=== PATIENT | male | born 1945 | race Caucasian/White ===

== ENCOUNTER → 2016-11-09 | Outpatient (CLI) | payer MEDICARE, OTHER ==
--- NOTE | 2016-11-09 20:17 | US ---
EXAMINATION TYPE: US kidneys/renal and bladder DATE OF EXAM: 11/09/2016 4:27 PM COMPARISON: CLINICAL HISTORY: R10.9 Flank pain,N19 Renal failure. Left flank pain EXAM MEASUREMENTS: Right Kidney: 9.0 x 3.8 x 4.8 cm Left Kidney: 9.3 x 4.4 x 5.0 cm Right Kidney: wnl as visualized Left Kidney: appears lobular, suboptimal visualization due to overlying bowel gas. Bladder: distended, wnl as visualized Bilateral Jets seen There is no evidence for hydronephrosis at this point in time. No nephrolithiasis is seen. No hector s are identified. The urinary bladder is anechoic. Bilateral ureteral jets are seen. IMPRESSION: Negative exam. No evidence of renal mass or obstruction.
== END | disposition home or self-care (01) ==
LOC: RADUSWWP 16:09
PROVIDERS: ATTEND Family Medicine
DX: R10.9 Unspecified abdominal pain (principal)
CPT/HCPCS: 76770

== ENCOUNTER → 2017-06-10 | Outpatient (CLI) | payer MEDICARE, OTHER ==
--- NOTE | 2017-06-10 15:26 | US ---
EXAMINATION TYPE: US kidneys/renal and bladder DATE OF EXAM: 06/10/2017 COMPARISON: NONE CLINICAL HISTORY: N19 Renal Failure. Patient states no pain EXAM MEASUREMENTS: Right Kidney: 9.1 x 4.1 x 4.5 cm Left Kidney: 8.1 x 4.6 x 4.7 cm Right Kidney: wnl Left Kidney: prominent pyramids seen. Appears slightly lobular and small in size. Bladder: distended, wnl as visualized Bilateral Jets seen There is no evidence for hydronephrosis at this point in time. No nephrolithiasis is seen. No hector s are identified. The urinary bladder is anechoic. Bilateral ureteral jets are seen. IMPRESSION: The kidneys are diminutive with increased renal cortical echogenicity which may reflect medical renal disease.
== END | disposition home or self-care (01) ==
LOC: RADUSWWP 13:59
PROVIDERS: ATTEND Family Medicine
DX: N19 Unspecified kidney failure (principal)
CPT/HCPCS: 76770

== ENCOUNTER 2019-02-22 18:10 | Inpatient (IN) | payer MEDICARE, OTHER ==
[2019-02-22 19:46] LABS: Basophils # (A) 0.1 k/uL (0-0.2); Basophils % (A) 1 %; Eosinophils # (A) 0.1 k/uL (0-0.7); Eosinophils % (A) 2 %; HCT 37.4 % (39.0-53.0); HGB 12.1 gm/dL (13.0-17.5); Lymphocytes # (A) 1.2 k/uL (1.0-4.8); Lymphocytes % (A) 19 %; MCH 30.8 pg (25.0-35.0); MCHC 32.3 g/dL (31.0-37.0); MCV 95.3 fL (80.0-100.0); Mean Platelet Volume 7.9; Monocytes # (A) 0.3 k/uL (0-1.0); Monocytes % (A) 5 %; Neutrophils # (A) 4.5 k/uL (1.3-7.7); Neutrophils % (A) 72 %; Platelet Count 304 k/uL (150-450); RBC 3.93 m/uL (4.30-5.90); RDW 14.1 % (11.5-15.5); WBC 6.2 k/uL (3.8-10.6)
--- NOTE | 2019-02-22 20:10 | HP ---
HISTORY AND PHYSICAL CHIEF COMPLAINT: Abnormal weight loss, confusion, mental status changes and stool positive for occult blood. HISTORY OF PRESENT ILLNESS: This is the first known admission for this 73-year-old white male. He has been a patient of our practice for many years. [facility] However, the [facility] that he lives with said that the [facility] would not take him. He has not been seen since. He came in on the day of admission, weak, disoriented, ataxic, dehydrated and asthenic. He had lost 16 pounds since spring. He said that he had had some blood in the stool. Rectal exam demonstrated no other abnormality, but the stool was positive for blood. He has a psych history, and the gentleman who brought him to the office thinks that [facility], and this individual felt that the patient had deteriorated since then. He will let us know what medications Mr. Galdamez was on after he goes home. It was thought that the patient should be admitted for workup for his abnormal weight loss and GI blood loss in addition to undergoing a thorough psychiatric evaluation. The patient and the gentleman that he lives with state that he would like to be in an extended-care facility in [place]. REVIEW OF SYSTEMS: Not reliably obtained. Past medical history, family history, and personal and social histories are similarly not reliably obtained. He is NOT ALLERGIC TO ANY MEDICATION. Past history from his office notes indicate that he has a history of hypertension, hyperlipidemia, depression, GERD, chronic renal failure, previous CVA, hypothyroidism, arthritis and the possibility of a prior neoplasm, site unknown. Medication when he was seen by us before were: 1. Seroquel 300 mg at bedtime. 2. Slow-Mag 64 mg once a day. 3. Meclizine 12.5 twice a day p.r.n. 4. Simvastatin 10 mg at bedtime. 5. Levothyroxine 0.05 mg a day. 6. Ranitidine 150 mg twice a day. 7. Lamotrigine 150 mg twice a day. 8. Cilostazol 100 mg once a day. 9. Hydrochlorothiazide 25 mg once a day. 10.BuSpar extended-release 200 mg twice a day. He has never been a smoker and he does not drink. PHYSICAL EXAMINATION: Blood pressure is 118/72, pulse 74 and regular, respirations 12. He is afebrile. In general, he appeared to be asthenic, dehydrated and slightly pale. Head, ears, eyes, nose, mouth and throat were unremarkable. He had a heavy merritt. Neck veins were not distended. Thyroid was not enlarged. Carotids were normal. Chest was clear to auscultation. Cardiac exam demonstrated sinus rhythm with no murmurs or extra sounds. Abdomen was flat and soft. There were no masses or visceromegaly. There was no tenderness. Bowel sounds present. Extremities were unremarkable. Neurologically he had no cranial nerve or focal deficits, but he was slow to respond to questions, mumbled and seemed disoriented at times. The Romberg was negative. The remainder of his neurologic exam seemed to be normal other than generalized weakness. He is admitted to the hospital with the diagnoses: 1. Abnormal weight loss. 2. Mental status changes. 3. Gastrointestinal blood loss. 4. History of schizophrenia. 5. History of depression. 6. History of hypothyroidism. PLAN: 1. Bed rest. 2. IV fluids. 3. GI workup. 4. CT of the brain. 5. Psychiatric evaluation. 6. Placement. MMODL / IJN: [id number] /
[2019-02-23 00:31] LABS: ALT <6 U/L (21-72); AST 18 U/L (17-59); African American GFR (CKD) 73 (>60 ml/min/1.73 sqM); Albumin 3.3 g/dL (3.5-5.0); Alkaline Phosphatase 50 U/L (38-126); Anion Gap 8 mmol/L; Blood Urea Nitrogen 25 mg/dL (9-20); Calcium 9.1 mg/dL (8.4-10.2); Carbon Dioxide 30 mmol/L (22-30); Chloride 104 mmol/L (98-107); Glucose 176 mg/dL (74-99); Potassium 3.7 mmol/L (3.5-5.1); Sodium 142 mmol/L (137-145); Total Bilirubin 0.3 mg/dL (0.2-1.3); Total Protein 5.7 g/dL (6.3-8.2)
[2019-02-23 00:48] LABS: T4, Free (Free Thyroxine) 1.28 ng/dL (0.78-2.19)
[2019-02-23 04:35] LABS: Hemoglobin A1C 5.1 % (4.0-6.0)
--- NOTE | 2019-02-23 08:15 | CT ---
EXAMINATION TYPE: CT brain wo/w con DATE OF EXAM: 02/23/2019 COMPARISON: None Contrast:Isovue 300/100 ml. HISTORY: altered mental status CT DLP: 1853 mGycm Unenhanced followed by contrast enhanced CT of the brain was performed. The ventricles, basal cisterns and sulci overlying the cerebral convexities demonstrate moderate enla rgement. There is no evidence for intracranial hemorrhage or sulcal effacement. There is decreased attenuation about the periventricular white matter and deep white matter of both c erebral hemispheres, compatible with chronic small vessel ischemia. Differential diagnosis does inclu de demyelination. No mass effects are seen.No midline shift. Osseous calvarium is intact. If symptoms persist consider MRI. No enhancing lesions or pathologic enhancement identified. IMPRESSION: 1. Age related atrophic and chronic small vessel ischemic change without acute intracranial process s een at this time.
--- NOTE | 2019-02-23 08:20 | XR ---
EXAMINATION TYPE: XR chest 2V DATE OF EXAM: 02/23/2019 COMPARISON: NONE HISTORY: Abnormal weight loss TECHNIQUE: Frontal and lateral views of the chest are obtained. FINDINGS: There is no focal air space opacity, pleural effusion, or pneumothorax seen. The cardiac silhouette size is within normal limits. In moderate curvature of the right lower bony thorax may be congenital or related to prior trauma although no fracture deformities are seen. The osseous structur es are intact. Minimal degenerative changes of the thoracic spine. IMPRESSION: No acute cardiopulmonary process.
[2019-02-23 11:31] VITALS: BMI 20.2
[2019-02-23] MEDS ORDERED: PEG 3350-NA SULF,BICARB,CL/KCL 4,000 ML BOTTLE PO ONE (16:00)
--- NOTE | 2019-02-23 16:35 | P.CN ---
Psychiatric Consult - . Consult date: 02/23/19 Consult:: 02/23/19 16:26 IDENTIFYING DATA: This patient is a 73-year-old male who states he lives with his and has 2 children and is currently retired. HISTORY OF PRESENT ILLNESS: The patient was brought into the hospital with a co mplaint of disorientation, dehydration and blood in his stool. As per report patient has lost 16 pounds since the spring. There is also mention in the EMR the patient has had a recent change in his psychiatric medications from [facility] head was done and showed age-related chronic small vessel ischemia with no acute processes. The [facility] was consulted for weight loss mental status changes and schizophrenia? Patient was seen sitting upright beside his bed on the chair and was agreeable and polite and pleasant with the service writer. Patient had concrete thought process and delayed thoughts. Patient states that he has poor memory however offers no other complaints. He states that he did lose weight recently. Patient is a poor historian. He claims that his mood and anxiety are unchanged and he feels "good" denies any depressive symptoms at this time. He states that he is hard of hearing. Patient denies any changes in his appetite or sleep claims to be sleeping through the night.. At this time patient denies any suicidal or homical ideations, intent or plan. Patient denies any auditory, visual hallucinations and denies any paranoia or delusions. PAST PSYCHIATRIC HISTORY: Patient claims that he had 1 previous psychiatric admission by using the [facility] however does not recall the reason. Patient also states that he has been diagnosed with bipolar in the past and has been on mood stabilizing medications. Patient admitted to be on Seroquel, BuSpar and Lamictal and Wellbutrin in the past. Patient claims that he recently started following up at the [facility] in [place]. PAST MEDICAL HISTORY: Hypertension, hyperlipidemia, GERD, see Danay, CVA, thyroid disorder. ALLERGIES: No known drug allergies. CHEMICAL DEPENDENCY HISTORY: Patient denies any substance use or any alcohol. FAMILY PSYCHIATRIC/SUBSTANCE USE HISTORY: He claims his father had bipolar disorder. SOCIAL HISTORY: Patient states that he was born and raised in [facility] and was in the [employer] in the past in the 70s. Patient currently lives with his and has 2 children and is retired. MENTAL STATUS EXAM: General Appearance: Patient appears older than stated age, is frail and tall sitting in a chair no agitation noted to distress. Patient has fair hygiene and fair grooming. Behavior: Patient is calmly seated by his bed without any agitated behavior. Speech: Patient's speech is fluent and nonpressured. Mood/Affect: Patient reports their mood is "okay", affect is congruent Suicidality/Homicidality: Patient denies having any suicidal or homicidal ideation intent or plan. Perceptions: Patient denies any auditory or visual hallucinations. Though content/process: There is no evidence of any delusional thought content and thought process is linear and goal-directed. Memory and concentration: AOX3, grossly intact for the purposes of this session. Cannot spell "WORLD" backwards. Patient has fair fund of knowledge poor word recall cannot recall 3 of 3 words after 5 minutes. Intact repetition and naming of objects. Patient has fair judgment Judgment and insight: fair IMPRESSIONS: Bipolar disorder unspecified PLAN: -At this time patient patient does NOT meet criteria for inpatient psychiatric admission. -Delirium precautions recommended with patient including - avoiding use of narcotics and REVIVAL CLERK sedatives, limit anticholinergic medications when possible, frequent re-orientation, minimize use of restraints, open window shades during the day and close them at night -Would recommend the following medication changes/additions: Patient can continue on current dose of Lamictal for mood stabilization. We'll start Seroquel 25 mg daily at bedtime for mood stabilization/insomnia. -[facility] obtaining [facility] for [facility] medication list and diagnoses. -Psychiatry to follow up if needed. Thank you for the consult
[2019-02-23] MEDS: QUEtiapine 25 MG TAB PO SCH (21:00)
[2019-02-23] MEDS: lamoTRIgine 25 MG TAB PO SCH (21:00)
--- NOTE | 2019-02-23 22:27 | PN ---
PROGRESS NOTE CHIEF COMPLAINT: GI bleeding, mental status changes. HISTORY OF PRESENT ILLNESS: This gentleman seems improved today from the mental point of view. He is more communicative and makes eye contact. He has had no abdominal pain, no further bleeding and he is being assessed by Gastroenterology. PHYSICAL EXAM: HEENT is normal. Chest is clear. Cardiac exam is normal. Abdomen is soft, nontender without masses. IMPRESSION: 1. Mental status changes. 2. Gastrointestinal blood loss. 3. Schizophrenia. PLAN: Continue to monitor neurologically and psychiatrically. He will be seen by Psychiatry and he is being prepped for endoscopy. MMODL / IJN: [id number] /
--- NOTE | 2019-02-23 22:50 | CONS ---
CONSULTATION DATE OF DICTATION: 02/23/2019 REASON FOR CONSULTATION: Abnormal weight loss, Hemoccult-positive stools. HISTORY OF PRESENT ILLNESS: The patient is a 73-year-old pleasant white male who was admitted to the hospital by Dr. Tobias directly from his office because of ongoing progressive weight loss of 16 pounds in the last 6 months' duration. He was complaining of intermittent rectal bleeding on and off for the last few weeks. He denies any abdominal pain, reports no nausea, vomiting. Denies any fever, chills, night sweats. We are consulted for possible GI workup during this hospitalization. PAST MEDICAL HISTORY: Past medical history is significant for: 1. Anxiety. 2. Depression. 3. Hypothyroidism. 4. Hypertension. 5. Hypercholesteremia. MEDICATIONS AT HOME: 1. Lamictal. 2. Wellbutrin. 3. Simvastatin. 4. Ranitidine. 5. Multivitamin. 6. Antivert. 7. Magnesium chloride. 8. Synthroid. 9. HydroDIURIL. 10.Neurontin. 11.Pletal. 12.Tylenol. ALLERGIES: NONE. SOCIAL HISTORY: Chronic smoker. No alcohol use. FAMILY HISTORY: Unremarkable. REVIEW OF SYSTEMS: CARDIOPULMONARY: He denies any chest pain or shortness of breath. GENITOURINARY: No dysuria or hematuria. MUSCULOSKELETAL: Chronic back pain. NEUROLOGY: Unremarkable. PSYCHIATRY: Anxiety, depression. ENT/VISION: Unremarkable. CONSTITUTIONAL: Weight loss of 16 pounds. No fever, chills, night sweats. HEMATOLOGY: Unremarkable. ENDOCRINE: Unremarkable. PHYSICAL EXAMINATION: He appears comfortable. No apparent distress. VITAL SIGNS: Stable. Blood pressure 159/74, pulse rate 54, temperature 97.9. HEENT examination unremarkable. Conjunctivae pink. Sclerae anicteric. Oral cavity no lesions. NECK: No JVD or lymph node enlargement. CHEST: Clear to auscultation. HEART: Regular rate and rhythm. ABDOMEN: Soft. Bowel sounds are positive. No organomegaly. EXTREMITIES: No pedal edema. SKIN: No rashes. NEUROLOGIC: Alert and oriented x3. No focal deficits. LABS: Labs done at the time of admission to the hospital showed WBC 6.2, hemoglobin 12.1, platelets normal. Basic metabolic panel is within normal limits. AST, ALT, T- bilirubin and alkaline phosphatase are normal. IMPRESSION: 1. This is a patient who presented to the hospital with progressive weakness, intermittent rectal bleeding, weight loss of 16 pounds in the last 6 months' duration. He was noted to have mild anemia with a hemoglobin of 12.1, and stool Hemoccult was positive. 2. History of anxiety, depression, on multiple psychiatric medications. RECOMMENDATIONS: Will proceed with EGD and colonoscopy as part of workup of progressive weight loss as well as Hemoccult-positive stool. I discussed with the patient risks, benefits and complications, and he is agreeable to it. He is scheduled for the procedures tomorrow. Thank you for this consultation. MMODL / IJN: [id number] /
[2019-02-24] MEDS: lamoTRIgine 25 MG TAB PO SCH ×2 (09:58→21:20)
[2019-02-24] MEDS ORDERED: IV FLUID CONTINUATION 900 ML IV ONE (14:44)
[2019-02-24] MEDS ORDERED: PROPOFOL 10 MG/ML 20 ML VIAL IV ONE (14:51)
[2019-02-24] MEDS ORDERED: LIDOCAINE 1% INJ 10MG/ML (20 ML MDV) ONE (14:51)
--- NOTE | 2019-02-24 15:06 | PN ---
PROGRESS NOTE DATE OF SERVICE: 02/24/2019. CHIEF COMPLAINT: Mental status changes, abnormal weight loss, GI blood loss and schizophrenia. HISTORY OF PRESENT ILLNESS: This gentleman seems to be improving psychiatrically in terms of his mentation. He is going for upper and lower GI endoscopies. When he came into the hospital, his caregiver indicated that the patient wanted to be in the [facility] in [place]. Now, he acts surprised when he is asked about it. Supervisor [employer] is working on his discharge plan. PHYSICAL EXAMINATION: Chest is clear. Cardiac exam is normal. The abdomen is soft, without masses. Extremities are normal. IMPRESSION: 1. Mental status changes. 2. Schizophrenia. 3. Abnormal weight loss. 4. Gastrointestinal blood loss. PLAN: Await endoscopies and discharge planning. MMMICHELLEL / IJN: [id number] /
--- NOTE | 2019-02-24 15:32 | P.PCN ---
Date of Procedure: 02/24/19 Procedure(s) Performed: Brief history: Patient is a pleasant 73-year-old white male admitted to the hospital with progressive weight loss of 15 pounds in the last 6 months duration. His been complaining of intermittent rectal bleeding. He is hence scheduled for an elective upper endoscopy as well as colonoscopy as a part of evaluation of weight loss. Procedure performed: Esophagogastroduodenoscopy with biopsy Colonoscopy Preoperative diagnosis: Progressive weight loss and intermittent rectal bleeding. Anesthesia: MAC Procedure: After informed consent was obtained from the patient was brought into the endoscopy unit and IV sedation was administered by anesthesia under continuous monitoring. Initially upper endoscopy was done. The Olympus GF 160 video endoscope was inserted inserted into the mouth and esophagus intubated without any difficulty and was gradually advanced into the stomach and duodenum and carefully examined. The bulb and second part of the duodenum appeared normal. Biopsies were done from the duodenum to rule out celiac disease. The scope was then withdrawn into the stomach adequately insufflated with air and upon careful examination the antrum had gastritis and biopsies were done from this area. The body, cardia and fundus appeared normal. The scope was then withdrawn into the esophagus. The GE junction was located at 40 cm to the incisors. It appeared regular with no erythema erosions or ulcerations. Rest of the esophagus appeared normal. Patient tolerated the procedure well. At this time the patient continued to remain sedation. Initial digital rectal examination was normal. Olympus CF 160 video colonoscope was then inserted into the rectum and gradually advanced to the cecum without any difficulty. Careful examination was performed as the scope was gradually being withdrawn. The prep w poor and several areas of the colon. Thorough irrigation was performed. The visualized portions of the cecum, ascending colon, transverse colon, descending colon, sigmoid colon and rectum appeared normal. Retroflexion was performed in the rectum and [place] internal hemorrhoids ere noted. Patient tolerated the procedure well. Impression: 1. Upper endoscopy revealed mild antral gastritis and duodenitis. 2. Colonoscopy revealed poor prep but no evidence of colitis or colorectal neoplasia. Small internal hemorrhoids were seen. Recommendations: Findings of this examination were discussed with the patient, at this time will await the biopsy results. Diet will be advanced as tolerated. ]
--- NOTE | 2019-02-24 17:56 | CDI ---
Documentation Clarification Form Date: 02/24/2019 5:33:51 PM From: Vivi Deluna RN, CCDS Admit Date: 02/22/2019 6:39:00 PM Patient Name: Garcia Galdamez Visit Number: [id number] Discharge Date: ATTENTION: The Clinical Documentation Specialists (CDI) and [facility] Coding Staff appreciate your assistance in clarifying documentation. Please respond to the clarification below the line at the bottom and electronically sign. The CDI & [facility] Coding staff will review the response and follow-up if needed. Please note: Queries are made part of the Legal Health Record. If you have any questions, please contact the author of this message via ITS. Dr. Bal Tobias Unintended weight loss in documented in the nutritional assessment. History/Risk Factors: Hypothyroid, Schizophrenia, Depression, Chronic renal failure Clinical Indicators: 73-year-old male with confusion, and stools positive for occult blood also notes abnormal weight loss 16 pounds reports since Spring per EMR. He is weak, disoriented, ataxic dehydrated and asthenic. Patient physical appearance is frail and underweight. 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 Mild Protein-Calorie Malnutrition ?Moderate Protein-Calorie Malnutrition Other condition, please specify ?Unable to determine (Last Revision: December 2018) MTDD
--- NOTE | 2019-02-24 18:13 | CDI ---
Documentation Clarification Form Date: 02/24/2019 6:03:33 PM From: Vivi Deluna RN, CCDS Admit Date: 02/22/2019 6:39:00 PM Patient Name: Garcia Galdamez Visit Number: [id number] Discharge Date: ATTENTION: The Clinical Documentation Specialists (CDI) and [facility] Coding Staff appreciate your assistance in clarifying documentation. Please respond to the clarification below the line at the bottom and electronically sign. The CDI & [facility] Coding staff will review the response and follow-up if needed. Please note: Queries are made part of the Legal Health Record. If you have any questions, please contact the author of this message via ITS. Dr. Bal Tobias Patient was admitted with abnormal weight loss, confusion, stool positive for occult blood. History/Risk Factors: Chronic renal failure, Hypothyroid Schizophrenia, Clinical Indicators: 73-year-old male on of admission, weak, disoriented, ataxic, dehydrated and asthenic. He had lost 16 pounds in 6 months. Current BUN 25 CR 1.16, GFR 64 Treatment: Monitor I/O IV fluids per orders In order to capture the severity of condition, please clarify if the condition signifies: CKD Stage 1 (GFR > 90) CKD Stage 2 (GFR 60-89) CKD Stage 3 (GFR 30-59) Other, please specify Unable to determine (Last Revision: September 2017) MTDD
--- NOTE | 2019-02-24 18:33 | CDI ---
Documentation Clarification Form Date: 02/24/2019 6:13:23 PM From: Vivi Deluna RN, CCDS Admit Date: 02/22/2019 6:39:00 PM Patient Name: Garcia Galdamez Visit Number: [id number] Discharge Date: ATTENTION: The Clinical Documentation Specialists (CDI) and [facility] Coding Staff appreciate your assistance in clarifying documentation. Please respond to the clarification below the line at the bottom and electronically sign. The CDI & [facility] Coding staff will review the response and follow-up if needed. Please note: Queries are made part of the Legal Health Record. If you have any questions, please contact the author of this message via ITS. Dr. Jaylan Cool Altered Mental Status was documented in the H/P ongoing progress notes and in your consultation and further clarification is needed. History/Risk Factors: Hypothyroid, Schizophrenia, Bipolar disorder, Chronic renal failure Clinical Indicators: 73-year-old male brought to hospital with complaint of disorientation, dehydration and blood in his stool. He also report lost 16 pounds since spring. It was mention in the EMR the patient has had a recent [facility] Memory and concentration: /OX3, grossly intact for this session, Patient has poor word recall cannot recall 3 of 3 words after [address] Brain: Age-related chronic small vessel ischemia with no acute processes. Labs: WBC 6.2, HGB 12.1 HCT 37.4 Vital signs on admission: 159/74 54 22 97.8 99 % RA Treatment: Neurological assessment per protocol Lamictal 25 mg BID (titrate) mood stabilization Seroquel 25 mg daily at bedtime In your professional opinion, please clarify the etiology of the Altered Mental Status, if known. Delirium (specify cause): Encephalopathy (specify Type: Metabolic, Toxic, and Underlying Medical Illness)_ Other condition (please specify) Unable to determine (Last Revision: September 2017) clarification of diagnosis: Altered mental status cause unable to determine MTDD
[2019-02-24] MEDS: QUEtiapine 25 MG TAB PO SCH (21:20)
[2019-02-25] MEDS: lamoTRIgine 25 MG TAB PO SCH ×2 (07:27→20:49)
--- NOTE | 2019-02-25 14:01 | PN ---
PROGRESS NOTE CHIEF COMPLAINT: Mental status changes, abnormal weight loss and GI bleeding. HISTORY OF PRESENT ILLNESS: This gentleman is currently stable. He is awake and alert and communicative. PHYSICAL EXAM: Color remains fairly good. Chest is clear. Cardiac exam is normal. Abdomen is soft, nontender. IMPRESSION: 1. Mental status changes. 2. Abnormal weight loss. 3. GI bleeding. 4. Schizophrenia. PLAN: 1. Await endoscopies. 2. Discussed discharge planning. He would like to return home, but is willing to go to [facility] in [place] if this is the where he can get the best take care and attention. MMODL / IJN: [id number] /
--- NOTE | 2019-02-25 14:13 | MISC ---
MISCELLANOUS REPORT Unable to determine. GFR 64 B stage II CKD. MMODL / IJN: [id number] /
[2019-02-25] MEDS: QUEtiapine 25 MG TAB PO SCH (20:49)
[2019-02-26] MEDS: lamoTRIgine 25 MG TAB PO SCH ×2 (06:47→20:18)
[2019-02-26] MEDS: QUEtiapine 25 MG TAB PO SCH (20:18)
[2019-02-26 23:35] VITALS: RESP 20
[2019-02-27 05:13] VITALS: BP 129/71; PULSE 88; TEMP 97.8
[2019-02-27] MEDS: lamoTRIgine 25 MG TAB PO SCH (07:12)
--- NOTE | 2019-02-27 13:42 | CDI ---
Documentation Clarification Form Date: 02/27/2019 1:32:09 PM From: Vivi Deluna RN, CCDS Admit Date: 02/22/2019 6:39:00 PM Patient Name: Garcia Galdamez Visit Number: [id number] Discharge Date: ATTENTION: The Clinical Documentation Specialists (CDI) and [facility] Coding Staff appreciate your assistance in clarifying documentation. Please respond to the clarification below the line at the bottom and electronically sign. The CDI & [facility] Coding staff will review the response and follow-up if needed. Please note: Queries are made part of the Legal Health Record. If you have any questions, please contact the author of this message via ITS. Dr. Katia Urban A diagnosis of anemia lacks specificity to accurately reflect your patients severity of condition and clarification is needed. History/Risk Factors: Clinical indicators: 73-year-old male preset with progressive weakness, intermittent rectal bleeding, weight loss of 16 pound in the last 6 months. In your progress note on 02/24/19 mild anemia with a hemoglobin of 12.1 , and stool hemoccult was positive is noted. Hemoglobin: 12.1 Hematocrit: 37.4 Treatment: GI consult EGD/Colonscopy In order to capture the severity of condition, please clarify the type of anemia and etiology if known: Acute blood loss anemia Acute on chronic blood loss anemia Chronic blood loss anemia Iron deficiency anemia Nutritional anemia Anemia of chronic kidney disease (CKD stage II) Unable to determine Other, please specify (Last Revision: March 2017) Unable to determine the cause of anemia Katia Urban MTDD
--- NOTE | 2019-02-27 15:06 | DS ---
DISCHARGE SUMMARY CHIEF COMPLAINT: Mental status changes, GI bleed. HISTORY OF PRESENT ILLNESS AND PHYSICAL EXAM: Details of this man's history and physical can be found in the initial workup. LABORATORY STUDIES: While he was in a hospital, he had laboratory studies, details of which can be found in the laboratory section of his chart. COURSE IN HOSPITAL: After admission, placed on bedrest and started on intravenous fluids and frequent monitoring of his vital signs and GI bleeding. He was seen by GI and taken for upper and lower GI endoscopy, which demonstrated internal hemorrhoids. He was seen by Psychiatry and his psych medicines were unchanged. While in the hospital, he developed complete alertness and orientation and behavior was quite normal. The discharge plan was then put into place and the question was whether or not he would go back home where it was felt he was not functioning well by his family or to a halfway. Arrangements were made for him to go to [facility] and he will be transferred there on 02/27. FINAL DIAGNOSES: 1. Mental status changes. 2. Lethargy. 3. History of schizophrenia. 4. GI blood loss. 5. Internal hemorrhoids. OPERATIONS: Upper and lower GI endoscopies. CONSULTATIONS: Gastroenterology and Psychiatry. He is improved. MMODL / IJN: [id number] /
--- NOTE | 2019-02-27 17:03 | PN ---
PROGRESS NOTE CHIEF COMPLAINT: Mental status changes and GI bleed. HISTORY OF PRESENT ILLNESS: This gentleman is doing well. Emotionally and psychiatrically he seems perfectly normal now. He is very communicative and alert. His endoscopies only demonstrated internal hemorrhoids. PHYSICAL EXAMINATION: His color is good. Chest is clear. Cardiac exam is normal. Abdomen is soft, nontender. IMPRESSION: 1. Mental status changes. 2. Gastrointestinal blood loss. 3. Internal hemorrhoids. 4. Schizophrenia. PLAN: We are waiting on discharge. It is not clear if he will either be going home or to [facility], but this should be resolved early in the week. MMODL / IJN: [id number] /
== END 2019-02-27 17:01 | DRG 379 ==
LOC: 4MS4W 18:39
PROVIDERS: ADMIT Family Medicine; ATTEND Family Medicine
PROC: 0DB98ZX Excision of Duodenum, Via Natural or Artificial Opening Endoscopic, Diagnostic (ICD-10-PCS; principal; 2019-02-24 14:40)
PROC: 0DB78ZX Excision of Stomach, Pylorus, Via Natural or Artificial Opening Endoscopic, Diagnostic (ICD-10-PCS; principal; 2019-02-24 14:40)
PROC: 0DJD8ZZ Inspection of Lower Intestinal Tract, Via Natural or Artificial Opening Endoscopic (ICD-10-PCS; principal; 2019-02-24 14:40)
DX: K29.71 Gastritis, unspecified, with bleeding (principal); F20.9 Schizophrenia, unspecified; K64.8 Other hemorrhoids; R41.82 Altered mental status, unspecified; F31.9 Bipolar disorder, unspecified; E78.00 Pure hypercholesterolemia, unspecified; E03.9 Hypothyroidism, unspecified; D64.9 Anemia, unspecified; E86.0 Dehydration; F17.200 Nicotine dependence, unspecified, uncomplicated; I10 Essential (primary) hypertension; K29.80 Duodenitis without bleeding; F41.9 Anxiety disorder, unspecified; N18.2 Chronic kidney disease, stage 2 (mild); K21.9 Gastro-esophageal reflux disease without esophagitis; E78.5 Hyperlipidemia, unspecified; Z86.73 Personal history of transient ischemic attack (TIA), and cerebral infarction without residual deficits
CPT/HCPCS: 43239; 45378; 70470; 71046; 80053; 83036; 84153; 84439; 85025; 88305

== ENCOUNTER 2019-05-09 04:33 | Inpatient (IN) | payer MEDICARE, OTHER ==
[2019-05-09] MEDS ORDERED: ONDANSETRON 4 MG/2 ML VIAL IVP STA (04:54)
[2019-05-09] MEDS ORDERED: PIPERACILLIN-TAZOBACTAM 3.375 GM in SODIUM CHLORIDE 0.9% 100 ML IVPB STA (04:55)
[2019-05-09] MEDS ORDERED: NALOXONE 0.4 MG/ML 1 ML VIAL IV PRN ×2 (05:07→10:30)
[2019-05-09] MEDS ORDERED: ACETAMINOPHEN TAB 325 MG TAB PO PRN (05:07)
[2019-05-09] MEDS ORDERED: ONDANSETRON 4 MG/2 ML VIAL IVP PRN ×2 (05:07→09:09)
[2019-05-09] MEDS ORDERED: HYDROmorphone 0.5 MG/0.5 ML SYRINGE IVP PRN (05:07)
--- NOTE | 2019-05-09 05:13 | ED ---
General Adult HPI - General Chief complaint: Abdominal Pain Stated complaint: Bowel Obstruction Time Seen by Provider: 05/09/19 04:37 Source: patient, EMS, RN notes reviewed, old records reviewed Mode of arrival: EMS - History of Present Illness Initial comments: 34-year-old male presenting as transfer from outside facility for evaluation of small bowel obstruction. Patient has had 5 days of nausea and vomiting and abdominal distention. He received workup at an outside facility including CT of the abdomen and pelvis which revealed small bowel obstruction. He was transfer red for surgical evaluation of this institution. He denies fever or chills. He denies any pain complaints time my evaluation. He does report some persistent nausea without vomiting in the last 6 hours. - Related Data Home Medications Medication Instructions Recorded Confirmed Acetaminophen [Tylenol] 650 mg PO BID 02/22/19 02/22/19 Cilostazol [Pletal] 100 mg PO DAILY 02/22/19 02/22/19 Gabapentin [Neurontin] 300 mg PO BID 02/22/19 02/22/19 Hydrochlorothiazide [Hydrodiuril] 25 mg PO DAILY 02/22/19 02/22/19 Levothyroxine Sodium [Synthroid] 50 mcg PO DAILY 02/22/19 02/22/19 Magnesium Chloride [Mag64] 64 mg PO DAILY 02/22/19 02/22/19 Meclizine [Antivert] 12.5 mg PO BID 02/22/19 02/22/19 Multivitamins, Thera [Multivitamin 1 tab PO DAILY 02/22/19 02/22/19 (formulary)] Ranitidine HCl 150 mg PO BID 02/22/19 02/22/19 Simvastatin 10 mg PO HS 02/22/19 02/22/19 Previous Rx's Medication Instructions Recorded QUEtiapine [SEROquel] 25 mg PO HS #30 tab 02/27/19 lamoTRIgine [LaMICtal] 25 mg PO BID #3 tab 02/27/19 Allergies Allergy/AdvReac Type Severity Reaction Status Date / Time No Known Allergies Allergy Verified 02/22/19 20:09 Review of Systems ROS Statement: Those systems with pertinent positive or pertinent negative responses have been documented in the HPI. ROS Other: All systems not noted in ROS Statement are negative. Past Medical History Past Medical History: Hyperlipidemia, Hypertension, Thyroid Disorder History of Any Multi-Drug Resistant Organisms: None Reported Past Surgical History: Appendectomy, Cholecystectomy, Tonsillectomy Additional Past Surgical History / Comment(s): Hemmroidectomy Past Anesthesia/Blood Transfusion Reactions: No Reported Reaction Past Psychological History: Depression Smoking Status: Former smoker Past Alcohol Use History: None Reported Past Drug Use History: None Reported - Past Family History Father Family Medical History: Cancer Additional Family Medical History / Comment(s): Manic Depression, Ca ?? Mother Family Medical History: Diabetes Mellitus General Exam General appearance: alert Head exam: Present: atraumatic, normocephalic Eye exam: Present: normal appearance ENT exam: Present: mucous membranes dry Neck exam: Present: normal inspection. Absent: tenderness, meningismus Respiratory exam: Present: normal lung sounds bilaterally. Absent: respiratory distress, wheezes Cardiovascular Exam: Present: regular rate, normal rhythm GI/Abdominal exam: Present: distended, tenderness. Absent: guarding, rebound Extremities exam: Present: normal inspection, normal capillary refill. Absent: pedal edema Neurological exam: Present: alert, oriented X3, CN II-XII intact. Absent: motor sensory deficit Psychiatric exam: Present: agitated Skin exam: Present: warm, dry, intact. Absent: cyanosis, diaphoretic Course Vital Signs 05/09/19 04:36 Temperature 98.2 F Pulse Rate 68 Respiratory 18 Rate Blood Pressure 157/85 O2 Sat by Pulse 98 Oximetry Medical Decision Making - Medical Decision Making Medical record reviewed for this transfer patient. Patient was found to have a white count of 15, hemoglobin 13.3. He was found to be in acute renal failure with a creatinine 2.4. He did receive 2 L bolus prior to transfer. Had a lactic acid 1.[address] results were reviewed, showing small bowel obstruction with a transition point in the right abdomen. There is also hernia containing omental fat. Images not available at the time of this dictation. These images will be loaded for further review. Case is discussed with general surgery on-call Dr. Lindquist, he will accept admission with medicine on consult. Patient had refused NG tube prior to transfer despite multiple recommendations at the transferring facility. Again he refuses NG tube in the emergency department. I did make multiple attempts to indicate the importance of this to the patient. He continues to refuse, he does eventually allow us to make one attempt but he immediately pushes back staff from attempts and again refuses NG tube. Disposition Clinical Impression: Small bowel obstruction, Abdominal pain Disposition: ADMITTED IP TO THIS [facility] Condition: Stable Is patient prescribed a controlled substance at d/c from ED?: No Referrals: Bal Tobias MD [Primary Care Provider] - 1-2 days Decision to Admit Reason: Admit from EC Decision Date: 05/09/19 Decision Time: 05:12
[2019-05-09] MEDS ORDERED: SODIUM CHLORIDE 0.9% 1,000 ML IV SCH (05:15)
[2019-05-09 05:43] LABS: Basophils # (A) 0.1 k/uL (0-0.2); Basophils % (A) 0 %; Eosinophils # (A) 0.2 k/uL (0-0.7); Eosinophils % (A) 1 %; Lymphocytes # (A) 1.1 k/uL (1.0-4.8); Lymphocytes % (A) 7 %; MCH 31.6 pg (25.0-35.0); MCHC 33.3 g/dL (31.0-37.0); Mean Platelet Volume 7.2; Monocytes # (A) 0.9 k/uL (0-1.0); Monocytes % (A) 5 %; Neutrophils # (A) 14.2 k/uL (1.3-7.7); Neutrophils % (A) 86 %; Platelet Count 260 k/uL (150-450); RBC 4.42 m/uL (4.30-5.90); RDW 13.4 % (11.5-15.5); WBC 16.5 k/uL (3.8-10.6)
[2019-05-09 06:01] LABS: Albumin 4.4 g/dL (3.5-5.0); Calcium 9.2 mg/dL (8.4-10.2); Potassium 3.9 mmol/L (3.5-5.1); Total Bilirubin 1.5 mg/dL (0.2-1.3); Total Protein 7.1 g/dL (6.3-8.2)
[2019-05-09] MEDS: PANTOPRAZOLE 40 MG/10 ML VIAL IV SCH (07:03)
[2019-05-09 09:32] LABS: INR 0.9 (<1.2); Partial Thromboplastin Time 23.3 sec (22.0-30.0)
[2019-05-09] MEDS ORDERED: IV FLUID CONTINUATION 1,000 ML IV ONE (09:54)
[2019-05-09] MEDS ORDERED: fentaNYL (PF) 50 MCG/ML 2 ML AMP IVP ONE (10:06)
[2019-05-09] MEDS ORDERED: MIDAZOLAM 2 MG/2 ML VIAL IVP ONE (10:06)
--- NOTE | 2019-05-09 10:09 | P.GSHP ---
History of Present Illness H&P Date: 05/09/19 Chief Complaint: Nausea, abdominal pain This is a 72-year-old male who was admitted through the emergency room last night. Patient is a 5 day history of nausea abdominal pain and vomiting. Patient went CAT scan shows evidence of a small bowel obstruction and an omental containing ventral hernia. Past Medical History Past Medical History: Hyperlipidemia, Hypertension, Thyroid Disorder History of Any Multi-Drug Resistant Organisms: None Reported Past Surgical History: Appendectomy, Cholecystectomy, Tonsillectomy Additional Past Surgical History / Comment(s): Hemmroidectomy Past Anesthesia/Blood Transfusion Reactions: No Reported Reaction Past Psychological History: Depression Additional Psychological History / Comment(s): Manic Depression Smoking Status: Former smoker Past Alcohol Use History: None Reported Past Drug Use History: None Reported - Past Family History Father Family Medical History: Cancer Additional Family Medical History / Comment(s): Manic Depression, Ca ?? Mother Family Medical History: Diabetes Mellitus Medications and Allergies Home Medications Medication Instructions Recorded Confirmed Type Cilostazol [Pletal] 100 mg PO DAILY 02/22/19 05/09/19 History Hydrochlorothiazide [Hydrodiuril] 25 mg PO DAILY 02/22/19 05/09/19 History Levothyroxine Sodium [Synthroid] 50 mcg PO DAILY 02/22/19 05/09/19 History Magnesium Chloride [Mag64] 64 mg PO DAILY 02/22/19 05/09/19 History Meclizine [Antivert] 12.5 mg PO BID 02/22/19 05/09/19 History Ranitidine HCl 150 mg PO BID 02/22/19 05/09/19 History Simvastatin 10 mg PO HS 02/22/19 05/09/19 History buPROPion HCL [buPROPion HCL ER] 200 mg PO Q12HR 05/09/19 05/09/19 History lamoTRIgine [LaMICtal] 150 mg PO BID 05/09/19 05/09/19 History Allergies Allergy/AdvReac Type Severity Reaction Status Date / Time No Known Allergies Allergy Verified 05/09/19 08:37 Surgical - Exam Vital Signs Temp Pulse Resp BP Pulse Ox 98.2 F 68 18 157/85 98 05/09/19 04:36 05/09/19 04:36 05/09/19 04:36 05/09/19 04:36 05/09/19 04:36 - General well developed, well nourished, no distress - Eyes PERRL - ENT normal pinna - Neck no masses - Respiratory normal expansion - Cardiovascular Rhythm: regular - Abdomen Abdomen soft. There is evidence of a right subcostal scar and a low midline scar. There is evidence of an incarcerated hernia just above the umbilicus. Hernias is soft with some mild tenderness. There is no rebound or guarding. Abdomen: soft Results - Labs 05/09/19 05:25 05/09/19 05:25 Abnormal Lab Results - Last 24 Hours (Table) 05/09/19 05/09/19 Range/Units 05:25 05:25 WBC 16.5 H (3.8-10.6) k/uL Neutrophils # 14.2 H (1.3-7.7) k/uL Chloride 95 L (98-107) mmol/L BUN 73 H (9-20) mg/dL Creatinine 1.96 H (0.66-1.25) mg/dL Glucose 103 H (74-99) mg/dL Total Bilirubin 1.5 H (0.2-1.3) mg/dL ALT 10 L (21-72) U/L Diabetes panel 05/09/19 Range/Units 05:25 Sodium 137 (137-145) mmol/L Potassium 3.9 (3.5-5.1) mmol/L Chloride 95 L (98-107) mmol/L Carbon Dioxide 30 (22-30) mmol/L BUN 73 H (9-20) mg/dL Creatinine 1.96 H (0.66-1.25) mg/dL Glucose 103 H (74-99) mg/dL Calcium 9.2 (8.4-10.2) mg/dL AST 26 (17-59) U/L ALT 10 L (21-72) U/L Alkaline Phosphatase 54 (38-126) U/L Total Protein 7.1 (6.3-8.2) g/dL Albumin 4.4 (3.5-5.0) g/dL Calcium panel 05/09/19 Range/Units 05:25 Calcium 9.2 (8.4-10.2) mg/dL Albumin 4.4 (3.5-5.0) g/dL Pituitary panel 05/09/19 Range/Units 05:25 Sodium 137 (137-145) mmol/L Potassium 3.9 (3.5-5.1) mmol/L Chloride 95 L (98-107) mmol/L Carbon Dioxide 30 (22-30) mmol/L BUN 73 H (9-20) mg/dL Creatinine 1.96 H (0.66-1.25) mg/dL Glucose 103 H (74-99) mg/dL Calcium 9.2 (8.4-10.2) mg/dL Adrenal panel 05/09/19 Range/Units 05:25 Sodium 137 (137-145) mmol/L Potassium 3.9 (3.5-5.1) mmol/L Chloride 95 L (98-107) mmol/L Carbon Dioxide 30 (22-30) mmol/L BUN 73 H (9-20) mg/dL Creatinine 1.96 H (0.66-1.25) mg/dL Glucose 103 H (74-99) mg/dL Calcium 9.2 (8.4-10.2) mg/dL Total Bilirubin 1.5 H (0.2-1.3) mg/dL AST 26 (17-59) U/L ALT 10 L (21-72) U/L Alkaline Phosphatase 54 (38-126) U/L Total Protein 7.1 (6.3-8.2) g/dL Albumin 4.4 (3.5-5.0) g/dL Assessment and Plan Assessment: Small bowel obstruction Incarcerated ventral hernia Patient undergo exploratory laparotomy and repair of ventral hernia and repair of small bowel obstruction. The risk of small bowel resection and discussed with the patient.
[2019-05-09] MEDS ORDERED: ONDANSETRON 4 MG/2 ML VIAL IVP ONE (10:33)
[2019-05-09] MEDS ORDERED: NEOSTIGMINE 1 MG/ML 10 ML VIAL ONE (10:39)
[2019-05-09] MEDS ORDERED: GLYCOPYRROLATE 0.2 MG/ML 2 ML VIAL ONE (10:39)
[2019-05-09] MEDS ORDERED: LIDOCAINE 1% INJ 10MG/ML (20 ML MDV) ONE (10:39)
[2019-05-09] MEDS ORDERED: SUCCINYLCHOLINE CHLORIDE 100 MG/5 ML SYR IV ONE (10:39)
[2019-05-09] MEDS ORDERED: PROPOFOL 10 MG/ML 20 ML VIAL IV ONE (10:39)
[2019-05-09] MEDS ORDERED: fentaNYL (PF) 50 MCG/ML 2 ML AMP ONE (10:39)
[2019-05-09] MEDS ORDERED: HYDROmorphone (PF) 1 MG/ML ONE (10:39)
[2019-05-09] MEDS ORDERED: MIDAZOLAM 2 MG/2 ML VIAL ONE (10:39)
[2019-05-09] MEDS ORDERED: ROCURONIUM BROMIDE 10 MG/ML 10 ML VIAL IV ONE (10:39)
--- NOTE | 2019-05-09 10:44 | P.PN ---
Progress Note - Text Progress Note Date: 05/09/19 The patient will be made full code during his operative and perioperative time.
--- NOTE | 2019-05-09 11:06 | CONS ---
CONSULTATION CHIEF COMPLAINT: A 5-day history of abdominal pain. HISTORY OF PRESENT ILLNESS: This is another admission for this 74-year-old white male who has a history of chronic schizophrenia, depression, hyperlipidemia and hypertension. He was in the office in February for his annual physical exam and his renal function was normal as was his PSA. At that time, his hemoglobin was 12.1 and blood sugars 176. BUN was 25 with a creatinine 1.16. About 5 days ago he started to have fairly severe crampy abdominal pain and it grew worse and then he started to have nausea and vomiting. He went emergency room in [place] and was transferred here. He had a bowel movement yesterday. He has had no melena, hematochezia, hematemesis, history of gastrointestinal problems, etc. Surgically, he has had an appendectomy, cholecystectomy, and the T and A. REVIEW OF SYSTEMS: He has had no change in vision or hearing, headache, chest pain, cough, hemoptysis, palpitations, hematuria, frequency, urgency, dysuria, nocturia, incontinence, diabetes, etc. Past medical history, family history, personal and social histories reveal he is not allergic to any medication. Medication that he takes at the current time includes: Pletal 100 mg , gabapentin 300 mg b.i.d., hydrochlorothiazide 25 once a day, levothyroxine 0.05 mg a day, Slow-Mag 64 mg once a day, Antivert, ranitidine, and simvastatin. When he was last seen in the office in February, he was on Seroquel, Lamictal and Clozaril. Family history and personal and social histories are otherwise unremarkable or noncontributory. PHYSICAL EXAMINATION: Blood pressure 118/72, pulse 74, respirations 12 and he is afebrile. In general, he appeared to be well developed, well nourished, in no acute distress. He was slightly dehydrated. Head, ears, eyes, nose, mouth, and throat were normal. There is no NG tube. Chest is clear to auscultation and percussion. The cardiac exam demonstrated normal sinus rhythm and no murmurs or extra sounds. The abdomen was protuberant and very tender throughout. Bowel sounds are not heard. Extremities are normal. Neurologically, he is intact. He is admitted to the hospital with diagnoses: 1. Small bowel obstruction. 2. Schizophrenia. 3. Hypertension. 4. Hyperlipidemia. RECOMMENDATIONS: 1. Hydrate carefully and follow renal function, which is probably on a prerenal basis. 2. Chest x-ray and EKG. 3. He is cleared for surgery from my point of view. MIKI / AKANKSHA: [id number] /
[2019-05-09] MEDS ORDERED: LACTATED RINGERS 1,000 ML IV ONE (11:26)
--- NOTE | 2019-05-09 11:55 | P.OP ---
Date of Procedure: 05/09/19 Preoperative Diagnosis: Small bowel obstruction Incisional hernia Postoperative Diagnosis: Small bowel obstruction Incarcerated incisional hernia Procedure(s) Performed: Exploratory laparotomy small bowel resection Repair of incarcerated incisional hernia Lysis of adhesions Anesthesia: LAUREEN Surgeon: Howard Lindquist Estimated Blood Loss (ml): 20 Pathology: other (Small bowel stricture) Condition: stable Disposition: PACU Description of Procedure: The patient was placed on the operating table in the supine position. He received general anesthesia. His abdomen was prepped and draped in usual sterile fashion. The skin was incised in midline. Blood cautery was used to d issect through the subcutaneous tissues. Patient had an incarcerated incisional hernia which contained omentum. The hernia sac was opened and the incarcerated omentum within the hernia was reduced back into the. Cavity. The fascia was then opened along the midline. Proximal 15 minutes of operative time used to lyse adhesions. There appeared to be evidence of a small bowel stricture causing a small bowel obstruction. At this point the bowel was transected proximally and distally to the stricture. This was done using the GI stapler. And then using insulin device the mesentery of the bowel was divided. And then a standard [id number] functional end-to-end staple anastomosis was created using the VINCENZO and TA stapler. A 3-0 GI silk sutures used as a crotch stitch. The small bowel was then run. There is no evidence of any other obstruction. This point the fascia was reapproximated using 0 PDS suture. The incisional hernias repaired using 0 PDS suture in the fascial closure. Skin was closed melida. Patient top she will was sent to recovery room in stable condition
[2019-05-09] MEDS: ROPIVACAINE 250 MG, HYDROMORPHONE (PF) 5 MG in SODIUM CHLORIDE 0.9% 200 ML EPIDURAL PRN ×2 (12:05→12:18)
[2019-05-09] MEDS ORDERED: HYDROmorphone 1 MG/ML 1 ML SYRINGE IM PRN (12:13)
[2019-05-09] MEDS ORDERED: diphenhydrAMINE 50 MG/ML 1 ML VIAL IVP ONE (12:20)
[2019-05-09] MEDS: SODIUM CHLORIDE 0.9% 1,000 ML IV SCH (13:09)
[2019-05-09] MEDS: LACTATED RINGERS 1,000 ML IV SCH ×2 (14:22→17:23)
[2019-05-09 15:39] VITALS: BMI 18.4
[2019-05-09] MEDS: PIPERACILLIN-TAZOBACTAM 3.375 GM in SODIUM CHLORIDE 0.9% 100 ML IVPB SCH (16:42)
[2019-05-09] MEDS: HEPARIN SODIUM,PORCINE 5,000 UNIT/ML 1 ML VIAL SQ SCH (16:45)
[2019-05-09] MEDS: lamoTRIgine 100 MG TAB PO SCH (21:06)
[2019-05-10] MEDS: PIPERACILLIN-TAZOBACTAM 3.375 GM in SODIUM CHLORIDE 0.9% 100 ML IVPB SCH ×4 (00:01→23:46)
[2019-05-10] MEDS ORDERED: SODIUM CHLORIDE 0.9% IRRIGATIO 3,000 ML IRRIGATION ONE (01:27)
--- NOTE | 2019-05-10 01:39 | P.GSCN ---
History of Present Illness Consult date: 05/10/19 History of present illness: The patient is a 74-year-old gentleman in the hospital after an emergency small bowel obstruction surgical repair, due to an incarcerated ventral hernia. He had a catheter indwelling. There had problems a catheter today. Tonight it came out. He has 600 mL urine retention. I been asked to place a catheter as a nursing staffs unable to do so. He denies any problems urinating prior to the hospitalization. is his primary care. Review of Systems ROS unobtainable: due to mental status Past Medical History Past Medical History: Hyperlipidemia, Hypertension, Thyroid Disorder History of Any Multi-Drug Resistant Organisms: None Reported Past Surgical History: Appendectomy, Cholecystectomy, Tonsillectomy Additional Past Surgical History / Comment(s): Hemmroidectomy Past Anesthesia/Blood Transfusion Reactions: No Reported Reaction Past Psychological History: Depression Additional Psychological History / Comment(s): Manic Depression Smoking Status: Former smoker Past Alcohol Use History: None Reported Past Drug Use History: None Reported - Past Family History Father Family Medical History: Cancer Additional Family Medical History / Comment(s): Manic Depression, Ca ?? Mother Family Medical History: Diabetes Mellitus Medications and Allergies Home Medications Medication Instructions Recorded Confirmed Type Cilostazol [Pletal] 100 mg PO DAILY 02/22/19 05/09/19 History Hydrochlorothiazide [Hydrodiuril] 25 mg PO DAILY 02/22/19 05/09/19 History Levothyroxine Sodium [Synthroid] 50 mcg PO DAILY 02/22/19 05/09/19 History Magnesium Chloride [Mag64] 64 mg PO DAILY 02/22/19 05/09/19 History Meclizine [Antivert] 12.5 mg PO BID 02/22/19 05/09/19 History Ranitidine HCl 150 mg PO BID 02/22/19 05/09/19 History Simvastatin 10 mg PO HS 02/22/19 05/09/19 History buPROPion HCL [buPROPion HCL ER] 200 mg PO Q12HR 05/09/19 05/09/19 History lamoTRIgine [LaMICtal] 150 mg PO BID 05/09/19 05/09/19 History Allergies Allergy/AdvReac Type Severity Reaction Status Date / Time No Known Allergies Allergy Verified 05/09/19 08:37 Surgical - Exam Vital Signs Temp Pulse Resp BP Pulse Ox 98.2 F 68 18 157/85 98 05/09/19 04:36 05/09/19 04:36 05/09/19 04:36 05/09/19 04:36 05/09/19 04:36 - General well developed, well nourished, moderate distress - Eyes PERRL - ENT no hearing loss - Neck trachea midline - Respiratory normal expansion, normal respiratory effort - Cardiovascular Rhythm: regular - Abdomen Suprapubic fullness Abdomen: soft, tender - Genitourinary Uncircumcised penis normal penis with no external lesions, testicles present - Neurologic normal coordination, normal sensation - Psychiatric The patient is slightly confused probably due to the anesthetic. He does not know when he had surgery. Results - Labs 05/09/19 05:25 05/09/19 05:25 Abnormal Lab Results - Last 24 Hours (Table) 05/09/19 05/09/19 Range/Units 05:25 05:25 WBC 16.5 H (3.8-10.6) k/uL Neutrophils # 14.2 H (1.3-7.7) k/uL Chloride 95 L (98-107) mmol/L BUN 73 H (9-20) mg/dL Creatinine 1.96 H (0.66-1.25) mg/dL Glucose 103 H (74-99) mg/dL Total Bilirubin 1.5 H (0.2-1.3) mg/dL ALT 10 L (21-72) U/L Diabetes panel 05/09/19 Range/Units 05:25 Sodium 137 (137-145) mmol/L Potassium 3.9 (3.5-5.1) mmol/L Chloride 95 L (98-107) mmol/L Carbon Dioxide 30 (22-30) mmol/L BUN 73 H (9-20) mg/dL Creatinine 1.96 H (0.66-1.25) mg/dL Glucose 103 H (74-99) mg/dL Calcium 9.2 (8.4-10.2) mg/dL AST 26 (17-59) U/L ALT 10 L (21-72) U/L Alkaline Phosphatase 54 (38-126) U/L Total Protein 7.1 (6.3-8.2) g/dL Albumin 4.4 (3.5-5.0) g/dL Calcium panel 05/09/19 Range/Units 05:25 Calcium 9.2 (8.4-10.2) mg/dL Albumin 4.4 (3.5-5.0) g/dL Pituitary panel 05/09/19 Range/Units 05:25 Sodium 137 (137-145) mmol/L Potassium 3.9 (3.5-5.1) mmol/L Chloride 95 L (98-107) mmol/L Carbon Dioxide 30 (22-30) mmol/L BUN 73 H (9-20) mg/dL Creatinine 1.96 H (0.66-1.25) mg/dL Glucose 103 H (74-99) mg/dL Calcium 9.2 (8.4-10.2) mg/dL Adrenal panel 05/09/19 Range/Units 05:25 Sodium 137 (137-145) mmol/L Potassium 3.9 (3.5-5.1) mmol/L Chloride 95 L (98-107) mmol/L Carbon Dioxide 30 (22-30) mmol/L BUN 73 H (9-20) mg/dL Creatinine 1.96 H (0.66-1.25) mg/dL Glucose 103 H (74-99) mg/dL Calcium 9.2 (8.4-10.2) mg/dL Total Bilirubin 1.5 H (0.2-1.3) mg/dL AST 26 (17-59) U/L ALT 10 L (21-72) U/L Alkaline Phosphatase 54 (38-126) U/L Total Protein 7.1 (6.3-8.2) g/dL Albumin 4.4 (3.5-5.0) g/dL Assessment and Plan Assessment: Impression: Postoperative urinary retention with blood per urethra and catheter problems Plan: Catheterization Time with Patient: Greater than 30
--- NOTE | 2019-05-10 01:41 | P.PCN ---
Date of Procedure: 05/10/19 Preoperative Diagnosis: Postoperative urinary retention with inability of nursing staff to pass catheter, hematuria Postoperative Diagnosis: Same Procedure(s) Performed: Difficult catheterization, irrigation of bladder Anesthesia: none Surgeon: Kenton Rdz Pathology: none sent Condition: stable Disposition: floor Indications for Procedure: The patient is postop small bowel obstruction surgical repair. He had an indwelling catheter that the nursing staff is been having problems throughout the day. This evening it clotted off and the nursing staff was unable to replace it. I've been asked to do so. Description of Procedure: Patient is prepped and draped sterilely. A 16-English coud-tip catheter slowly passed into the bladder was difficulty. I eventually I'm able to get it in. I suspect there is a fair amount of edema from previous catheters. There may be a false passage. I then irrigate the catheter and fortunately large volume of tea colored urine was drained. The catheter appears to irrigate freely. The patient feels relief of his pressure. Impression postoperative urinary retention. This has been relieved with catheter placement.
[2019-05-10] MEDS: SODIUM CHLORIDE 0.9% 1,000 ML IV SCH ×4 (03:32→23:04)
[2019-05-10] MEDS: LEVOTHYROXINE 50 MCG TAB PO SCH (06:02)
[2019-05-10] MEDS ORDERED: CILOSTAZOL 100 MG TAB PO SCH (09:00)
[2019-05-10] MEDS: PANTOPRAZOLE 40 MG/10 ML VIAL IV SCH (10:34)
[2019-05-10] MEDS: HEPARIN SODIUM,PORCINE 5,000 UNIT/ML 1 ML VIAL SQ SCH ×4 (10:35→23:46)
[2019-05-10] MEDS: lamoTRIgine 100 MG TAB PO SCH ×2 (10:36→20:54)
[2019-05-10] MEDS: MAGNESIUM OXIDE 400 MG TAB PO SCH (10:36)
--- NOTE | 2019-05-10 11:12 | P.PN ---
Subjective Progress Note Date: 05/10/19 CHIEF COMPLAINT: Abdominal pain HISTORY OF PRESENT ILLNESS: Patient is status post exploratory laparotomy with small bowel resection, repair of incarcerated incisional hernia, and lysis of adhesions with Dr. Lindquist. Postop day #1. Patient examined this morning. He is sitting up in a chair. He reports his pain is tolerable at this time. Epidural infusing at 8 mL an hour. NG tube to low intermittent suction with bilious drainage. He denies passing flatus. Patient's catheter accidentally was removed yesterday and nursing was unable to place a new Brantley catheter. Urology was contacted overnight and a new Brantley catheter was inserted. His Brantley is currently draining clear yellow urine. PHYSICAL EXAM: VITAL SIGNS: Reviewed. GENERAL: Well-developed in no acute distress. HEENT: No sclera icterus. Extraocular movements grossly intact. Moist buccal mucosa. Head is atraumatic, normocephalic. ABDOMEN: Soft. Nondistended. Appropriate surgical tenderness. Dressing clean dry and intact. Hypoactive bowel sounds. NEUROLOGIC: Alert and oriented. Cranial nerves II through XII grossly intact. ASSESSMENT: 1. Status post exploratory laparotomy with small bowel resection, repair of incarcerated incisional hernia, and lysis of adhesions 2. Postoperative urinary retention with inability of nursing staff to pass catheter, hematuria, an unexpected but potential outcome of surgery PLAN: 1. Continue epidural catheter (DC POD #3) 2. Continue brantley catheter while epidural in place 3. Continue NG to LIS 4. NPO except for ice chips. Await bowel function 5. Incentive spirometry 6. Activity as tolerated. PT/OT on consult Nurse practitioner note has been reviewed by physician. Signing provider agrees with the documented findings, assessment, and plan of care. Objective - Vital Signs Vital signs: Vital Signs Temp 98.2 F 05/10/19 07:00 Pulse 65 05/10/19 07:00 Resp 17 05/10/19 07:00 BP 144/75 05/10/19 07:00 Pulse Ox 96 05/10/19 07:00 Intake & Output 05/09/19 05/10/19 05/10/19 18:59 06:59 18:59 Intake Total 2000 1200 Output Total 405 730 Balance 1595 470 Weight 63.503 kg Intake: IV 2000 Intake, IV Titration 1200 Amount Sodium Chloride 0.9% 1, 1200 000 ml @ 125 mls/hr IV . Q8H [facility] Rx#:[id number] Oral 0 0 Output: Urine 380 730 Uretheral (Brantley) 680 Estimated Blood Loss 25 Other: Voiding Method Indwelling Catheter Indwelling Catheter - Labs CBC & Chem 7: 05/09/19 05:25 05/09/19 05:25
--- NOTE | 2019-05-10 12:01 | P.PN ---
Progress Note - Text Progress Note Date: 05/10/19 72-year-old male status post exporter laparotomy postop day #1 epidural catheter day #2. Solution consists of ropivacaine 0.12% and Dilaudid 20 g/mL. Current rate is 8 ML's an hour. Epidural catheter site looks clean dry and intact. Patient denies any motor sensory deficits. Denies any pruritus. There is a Armendariz catheter in place. VAS ranges between a 1-4 out of 10 in severity depending on activity. Overall patient is doing well. Plan is to continue epidural settings at current rate. Patient is on a blood thinner, Pletal, is currently being held.
[2019-05-10] MEDS: ROPIVACAINE 250 MG, HYDROMORPHONE (PF) 5 MG in SODIUM CHLORIDE 0.9% 200 ML EPIDURAL PRN (16:31)
--- NOTE | 2019-05-10 17:21 | PN ---
PROGRESS NOTE CHIEF COMPLAINT: Bowel obstruction. HISTORY OF PRESENT ILLNESS: This gentleman is doing well. He apparently had a hernia and small bowel restriction which was removed. He is comfortable. He is oriented and alert. He is having no chest pain or shortness of breath. PHYSICAL EXAMINATION: His chest is clear. Cardiac exam is normal. Dressing is dry. NG tube is in place. IMPRESSION: Status post taking down a small bowel obstruction with a hernia and a small bowel stricture. PLAN: Continue to follow him postoperatively. He has been stable so far. MMODL / IJN: [id number] /
[2019-05-11] MEDS: SODIUM CHLORIDE 0.9% 1,000 ML IV SCH ×2 (05:27→13:01)
[2019-05-11] MEDS: LEVOTHYROXINE 50 MCG TAB PO SCH (05:27)
--- NOTE | 2019-05-11 09:03 | P.PN ---
Progress Note - Text Progress Note Date: 05/11/19 Anesthesia Postop day 2 Status post exploratory laparotomy with epidural date 3 Patient seen and examined. Doing well without complaint. VAS 0. No nausea vomiting or pruritus. Epidural site intact without induration. Dressing intact. No apparent motor block. Sensory within normal limits. Ropivacaine 0.1% with Dilaudid 20 mcg/mL at 8ml an hour. Anticipate discontinuation tomorrow. Discussed with nurse, planning to hold subcu heparin tomorrow morning. Assessment: #1 status post ex-lap postop day 2 epidural day 3 Plan #1 maintaining current therapy with breakthrough meds anticipate DC'd tomorrow
[2019-05-11] MEDS: lamoTRIgine 100 MG TAB PO SCH ×2 (09:16→21:16)
[2019-05-11] MEDS: MAGNESIUM OXIDE 400 MG TAB PO SCH (09:16)
[2019-05-11] MEDS: HEPARIN SODIUM,PORCINE 5,000 UNIT/ML 1 ML VIAL SQ SCH ×2 (09:20→15:42)
[2019-05-11] MEDS: PIPERACILLIN-TAZOBACTAM 3.375 GM in SODIUM CHLORIDE 0.9% 100 ML IVPB SCH ×2 (09:44→15:42)
[2019-05-11] MEDS: PANTOPRAZOLE 40 MG/10 ML VIAL IV SCH (09:45)
--- NOTE | 2019-05-11 13:57 | P.PN ---
Subjective Progress Note Date: 05/11/19 CHIEF COMPLAINT: Abdominal pain HISTORY OF PRESENT ILLNESS: Patient is status post exploratory laparotomy with small bowel resection, repair of incarcerated incisional hernia, and lysis of adhesions with Dr. Lindquist. Postop day #2. Patient examined at the bedside with Dr. Lindquist. He reports his pain is tolerable at this time. Epidural is currently infusing. NG to low intermittent suction with minimal amount of bilious drainage. He denies passing flatus. PHYSICAL EXAM: VITAL SIGNS: Reviewed. GENERAL: Well-developed in no acute distress. HEENT: No sclera icterus. Extraocular movements grossly intact. Moist buccal mucosa. Head is atraumatic, normocephalic. ABDOMEN: Soft. Nondistended. Appropriate surgical tenderness. Dressing clean dry and intact. Hypoactive bowel sounds. NEUROLOGIC: Alert and oriented. Cranial nerves II through XII grossly intact. ASSESSMENT: 1. Status post exploratory laparotomy with small bowel resection, repair of incarcerated incisional hernia, and lysis of adhesions 2. Postoperative urinary retention with inability of nursing staff to pass catheter, hematuria, an unexpected but potential outcome of surgery PLAN: 1. Continue epidural catheter (DC POD #3) 2. Continue brantley catheter while epidural in place 3. Discontinue NG tube 4. Begin clear liquid diet 5. Incentive spirometry 6. Activity as tolerated. PT/OT on consult Nurse practitioner note has been reviewed by physician. Signing provider agrees with the documented findings, assessment, and plan of care. Objective - Vital Signs Vital signs: Vital Signs Temp 98.3 F 05/11/19 07:00 Pulse 61 05/11/19 08:48 Resp 17 05/11/19 07:00 BP 129/74 05/11/19 07:00 Pulse Ox 97 05/11/19 07:00 Intake & Output 05/10/19 05/11/19 05/11/19 18:59 06:59 18:59 Intake Total 1419.600 345 148.95 Output Total 410 850 50 Balance 1009.600 -505 98.95 Intake: Intake, IV Titration 1179.600 125 148.95 Amount Piperacillin-Tazobactam 3 100 .375 gm In Sodium Chloride 0.9% 100 ml @ 25 mls/hr IVPB Q8HR [facility] Rx# :[id number] Ropivacaine 250 mg 254.600 148.95 Hydromorphone (Pf) 5 mg In Sodium Chloride 0.9% 200 ml @ Per Protocol EPIDURAL .Q0M PRN Rx#: [id number] Sodium Chloride 0.9% 1, 825 125 000 ml @ 125 mls/hr IV . Q8H [facility] Rx#:[id number] Oral 240 220 Output: Gastric Drainage 350 100 50 Urine 60 750 Uretheral (Brantley) 60 Other: Voiding Method Indwelling Catheter Indwelling Catheter - Labs CBC & Chem 7: 05/09/19 05:25 05/09/19 05:25
[2019-05-11] MEDS: ROPIVACAINE 250 MG, HYDROMORPHONE (PF) 5 MG in SODIUM CHLORIDE 0.9% 200 ML EPIDURAL PRN (16:20)
--- NOTE | 2019-05-11 20:43 | PN ---
PROGRESS NOTE . CHIEF COMPLAINT: Status post reduction of small-bowel obstruction. HISTORY OF PRESENT ILLNESS: This gentleman is doing well and not having a great deal of discomfort. He is not short of breath. He has had no fever chills. PHYSICAL EXAMINATION: Color is good. He is awake and alert. Chest is clear. Cardiac exam is normal and dressings are dry. Bowel sounds are not heard. NG tube still in place. IMPRESSION: Status post small bowel resection for bowel obstruction. PLAN: Continue to follow with surgery until GI motility returns. MMODL / IJN: [id number] /
[2019-05-12] MEDS: HEPARIN SODIUM,PORCINE 5,000 UNIT/ML 1 ML VIAL SQ SCH ×4 (00:06→23:48)
[2019-05-12] MEDS: PIPERACILLIN-TAZOBACTAM 3.375 GM in SODIUM CHLORIDE 0.9% 100 ML IVPB SCH ×4 (00:07→23:48)
[2019-05-12] MEDS: SODIUM CHLORIDE 0.9% 1,000 ML IV SCH ×4 (00:10→20:23)
[2019-05-12] MEDS: LEVOTHYROXINE 50 MCG TAB PO SCH (05:32)
--- NOTE | 2019-05-12 06:50 | P.PN ---
Progress Note - Text Progress Note Date: 05/12/19 Anesthesia Postop day #3, Epidural Catheter day #4 Status post exploratory laparotomy Patient seen and examined. Doing well without complaint. VAS 0. No nausea vomiting or pruritus. Epidural site intact without induration. Dressing intact. No apparent motor or sensory deficit. Ropivacaine 0.1% with Dilaudid 20 mcg/mL at 8ml an hour. Discontinue epidural today. Discussed with nurse, planning to hold subcu heparin. Assessment: #1 status post ex-lap postop day 3 epidural day 4 Plan #Discontinue epidural
[2019-05-12 07:46] LABS: Basophils % (A) 0 %; Eosinophils # (A) 0.1 k/uL (0-0.7); Eosinophils % (A) 1 %; HCT 29.8 % (39.0-53.0); Lymphocytes # (A) 0.7 k/uL (1.0-4.8); Lymphocytes % (A) 9 %; MCH 32.5 pg (25.0-35.0); MCHC 33.3 g/dL (31.0-37.0); MCV 97.7 fL (80.0-100.0); Mean Platelet Volume 7.7; Monocytes # (A) 0.4 k/uL (0-1.0); Monocytes % (A) 5 %; Neutrophils # (A) 6.3 k/uL (1.3-7.7); Neutrophils % (A) 83 %; Platelet Count 174 k/uL (150-450); RBC 3.05 m/uL (4.30-5.90); RDW 13.3 % (11.5-15.5); WBC 7.5 k/uL (3.8-10.6)
[2019-05-12 07:49] LABS: HGB 9.9 gm/dL (13.0-17.5)
[2019-05-12 07:51] LABS: Calcium 8.1 mg/dL (8.4-10.2); Potassium 3.7 mmol/L (3.5-5.1)
[2019-05-12] MEDS: MAGNESIUM OXIDE 400 MG TAB PO SCH (08:25)
[2019-05-12] MEDS: PANTOPRAZOLE 40 MG/10 ML VIAL IV SCH (08:25)
[2019-05-12] MEDS: lamoTRIgine 100 MG TAB PO SCH ×2 (08:25→20:26)
--- NOTE | 2019-05-12 12:31 | P.PN ---
Subjective Progress Note Date: 05/12/19 CHIEF COMPLAINT: Abdominal pain HISTORY OF PRESENT ILLNESS: Patient is status post exploratory laparotomy with small bowel resection, repair of incarcerated incisional hernia, and lysis of adhesions with Dr. Lindquist. Postop day #3. Patient examined this morning. He is sitting in the chair. He reports his pain is tolerable. Epidural has been discontinued this morning. He is tolerating clear liquid diet. He denies passing flatus. Hemoglobin 9.9. PHYSICAL EXAM: VITAL SIGNS: Reviewed. GENERAL: Well-developed in no acute distress. HEENT: No sclera icterus. Extraocular movements grossly intact. Moist buccal mucosa. Head is atraumatic, normocephalic. ABDOMEN: Soft. Nondistended. Appropriate surgical tenderness. Dressing clean dry and intact. Hypoactive bowel sounds. NEUROLOGIC: Alert and oriented. Cranial nerves II through XII grossly intact. ASSESSMENT: 1. Status post exploratory laparotomy with small bowel resection, repair of incarcerated incisional hernia, and lysis of adhesions 2. Postoperative urinary retention with inability of nursing staff to pass catheter, hematuria, an unexpected but potential outcome of surgery PLAN: -Continue clear liquid diet. Await bowel function. Continue Reglan -Epidural has been discontinued this morning. Simpson when necessary for pain control. -Urology okayed brantley to be removed today. Notify provider if patient does not void within 8 hours -Incentive spirometry -Activity as tolerated. PT/OT on consult Nurse practitioner note has been reviewed by physician. Signing provider agrees with the documented findings, assessment, and plan of care. Objective - Vital Signs Vital signs: Vital Signs Temp 99.1 F 05/12/19 09:42 Pulse 65 05/12/19 09:42 Resp 18 05/12/19 09:42 BP 127/71 05/12/19 09:42 Pulse Ox 97 05/12/19 09:42 Intake & Output 05/11/19 05/12/19 05/12/19 18:59 06:59 18:59 Intake Total 200.383 250 Output Total 50 350 300 Balance 150.383 -100 -300 Intake: Intake, IV Titration 200.383 250 Amount Ropivacaine 250 mg 200.383 Hydromorphone (Pf) 5 mg In Sodium Chloride 0.9% 200 ml @ Per Protocol EPIDURAL .Q0M PRN Rx#: [id number] Sodium Chloride 0.9% 1, 250 000 ml @ 125 mls/hr IV . Q8H [facility] Rx#:[id number] Output: Gastric Drainage 50 Urine 350 300 Uretheral (Brantley) 300 Other: Voiding Method Indwelling Catheter Indwelling Catheter # Voids 0 - Labs CBC & Chem 7: 05/12/19 06:38 05/12/19 06:38 Labs: Abnormal Lab Results - Last 24 Hours (Table) 05/12/19 05/12/19 Range/Units 06:38 06:38 RBC 3.05 L (4.30-5.90) m/uL Hgb 9.9 L D (13.0-17.5) gm/dL Hct 29.8 L (39.0-53.0) % Lymphocytes # 0.7 L (1.0-4.8) k/uL Chloride 109 H (98-107) mmol/L BUN 28 H (9-20) mg/dL Creatinine 1.31 H (0.66-1.25) mg/dL Calcium 8.1 L (8.4-10.2) mg/dL
--- NOTE | 2019-05-12 13:38 | PN ---
PROGRESS NOTE DATE OF SERVICE: 05/12/2019. CHIEF COMPLAINT: Postop small-bowel resection. HISTORY OF PRESENT ILLNESS: This gentleman is coming along well. NG tube is out. Activity is increasing. He has no complaints. PHYSICAL EXAMINATION: His chest is quite clear. Cardiac exam is normal. The abdomen is flat and dressing is dry. Extremities are normal. IMPRESSION: Status post small bowel obstruction. PLAN: 1. Continue with increased activity and diet. 2. Remove Armendariz catheter. MMODL / IJN: [id number] /
[2019-05-12] MEDS: METOCLOPRAMIDE 5 MG/ML 2 ML VIAL IVP SCH ×2 (16:56→23:48)
[2019-05-12] MEDS: TAMSULOSIN 0.4 MG CAP.ER.24H PO SCH (16:56)
[2019-05-13] MEDS: HYDROcodone/APAP 5-325MG 1 EACH TAB PO PRN ×3 (00:19→17:12)
[2019-05-13] MEDS: METOCLOPRAMIDE 5 MG/ML 2 ML VIAL IVP SCH ×3 (05:08→17:12)
[2019-05-13] MEDS: LEVOTHYROXINE 50 MCG TAB PO SCH (05:11)
[2019-05-13 06:58] LABS: Basophils % (A) 0 %; Eosinophils # (A) 0.2 k/uL (0-0.7); Eosinophils % (A) 2 %; HCT 30.9 % (39.0-53.0); HGB 10.5 gm/dL (13.0-17.5); Lymphocytes # (A) 0.8 k/uL (1.0-4.8); Lymphocytes % (A) 9 %; MCH 32.5 pg (25.0-35.0); MCV 95.5 fL (80.0-100.0); Mean Platelet Volume 7.2; Monocytes # (A) 0.5 k/uL (0-1.0); Monocytes % (A) 6 %; Neutrophils % (A) 82 %; Platelet Count 201 k/uL (150-450); RBC 3.23 m/uL (4.30-5.90); RDW 13.2 % (11.5-15.5); WBC 8.5 k/uL (3.8-10.6)
[2019-05-13 07:07] LABS: Calcium 8.2 mg/dL (8.4-10.2); Potassium 3.1 mmol/L (3.5-5.1)
[2019-05-13] MEDS ORDERED: Potassium Replacement Protocol 1 EACH MISC MISCELLANE PRN (08:50)
[2019-05-13] MEDS: PIPERACILLIN-TAZOBACTAM 3.375 GM in SODIUM CHLORIDE 0.9% 100 ML IVPB SCH ×2 (09:02→15:00)
[2019-05-13] MEDS: PANTOPRAZOLE 40 MG/10 ML VIAL IV SCH (09:03)
[2019-05-13] MEDS: POTASSIUM CHLORIDE ER 20 MEQ TAB.ER PO SCH ×2 (09:03→11:20)
[2019-05-13] MEDS: MAGNESIUM OXIDE 400 MG TAB PO SCH (09:03)
[2019-05-13] MEDS: HEPARIN SODIUM,PORCINE 5,000 UNIT/ML 1 ML VIAL SQ SCH ×2 (09:03→15:01)
[2019-05-13] MEDS: SODIUM CHLORIDE 0.9% 1,000 ML IV SCH ×2 (09:04→21:12)
[2019-05-13] MEDS: lamoTRIgine 100 MG TAB PO SCH ×2 (09:04→21:08)
--- NOTE | 2019-05-13 09:56 | P.PN ---
Subjective Progress Note Date: 05/13/19 The patient had problems with his catheter postoperatively. It was replaced by myself. It was removed yesterday and he is now voiding without difficulty. Nothing further urologic needs to be done. Objective - Vital Signs Vital signs: Vital Signs Temp 98.3 F 05/13/19 07:00 Pulse 76 05/13/19 07:00 Resp 16 05/13/19 07:00 BP 151/82 05/13/19 07:00 Pulse Ox 96 05/13/19 07:00 Intake & Output 05/12/19 05/13/19 05/13/19 18:59 06:59 18:59 Intake Total 300 Output Total 300 850 580 Balance -300 -850 -280 Weight 63.503 kg Intake: Oral 300 Output: Urine 300 850 580 Uretheral (Armendariz) 300 Other: Voiding Method Indwelling Catheter Indwelling Catheter # Voids 0 1 - Labs CBC & Chem 7: 05/13/19 06:23 05/13/19 06:23 Labs: Abnormal Lab Results - Last 24 Hours (Table) 05/13/19 05/13/19 Range/Units 06:23 06:23 RBC 3.23 L (4.30-5.90) m/uL Hgb 10.5 L (13.0-17.5) gm/dL Hct 30.9 L (39.0-53.0) % Lymphocytes # 0.8 L (1.0-4.8) k/uL Potassium 3.1 L (3.5-5.1) mmol/L Chloride 108 H (98-107) mmol/L Calcium 8.2 L (8.4-10.2) mg/dL
--- NOTE | 2019-05-13 11:10 | P.PN ---
Subjective Progress Note Date: 05/13/19 Principal diagnosis: Small bowel obstruction Patient doing fairly well today. He is passing flatus. He has no appetite however. White blood cell count normal at 8.5. Potassium slightly low at 3.1. Tolerating clears. Objective - Vital Signs Vital signs: Vital Signs Temp 98.3 F 05/13/19 07:00 Pulse 76 05/13/19 07:00 Resp 16 05/13/19 07:00 BP 151/82 05/13/19 07:00 Pulse Ox 96 05/13/19 07:00 Intake & Output 05/12/19 05/13/19 05/13/19 18:59 06:59 18:59 Intake Total 300 Output Total 300 850 580 Balance -300 -850 -280 Weight 63.503 kg Intake: Oral 300 Output: Urine 300 850 580 Uretheral (Armendariz) 300 Other: Voiding Method Indwelling Catheter Indwelling Catheter # Voids 0 1 - Exam Abdomen: Soft, nondistended, mild tenderness, dressing clean and dry - Labs CBC & Chem 7: 05/13/19 06:23 05/13/19 06:23 Labs: Abnormal Lab Results - Last 24 Hours (Table) 05/13/19 05/13/19 Range/Units 06:23 06:23 RBC 3.23 L (4.30-5.90) m/uL Hgb 10.5 L (13.0-17.5) gm/dL Hct 30.9 L (39.0-53.0) % Lymphocytes # 0.8 L (1.0-4.8) k/uL Potassium 3.1 L (3.5-5.1) mmol/L Chloride 108 H (98-107) mmol/L Calcium 8.2 L (8.4-10.2) mg/dL Assessment and Plan (1) Small bowel obstruction Narrative/Plan: Patient doing relatively well. He does not want his diet advanced at this point. Continue increasing activity with physical therapy. Supplement hypokalemia. Current Visit: Yes Status: Acute Code(s): K56.609 - UNSP INTESTNL OBST, UNSP TO PARTIAL VERSUS COMPLETE OBST SNOMED Code(s): 669624766
--- NOTE | 2019-05-13 16:26 | PN ---
PROGRESS NOTE DATE OF SERVICE: 05/13/2019 CHIEF COMPLAINT: Status post small bowel obstruction. HISTORY OF PRESENT ILLNESS: This gentleman is doing fairly well. He is eating. He is not running a fever. He is not complaining of any new abdominal pain. PHYSICAL EXAMINATION: Chest is clear. Cardiac exam is normal. IMPRESSION: Status post small bowel resection for bowel obstruction. PLAN: Continue to monitor and increase his activity and oral intake. MMODL / IJN: [id number] /
[2019-05-13] MEDS: TAMSULOSIN 0.4 MG CAP.ER.24H PO SCH (17:12)
[2019-05-14] MEDS: METOCLOPRAMIDE 5 MG/ML 2 ML VIAL IVP SCH ×5 (00:02→23:53)
[2019-05-14] MEDS: HEPARIN SODIUM,PORCINE 5,000 UNIT/ML 1 ML VIAL SQ SCH ×4 (00:05→23:54)
[2019-05-14] MEDS: HYDROcodone/APAP 5-325MG 1 EACH TAB PO PRN ×3 (00:07→21:45)
[2019-05-14] MEDS: PIPERACILLIN-TAZOBACTAM 3.375 GM in SODIUM CHLORIDE 0.9% 100 ML IVPB SCH ×4 (00:08→23:58)
[2019-05-14] MEDS: LEVOTHYROXINE 50 MCG TAB PO SCH (05:31)
[2019-05-14 06:39] LABS: Basophils % (A) 0 %; Eosinophils # (A) 0.2 k/uL (0-0.7); Eosinophils % (A) 3 %; HCT 30.6 % (39.0-53.0); HGB 10.1 gm/dL (13.0-17.5); Lymphocytes % (A) 11 %; MCH 31.9 pg (25.0-35.0); MCV 96.5 fL (80.0-100.0); Mean Platelet Volume 7.5; Monocytes # (A) 0.5 k/uL (0-1.0); Monocytes % (A) 5 %; Neutrophils # (A) 7.3 k/uL (1.3-7.7); Neutrophils % (A) 80 %; Platelet Count 200 k/uL (150-450); RBC 3.17 m/uL (4.30-5.90); RDW 13.6 % (11.5-15.5); WBC 9.2 k/uL (3.8-10.6)
[2019-05-14 06:56] LABS: Potassium 3.2 mmol/L (3.5-5.1)
[2019-05-14] MEDS: PANTOPRAZOLE 40 MG/10 ML VIAL IV SCH (07:35)
[2019-05-14] MEDS: POTASSIUM CHLORIDE ER 20 MEQ TAB.ER PO SCH ×2 (07:36→08:44)
[2019-05-14] MEDS: MAGNESIUM OXIDE 400 MG TAB PO SCH (07:36)
[2019-05-14] MEDS: lamoTRIgine 100 MG TAB PO SCH ×2 (07:36→21:43)
--- NOTE | 2019-05-14 10:36 | P.PN ---
Subjective Progress Note Date: 05/14/19 Principal diagnosis: Small bowel obstruction Patient doing well today. Still no bowel movement but is passing gas. He is anxious to try more to eat today. Denies any nausea vomiting. Mild bloating. T-max 99.8. White blood cell count 9.2. Objective - Vital Signs Vital signs: Vital Signs Temp 98.1 F 05/14/19 07:00 Pulse 73 05/14/19 07:00 Resp 17 05/14/19 07:00 BP 165/78 05/14/19 07:00 Pulse Ox 95 05/14/19 07:00 Intake & Output 05/13/19 05/14/19 05/14/19 18:59 06:59 18:59 Intake Total 600 450 300 Output Total 1280 1500 600 Balance -680 -1050 -300 Intake: Intake, IV Titration 450 Amount Sodium Chloride 0.9% 1, 450 000 ml @ 75 mls/hr IV . [id number] [facility] Rx#:[id number] Oral 600 300 Output: Urine 1280 1500 600 Uretheral (Armendariz) 300 Other: Voiding Method Indwelling Catheter Indwelling Catheter Urinal - Exam Abdomen: Soft, nondistended, minimal tenderness, dressing clean and dry - Labs CBC & Chem 7: 05/14/19 06:22 05/14/19 06:22 Labs: Abnormal Lab Results - Last 24 Hours (Table) 05/14/19 05/14/19 Range/Units 06:22 06:22 RBC 3.17 L (4.30-5.90) m/uL Hgb 10.1 L (13.0-17.5) gm/dL Hct 30.6 L (39.0-53.0) % Potassium 3.2 L (3.5-5.1) mmol/L Chloride 112 H (98-107) mmol/L Calcium 8.0 L (8.4-10.2) mg/dL Assessment and Plan (1) Small bowel obstruction Narrative/Plan: Will advance diet at this time. Ambulate. Current Visit: Yes Status: Acute Code(s): K56.609 - UNSP INTESTNL OBST, UNSP TO PARTIAL VERSUS COMPLETE OBST SNOMED Code(s): 447217143
[2019-05-14] MEDS: SODIUM CHLORIDE 0.9% 1,000 ML IV SCH ×2 (12:39→23:53)
[2019-05-14] MEDS: TAMSULOSIN 0.4 MG CAP.ER.24H PO SCH (17:10)
[2019-05-15] MEDS: LEVOTHYROXINE 50 MCG TAB PO SCH (05:50)
[2019-05-15] MEDS: METOCLOPRAMIDE 5 MG/ML 2 ML VIAL IVP SCH ×2 (05:52→12:01)
[2019-05-15 07:31] LABS: Calcium 8.1 mg/dL (8.4-10.2); Potassium 3.4 mmol/L (3.5-5.1)
[2019-05-15 07:42] VITALS: RESP 12
[2019-05-15 08:04] LABS: Basophils # (A) 0.1 k/uL (0-0.2); Basophils % (A) 1 %; Eosinophils # (A) 0.3 k/uL (0-0.7); Eosinophils % (A) 3 %; HCT 29.9 % (39.0-53.0); HGB 10.3 gm/dL (13.0-17.5); Lymphocytes % (A) 11 %; MCH 33.3 pg (25.0-35.0); MCHC 34.5 g/dL (31.0-37.0); MCV 96.4 fL (80.0-100.0); Mean Platelet Volume 7.9; Monocytes # (A) 0.5 k/uL (0-1.0); Monocytes % (A) 5 %; Neutrophils # (A) 7.6 k/uL (1.3-7.7); Neutrophils % (A) 79 %; Platelet Count 231 k/uL (150-450); RBC 3.11 m/uL (4.30-5.90); RDW 13.6 % (11.5-15.5); WBC 9.5 k/uL (3.8-10.6)
[2019-05-15] MEDS: PANTOPRAZOLE 40 MG/10 ML VIAL IV SCH (08:38)
[2019-05-15] MEDS: HEPARIN SODIUM,PORCINE 5,000 UNIT/ML 1 ML VIAL SQ SCH (08:38)
[2019-05-15] MEDS: lamoTRIgine 100 MG TAB PO SCH (08:38)
[2019-05-15] MEDS: PIPERACILLIN-TAZOBACTAM 3.375 GM in SODIUM CHLORIDE 0.9% 100 ML IVPB SCH (08:39)
[2019-05-15] MEDS: MAGNESIUM OXIDE 400 MG TAB PO SCH (08:40)
--- NOTE | 2019-05-15 13:54 | P.DS ---
Providers Date of admission: 05/09/19 05:08 Expected date of discharge: 05/15/19 Attending physician: Howard Lindquist Consults: 05/09/19 05:07 Consult Physician Routine Consulting Provider: Bal Tobias Consult Reason/Comments: Medical management, small bowel obstruction Do you want consulting provider notified?: Yes 05/09/19 10:17 Consult Physician Routine Consulting Provider: Trixie Ross Consult Reason/Comments: CKD Do you want consulting provider notified?: Yes 05/10/19 00:53 Consult Physician Urgent Consulting Provider: Kenton Rdz Consult Reason/Comments: brantley placement Do you want consulting provider notified?: Yes Primary care physician: Bal Tobias Hospital Course: 74-year-old male who presented to the emergency room with a chief complaint of abdominal pain, nausea, and vomiting. Computed tomography scan was completed revealing evidence of small bowel obstruction and ventral hernia. Patient underwent exploratory laparotomy with small bowel resection, repair of incarcerated incisional hernia, and lysis of adhesions with Dr. Lindquist. Patient is a well postoperative. He did develop some hematuria secondary to Fo jesusita catheter trauma. Brantley catheter was discontinued. Patient was unable to void and nursing was unable to reinsert Brantley catheter. Urology was consulted and Brantley catheter was replaced by urology. His Brantley has since been discontinued and he has been voiding without difficulty. No further hematuria. He is tolerating diet without nausea or vomiting. He is passing flatus. Pain is controlled on oral medications. Vital signs are stable. He is stable for discharge today per Dr. Lindquist. Please see EMR for further hospital course details. ASSESSMENT: 1. Status post exploratory laparotomy with small bowel resection, repair of incarcerated incisional hernia, and lysis of adhesions 2. Postoperative urinary retention with inability of nursing staff to pass catheter, hematuria, an unexpected but potential outcome of surgery 3. Acute blood loss anemia secondary to hematuria Nurse practitioner note has been reviewed by physician. Signing provider agrees with the documented findings, assessment, and plan of care. Patient Condition at Discharge: Stable Plan - Discharge Summary Discharge Rx Participant: Yes New Discharge Prescriptions: New Hydrocodone/Acetaminophen [Troy 5-325] 1 tab PO Q6HR PRN 3 Days #12 tab PRN Reason: Pain No Action Simvastatin 10 mg PO HS Ranitidine HCl 150 mg PO BID Meclizine [Antivert] 12.5 mg PO BID Magnesium Chloride [Mag64] 64 mg PO DAILY Levothyroxine Sodium [Synthroid] 50 mcg PO DAILY Hydrochlorothiazide [Hydrodiuril] 25 mg PO DAILY Cilostazol [Pletal] 100 mg PO DAILY buPROPion HCL [buPROPion HCL ER] 200 mg PO Q12HR lamoTRIgine [LaMICtal] 150 mg PO BID Discharge Medication List Cilostazol [Pletal] 100 mg PO DAILY 02/22/19 [History] Hydrochlorothiazide [Hydrodiuril] 25 mg PO DAILY 02/22/19 [History] Levothyroxine Sodium [Synthroid] 50 mcg PO DAILY 02/22/19 [History] Magnesium Chloride [Mag64] 64 mg PO DAILY 02/22/19 [History] Meclizine [Antivert] 12.5 mg PO BID 02/22/19 [History] Ranitidine HCl 150 mg PO BID 02/22/19 [History] Simvastatin 10 mg PO HS 02/22/19 [History] buPROPion HCL [buPROPion HCL ER] 200 mg PO Q12HR 05/09/19 [History] lamoTRIgine [LaMICtal] 150 mg PO BID 05/09/19 [History] Hydrocodone/Acetaminophen [Troy 5-325] 1 tab PO Q6HR PRN 3 Days #12 tab 05/12/19 [Rx] Follow up Appointment(s)/Referral(s): Bal Tobias MD [Primary Care Provider] - 1-2 days Howard Lindquist MD [STAFF PHYSICIAN] - 1 Week Activity/Diet/Wound Care/Special Instructions: No driving while taking Troy No lifting over 10 pounds You may shower. No soaking or tub baths Very light activity until you are reevaluated at your follow up appointment with your surgeon
--- NOTE | 2019-05-15 13:56 | PN ---
PROGRESS NOTE DATE OF SERVICE: 05/14/2019 CHIEF COMPLAINT: Status post laparotomy and small bowel resection. HISTORY OF PRESENT ILLNESS: This gentleman is doing fairly well. He has started to eat. He has not had a bowel movement yet. PHYSICAL EXAMINATION: Abdomen is soft and nontender and chest is clear. Cardiac exam is normal. IMPRESSION: Status post small bowel obstruction, and small bowel resection. PLAN: Continue to follow with Surgery and discharge whenever they deem it is appropriate. MMODL / IJN: [id number] /
--- NOTE | 2019-05-15 14:05 | PN ---
PROGRESS NOTE DATE OF SERVICE: 05/15/2019 CHIEF COMPLAINT: Status post small bowel obstruction. . HISTORY OF PRESENT ILLNESS: This gentleman seems to be doing fairly well. He has had no fever, rigors, chills, abdominal pain, etc. PHYSICAL EXAMINATION: His chest is clear. The cardiac exam is normal and the abdomen is soft, nontender. IMPRESSION: Status post small-bowel obstruction. PLAN: Await discharged by Surgery. MMODL / IJN: [id number] /
[2019-05-15 14:54] VITALS: BP 138/71; PULSE 66; TEMP 98
[2019-05-16] MEDS ORDERED: PANTOPRAZOLE 40 MG TABLET PO SCH (09:00)
== END 2019-05-15 16:59 | DRG 330 ==
LOC: EC 04:33 → 4SSUR 05:08
PROVIDERS: ADMIT Surgery; ATTEND Surgery
PROC: 0WQF0ZZ Repair Abdominal Wall, Open Approach (ICD-10-PCS; principal; 2019-05-09 07:30)
PROC: 0DB80ZZ Excision of Small Intestine, Open Approach (ICD-10-PCS; principal; 2019-05-09 07:30)
PROC: 3E1K38Z Irrigation of Genitourinary Tract using Irrigating Substance, Percutaneous Approach (ICD-10-PCS; 2019-05-10)
DX: K43.0 Incisional hernia with obstruction, without gangrene (principal); D62 Acute posthemorrhagic anemia; F31.30 Bipolar disorder, current episode depressed, mild or moderate severity, unspecified; N17.9 Acute kidney failure, unspecified; T83.83XA Hemorrhage due to genitourinary prosthetic devices, implants and grafts, initial encounter; E78.5 Hyperlipidemia, unspecified; E87.6 Hypokalemia; F20.9 Schizophrenia, unspecified; I12.9 Hypertensive chronic kidney disease with stage 1 through stage 4 chronic kidney disease, or unspecified chronic kidney disease; K66.0 Peritoneal adhesions (postprocedural) (postinfection); R31.9 Hematuria, unspecified; Y84.6 Urinary catheterization as the cause of abnormal reaction of the patient, or of later complication, without mention of misadventure at the time of the procedure; Z79.02 Long term (current) use of antithrombotics/antiplatelets; Z79.890 Hormone replacement therapy; Z79.899 Other long term (current) drug therapy; Z83.3 Family history of diabetes mellitus; Z87.891 Personal history of nicotine dependence
CPT/HCPCS: 80048; 80053; 85025; 85610; 85730; 86850; 86900; 86901; 88307; 93005; 94760; 96374; 99285

== ENCOUNTER 2019-06-16 04:04 | Inpatient (IN) | payer MEDICARE ==
[2019-06-16] MEDS ORDERED: MORPHINE SULFATE 2 MG/ML SYRINGE IVP PRN ×2 (07:40→10:52)
[2019-06-16] MEDS: SODIUM CHLORIDE 0.9% 1,000 ML IV SCH ×2 (08:05→21:51)
[2019-06-16 11:24] LABS: Basophils % (A) 0 %; Eosinophils # (A) 0.3 k/uL (0-0.7); Eosinophils % (A) 4 %; HCT 33.3 % (39.0-53.0); HGB 11.1 gm/dL (13.0-17.5); Lymphocytes # (A) 1.2 k/uL (1.0-4.8); Lymphocytes % (A) 16 %; MCH 32.1 pg (25.0-35.0); MCHC 33.3 g/dL (31.0-37.0); MCV 96.7 fL (80.0-100.0); Mean Platelet Volume 7.4; Monocytes # (A) 0.4 k/uL (0-1.0); Monocytes % (A) 6 %; Neutrophils # (A) 5.5 k/uL (1.3-7.7); Neutrophils % (A) 72 %; Platelet Count 244 k/uL (150-450); RBC 3.44 m/uL (4.30-5.90); RDW 13.5 % (11.5-15.5); WBC 7.5 k/uL (3.8-10.6)
[2019-06-16 11:30] LABS: Albumin 3.5 g/dL (3.5-5.0); Calcium 9.2 mg/dL (8.4-10.2); Potassium 3.6 mmol/L (3.5-5.1); Total Bilirubin 0.8 mg/dL (0.2-1.3); Total Protein 5.9 g/dL (6.3-8.2)
--- NOTE | 2019-06-16 11:33 | XR ---
EXAMINATION TYPE: XR abdomen 2V DATE OF EXAM: 06/16/2019 CLINICAL HISTORY: Pain and constipation. History of bowel surgery. TECHNIQUE: Supine and upright views of the abdomen are obtained. COMPARISON: Outside abdominal CT earlier today. FINDINGS: There are some prominent gas filled small bowel loops throughout the mid to lower abdomen. Gas and fecal material is seen in the colon with moderate fecal prominence throughout the transverse colon and the upper abdomen. Cholecystectomy clips are present. Overlying EKG leads. Left-sided pelvi c phlebolith. Lung bases are clear. No free air. IMPRESSION: Overall nonspecific bowel gas pattern. [id number]-sj-letagklj diffuse colonic fecal stasis. Po ssible partial mid to distal small bowel obstruction.
[2019-06-16] MEDS: KETOROLAC 30 MG/ML 1 ML VIAL IVP PRN (11:36)
[2019-06-16] MEDS: PANTOPRAZOLE 40 MG/10 ML VIAL IVP SCH (13:02)
--- NOTE | 2019-06-16 14:47 | P.GSCN ---
<Nikki Hernandez A - Last Filed: 06/16/19 14:44> History of Present Illness Consult date: 06/16/19 Reason for Consult: abdominal pain Requesting physician: Bal Tobias History of present illness: CHIEF COMPLAINT: Abdominal pain HISTORY OF PRESENT ILLNESS: 74-year-old male who was transferred from [facility] secondary to abdominal pain. General surgery was consulted for further evaluation. Patient was recently hospitalized in April 2019 and underwent exploratory laparotomy, small bowel resection, repair of incarcerated incisional hernia, and lysis of adhesions with Dr. Lindquist on 05/09/2019. Patient was discharged home in stable condition. Patient states he has been doi ng well at home. He reports chronic constipation but does not take any medications to help with this at home. He reports having a bowel movement once or twice a week and always has to strain to have a BM. He reports sitting on the toilet yesterday trying to have a bowel movement when he began having severe abdominal pain. He does report having a BM yesterday that was normal in characteristics. He denies nausea or vomiting. Denies fever or chills. Patient reports severe abdominal pain when barely touching his abdomen with one finger. When questioning the patients abdominal pain again, he states "well i think im just afraid its going to hurt when you touch it". PAST MEDICAL HISTORY: See list. PAST SURGICAL HISTORY: See list. MEDICATIONS: See list. ALLERGIES: See list. SOCIAL HISTORY: No illicit drug use. REVIEW OF SYSTEMS: CONSTITUTIONAL: Denies fever or chills. HEENT: Denies blurred vision, vision changes, or eye pain. Denies hemoptysis ENDOCRINE: Denies heat or cold intolerance. CARDIOVASCULAR: Denies chest pain or pressure. History of hyperlipidemia and hypertension. RESPIRATORY: No shortness of breath. GASTROINTESTINAL: See HPI for pertinent findings. NEURO: Denies history of seizures. PSYCH: History of depression. Denies suicidal ideation HEMATOLOGIC: Denies bleeding disorders. LYMPHATIC: The patient denies any lumps and bumps around the neck. GENITOURINARY: Denies any blood in urine or increased urinary frequency. MUSCULOSKELETAL: Denies myalgias. Denies joint swelling. Denies decreased range of motion beyond patients baseline. SKIN: Denies pruitis. Denies rash. PHYSICAL EXAM: VITAL SIGNS: Reviewed GENERAL: Well-developed in no acute distress. HEENT: No sclera icterus. Extraocular movements grossly intact. Moist buccal mucosa. Head is atraumatic, normocephalic. Hears conversational speech. No nasal drainage. NECK: Supple without lymphadenopathy. CHEST: Non-labored respirations and equal bilateral excursions. CARDIOVASCULAR: Regular rate with regular rhythm. Palpable 2+ radial pulses. ABDOMEN: Soft. Nondistended. Severe pain reported with light touch on left side of abdomen. Midline surgical incision healing well without redness or drainage. No peritoneal signs. MUSCULOSKELETAL: No clubbing, cyanosis or edema. NEUROLOGIC: No focal or lateralizing signs. Cranial nerves II through XII grossly intact. PSYCH: Appropriate affect. Alert and oriented to person, place and time. SKIN: Well perfused. Good skin turgor. LABORATORY DATA: WBC 7.5. Hemoglobin 11.1. Platelet count 244. Sodium 142. Potassium 3.6. BUN 18. Creatinine 1.25. IMAGING: CT abdomen and pelvis performed at outside facility reveals interval partial small bowel resection. Prominent air and stool present throughout the large bowel. Numerous borderline dilated loops of small bowel with air-fluid levels without identifiable transition point. Final impression per radiology dictation reveals multiple borderline dilated loops of small bowel with air-fluid levels without identifiable transition point likely reflecting developing/partial small bowel obstruction. Large air and stool burden throughout the large bowel. ASSESSMENT: 1. Abdominal pain 2. Constipation, acute on chronic 3. History of exploratory laparotomy, small bowel resection, repair of incarcerated incisional hernia, and lysis of adhesions with Dr. Lindquist on 05/09/2019 PLAN: Patient re-examined at the bedside with Dr. Benitez. No evidence of small bowel obstruction. Patient may begin regular diet. Begin MOM daily, miralax, and Lactulose for constipation. Discharge per medicine. Nurse practitioner note has been reviewed by physician. Signing provider agrees with the documented findings, assessment, and plan of care. Past Medical History Past Medical History: Hyperlipidemia, Hypertension, Thyroid Disorder History of Any Multi-Drug Resistant Organisms: None Reported Past Surgical History: Appendectomy, Cholecystectomy, Tonsillectomy Additional Past Surgical History / Comment(s): Hemmroidectomy Past Anesthesia/Blood Transfusion Reactions: No Reported Reaction Past Psychological History: Depression Additional Psychological History / Comment(s): Manic Depression Smoking Status: Never smoker Past Alcohol Use History: None Reported Past Drug Use History: None Reported - Past Family History Father Family Medical History: Cancer Additional Family Medical History / Comment(s): Manic Depression, Ca ?? Mother Family Medical History: Diabetes Mellitus Medications and Allergies Home Medications Medication Instructions Recorded Confirmed Type Cilostazol [Pletal] 100 mg PO DAILY 02/22/19 06/16/19 History Hydrochlorothiazide [Hydrodiuril] 25 mg PO DAILY 02/22/19 06/16/19 History Levothyroxine Sodium [Synthroid] 50 mcg PO DAILY 02/22/19 06/16/19 History Simvastatin 10 mg PO HS 02/22/19 06/16/19 History buPROPion HCL [buPROPion HCL ER] 200 mg PO Q12HR 05/09/19 06/16/19 History lamoTRIgine [LaMICtal] 150 mg PO BID 05/09/19 06/16/19 History Tamsulosin [Flomax] 0.4 mg PO PC-SUPPER #90 cap.er.24h 05/15/19 06/16/19 Rx Allergies Allergy/AdvReac Type Severity Reaction Status Date / Time No Known Allergies Allergy Verified 06/16/19 08:09 Surgical - Exam Vital Signs Temp Pulse Resp BP Pulse Ox 97.3 F L 59 L 18 127/71 98 06/16/19 06:00 06/16/19 06:00 06/16/19 06:00 06/16/19 06:00 06/16/19 06:00 Results - Labs 06/16/19 11:03 06/16/19 11:03 Abnormal Lab Results - Last 24 Hours (Table) 06/16/19 06/16/19 Range/Units 11:03 11:03 RBC 3.44 L (4.30-5.90) m/uL Hgb 11.1 L (13.0-17.5) gm/dL Hct 33.3 L (39.0-53.0) % Total Protein 5.9 L (6.3-8.2) g/dL Diabetes panel 06/16/19 Range/Units 11:03 Sodium 142 (137-145) mmol/L Potassium 3.6 (3.5-5.1) mmol/L Chloride 106 (98-107) mmol/L Carbon Dioxide 30 (22-30) mmol/L BUN 18 (9-20) mg/dL Creatinine 1.25 (0.66-1.25) mg/dL Glucose 87 (74-99) mg/dL Calcium 9.2 (8.4-10.2) mg/dL AST 31 (17-59) U/L ALT 8 (4-49) U/L Alkaline Phosphatase 54 (38-126) U/L Total Protein 5.9 L (6.3-8.2) g/dL Albumin 3.5 (3.5-5.0) g/dL Calcium panel 06/16/19 Range/Units 11:03 Calcium 9.2 (8.4-10.2) mg/dL Albumin 3.5 (3.5-5.0) g/dL Pituitary panel 06/16/19 Range/Units 11:03 Sodium 142 (137-145) mmol/L Potassium 3.6 (3.5-5.1) mmol/L Chloride 106 (98-107) mmol/L Carbon Dioxide 30 (22-30) mmol/L BUN 18 (9-20) mg/dL Creatinine 1.25 (0.66-1.25) mg/dL Glucose 87 (74-99) mg/dL Calcium 9.2 (8.4-10.2) mg/dL Adrenal panel 06/16/19 Range/Units 11:03 Sodium 142 (137-145) mmol/L Potassium 3.6 (3.5-5.1) mmol/L Chloride 106 (98-107) mmol/L Carbon Dioxide 30 (22-30) mmol/L BUN 18 (9-20) mg/dL Creatinine 1.25 (0.66-1.25) mg/dL Glucose 87 (74-99) mg/dL Calcium 9.2 (8.4-10.2) mg/dL Total Bilirubin 0.8 (0.2-1.3) mg/dL AST 31 (17-59) U/L ALT 8 (4-49) U/L Alkaline Phosphatase 54 (38-126) U/L Total Protein 5.9 L (6.3-8.2) g/dL Albumin 3.5 (3.5-5.0) g/dL <Kristi Benitez - Last Filed: 06/17/19 12:15> History of Present Illness History of present illness: Patient seen and evaluated. At the time of my evaluation, patient had tolerable abdominal exam. "I want to eat.". May start diet. Surgical - Exam Vital Signs Temp Pulse Resp BP Pulse Ox 97.3 F L 59 L 18 127/71 98 06/16/19 06:00 06/16/19 06:00 06/16/19 06:00 06/16/19 06:00 06/16/19 06:00 Results - Labs 06/16/19 11:03 06/16/19 11:03 Assessment and Plan (1) Chronic constipation Current Visit: Yes Status: Acute Code(s): K59.09 - OTHER CONSTIPATION SNOMED Code(s): 487947954 (2) Small bowel obstruction Current Visit: Yes Status: Acute Code(s): K56.609 - UNSP INTESTNL OBST, UNSP TO PARTIAL VERSUS COMPLETE OBST SNOMED Code(s): 309209381
[2019-06-16] MEDS: HEPARIN SODIUM,PORCINE 5,000 UNIT/ML 1 ML VIAL SQ SCH (15:55)
[2019-06-16] MEDS: MAGNESIUM HYDROXIDE 2,400 MG/10 ML CUP PO SCH (15:55)
[2019-06-16] MEDS: POLYETHYLENE GLYCOL 3350 17 GM POWD.PACK PO SCH (15:55)
--- NOTE | 2019-06-16 18:41 | HP ---
HISTORY AND PHYSICAL CHIEF COMPLAINT: Abdominal pain. HISTORY OF PRESENT ILLNESS: This is another admission for this 74-year-old white male. He just underwent a procedure for bowel obstruction. He went to a custodial and had then since gone home. He started developing abdominal pain and distention. He came back in, where he was found to have a probable bowel obstruction. REVIEW OF SYSTEMS: He denies any neurologic changes, nausea, vomiting, hematemesis, melena, jaundice, etc. Past medical history, family history, and personal and social histories are all otherwise unremarkable or unchanged from his recent admitting and discharge documents. ALLERGIES: NOT ALLERGIC TO ANY MEDICATION. MEDICATIONS: He is supposed to be on: 1. Flomax 0.4. 2. Vicodin p.r.n. 3. Gabapentin 300 mg once a day. 4. Seroquel 300 mg at night. 5. Simvastatin 10 mg once a day. 6. Levothyroxine 0.05 mg a day. 7. Zantac 150 twice a day. 8. Lamotrigine 150 mg twice a day. 9. Cilostazol 100 mg once a day. 10.Hydrochlorothiazide 25 once a day. 11.Bupropion 200 mg twice a day. The remainder of his history is unremarkable. PHYSICAL EXAMINATION: Blood pressure 126/70, pulse of 80, respirations 16, and 97.4 temperature. In general he appeared to be slender and slightly dehydrated. Skin color was normal. Head, ears, eyes, nose and mouth were normal. Neck veins were not distended. Thyroid was not enlarged. Chest was clear. Cardiac exam was normal. The abdomen was flat and very tender throughout. He had guarding and rebound tenderness. Bowel sounds were not heard. Extremities were normal. Neurologically he was intact. IMPRESSION: 1. Bowel obstruction. 2. ? perforated viscus. 3. ? Peritonitis. PLAN: 1. Bed rest. 2. IV fluids. 3. N.p.o. 4. Analgesics. 5. Consult with Surgery. MMODL / IJN: [id number] /
[2019-06-16] MEDS: LACTULOSE 20 GM/30 ML CUP PO SCH (21:51)
[2019-06-17] MEDS: HEPARIN SODIUM,PORCINE 5,000 UNIT/ML 1 ML VIAL SQ SCH ×4 (00:08→23:29)
[2019-06-17] MEDS: KETOROLAC 30 MG/ML 1 ML VIAL IVP PRN ×3 (01:16→18:00)
[2019-06-17] MEDS: SODIUM CHLORIDE 0.9% 1,000 ML IV SCH ×3 (04:53→20:08)
[2019-06-17] MEDS: PANTOPRAZOLE 40 MG/10 ML VIAL IVP SCH (07:34)
[2019-06-17] MEDS: LACTULOSE 20 GM/30 ML CUP PO SCH ×2 (07:35→20:06)
[2019-06-17] MEDS: POLYETHYLENE GLYCOL 3350 17 GM POWD.PACK PO SCH (07:35)
[2019-06-17] MEDS: MAGNESIUM HYDROXIDE 2,400 MG/10 ML CUP PO SCH (07:35)
--- NOTE | 2019-06-17 12:23 | P.PN ---
Subjective Progress Note Date: 06/17/19 CHIEF COMPLAINT: Abdominal pain HISTORY OF PRESENT ILLNESS: The patient is a 74-year-old male status post laparotomy in the 1 month ago secondary small bowel obstruction. He was admitted secondary to abdominal pain as transfer from outside facility. Today, "I feel much better." His abdominal pain is resolved. "I had a large bowel movement." He tolerated pancakes for breakfast. He is sitting up in a chair comfortable. ROS: No reports of nausea and vomiting. Had bowel movements. No fevers or c hills. No new chest pain. No productive sputum PHYSICAL EXAM: VITAL SIGNS: Reviewed CONSTITUTIONAL: Well developed and in no acute distress. EYES: Conjuctivae without sclera icterus. Extraocular movements grossly intact. HEAD, EARS, NOSE, THROAT: Moist buccal mucosa. Head is atraumatic, norm ocephalic. Hears conversational speech. No nasal drainage. RESPIRATORY: Non-labored respirations and equal bilateral excursions. CARDIOVASCULAR: Palpable 2+ radial pulses. ABDOMEN: Soft. No peritonitis. MUSCULOSKELETAL: No gross deformity of the lower extremities noted. No clubbing. No cyanosis. SKIN: Good skin turgor. Well perfused. NEUROLOGIC: Cranial nerves I through XII grossly intact. No focal or lateralizing signs. PSYCH: Appropriate affect. Alert and oriented to person, place and time. CLINICAL LABS: White blood cell count normal ASSESSMENT: 1. Chronic constipation PLAN: 1. He is tolerating diet. 2. Agreeable for discharge with diet as tolerated 3. Follow up with Dr. Lindquist as outpatient. Objective - Vital Signs Vital signs: Vital Signs Temp 98.1 F 06/17/19 04:35 Pulse 76 06/17/19 04:35 Resp 20 06/17/19 04:35 BP 129/74 06/17/19 04:35 Pulse Ox 97 06/17/19 04:35 Intake & Output 06/16/19 06/17/19 06/17/19 18:59 06:59 18:59 Intake Total 800 300 Balance 800 300 Intake: Intake, IV Titration 800 Amount Sodium Chloride 0.9% 1, 800 000 ml @ 100 mls/hr IV . Q10H JORGE Rx#:[id number] Oral 300 Other: # Voids 2 2 - Labs CBC & Chem 7: 06/16/19 11:03 06/16/19 11:03 Assessment and Plan (1) Chronic constipation Current Visit: Yes Status: Acute Code(s): K59.09 - OTHER CONSTIPATION SNOMED Code(s): 991101396 (2) Small bowel obstruction Current Visit: Yes Status: Acute Code(s): K56.609 - UNSP INTESTNL OBST, UNSP TO PARTIAL VERSUS COMPLETE OBST SNOMED Code(s): 513680894
--- NOTE | 2019-06-17 13:51 | PN ---
PROGRESS NOTE DATE OF SERVICE: 06/17/2019 CHIEF COMPLAINT: Abdominal pain and distention. HISTORY OF PRESENT ILLNESS: This gentleman is doing a bit better. Pain is improving. He is passing gas. He probably had an ileus. PHYSICAL EXAMINATION: He is still distended, but less so. He still has some mild generalized diffuse tenderness without masses. Occasional bowel sounds are heard. IMPRESSION: Probably resolving ileus. PLAN: Continue with IV fluids and slowly advance diet and activity. MMODL / IJN: [id number] /
[2019-06-18] MEDS: HEPARIN SODIUM,PORCINE 5,000 UNIT/ML 1 ML VIAL SQ SCH ×2 (07:00→15:36)
[2019-06-18] MEDS: PANTOPRAZOLE 40 MG/10 ML VIAL IVP SCH (07:00)
[2019-06-18] MEDS: MAGNESIUM HYDROXIDE 2,400 MG/10 ML CUP PO SCH ×2 (07:00→07:01)
[2019-06-18] MEDS: LACTULOSE 20 GM/30 ML CUP PO SCH ×2 (07:00→22:10)
[2019-06-18] MEDS: POLYETHYLENE GLYCOL 3350 17 GM POWD.PACK PO SCH (07:01)
[2019-06-18] MEDS: SODIUM CHLORIDE 0.9% 1,000 ML IV SCH ×2 (07:01→22:09)
[2019-06-18] MEDS: KETOROLAC 30 MG/ML 1 ML VIAL IVP PRN ×2 (07:04→16:12)
--- NOTE | 2019-06-18 13:12 | P.PN ---
Subjective Progress Note Date: 06/18/19 CHIEF COMPLAINT: Abdominal pain HISTORY OF PRESENT ILLNESS: The patient is a 74-year-old male status post laparotomy in the 1 month ago secondary small bowel obstruction. He was admitted secondary to abdominal pain as transfer from outside facility. He had bowel movements yesterday. His abdominal pain is resolved. He is tolerating regular diet for the last 2 days. ROS: No reports of nausea and vomiting. Had bowel movements. No fevers or chills. No new chest pain. No productive sputum PHYSICAL EXAM: VITAL SIGNS: Reviewed CONSTITUTIONAL: Well developed and in no acute distress. EYES: Conjuctivae without sclera icterus. Extraocular movements grossly intact. HEAD, EARS, NOSE, THROAT: Moist buccal mucosa. Head is atraumatic, normocephalic. Hears conversational speech. No nasal drainage. RESPIRATORY: Non-labored respirations and equal bilateral excursions. CARDIOVASCULAR: Palpable 2+ radial pulses. ABDOMEN: Soft. No peritonitis. MUSCULOSKELETAL: No gross deformity of the lower extremities noted. No clubbing. No cyanosis. SKIN: Good skin turgor. Well perfused. NEUROLOGIC: Cranial nerves I through XII grossly intact. No focal or lateralizing signs. PSYCH: Appropriate affect. Alert and oriented to person, place and time. CLINICAL LABS: White blood cell count normal ASSESSMENT: 1. Chronic constipation PLAN: 1. Patient clear for discharge from a surgical standpoint 2. Recommend bowel regimen such as Miralax, lactulose, dileep-colace for home Objective - Vital Signs Vital signs: Vital Signs Temp 97.9 F 06/18/19 12:16 Pulse 66 06/18/19 12:16 Resp 18 06/18/19 12:16 BP 121/79 06/18/19 12:16 Pulse Ox 100 06/18/19 12:16 Intake & Output 06/17/19 06/18/19 06/18/19 18:59 06:59 18:59 Intake Total 1080 600 Balance 1080 600 Intake: Oral 1080 600 Other: # Voids 2 2 # Bowel Movements 2 - Labs CBC & Chem 7: 06/16/19 11:03 06/16/19 11:03 Assessment and Plan (1) Chronic constipation Current Visit: Yes Status: Acute Code(s): K59.09 - OTHER CONSTIPATION SNOM ED Code(s): 982914394 (2) Small bowel obstruction Current Visit: Yes Status: Acute Code(s): K56.609 - UNSP INTESTNL OBST, UNSP TO PARTIAL VERSUS COMPLETE OBST SNOMED Code(s): 318298982
--- NOTE | 2019-06-18 20:44 | PN ---
PROGRESS NOTE CHIEF COMPLAINT: Ileus and constipation. HISTORY OF PRESENT ILLNESS: This gentleman doing well. He started to pass stool and his abdominal pain has subsided. He will be able to go home tomorrow. PHYSICAL EXAM: Abdomen is soft, nontender. Bowel sounds present. Chest is clear. Cardiac exam is normal. IMPRESSION: Obstipation, partial bowel obstruction, constipation and ileus. PLAN: Probably home tomorrow. MMODL / IJN: [id number] /
[2019-06-18 22:53] VITALS: RESP 20
[2019-06-19 05:23] VITALS: BP 153/75; PULSE 70; TEMP 98
[2019-06-19] MEDS: SODIUM CHLORIDE 0.9% 1,000 ML IV SCH (05:24)
[2019-06-19] MEDS: LACTULOSE 20 GM/30 ML CUP PO SCH (08:42)
[2019-06-19] MEDS: PANTOPRAZOLE 40 MG/10 ML VIAL IVP SCH (08:42)
[2019-06-19] MEDS: POLYETHYLENE GLYCOL 3350 17 GM POWD.PACK PO SCH (08:43)
[2019-06-19] MEDS: HEPARIN SODIUM,PORCINE 5,000 UNIT/ML 1 ML VIAL SQ SCH ×2 (08:43)
--- NOTE | 2019-06-19 10:51 | P.PN ---
<Nikki Hernandez A - Last Filed: 06/19/19 10:46> Subjective Progress Note Date: 06/19/19 CHIEF COMPLAINT: Abdominal pain HISTORY OF PRESENT ILLNESS: Patient examined this morning at the bedside. Denies abdominal pain. Tolerating regular diet. Denies nausea or vomiting. Reports PHYSICAL EXAM: VITAL SIGNS: Reviewed GENERAL: Well-developed in no acute distress. HEENT: No sclera icterus. Extraocular movements grossly intact. Moist buccal mucosa. Head is atraumatic, normocephalic. Hears conversational speech. No nasal drainage. NECK: Supple without lymphadenopathy. CHEST: Non-labored respirations and equal bilateral excursions. CARDIOVASCULAR: Regular rate with regular rhythm. Palpable 2+ radial pulses. ABDOMEN: Soft. Nondistended. Nontender. Midline surgical incision healing well without redness or drainage. No peritoneal signs. MUSCULOSKELETAL: No clubbing, cyanosis or edema. NEUROLOGIC: No focal or lateralizing signs. Cranial nerves II through XII grossly intact. PSYCH: Appropriate affect. Alert and oriented to person, place and time. SKIN: Well perfused. Good skin turgor. ASSESSMENT: 1. Abdominal pain 2. Constipation, acute on chronic 3. History of exploratory laparotomy, small bowel resection, repair of incarcerated incisional hernia, and lysis of adhesions with Dr. Lindquist on 05/09/2019 PLAN: Continue diet as tolerated Continue bowel regimen at discharge Stable for discharge from surgical standpoint. Will defer to medicine. Nurse practitioner note has been reviewed by physician. Signing provider agrees with the documented findings, assessment, and plan of care. Objective - Vital Signs Vital signs: Vital Signs Temp 98 F 06/19/19 04:50 Pulse 70 06/19/19 04:50 Resp 20 06/19/19 04:50 BP 153/75 06/19/19 04:50 Pulse Ox 98 06/19/19 04:50 Intake & Output 06/18/19 06/19/19 06/19/19 18:59 06:59 18:59 Intake Total 690 800 Balance 690 800 Intake: Oral 540 800 Blood Product 150 Other: Voiding Method Toilet Toilet # Voids 3 1 # Bowel Movements 1 0 - Labs CBC & Chem 7: 06/16/19 11:03 06/16/19 11:03 <Kristi Benitez N - Last Filed: 06/19/19 18:32> Subjective As above. Agreeable for discharge. Objective - Vital Signs Vital signs: Vital Signs Temp 98 F 06/19/19 04:50 Pulse 70 06/19/19 04:50 Resp 20 06/19/19 04:50 BP 153/75 06/19/19 04:50 Pulse Ox 98 06/19/19 04:50 Intake & Output 06/18/19 06/19/19 06/19/19 18:59 06:59 18:59 Intake Total 690 800 Balance 690 800 Intake: Oral 540 800 Blood Product 150 Other: Voiding Method Toilet Toilet # Voids 3 1 1 # Bowel Movements 1 0 - Labs CBC & Chem 7: 06/16/19 11:03 06/16/19 11:03 Assessment and Plan (1) Chronic constipation Status: Acute Code(s): K59.09 - OTHER CONSTIPATION SNOMED Code(s): 042345923 (2) Small bowel obstruction Status: Acute Code(s): K56.609 - UNSP INTESTNL OBST, UNSP TO PARTIAL VERSUS COMPLETE OBST SNOMED Code(s): 824481757
--- NOTE | 2019-06-20 06:51 | DS ---
DISCHARGE SUMMARY CHIEF COMPLAINT: Abdominal pain and possible bowel obstruction. HISTORY OF PRESENT ILLNESS AND PHYSICAL EXAM: The details of this man's history and physical can be found in the initial workup. LABORATORY STUDIES: While he was in the hospital he had laboratory studies, details of which can be found in the laboratory section of the chart. COURSE IN THE HOSPITAL: After admission, he was placed on bedrest and started on intravenous fluids and he his bowel activity returned. It was felt that he probably had an ileus and this was related to constipation. Bowel activity improved. He started to pass feces and gas. The abdomen became less distended and nontender. It was felt that he could be discharged and he will go home on the on regular diet and activity and he was encouraged to use MiraLAX twice a day. FINAL DIAGNOSES: 1. Abdominal pain. 2. Constipation. 3. Ileus. OPERATIONS: None. CONSULTATIONS: Surgery. He is improved. MMWILLIAM / CHERYLN: [id number] /
--- NOTE | 2019-06-20 08:21 | CDI ---
Documentation Clarification Form Date: 06/19/2019 01:03:13 PM From: Yamini Tang RN CCDS Admit Date: 06/16/2019 05:19:00 AM Patient Name: Garcia Galdamez Visit Number: [id number] Discharge Date: ATTENTION: The Clinical Documentation Specialists (CDI) and [facility] Coding Staff appreciate your assistance in clarifying documentation. Please respond to the clarification below the line at the bottom and electronically sign. The CDI & [facility] Coding staff will review the response and follow-up if needed. Please note: Queries are made part of the Legal Health Record. If you have any questions, please contact the author of this message via ITS. Dr. Bal Tobias Peritonitis is documented in the H & P 06/16/2019 History/Risk Factors:74-year-old male presents to the ED as a Transfer from [facility] for abdominal pain had an exploratory laparotomy with small bowel resection 05/09/2019. Medical history of chronic constipation Clinical Indicators: Lab findings: only drawn on 06/16 Wbc 7.5 ; Total protein 5.9; Radiology findings: 06/16/2019 - Abd Pelvis Overall nonspecific bowel gas pattern. Mild to moderate diffuse colonic fecal stasis. Possible partial mid to distal small bowel obstruction Vital Signs: 127/71 59 97.3 18 98% ra Other Clinical Indicators: Treatment: 06/16 Lactulose 30mg po BID JORGE; Milk of Magnesia 2,400mg po daily; Miralax 17gm po daily; 0.9ns 100cchr Consults: Sx consult Chronic constipation; small bowel obstruction In your professional opinion, can you please clarify peritonitis? * Peritonitis Ruled Out * Peritonitis POA * Other, please specify * Unable to determine (Last Revision: September 2017) MTDD
--- NOTE | 2019-06-23 09:18 | MISC ---
MISCELLANOUS REPORT QUERY: Peritonitis ruled out. MMODL / IJN: [id number] /
== END 2019-06-19 13:58 | disposition home or self-care (01) | DRG 389 ==
LOC: 6NMEDSUR 05:19
PROVIDERS: ADMIT Family Medicine; ATTEND Family Medicine
DX: K56.600 Partial intestinal obstruction, unspecified as to cause (principal); F33.9 Major depressive disorder, recurrent, unspecified; E78.5 Hyperlipidemia, unspecified; I10 Essential (primary) hypertension; K56.7 Ileus, unspecified; Z79.02 Long term (current) use of antithrombotics/antiplatelets; Z79.890 Hormone replacement therapy; Z79.899 Other long term (current) drug therapy; Z83.3 Family history of diabetes mellitus; Z90.49 Acquired absence of other specified parts of digestive tract; Z81.8 Family history of other mental and behavioral disorders
CPT/HCPCS: 74019; 80053; 85025

== ENCOUNTER 2019-12-29 13:32 | Emergency (ER) | payer MEDICARE ==
[2019-12-29 13:39] VITALS: BP 141/72; PULSE 68; RESP 18; TEMP 98
--- NOTE | 2019-12-29 14:02 | ED ---
General Adult HPI - General Chief complaint: Psychiatric Symptoms Stated complaint: mental health Time Seen by Provider: 12/29/19 13:35 Source: patient, RN notes reviewed, old records reviewed Mode of arrival: wheelchair Limitations: no limitations - History of Present Illness Initial comments: This is a 74-year-old male who presents emergency department stating that he is here today because he is becoming more more depressed she lives alone and he has no children. Patient states she's just getting to the point where he is worried he might harm himself. Patient states he currently doesn't want harm himself and he has no plan but he feels as though he is constantly crying and not sleeping and he thinks that's he'll get to the point that he will kill himself. Patient denies any physical complaints today. Patient states he does state he might have skin cancer and they're working that up and spent about 2 years since the growth on the symptoms started per patient denies any physical complaints today. Patient denies any recent fever chills or cough per patient denies any headache patient denies any numbness weakness per patient any chest pain difficulty breathing first breath per patient denies any abdominal pain. Patient denies any nausea vomiting diarrhea. - Related Data Home Medications Medication Instructions Recorded Confirmed Cilostazol [Pletal] 100 mg PO DAILY 02/22/19 06/16/19 Hydrochlorothiazide [Hydrodiuril] 25 mg PO DAILY 02/22/19 06/16/19 Levothyroxine Sodium [Synthroid] 50 mcg PO DAILY 02/22/19 06/16/19 Simvastatin 10 mg PO HS 02/22/19 06/16/19 buPROPion HCL [buPROPion HCL ER] 200 mg PO Q12HR 05/09/19 06/16/19 lamoTRIgine [LaMICtal] 150 mg PO BID 05/09/19 06/16/19 Previous Rx's Medication Instructions Recorded Tamsulosin [Flomax] 0.4 mg PO PC-SUPPER #90 cap.er.24h 05/15/19 Lactulose [Cephulac] 20 gm PO BID PRN #500 ml 06/19/19 Polyethylene Glycol 3350 [Miralax] 17 gm PO DAILY #30 powd.pack 06/19/19 Sennosides-Docusate Sodium 1 tab PO DAILY #90 tablet 06/19/19 [Senokot-S] Allergies Allergy/AdvReac Type Severity Reaction Status Date / Time No Known Allergies Allergy Verified 12/29/19 13:39 Review of Systems ROS Statement: Those systems with pertinent positive or pertinent negative responses have been documented in the HPI. ROS Other: All systems not noted in ROS Statement are negative. Past Medical History Past Medical History: Hyperlipidemia, Hypertension, Thyroid Disorder History of Any Multi-Drug Resistant Organisms: None Reported Past Surgical History: Appendectomy, Cholecystectomy, Tonsillectomy Additional Past Surgical History / Comment(s): Hemmroidectomy Past Anesthesia/Blood Transfusion Reactions: No Reported Reaction Past Psychological History: Depression Smoking Status: Never smoker Past Alcohol Use History: None Reported Past Drug Use History: None Reported - Past Family History Father Family Medical History: Cancer Additional Family Medical History / Comment(s): Manic Depression, Ca ?? Mother Family Medical History: Diabetes Mellitus General Exam - General Exam Comments Initial Comments: GENERAL: Patient is well-developed and well-nourished. Patient is nontoxic and well- hydrated and is in no acute distress. ENT: Neck is soft and supple. No significant lymphadenopathy is noted. Oropharynx is clear. Moist mucous membranes. Neck has full range of motion without eliciting any pain. EYES: The sclera were anicteric and conjunctiva were pink and moist. Extraocular movements were intact and pupils were equal round and reactive to light. Eyelids were unremarkable. PULMONARY: Unlabored respirations. Good breath sounds bilaterally. No audible rales rhonchi or wheezing was noted. CARDIOVASCULAR: There is a regular rate and rhythm without any murmurs gallops or rubs. ABDOMEN: Soft and nontender with normal bowel sounds. SKIN: Skin is clear with no lesions or rashes and otherwise unremarkable. NEUROLOGIC: Patient is alert and oriented x3. Cranial nerves II through XII are grossly intact. Motor and sensory are also intact. Normal speech, volume and content. Symmetrical smile. MUSCULOSKELETAL: Normal extremities with adequate strength and full range of motion. LYMPHATICS: No significant lymphadenopathy is noted PSYCHIATRIC: Patient states he is very depressed and is worried that he'll get more depressed and want to kill himself. Limitations: no limitations Course Vital Signs 12/29/19 13:36 Temperature 98.0 F Pulse Rate 68 Respiratory 18 Rate Blood Pressure 141/72 O2 Sat by Pulse 99 Oximetry Medical Decision Making - Medical Decision Making EPS evaluated the patient and the patient told them that he just was saying that he might harm himself because he thought he could get to a nursing facility quicker that way but since he has been admitted to the psych floor first he states that he does not want to do that and he can make arrangements at home to go to the nursing facility. Patient has a safety plan to be discharged home. I went back and spoke with the patient I agreed that he wasn't suicidal and that he could follow-up to try to get himself into a nursing facility at home. - Lab Data Result diagrams: 12/29/19 13:57 12/29/19 13:57 Lab Results 12/29/19 12/29/19 Range/Units 13:57 13:57 WBC 8.3 (3.8-10.6) k/uL RBC 3.75 L (4.30-5.90) m/uL Hgb 11.7 L (13.0-17.5) gm/dL Hct 35.6 L (39.0-53.0) % MCV 95.2 (80.0-100.0) fL MCH 31.2 (25.0-35.0) pg MCHC 32.8 (31.0-37.0) g/dL RDW 13.0 (11.5-15.5) % Plt Count 209 (150-450) k/uL Neutrophils % 73 % Lymphocytes % 16 % Monocytes % 5 % Eosinophils % 3 % Basophils % 0 % Neutrophils # 6.0 (1.3-7.7) k/uL Lymphocytes # 1.4 (1.0-4.8) k/uL Monocytes # 0.4 (0-1.0) k/uL Eosinophils # 0.3 (0-0.7) k/uL Basophils # 0.0 (0-0.2) k/uL Sodium 140 (137-145) mmol/L Potassium 3.5 (3.5-5.1) mmol/L Chloride 104 (98-107) mmol/L Carbon Dioxide 26 (22-30) mmol/L Anion Gap 10 mmol/L BUN 33 H (9-20) mg/dL Creatinine 1.38 H (0.66-1.25) mg/dL Est GFR (CKD-EPI)AfAm 59 (>60 ml/min/1.73 sqM) Est GFR (CKD-EPI)NonAf 51 (>60 ml/min/1.73 sqM) Glucose 97 (74-99) mg/dL Calcium 9.3 (8.4-10.2) mg/dL Magnesium 2.0 (1.6-2.3) mg/dL Total Bilirubin 0.6 (0.2-1.3) mg/dL AST 22 (17-59) U/L ALT 7 (4-49) U/L Alkaline Phosphatase 53 (38-126) U/L Total Protein 6.1 L (6.3-8.2) g/dL Albumin 4.0 (3.5-5.0) g/dL Disposition Clinical Impression: Depression Disposition: HOME SELF-CARE Condition: Good Instructions (If sedation given, give patient instructions): Depression (ED) Is patient prescribed a controlled substance at d/c from ED?: No Referrals: None,Stated [Primary Care Provider] - 1-2 days Time of Disposition: 17:01
[2019-12-29 14:12] LABS: Basophils % (A) 0 %; Eosinophils # (A) 0.3 k/uL (0-0.7); Eosinophils % (A) 3 %; HCT 35.6 % (39.0-53.0); HGB 11.7 gm/dL (13.0-17.5); Lymphocytes # (A) 1.4 k/uL (1.0-4.8); Lymphocytes % (A) 16 %; MCH 31.2 pg (25.0-35.0); MCHC 32.8 g/dL (31.0-37.0); MCV 95.2 fL (80.0-100.0); Mean Platelet Volume 7.8; Monocytes # (A) 0.4 k/uL (0-1.0); Monocytes % (A) 5 %; Neutrophils % (A) 73 %; Platelet Count 209 k/uL (150-450); RBC 3.75 m/uL (4.30-5.90); WBC 8.3 k/uL (3.8-10.6)
[2019-12-29 14:26] LABS: Calcium 9.3 mg/dL (8.4-10.2); Potassium 3.5 mmol/L (3.5-5.1); Total Bilirubin 0.6 mg/dL (0.2-1.3); Total Protein 6.1 g/dL (6.3-8.2)
== END 2019-12-29 17:29 | disposition home or self-care (01) ==
LOC: EC 13:32
DX: F32.9 Major depressive disorder, single episode, unspecified (principal); E78.5 Hyperlipidemia, unspecified; E07.9 Disorder of thyroid, unspecified; I10 Essential (primary) hypertension; Z79.890 Hormone replacement therapy; Z79.899 Other long term (current) drug therapy; Z60.2 Problems related to living alone
CPT/HCPCS: 36415; 80053; 83735; 85025; 99284

== ENCOUNTER 2020-01-03 13:50 | Inpatient (IN) | payer MEDICARE ==
--- NOTE | 2020-01-03 14:31 | ED ---
Psych HPI - General Chief Complaint: Psychiatric Symptoms Stated Complaint: Suicidal Time Seen by Provider: 01/03/20 14:01 Source: patient, EMS Mode of arrival: EMS - History of Present Illness Initial Comments: 74-year-old male presenting today for chief complaint of voices in his head and suicidal ideation. Patient states his extensive past medical history for psychiatric disorders he states he frequently experiences suicidal ideations throughout the years. Patient states that today was began talking to him and his head telling him to kill himself. Patient states that he has been more depressed than usual doesn't believe his medications are working he states he is compliant with his psychiatric medications. Patient denies homicidal ideations denies physical complaints. States this is typical of the episodes of voices in his head that he has. Patient has no additional complaints. Upon arrival patient appears well there is no signs of acute distress. Patient denies any recent fever, chills, shortness of breath, chest pain, back pain, abdominal pain, nausea or vomiting, numbness or tingling, dysuria or hematuria, constipation or diarrhea, headaches or visual changes, or any other complaints. - Related Data Home Medications Medication Instructions Recorded Confirmed Cilostazol [Pletal] 100 mg PO DAILY 02/22/19 01/03/20 Hydrochlorothiazide [Hydrodiuril] 25 mg PO DAILY 02/22/19 01/03/20 Levothyroxine Sodium [Synthroid] 50 mcg PO DAILY 02/22/19 01/03/20 Simvastatin 10 mg PO HS 02/22/19 01/03/20 buPROPion HCL [buPROPion HCL ER] 200 mg PO Q12HR 05/09/19 01/03/20 lamoTRIgine [LaMICtal] 150 mg PO BID 05/09/19 01/03/20 Allergies Allergy/AdvReac Type Severity Reaction Status Date / Time No Known Allergies Allergy Verified 01/03/20 14:43 Review of Systems ROS Statement: Those systems with pertinent positive or pertinent negative responses have been documented in the HPI. ROS Other: All systems not noted in ROS Statement are negative. Past Medical History Past Medical History: Hyperlipidemia, Hypertension, Thyroid Disorder Additional Past Medical History / Comment(s): manic depressive History of Any Multi-Drug Resistant Organisms: None Reported Past Surgical History: Appendectomy, Cholecystectomy, Tonsillectomy Additional Past Surgical History / Comment(s): Hemmroidectomy Past Anesthesia/Blood Transfusion Reactions: No Reported Reaction Past Psychological History: Depression Smoking Status: Never smoker Past Alcohol Use History: None Reported Past Drug Use History: None Reported - Past Family History Father Family Medical History: Cancer Additional Family Medical History / Comment(s): Manic Depression, Ca ?? Mother Family Medical History: Diabetes Mellitus General Exam - General Exam Comments Initial Comments: General: The patient is awake and alert, in no distress Eye: Pupils are equal, round and reactive to light, extra-ocular movements are intact. No nystagmus. There is normal conjunctiva bilaterally. No signs of icterus. Cardiovascular: There is a regular rate and rhythm. No murmur, rub or gallop is appreciated. Respiratory: Lungs are clear to auscultation, respirations are non-labored, breath sounds are equal. No wheezes, stridor, rales, or rhonchi. Gastrointestinal: Soft, non-distended, non-tender abdomen without masses or organomegaly noted. There is no rebound or guarding present. Musculoskeletal: Normal ROM, no tenderness. Strength 5/5. Sensation intact. Pulses equal bilaterally 2+. Neurological: A&O x 3. CN II-XII intact, There are no obvious motor or sensory deficits. Coordination appears grossly intact. Speech is normal. Skin: Skin is warm and dry and no rashes. Crusty scaling lesions noted on scalp. Psychiatric: Cooperative, flat affect Limitations: no limitations Course Vital Signs 01/03/20 01/03/20 13:56 16:05 Temperature 98.1 F 98.2 F Pulse Rate 76 61 Respiratory 18 18 Rate Blood Pressure 105/90 142/85 O2 Sat by Pulse 98 98 Oximetry Medical Decision Making - Medical Decision Making 74-year-old male with history of previous auditory hallucinations and history of psychiatric disease presenting for voices in his head telling him to kill himself and suicidal ideation. Patient has no physical complaints. Appears well. States he doesnt feel psych medications are working. Denies ETOH use or abuse. Denies drug use. patient has no additional complaints. UA unremarkable. Patient VS within acceptable limits. Patient medically cleared for psychiatric evaluation. Patient evaluated by EPS who spoke with [facility] psychiatrist who prefers admission for inpatient care. Patient transferred to inpatient psych facility. - Lab Data Lab Results 01/03/20 Range/Units 14:25 Urine Color Yellow Urine Appearance Clear (Clear) Urine pH 6.0 (5.0-8.0) Ur Specific [place] 1.021 (1.001-1.035) Urine Protein Negative (Negative) Urine Glucose (UA) Negative (Negative) Urine Ketones Negative (Negative) Urine Blood Negative (Negative) Urine Nitrite Negative (Negative) Urine Bilirubin Negative (Negative) Urine Urobilinogen <2.0 (<2.0) mg/dL Ur Leukocyte Esterase Negative (Negative) Urine Opiates Screen Not Detected (NotDetected) Ur Oxycodone Screen Not Detected (NotDetected) Urine Methadone Screen Not Detected (NotDetected) Ur Propoxyphene Screen Not Detected (NotDetected) Ur Barbiturates Screen Not Detected (NotDetected) U Tricyclic Antidepress Not Detected (NotDetected) Ur Phencyclidine Scrn Not Detected (NotDetected) Ur Amphetamines Screen Not Detected (NotDetected) U Methamphetamines Scrn Not Detected (NotDetected) U Benzodiazepines Scrn Not Detected (NotDetected) Urine Cocaine Screen Not Detected (NotDetected) U Marijuana (THC) Screen Not Detected (NotDetected) Disposition Clinical Impression: Suicidal ideation, Auditory hallucination Disposition: TRANSFER TO PSYCH HOSP/UNIT Condition: Stable Time of Disposition: 15:57 Decision to Admit Reason: Admit from EC Decision Date: 01/03/20 Decision Time: 15:57
[2020-01-03 14:32] LABS: Appearance,Urine Clear (Clear); Bilirubin,Urine Negative (Negative); Blood,Urine Negative (Negative); Color,Urine Yellow; Glucose,Urine (UA) Negative (Negative); Ketones,Urine Negative (Negative); Leukocyte Esterase,Urine Negative (Negative); Nitrite,Urine Negative (Negative); Protein,Urine Negative (Negative); Specific Gravity,Urine 1.021 (1.001-1.035); Urobilinogen,Urine <2.0 mg/dL (<2.0)
[2020-01-03 14:49] LABS: Amphetamine Screen,Urine Not Detected (NotDetected); Barbiturate Screen,Urine Not Detected (NotDetected); Benzodiazepines Screen,Urine Not Detected (NotDetected); Cocaine Screen,Urine Not Detected (NotDetected); Methadone Screen, Urine Not Detected (NotDetected); Opiate Screen,Urine Not Detected (NotDetected); Oxycodone Screen, Urine Not Detected (NotDetected); Phencyclidine Screen,Urine Not Detected (NotDetected); Tricyclic Antidepressant,Urine Not Detected (NotDetected); Urn Cannabinoid Scrn Not Detected (NotDetected)
[2020-01-03] MEDS ORDERED: MAGNESIUM HYDROXIDE 2,400 MG/10 ML CUP PO PRN (16:15)
[2020-01-03] MEDS ORDERED: ZIPRASIDONE 20 MG VIAL IM PRN (16:15)
[2020-01-03] MEDS ORDERED: MAG HYDROX/AL HYDROX/SIMETH 30 ML CUP PO PRN (16:15)
[2020-01-03] MEDS ORDERED: LORazepam 2 MG/ML INJ IM PRN (16:21)
[2020-01-03] MEDS: lamoTRIgine 100 MG TAB PO SCH (22:00)
[2020-01-03] MEDS: ATORVASTATIN 10 MG TAB PO SCH (22:01)
[2020-01-04] MEDS: LEVOTHYROXINE 50 MCG TAB PO SCH (06:06)
[2020-01-04 08:18] LABS: Basophils % (A) 1 %; Eosinophils # (A) 0.2 k/uL (0-0.7); Eosinophils % (A) 3 %; HGB 12.7 gm/dL (13.0-17.5); Lymphocytes # (A) 1.3 k/uL (1.0-4.8); Lymphocytes % (A) 23 %; MCH 31.2 pg (25.0-35.0); MCHC 32.6 g/dL (31.0-37.0); MCV 95.9 fL (80.0-100.0); Mean Platelet Volume 7.6; Monocytes # (A) 0.3 k/uL (0-1.0); Monocytes % (A) 6 %; Neutrophils # (A) 3.8 k/uL (1.3-7.7); Neutrophils % (A) 66 %; Platelet Count 202 k/uL (150-450); RBC 4.07 m/uL (4.30-5.90); RDW 13.2 % (11.5-15.5); WBC 5.7 k/uL (3.8-10.6)
[2020-01-04 08:34] LABS: ALT <6 U/L (4-49); AST 19 U/L (17-59); African American GFR (CKD) 59 (>60 ml/min/1.73 sqM); Albumin 4.1 g/dL (3.5-5.0); Alkaline Phosphatase 50 U/L (38-126); Anion Gap 7 mmol/L; Blood Urea Nitrogen 27 mg/dL (9-20); Calcium 9.3 mg/dL (8.4-10.2); Carbon Dioxide 30 mmol/L (22-30); Chloride 104 mmol/L (98-107); Cholesterol 155 mg/dL (<200); Glucose 86 mg/dL (74-99); HDL Cholesterol 56 mg/dL (40-60); LDL Cholesterol,Calculated 74 mg/dL (0-99); Non-African American GFR(CKD) 51 (>60 ml/min/1.73 sqM); Potassium 4.4 mmol/L (3.5-5.1); Sodium 141 mmol/L (137-145); Total Bilirubin 0.9 mg/dL (0.2-1.3); Total Protein 6.2 g/dL (6.3-8.2); Triglycerides 126 mg/dL (<150)
[2020-01-04] MEDS: lamoTRIgine 100 MG TAB PO SCH ×2 (10:34→21:22)
[2020-01-04] MEDS: hydroCHLOROthiazide 25 MG TAB PO SCH (10:34)
[2020-01-04] MEDS: cilostazoL 100 MG TAB PO SCH (10:34)
--- NOTE | 2020-01-04 15:07 | P.HP ---
Psychiatric H&P - . H&P Date: 01/04/20 History & Physical: IDENTIFYING DATA: He is 74-year-old male admitted psychiatric unit voluntarily with complaints of increasing depression, suicidal ideation and auditory hallucinations. He developed EPS nurse that he see her voices telling him to kill himself. HISTORY OF PRESENT ILLNESS: He has a well-established diagnosis of bipolar disorder and had received services through [facility] for many years. He described feeling increasingly depressed for and unspecified period of time that has worsened over the last several weeks. He presented to her emergency Center on 12/29/2019 with complaints of increasing depression. He told the emergency room physician that he's afraid that the depression would worsen to the point where we have thoughts of "killing himself". During EPS evaluation, he told the nurse that he told the doctor that he was having thoughts of hurting himself because he thought he would be admitted to medicine service and "get to a nursing facility quicker." When the nurse told him that we would only admit psychiatric unit he replied that he does not want a psychiatric admission and would make arrangements at home for admission to a nursing facility. During the interview, he minimized the severity of auditory hallucinations. He again talked about wanting to be referred to a nursing care facility asked me several times when he could talk to Dr. Tobias. He was vague about specifics but talked about "a voice sometimes" telling him to kill himself. He had several complaints about his health, ability to care for himself and is living situation. He was living with friends in the apartment up until July of this year when he was asked to leave. He would not talk about the circumstances but stated that he regrets what he said. He has been since living with with friends. He does not have his own bedroom and sleeps on the couch. His medical problems including a hemiparesis from an old CVA. He expressed feelings depression admitted to several symptoms of depression including anhedonia, impaired sleep, energy, impaired concentration and decreased appetite. He denied persistent feelings of guilt. He expressed feelings of hopelessness, helplessness and worthlessness. He has thoughts of suicide but denied specific plan or intent. When asked about means he replied "there are a number of ways." He denied visual or olfactory hallucinations. He denied experiencing ideas reference, thought insertion, thought broadcasting or thought control. He denied use of alcohol or drugs to get high, help him sleep or changes mood. His UDS was negative and his breath alcohol level was 0. PAST PSYCHIATRIC HISTORY: He has a history of a bipolar disorder with onset in late adolescence while he was serving in the [employer]. He received a general discharge that was eventually changed to honorable. He has had multiple psychiatric hospitalizations and received community mental health services including a CT for several years. He is currently not engaged with [facility]. His primary care provider prescribes his psychotropic medications, Lamictal 150 mg twice a day and bupropion 200 mg twice a day. PAST MEDICAL HISTORY: He has history of hypertension, hyperlipidemia and thyroid disease. He had left CVA with right hemiparesis. ALLERGIES: NO KNOWN DRUG ALLERGIES SUBSTANCE USE HISTORY: He denied history of substance use problems FAMILY PSYCHIATRIC/SUBSTANCE USE HISTORY: Unknown LEGAL HISTORY: Denied SOCIAL HISTORY: His parents are . He was for 6 years. He has 2 adult children who were raised by his ex-. He served in the "for one month and 22 days" the majority of which she spent a night psychiatric hospital. He is unemployed and receives disability income. He has no stable residence. MENTAL STATUS EXAM: He presented as a tall gaunt elderly male with a thick white merritt. 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 He walked slowly with the aid of a cane. He had a right hemiparesis. He had a distressed facial expression. He was alert and oriented to person, place and time. He showed psychomotor retardation but no abnormal involuntary movements. Her speech was nonspontaneous and had decreased rate, rhythm and volume. His affect was depressed and not reactive. Expressed distress with recent suicidal ideation but denied plan or intent. He denied homicidal ideation. He expressed feelings of hopelessness, helplessness or worthlessness. He denied ideas reference, paranoid ideation or delusions. His thinking was concrete. Associations were goal-directed and logical. He described auditory hallucinations but did not appear to be responding to internal stimuli. Global impression of intellect is average. He is aware of her illness and need for treatment. STRENGTHS: Stable income, access to medical and mental health services, supportive friends WEAKNESSES: Multiple medical problems, chronic mental illness IMPRESSION: He is a 74-year-old man who has history of bipolar disorder. He presented to the unit voluntarily with complaints of depression, auditory hallucinations and suicidal ideation. The depression symptoms have been present for an unspecified period of time but have worsened recently. Conjunctivae factors include his multiple medical problems, physical impairment and unstable living situation. I should be treated inpatient basis with combination of psychopharmacology and multimodal therapy. PRINCIPLE DIAGNOSIS: Bipolar disorder most recent episode depressed with psychotic features RECOMMENDATION: Admit the psychiatric unit. Safety precautions. Consult medicine for initial physical exam and medical history. workers compensation analyst completed initial psychosocial assessment to coordinate discharge and aftercare services. Completed the [facility] Cognitive Assessment. Continue Lamictal 150 mg twice a day. Hold Wellbutrin and discuss a trial of an alternate antidepressant. Obtain consent for a trial of second-generation antipsychotic such as Abilify, Seroquel or Latuda. Encourage participation in therapeutic groups and activities. Evaluate clinical status response to treatment daily basis. Allergies Allergy/AdvReac Type Severity Reaction Status Date / Time No Known Allergies Allergy Verified 01/03/20 14:43 Vital Signs Temp 98.1 F 01/04/20 13:30 Pulse 62 01/04/20 06:31 Resp 16 01/04/20 06:31 BP 110/67 01/04/20 06:31 Pulse Ox 95 01/04/20 06:31 Intake & Output 01/03/20 01/04/20 01/04/20 18:59 06:59 18:59 Weight 64.183 kg 67.755 kg Laboratory Last Values WBC 5.7 k/uL (3.8-10.6) 01/04/20 07:00 RBC 4.07 m/uL (4.30-5.90) L 01/04/20 07:00 Hgb 12.7 gm/dL (13.0-17.5) L 01/04/20 07:00 Hct 39.0 % (39.0-53.0) 01/04/20 07:00 MCV 95.9 fL (80.0-100.0) 01/04/20 07:00 MCH 31.2 pg (25.0-35.0) 01/04/20 07:00 MCHC 32.6 g/dL (31.0-37.0) 01/04/20 07:00 RDW 13.2 % (11.5-15.5) 01/04/20 07:00 Plt Count 202 k/uL (150-450) 01/04/20 07:00 Neutrophils % 66 % 01/04/20 07:00 Lymphocytes % 23 % 01/04/20 07:00 Monocytes % 6 % 01/04/20 07:00 Eosinophils % 3 % 01/04/20 07:00 Basophils % 1 % 01/04/20 07:00 Neutrophils # 3.8 k/uL (1.3-7.7) 01/04/20 07:00 Lymphocytes # 1.3 k/uL (1.0-4.8) 01/04/20 07:00 Monocytes # 0.3 k/uL (0-1.0) 01/04/20 07:00 Eosinophils # 0.2 k/uL (0-0.7) 01/04/20 07:00 Basophils # 0.0 k/uL (0-0.2) 01/04/20 07:00 Sodium 141 mmol/L (137-145) 01/04/20 07:00 Potassium 4.4 mmol/L (3.5-5.1) 01/04/20 07:00 Chloride 104 mmol/L (98-107) 01/04/20 07:00 Carbon Dioxide 30 mmol/L (22-30) 01/04/20 07:00 Anion Gap 7 mmol/L 01/04/20 07:00 BUN 27 mg/dL (9-20) H 01/04/20 07:00 Creatinine 1.37 mg/dL (0.66-1.25) H 01/04/20 07:00 Est GFR (CKD-EPI)AfAm 59 (>60 ml/min/1.73 sqM) 01/04/20 07:00 Est GFR (CKD-EPI)NonAf 51 (>60 ml/min/1.73 sqM) 01/04/20 07:00 Glucose 86 mg/dL (74-99) 01/04/20 07:00 Calcium 9.3 mg/dL (8.4-10.2) 01/04/20 07:00 Total Bilirubin 0.9 mg/dL (0.2-1.3) 01/04/20 07:00 AST 19 U/L (17-59) 01/04/20 07:00 ALT <6 U/L (4-49) 01/04/20 07:00 Alkaline Phosphatase 50 U/L (38-126) 01/04/20 07:00 Total Protein 6.2 g/dL (6.3-8.2) L 01/04/20 07:00 Albumin 4.1 g/dL (3.5-5.0) 01/04/20 07:00 Triglycerides 126 mg/dL (<150) 01/04/20 07:00 Cholesterol 155 mg/dL (<200) 01/04/20 07:00 LDL Cholesterol, Calc 74 mg/dL (0-99) 01/04/20 07:00 HDL Cholesterol 56 mg/dL (40-60) 01/04/20 07:00 TSH 1.470 mIU/L (0.465-4.680) 01/04/20 07:00 Urine Color Yellow 01/03/20 14:25 Urine Appearance Clear (Clear) 01/03/20 14:25 Urine pH 6.0 (5.0-8.0) 01/03/20 14:25 Ur Specific [place] 1.021 (1.001-1.035) 01/03/20 14:25 Urine Protein Negative (Negative) 01/03/20 14:25 Urine Glucose (UA) Negative (Negative) 01/03/20 14:25 Urine Ketones Negative (Negative) 01/03/20 14:25 Urine Blood Negative (Negative) 01/03/20 14:25 Urine Nitrite Negative (Negative) 01/03/20 14:25 Urine Bilirubin Negative (Negative) 01/03/20 14:25 Urine Urobilinogen <2.0 mg/dL (<2.0) 01/03/20 14:25 Ur Leukocyte Esterase Negative (Negative) 01/03/20 14:25 Urine Opiates Screen Not Detected (NotDetected) 01/03/20 14:25 Ur Oxycodone Screen Not Detected (NotDetected) 01/03/20 14:25 Urine Methadone Screen Not Detected (NotDetected) 01/03/20 14:25 Ur Propoxyphene Screen Not Detected (NotDetected) 01/03/20 14:25 Ur Barbiturates Screen Not Detected (NotDetected) 01/03/20 14:25 U Tricyclic Antidepress Not Detected (NotDetected) 01/03/20 14:25 Ur Phencyclidine Scrn Not Detected (NotDetected) 01/03/20 14:25 Ur Amphetamines Screen Not Detected (NotDetected) 01/03/20 14:25 U Methamphetamines Scrn Not Detected (NotDetected) 01/03/20 14:25 U Benzodiazepines Scrn Not Detected (NotDetected) 01/03/20 14:25 Urine Cocaine Screen Not Detected (NotDetected) 01/03/20 14:25 U Marijuana (THC) Screen Not Detected (NotDetected) 01/03/20 14:25 01/04/20 14:40
[2020-01-04 19:51] LABS: Hemoglobin A1C 5.2 % (4.0-6.0)
[2020-01-04] MEDS: ATORVASTATIN 10 MG TAB PO SCH (21:23)
[2020-01-05] MEDS: LEVOTHYROXINE 50 MCG TAB PO SCH (06:21)
[2020-01-05] MEDS: lamoTRIgine 100 MG TAB PO SCH ×2 (09:57→19:42)
[2020-01-05] MEDS: cilostazoL 100 MG TAB PO SCH (09:57)
[2020-01-05] MEDS: hydroCHLOROthiazide 25 MG TAB PO SCH (09:57)
--- NOTE | 2020-01-05 14:37 | P.PN ---
Progress Note - Text Progress Note Date: 01/05/20 Clinical Problems: Poor disorder most recent episode depressed with psychotic features, lack of adequate housing Interim history: Reviewed the medical record, interviewed the patient and discuss his treatment and treatment plan during team meeting. He again repeatedly today and can speak with Dr. Tobias. When asked if she wants Dr. Tobias to refer him to a rehabilitation program he replied he wants assistance to go to a [facility]. He denied feeling depressed or having thoughts of or suicide. He denied experiencing auditory and visual or olfactory hallucinations. Mental status exam: He presented as a thin and frail-appearing 74 male who was pleasant on approach. He made eye contact and appeared to attend to the interview. 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 He walks slowly and awkwardly with a cane. He had a right hemiparesis. His speech was slow with decreased rate and rhythm. His affect was depressed. He denied suicidal ideation or wishes. He denied ideas reference, paranoid ideation or delusions. His thinking was concrete but his associations are coherent. He denied hallucinations and did not appear to responding to internal stimuli. Assessment: He appears depressed and frail. He will need assistance with placement. Plan: Continue hospitalization. Continue seeing precautions. Continue Lamictal 150 mg by mouth twice a day. Restart bupropion 200 mg twice a day. Consult medicine initial physical exam and medical history. warp worker to assist with placement. Encourage participation in therapeutic groups and activities as tolerated. Evaluate clinical status response to treatment daily basis.
[2020-01-05] MEDS: buPROPion SR 100 MG TABLET.ER PO SCH (19:42)
[2020-01-05] MEDS: ATORVASTATIN 10 MG TAB PO SCH (19:43)
[2020-01-06] MEDS: LORazepam 1 MG TAB PO PRN ×2 (02:40→21:01)
[2020-01-06] MEDS: LEVOTHYROXINE 50 MCG TAB PO SCH (06:28)
[2020-01-06] MEDS: buPROPion SR 100 MG TABLET.ER PO SCH ×2 (09:00→21:01)
[2020-01-06] MEDS: hydroCHLOROthiazide 25 MG TAB PO SCH (09:01)
[2020-01-06] MEDS: cilostazoL 100 MG TAB PO SCH (09:01)
[2020-01-06] MEDS: lamoTRIgine 100 MG TAB PO SCH ×2 (09:01→21:01)
--- NOTE | 2020-01-06 17:55 | P.PN ---
Progress Note - Text Progress Note Date: 01/06/20 Interval history: Patient is seen in cross coverage today. He seems to be eating well. He has not verbalize any adverse psychotropic medication side effects. His mood him he seems to report is improved. Mental status exam: He is alert and cooperative with the interview. His speech is fluent, not rapid or pressured. Thought processes are organized. His mood seems to be improved. He denies any thoughts of harm to self or others. No evidence of active psychosis or any agitation. Plan: Patient will be maintained on current psychotropic medication regimen. Continue to monitor for any side effects and monitor his ongoing response to treatment. We'll continue providing cross coverage patient through the weekend.
[2020-01-06] MEDS: ATORVASTATIN 10 MG TAB PO SCH (21:01)
[2020-01-07] MEDS: LEVOTHYROXINE 50 MCG TAB PO SCH (05:59)
[2020-01-07] MEDS: buPROPion SR 100 MG TABLET.ER PO SCH ×2 (09:07→20:38)
[2020-01-07] MEDS: cilostazoL 100 MG TAB PO SCH (09:08)
[2020-01-07] MEDS: hydroCHLOROthiazide 25 MG TAB PO SCH (09:08)
[2020-01-07] MEDS: lamoTRIgine 100 MG TAB PO SCH ×2 (09:08→20:38)
[2020-01-07 09:42] VITALS: RESP 16
--- NOTE | 2020-01-07 18:33 | P.PN ---
Progress Note - Text Progress Note Date: 01/07/20 Interval history: Patient is seen in [facility] again today. He says he slept well last night and he seems to be eating well. He does not verbalize any adverse psychotropic medication side effects. He is attending groups. He does talk about how he would like to go into an [facility] home. Mental status exam: He is alert and cooperative with the interview. His speech is fluent, not rapid or pressured. Thought processes organized. His mood seems to be overall doing well. He does not verbalize any thoughts of harm to self or others. No evidence of active psychosis or agitation. Plan: Patient will be maintained on current psychotropic medication regimen. Continue to monitor for any medication side effects and monitor his ongoing response to treatment.
[2020-01-07] MEDS: ATORVASTATIN 10 MG TAB PO SCH (20:38)
[2020-01-08] MEDS: LEVOTHYROXINE 50 MCG TAB PO SCH (06:47)
[2020-01-08] MEDS: buPROPion SR 100 MG TABLET.ER PO SCH ×2 (08:48→20:34)
[2020-01-08] MEDS: cilostazoL 100 MG TAB PO SCH (08:48)
[2020-01-08] MEDS: hydroCHLOROthiazide 25 MG TAB PO SCH (08:48)
[2020-01-08] MEDS: lamoTRIgine 100 MG TAB PO SCH ×2 (08:48→20:33)
--- NOTE | 2020-01-08 12:56 | P.PN ---
Progress Note - Text Progress Note Date: 01/08/20 Clinical Problems: Bipolar disorder most recent episode depressed with psychotic features, lack of adequate housing Interim history: I reviewed the medical record, interviewed the patient and discuss his treatment and treatment plan during team meeting. He again asked to speak with Dr. Tobias. He denied problems or concerns other than needing to talk to his primary care provider and needing assistance with placement. He believes that he is in the process of being evicted. He remains address and alternatives including group homes. He denied feeling depressed or having thoughts of or suicide. He denied experiencing auditory and visual or olfactory hallucinations. Mental status exam: He presented as a thin and frail-appearing 74 male who was pleasant on approach. He made eye contact and appeared to attend to the interview. He had a large tumor on his left jehovah's witness. He walks slowly with a cane. He had a right hemiparesis. His speech was slow with decreased rate and rhythm. His affect was depressed. He denied suicidal ideation or wishes. He denied ideas reference, paranoid ideation or delusions. His thinking was concrete but his associations are coherent. He denied hallucinations and did not appear to responding to internal stimuli. Assessment: He appears depressed and frail. He will need assistance with placement. Plan: Continue hospitalization. Continue safety precautions. Continue Lamictal 150 mg by mouth twice a day and bupropion 200 mg twice a day. An initial physical exam and medical history pending. drawer hardware worker to assist with placement. Encourage participation in therapeutic groups and activities as tolerated. Evaluate clinical status response to treatment daily basis.
[2020-01-08] MEDS: ATORVASTATIN 10 MG TAB PO SCH (20:33)
[2020-01-08] MEDS: LORazepam 1 MG TAB PO PRN (20:35)
[2020-01-09] MEDS: LEVOTHYROXINE 50 MCG TAB PO SCH (06:01)
[2020-01-09] MEDS: buPROPion SR 100 MG TABLET.ER PO SCH ×2 (08:50→20:18)
[2020-01-09] MEDS: lamoTRIgine 100 MG TAB PO SCH ×2 (08:50→20:18)
[2020-01-09] MEDS: hydroCHLOROthiazide 25 MG TAB PO SCH (08:50)
[2020-01-09] MEDS: cilostazoL 100 MG TAB PO SCH (08:51)
--- NOTE | 2020-01-09 11:59 | P.GSCN ---
History of Present Illness Consult date: 01/09/20 Reason for Consult: Skin lesion left temporal area History of present illness: Is a 74-year-old male admitted to mental health unit. Patient was noted to have a very large inflamed skin lesion on the right temporal area. Patient states that this began for several years. Past Medical History Past Medical History: Hyperlipidemia, Hypertension, Thyroid Disorder Additional Past Medical History / Comment(s): manic depressive History of Any Multi-Drug Resistant Organisms: None Reported Past Surgical History: Appendectomy, Cholecystectomy, Tonsillectomy Additional Past Surgical History / Comment(s): Hemmroidectomy Past Anesthesia/Blood Transfusion Reactions: No Reported Reaction Past Psychological History: Depression Additional Psychological History / Comment(s): Manic Depression Smoking Status: Never smoker Past Alcohol Use History: None Reported Past Drug Use History: None Reported - Past Family History Father Family Medical History: Cancer Additional Family Medical History / Comment(s): Manic Depression, Ca ?? Mother Family Medical History: Diabetes Mellitus Medications and Allergies Home Medications Medication Instructions Recorded Confirmed Type Cilostazol [Pletal] 100 mg PO DAILY 02/22/19 01/03/20 History Hydrochlorothiazide [Hydrodiuril] 25 mg PO DAILY 02/22/19 01/03/20 History Levothyroxine Sodium [Synthroid] 50 mcg PO DAILY 02/22/19 01/03/20 History Simvastatin 10 mg PO HS 02/22/19 01/03/20 History buPROPion HCL [buPROPion HCL ER] 200 mg PO Q12HR 05/09/19 01/03/20 History lamoTRIgine [LaMICtal] 150 mg PO BID 05/09/19 01/03/20 History Allergies Allergy/AdvReac Type Severity Reaction Status Date / Time No Known Allergies Allergy Verified 01/03/20 14:43 Surgical - Exam Vital Signs Temp Pulse Resp BP Pulse Ox 98.1 F 76 18 105/90 98 01/03/20 13:56 01/03/20 13:56 01/03/20 13:56 01/03/20 13:56 01/03/20 13:56 - General well developed, well nourished - Eyes PERRL - ENT normal pinna - Integumentary Large 3 cm inflamed hemorrhagic skin lesion on the right temporal area. It has appearance of a squamous cell carcinoma. Results - Labs 01/04/20 07:00 01/04/20 07:00 Assessment and Plan Plan: Right temporal skin lesion. Due to the size of the skin lesion and then his most likely this was a carcinoma. I recommend plastic surgery for consultation. This can be arranged as an outpatient once the patient has been discharged from the psych unit.
--- NOTE | 2020-01-09 13:21 | P.PN ---
Progress Note - Text Progress Note Date: 01/09/20 Clinical Problems: Bipolar disorder most recent episode depressed with psychotic features, lack of adequate housing Interim history: I reviewed the medical record, interviewed the patient and discuss his treatment and treatment plan during team meeting. His only concern was finding a safe place to live. The geriatric social worker clarified that he is not depressed eviction and can return to his prior address. Since he has not enrolled with [facility] currently we could not refer him for a half-way placement. Social work will arrange an intake assessment prior to discharge and his histopathologist can assist him with finding placement. He denied feeling depressed or having thoughts of or suicide. He denied experiencing auditory and visual or olfactory hallucinations. Surgery consult appreciated. Mental status exam: He presented as a thin and frail-appearing 74 male who was pleasant on approach. He made eye contact and appeared to attend to the interview. He had a large tumor on his left hinduism. He walks slowly with a cane. He had a right hemiparesis. His speech was slow with decreased rate and rhythm. His affect was depressed. He denied suicidal ideation or wishes. He denied ideas reference, paranoid ideation or delusions. His thinking was concrete but his associations are coherent. He denied hallucinations and did not appear to responding to internal stimuli. Assessment: He appears depressed but is not currently suicidal or overt psychotic. Plan: supervisor hand workers to arrange an intake appointment with [facility] prior to discharge. Discharge on 01/10/2020 to his former address. Continue safety precautions. Continue Lamictal 150 mg by mouth twice a day and bupropion 200 mg twice a day. The initial physical exam and medical history pending. Encourage participation in therapeutic groups and activities as tolerated. Evaluate clinical status response to treatment daily basis.
[2020-01-09] MEDS: ATORVASTATIN 10 MG TAB PO SCH (20:18)
[2020-01-09] MEDS: LORazepam 1 MG TAB PO PRN (20:21)
[2020-01-10] MEDS: ACETAMINOPHEN TAB 325 MG TAB PO PRN ×3 (00:32→21:40)
[2020-01-10] MEDS: LEVOTHYROXINE 50 MCG TAB PO SCH (07:17)
[2020-01-10] MEDS: lamoTRIgine 100 MG TAB PO SCH ×2 (08:49→20:17)
[2020-01-10] MEDS: buPROPion SR 100 MG TABLET.ER PO SCH ×2 (08:49→20:17)
[2020-01-10] MEDS: hydroCHLOROthiazide 25 MG TAB PO SCH (08:49)
[2020-01-10] MEDS: cilostazoL 100 MG TAB PO SCH (08:49)
[2020-01-10 12:59] VITALS: BMI 20.2
--- NOTE | 2020-01-10 15:06 | P.PN ---
Progress Note - Text Progress Note Date: 01/10/20 Clinical Problems: Bipolar disorder most recent episode depressed with psychotic features, lack of adequate housing Interim history: I reviewed the medical record, interviewed the patient and discuss his treatment and treatment plan during team meeting. He denied having thoughts of suicide or experiencing auditory hallucinations. He is anxious about leaving the hospital and returning to his prior address. We explained that we do not have access to foster homes. He will be assigned to a credit counselor at [facility] who will assist him with finding A nursing home or a foster home. Originally planned to discharge him today about we have been unsuccessful in finding transportation. Apparently, his insurance provides transportation only within the 25 mile radius and he lives [place] 31 miles from the hospital. Mental status exam: He presented as a thin and frail-appearing 74 male who was pleasant on approach. He made eye contact and appeared to attend to the interview. He had a large tumor on his left mosque. He walks slowly with a cane. His speech was slow with decreased rate and rhythm. His affect was depressed. He denied suicidal ideation or wishes. He denied ideas reference, paranoid ideation or delusions. His thinking was concrete but his associations are coherent. He denied hallucinations and did not appear to responding to internal stimuli. Assessment: He is appropriate for discharge but has no means returning home. Plan: Social work is investigating transportation options. Continue safety precautions. Continue Lamictal 150 mg by mouth twice a day and bupropion 200 mg twice a day. The initial physical exam and medical history pending. Encourage participation in therapeutic groups and activities as tolerated. Evaluate clinical status response to treatment daily basis.
[2020-01-10] MEDS: ATORVASTATIN 10 MG TAB PO SCH (20:17)
[2020-01-10] MEDS: LORazepam 1 MG TAB PO PRN (20:19)
[2020-01-11 05:52] VITALS: TEMP 97.8
[2020-01-11] MEDS: LEVOTHYROXINE 50 MCG TAB PO SCH (06:10)
[2020-01-11] MEDS: lamoTRIgine 100 MG TAB PO SCH (08:40)
[2020-01-11] MEDS: cilostazoL 100 MG TAB PO SCH (08:40)
[2020-01-11] MEDS: hydroCHLOROthiazide 25 MG TAB PO SCH (08:40)
[2020-01-11] MEDS: buPROPion SR 100 MG TABLET.ER PO SCH (08:40)
[2020-01-11 08:42] VITALS: BP 101/63; PULSE 83
--- NOTE | 2020-01-21 13:19 | P.DS ---
Providers Date of admission: 01/03/20 15:58 Attending physician: Matti German MD Consults: 01/03/20 16:15 Consult Physician Routine Consulting Provider: Bal Tobias Consult Reason/Comments: H & P and medical care Do you want consulting provider notified?: Yes 01/09/20 10:59 Consult Physician Routine Consulting Provider: Howard Lindquist Consult Reason/Comments: Bx R. anabaptist lesion? Others? Do you want consulting provider notified?: Yes Primary care physician: Bal Tobias - Discharge Diagnosis(es) (1) Bipolar I disorder, most recent episode depressed with mood-congruent psy chotic features Status: Chronic Priority: High (2) Carcinoma of skin Status: Chronic (3) Housing problems Status: Acute Priority: High Hospital Course: HISTORY: He is a 74-year-old male admitted to the psychiatric unit voluntarily with complaints of increasing depression, suicidal ideation and auditory hallucinations. He is well-established diagnosis of bipolar disorder and had receive services through [facility] for many years. He is withdrawn from services and his medication had been prescribed by his primary care provider. He presented EDC with request for placement in a half-way. See admission history dated 01/04/2020. HOSPITAL COURSE: He admitted him to psychiatric unit and provided a comprehensive biopsychosocial assessment. The nephrology social worker completed a psychosocial assessment and coordinated discharge and aftercare. Surgery evaluated him for his a right temporal lesion and recommended surgical removal as an outpatient. We continue Lamictal 150 mg twice a day initially held Wellbutrin with the plan to discuss an alternate antidepressant. However, he reported a marked improvement in his mood and functioning with Wellbutrin as opposed to other antidepressants. During the hospitalization to became apparent that his reason for requesting admission was to obtain assistance and placement. From his description he is renting a room in a house owned by a order. He is very unhappy and repeatedly requested assistance with placement. The nephrology social worker explained that he is not eligible for a residential rehabilitation program and we did not have access to adult foster care homes. He agreed to reenroll with [facility] and the plasma processing centrifuge operator will assist him with [facility] home placement. He posed no management problem and had no episodes of behavioral dyscontrol. He was compliant with medications. MENTAL STATUS ON DISCHARGE: At the time of discharge she presented as a thin and frail-appearing elderly man with a large lesion his right anabaptist. He made eye contact and attended to interview. He showed psychomotor retardation but no abnormal movements. His speech was spontaneous with decreased rate and rhythm. His affect was depressed but reactive. He denied suicidal ideation, wishes and homicidal ideation. He feels helpless about his living situation but denied feelings of hopelessness and worthlessness. He did not express ideas reference, paranoid ideation or delusions. His thinking was concrete but his associations were coherent, logical and goal directed. He denied hallucinations did not appear to be responding to internal stimuli. DISPOSITION: He was discharged to his prior address. His plasma processing centrifuge operator from [facility] provided him transportation home. His discharge medications included Wellbutrin 200 mg every 12 hours and Lamictal 150 mg twice a day. He has intake appointment at [facility] on 01/15/2020 9:30 AM. He is to follow-up with his primary care provider regarding his medical conditions and referral for outpatient plastic surgery. Patient Condition at Discharge: Stable Plan - Discharge Summary Discharge Rx Participant: No New Discharge Prescriptions: New buPROPion SR [Wellbutrin SR] 200 mg PO BID tablet.er Continue Simvastatin 10 mg PO HS buPROPion HCL [buPROPion HCL ER] 200 mg PO Q12HR #60 tab hydroCHLOROthiazide [Hydrodiuril] 25 mg PO DAILY #30 tab lamoTRIgine [LaMICtal] 150 mg PO BID #60 tab cilostazoL [Pletal] 100 mg PO DAILY #30 tab Levothyroxine Sodium [Synthroid] 50 mcg PO DAILY #30 tab Discharge Medication List Simvastatin 10 mg PO HS 02/22/19 [History] Levothyroxine Sodium [Synthroid] 50 mcg PO DAILY #30 tab 01/11/20 [Rx] buPROPion HCL [buPROPion HCL ER] 200 mg PO Q12HR #60 tab 01/11/20 [Rx] buPROPion SR [Wellbutrin SR] 200 mg PO BID tablet.er 01/11/20 [Rx] cilostazoL [Pletal] 100 mg PO DAILY #30 tab 01/11/20 [Rx] hydroCHLOROthiazide [Hydrodiuril] 25 mg PO DAILY #30 tab 01/11/20 [Rx] lamoTRIgine [LaMICtal] 150 mg PO BID #60 tab 01/11/20 [Rx] Follow up Appointment(s)/Referral(s): [facility] [Outside] - 01/15/20 9:30 am (Appointment 01/15/2020 @ 9:30 am with Bonnie.) Bal Tobias MD [Primary Care Provider] - 1-2 days Patient Instructions/Handouts: Brief Psychotic Disorder (DC), Help Prevent Suicide (DC) Activity/Diet/Wound Care/Special Instructions: Outpatient consultation for plastic surgery to be arranged once patient discharged from Mental Health Unit Activity and diet as tolerated. Avoid the use of street drugs and alcohol. Take all medications as prescribed. When you are in need of refills on your medications please contact your medical provider and/or outpatient psychiatrist to have this done. Please go to scheduled outpatient appointment for aftercare treatment. If symptoms return or become worse, call the crisis line at and/or go to the nearest emergency room for evaluation Discharge Disposition: TRANSFER TO PSYCH HOSP/UNIT
== END 2020-01-11 09:35 | DRG 885 ==
LOC: EC 13:50 → 3MHU 15:58
PROVIDERS: ADMIT Psychiatry & Neurology Psychiatry; ATTEND Psychiatry & Neurology Psychiatry
DX: F31.5 Bipolar disorder, current episode depressed, severe, with psychotic features (principal); I69.351 Hemiplegia and hemiparesis following cerebral infarction affecting right dominant side; R45.851 Suicidal ideations; I10 Essential (primary) hypertension; E78.5 Hyperlipidemia, unspecified; L98.9 Disorder of the skin and subcutaneous tissue, unspecified; Z79.02 Long term (current) use of antithrombotics/antiplatelets; Z59.1 Inadequate housing; Z79.890 Hormone replacement therapy; Z79.899 Other long term (current) drug therapy; Z83.3 Family history of diabetes mellitus; Z90.49 Acquired absence of other specified parts of digestive tract; Z90.89 Acquired absence of other organs; Z80.9 Family history of malignant neoplasm, unspecified; Z98.890 Other specified postprocedural states
CPT/HCPCS: 80053; 80061; 80306; 81003; 82075; 83036; 84443; 85025; 99285

== ENCOUNTER 2020-09-21 23:02 | Emergency (ER) | payer MEDICARE ==
[2020-09-21 23:09] VITALS: PULSE 82; RESP 18
--- NOTE | 2020-09-21 23:38 | CT ---
EXAMINATION TYPE: CT brain enma carrera con DATE OF EXAM: 09/21/2020 COMPARISON: CT brain 02/23/2019 HISTORY: Fall CT DLP: 1373.6 mGycm Automated exposure control for dose reduction was used. Images were obtained of the brain and cervical spine without contrast. There is cerebral cortical atrophy. There is moderate hypodensity in the periventricular white matter . There is hydrocephalus. There is no midline shift. There is no sign of intracranial hemorrhage. Alli varium is intact. There is cervical mild kyphotic deformity. There is degenerative disc space narrowing at C5-6 and C6- 7. There is spurring of the endplates. There is mild hypertrophic cervical facet arthropathy. Prevert ebral soft tissues are intact. 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 No fracture. Cerebral atrophy and hydrocephalus. Chronic small vessel ischemia. No acute intracranial abnormality. No change.
--- NOTE | 2020-09-21 23:54 | ED ---
Fall HPI - General Chief Complaint: Fall Stated Complaint: Fall Time Seen by Provider: 09/21/20 23:11 Source: patient, EMS Mode of arrival: EMS - History of Present Illness Initial Comments: 75-year-old male presenting to the emergency department today for chief complaint of trip and fall. Patient states that he was moving too fast and lost his balance tripping and striking his forehead. Patient states he did not lose consciousness he denies any headache nausea vomiting visual changes speech changes weakness or sensation deficits of the upper or lower extremities. Patient denies any lacerations he denies any extremity pain chest pain hip pain back pain or neck pain. Patient states he really doesn't think he needs to be here. Patient states he feels bad both told from family that it was best to come to the ER for evaluation. Upon arrival patient appears well nontoxic distress he does not appear acutely altered - Related Data Home Medications Medication Instructions Recorded Confirmed Simvastatin 10 mg PO HS 02/22/19 01/03/20 Previous Rx's Medication Instructions Recorded Levothyroxine Sodium [Synthroid] 50 mcg PO DAILY #30 tab 01/11/20 buPROPion HCL [buPROPion HCL ER] 200 mg PO Q12HR #60 tab 01/11/20 buPROPion SR [Wellbutrin SR] 200 mg PO BID tablet.er 01/11/20 cilostazoL [Pletal] 100 mg PO DAILY #30 tab 01/11/20 hydroCHLOROthiazide [Hydrodiuril] 25 mg PO DAILY #30 tab 01/11/20 lamoTRIgine [LaMICtal] 150 mg PO BID #60 tab 01/11/20 Allergies Allergy/AdvReac Type Severity Reaction Status Date / Time No Known Allergies Allergy Verified 09/21/20 23:09 Review of Systems ROS Statement: Those systems with pertinent positive or pertinent negative responses have been documented in the HPI. ROS Other: All systems not noted in ROS Statement are negative. Past Medical History Past Medical History: Hyperlipidemia, Hypertension, Thyroid Disorder Additional Past Medical History / Comment(s): manic depressive History of Any Multi-Drug Resistant Organisms: None Reported Past Surgical History: Appendectomy, Cholecystectomy, Tonsillectomy Additional Past Surgical History / Comment(s): Hemmroidectomy Past Anesthesia/Blood Transfusion Reactions: No Reported Reaction Past Psychological History: Depression Smoking Status: Never smoker Past Alcohol Use History: None Reported Past Drug Use History: None Reported - Past Family History Father Family Medical History: Cancer Additional Family Medical History / Comment(s): Manic Depression, Ca ?? Mother Family Medical History: Diabetes Mellitus General Exam - General Exam Comments Initial Comments: General: The patient is awake and alert, in no distress, and does not appear acutely ill. Eye: =3 mm pupils are equal, round and reactive to light, extra-ocular movements are intact. No nystagmus. There is normal conjunctiva bilaterally. No signs of icterus. Ears, nose, mouth and throat: There are moist mucous membranes and no oral lesions. Neck: The neck is supple, there is no tenderness or JVD. Cardiovascular: There is a regular rate and rhythm. No murmur, rub or gallop is appreciated. Respiratory: Lungs are clear to auscultation, respirations are non-labored, breath sounds are equal. No wheezes, stridor, rales, or rhonchi. Gastrointestinal: Soft, non-distended, non-tender abdomen without masses or organomegaly noted. There is no rebound or guarding present. Musculoskeletal: Normal ROM, no tenderness. Strength 5/5 of the UE and LE b/l. Sensation intact of the UE and LE b/l. Radial and DP pulses equal bilaterally 2+. Neurological: A&O x 3. CN II-XII intact, There are no obvious motor or sensory deficits. Coordination appears grossly intact. Speech is normal. Finger to nose [id number] smooth and coordinated Skin: Skin is warm and dry and no rashes or lesions are noted. Psychiatric: Cooperative, appropriate mood & affect, normal judgment. Limitations: no limitations Course Vital Signs 09/21/20 23:05 Temperature 97.3 F L Pulse Rate 82 Respiratory 18 Rate Blood Pressure 139/67 O2 Sat by Pulse 98 Oximetry Medical Decision Making - Medical Decision Making 75-year-old male presenting for fall. CT revealed no acute intracranial process however there is hydrocephalus noted which is not previously found on the 2019 CT patient is no focal neurological deficits he does not appear acutely altered. He has no history of vision changes nausea vomiting or dizziness. I discussed the case by attending provider at this time he feels patient is stable for discharge with close neurology follow-up as well as primary care provider. Suly ent is to return for specific symptoms such as headache dizziness off balance, confusion. I contacted patient's family/neightbor per patient request who will faciliate timely follow-up. Patient at this time appears well nontoxic and is agreeable to discharge Disposition Clinical Impression: Fall, Hydrocephalus Disposition: HOME SELF-CARE Condition: Good Instructions (If sedation given, give patient instructions): Fall Prevention for Older Adults (ED), Hydrocephalus (DC) Additional Instructions: Please use medication as discussed. Please follow-up with family doctor in the next 2 days, and neurology nexxt week. Return if feeling off balance,confused, have headaches or visual changes. Please return to emergency room if the symptoms increase or worsen or for any other concerns. Is patient prescribed a controlled substance at d/c from ED?: No Referrals: Bal Tobias MD [Primary Care Provider] - 1-2 days Bryan Quispe MD [REFERRING] - 1-2 days Time of Disposition: 23:53
[2020-09-22 02:41] VITALS: BP 150/83; TEMP 97.8
== END 2020-09-22 03:30 | disposition home or self-care (01) ==
LOC: EC 23:02
DX: G91.9 Hydrocephalus, unspecified (principal); I10 Essential (primary) hypertension; E78.5 Hyperlipidemia, unspecified; Z79.899 Other long term (current) drug therapy; W01.198A Fall on same level from slipping, tripping and stumbling with subsequent striking against other object, initial encounter
CPT/HCPCS: 70450; 72125; 99284

== ENCOUNTER 2020-11-06 14:55 | Inpatient (IN) | payer MEDICARE ==
[2020-11-06 16:17] LABS: Basophils % (A) 0 %; Eosinophils % (A) 0 %; HCT 38.8 % (39.0-53.0); HGB 13.2 gm/dL (13.0-17.5); Lymphocytes # (A) 1.1 k/uL (1.0-4.8); Lymphocytes % (A) 19 %; MCHC 33.9 g/dL (31.0-37.0); MCV 91.4 fL (80.0-100.0); Monocytes # (A) 0.3 k/uL (0-1.0); Monocytes % (A) 4 %; Neutrophils # (A) 4.2 k/uL (1.3-7.7); Neutrophils % (A) 75 %; Platelet Count 141 k/uL (150-450); RBC 4.25 m/uL (4.30-5.90); RDW 13.1 % (11.5-15.5); WBC 5.7 k/uL (3.8-10.6)
[2020-11-06 16:26] LABS: Potassium 4.1 mmol/L (3.5-5.1)
[2020-11-06 16:27] LABS: Albumin 4.2 g/dL (3.5-5.0); Calcium 8.9 mg/dL (8.4-10.2); INR 0.9 (<1.2); Partial Thromboplastin Time 27.7 sec (22.0-30.0); Prothrombin Time 9.5 sec (9.0-12.0); Total Bilirubin 0.4 mg/dL (0.2-1.3); Total Protein 6.7 g/dL (6.3-8.2)
--- NOTE | 2020-11-06 16:55 | ED ---
General Adult HPI - General Chief complaint: Weakness Stated complaint: weakness Time Seen by Provider: 11/06/20 16:13 Source: patient, family, RN notes reviewed, old records reviewed Mode of arrival: wheelchair Limitations: no limitations - History of Present Illness Initial comments: 75-year-old male with presented with one-week history of increased weakness and difficulty ambulating. Patient is currently staying at what sounds like an assisted living facility. He had emergency room visit several days ago and was ultimately discharged home with no abnormalities noted. He is accompanied by a friend who indicates that up until about one week ago he had been doing much better. Over the past week he's had increased weakness, he's been eating very slowly and unable to walk. He denies pain complaints, no chest pain or abdominal pain. No vomiting. He has been eating and drinking. - Related Data Home Medications Medication Instructions Recorded Confirmed Simvastatin 10 mg PO DAILY@1900 02/22/19 11/06/20 ARIPiprazole [Abilify] 30 mg PO DAILY@0700 11/06/20 11/06/20 Ergocalciferol (Vitamin D2) 1,250 mcg PO QMONTHLY 11/06/20 11/06/20 [Drisdol (50,000 Iu)] Levothyroxine Sodium [Synthroid] 50 mcg PO DAILY@0700 11/06/20 11/06/20 buPROPion SR [Wellbutrin SR] 200 mg PO BID@0700,1900 11/06/20 11/06/20 cilostazoL [Pletal] 100 mg PO DAILY@0700 11/06/20 11/06/20 lamoTRIgine [LaMICtal] 150 mg PO BID@0700,1900 11/06/20 11/06/20 Allergies Allergy/AdvReac Type Severity Reaction Status Date / Time No Known Allergies Allergy Verified 11/06/20 17:24 Review of Systems ROS Statement: Those systems with pertinent positive or pertinent negative responses have been documented in the HPI. ROS Other: All systems not noted in ROS Statement are negative. Past Medical History Past Medical History: CVA/TIA, Hyperlipidemia, Hypertension, Thyroid Disorder Additional Past Medical History / Comment(s): manic depressive, slurred speech from mini stroke History of Any Multi-Drug Resistant Organisms: None Reported Past Surgical History: Appendectomy, Cholecystectomy, Tonsillectomy Additional Past Surgical History / Comment(s): Hemmroidectomy Past Anesthesia/Blood Transfusion Reactions: No Reported Reaction Past Psychological History: Depression Smoking Status: Never smoker Past Alcohol Use History: None Reported Past Drug Use History: None Reported - Past Family History Father Family Medical History: Cancer Additional Family Medical History / Comment(s): Manic Depression, Ca ?? Mother Family Medical History: Diabetes Mellitus General Exam Limitations: no limitations General appearance: alert, in no apparent distress Head exam: Present: atraumatic, normocephalic, other (Several cutaneous lesions recent dermatological procedure) Eye exam: Present: normal appearance, PERRL ENT exam: Present: mucous membranes dry Neck exam: Present: normal inspection. Absent: tenderness, meningismus Respiratory exam: Present: normal lung sounds bilaterally. Absent: respiratory distress Cardiovascular Exam: Present: regular rate, normal rhythm GI/Abdominal exam: Present: soft. Absent: distended, tenderness, guarding, rebound Extremities exam: Present: normal inspection, normal capillary refill, other. Absent: calf tenderness Neurological exam: Present: alert, oriented X3, CN II-XII intact, other (Patient has no focal findings however his lower extremities and upper extremities appear somewhat rigid.). Absent: motor sensory deficit Psychiatric exam: Present: flat affect Skin exam: Present: warm, dry, intact. Absent: cyanosis, diaphoretic Course Vital Signs 11/06/20 15:34 Temperature 97.8 F Pulse Rate 73 Respiratory 18 Rate Blood Pressure 129/69 O2 Sat by Pulse 97 Oximetry EKG Findings - EKG Comments: EKG Findings:: EKG: Normal sinus rhythm, rate 72, CT interval 138, QRS duration 82, QTC 453, no ST segment elevation. Medical Decision Making - Medical Decision Making 75-year-old male with generalized weakness, difficulty in relating over the past one week. Patient has stable vitals. His exam is nonfocal. He does have some rigidity in the extremities. Chest x-ray shows some trace effusions, head CT negative for intracranial hemorrhage or mass effect. He has normal CBC, CMP showing a slight worsening of his creatinine of 1.45. Urinalysis is pending. There is some concern that this patient may not be able to continue and his current living situation and has had an acute change in his abilities. I did discuss case with Dr. Tobias who will admit, neurology placed on consult. - Lab Data Result diagrams: 11/06/20 16:08 11/06/20 16:08 Lab Results 11/06/20 11/06/20 11/06/20 Range/Units 16:08 16:08 16:08 WBC 5.7 (3.8-10.6) k/uL RBC 4.25 L (4.30-5.90) m/uL Hgb 13.2 (13.0-17.5) gm/dL Hct 38.8 L (39.0-53.0) % MCV 91.4 (80.0-100.0) fL MCH 31.0 (25.0-35.0) pg MCHC 33.9 (31.0-37.0) g/dL RDW 13.1 (11.5-15.5) % Plt Count 141 L (150-450) k/uL MPV 8.0 Neutrophils % 75 % Lymphocytes % 19 % Monocytes % 4 % Eosinophils % 0 % Basophils % 0 % Neutrophils # 4.2 (1.3-7.7) k/uL Lymphocytes # 1.1 (1.0-4.8) k/uL Monocytes # 0.3 (0-1.0) k/uL Eosinophils # 0.0 (0-0.7) k/uL Basophils # 0.0 (0-0.2) k/uL PT 9.5 (9.0-12.0) sec INR 0.9 (<1.2) APTT 27.7 (22.0-30.0) sec Sodium 138 (137-145) mmol/L Potassium 4.1 (3.5-5.1) mmol/L Chloride 101 (98-107) mmol/L Carbon Dioxide 27 (22-30) mmol/L Anion Gap 10 mmol/L BUN 26 H (9-20) mg/dL Creatinine 1.45 H (0.66-1.25) mg/dL Est GFR (CKD-EPI)AfAm 55 (>60 ml/min/1.73 sqM) Est GFR (CKD-EPI)NonAf 47 (>60 ml/min/1.73 sqM) Glucose 80 (74-99) mg/dL Plasma Lactic Acid Toy (0.7-2.0) mmol/L Calcium 8.9 (8.4-10.2) mg/dL Total Bilirubin 0.4 (0.2-1.3) mg/dL AST 68 H (17-59) U/L ALT 7 (4-49) U/L Alkaline Phosphatase 67 (38-126) U/L Troponin I (0.000-0.034) ng/mL Total Protein 6.7 (6.3-8.2) g/dL Albumin 4.2 (3.5-5.0) g/dL 11/06/20 11/06/20 Range/Units 16:08 16:08 WBC (3.8-10.6) k/uL RBC (4.30-5.90) m/uL Hgb (13.0-17.5) gm/dL Hct (39.0-53.0) % MCV (80.0-100.0) fL MCH (25.0-35.0) pg MCHC (31.0-37.0) g/dL RDW (11.5-15.5) % Plt Count (150-450) k/uL MPV Neutrophils % % Lymphocytes % % Monocytes % % Eosinophils % % Basophils % % Neutrophils # (1.3-7.7) k/uL Lymphocytes # (1.0-4.8) k/uL Monocytes # (0-1.0) k/uL Eosinophils # (0-0.7) k/uL Basophils # (0-0.2) k/uL PT (9.0-12.0) sec INR (<1.2) APTT (22.0-30.0) sec Sodium (137-145) mmol/L Potassium (3.5-5.1) mmol/L Chloride (98-107) mmol/L Carbon Dioxide (22-30) mmol/L Anion Gap mmol/L BUN (9-20) mg/dL Creatinine (0.66-1.25) mg/dL Est GFR (CKD-EPI)AfAm (>60 ml/min/1.73 sqM) Est GFR (CKD-EPI)NonAf (>60 ml/min/1.73 sqM) Glucose (74-99) mg/dL Plasma Lactic Acid Toy 0.9 (0.7-2.0) mmol/L Calcium (8.4-10.2) mg/dL Total Bilirubin (0.2-1.3) mg/dL AST (17-59) U/L ALT (4-49) U/L Alkaline Phosphatase (38-126) U/L Troponin I 0.031 (0.000-0.034) ng/mL Total Protein (6.3-8.2) g/dL Albumin (3.5-5.0) g/dL Disposition Clinical Impression: Dehydration, Altered mental status, Generalized weakness Disposition: ADMITTED IP TO THIS [facility] Condition: Stable Is patient prescribed a controlled substance at d/c from ED?: No Referrals: Bal Tobias MD [Primary Care Provider] - 1-2 days Decision to Admit Reason: Admit from EC Decision Date: 11/06/20 Decision Time: 19:17
--- NOTE | 2020-11-06 17:04 | XR ---
EXAMINATION TYPE: XR chest 2V DATE OF EXAM: 11/06/2020 COMPARISON: 06/16/2019 HISTORY: Increased weakness. TECHNIQUE: Frontal and lateral views of the chest are obtained. FINDINGS: There is trace posterior pleural effusion. No significant infiltrate or pneumothorax seen. The cardiac silhouette size is within normal limits. The osseous structures are intact. IMPRESSION: Trace pleural effusion.
--- NOTE | 2020-11-06 18:10 | CT ---
EXAM: CT brain wo con CLINICAL HISTORY: Weakness. COMPARISON: 09/21/2020. TECHNIQUE: Contiguous axial noncontrast images of the brain were obtained. Coronal and sagittal refor mats were generated and reviewed. Automated dose control was used for this exam. FINDINGS: There is no evidence for intracranial hemorrhage, mass effect or midline shift. There is moderate to marked white matter disease. There is mild parenchymal volume loss. Stable ventriculomegaly. The paranasal sinuses are clear. The mastoid air cells are clear. No evidence for calvarial fracture. IMPRESSION: No acute intracranial abnormality.
[2020-11-06] MEDS ORDERED: NALOXONE 0.4 MG/ML 1 ML VIAL IV PRN (19:14)
[2020-11-06 20:23] LABS: Appearance,Urine Clear (Clear); Bilirubin,Urine Negative (Negative); Blood,Urine Negative (Negative); Color,Urine Yellow; Glucose,Urine (UA) Negative (Negative); Ketones,Urine Negative (Negative); Leukocyte Esterase,Urine Negative (Negative); Nitrite,Urine Negative (Negative); PH, Urine 5.5 (5.0-8.0); Protein,Urine Trace (Negative); Specific Gravity,Urine 1.013 (1.001-1.035); Urobilinogen,Urine <2.0 mg/dL (<2.0)
[2020-11-06] MEDS: SODIUM CHLORIDE 0.9% 1,000 ML IV SCH (23:26)
[2020-11-07] MEDS: SODIUM CHLORIDE 0.9% 1,000 ML IV SCH ×2 (01:26→19:02)
[2020-11-07] MEDS: CHOLECALCIFEROL 25 MCG (1000 IU) TABLET PO SCH (12:03)
[2020-11-07] MEDS: ASCORBIC ACID 500 MG TAB PO SCH ×2 (12:03→20:42)
[2020-11-07] MEDS: ZINC SULFATE 220 MG CAP PO SCH (12:03)
--- NOTE | 2020-11-07 12:53 | P.CNPUL ---
History of Present Illness Consult date: 11/07/20 Requesting physician: Bal Tobias Reason for consult: other Chief complaint: Coronavirus infection. History of present illness: Pulmonary consult dated 11/07/2020. 75-year-old male, who apparently resides at assisted living facility. The patient presents to the emergency department on November 06 with complaints of weakness and difficulty ambulating. Apparently the patient did test positive for coronavirus, but is not having any pulmonary complaints, his chest x-rays essentially normal, he's on room air. Apparently according to her friend, up until about a week ago, he was doing relatively well. He is been eating very little. He's been unable to walk, he's been complaining of significant weakness. He denies any pain or chest discomfort. No abdominal pain, nausea, vomiting, or diarrhea. Actually, the patient was eating a couple of oatmeal came into the room. He was not on any supplemental oxygen. He apparently has a history of CVA, hyperlipidemia, hypertension, and hypothyroidism. In addition, the patient has a history of depression. He is a lifelong nontobacco user. Lab data includes a white count 5.7, hemoglobin 13.2, hematocrit 38.8, and platelet count 141,000. PT/INR PTT were all normal. Sodium 138, potassium 4.1, chlorides 101, CO2 27, anion gap 10, BUN 26, creatinine 1.45, and AST is mildly elevated at 68. Urine was negative. Rubalcava virus testing was positive. Brain CT was normal. Chest x-ray showed minimal pleural effusion. Review of Systems REVIEW OF SYSTEMS: CONSTITUTIONAL: Weakness. NEUROLOGIC: Impaired ambulation. HEENT: [ Negative.] CARDIAC: [Negative.] PULMONARY: [Negative.] GI: Poor oral intake. : [Negative.] RHEUMATOLOGIC: [ Negative.] IMMUNOLOGIC: [ Negative.] ENDOCRINE: [Negative. ] DERMATOLOGIC: [Negative.] Past Medical History Past Medical History: CVA/TIA, Hyperlipidemia, Hypertension, Thyroid Disorder Additional Past Medical History / Comment(s): manic depressive, slurred speech from mini stroke History of Any Multi-Drug Resistant Organisms: None Reported Past Surgical History: Appendectomy, Cholecystectomy, Tonsillectomy Additional Past Surgical History / Comment(s): Hemmroidectomy Past Anesthesia/Blood Transfusion Reactions: No Reported Reaction Past Psychological History: Depression Additional Psychological History / Comment(s): Manic Depression Smoking Status: Never smoker Past Alcohol Use History: None Reported Past Drug Use History: None Reported - Past Family History Father Family Medical History: Cancer Additional Family Medical History / Comment(s): Manic Depression, Ca ?? Mother Family Medical History: Diabetes Mellitus Medications and Allergies Home Medications Medication Instructions Recorded Confirmed Type Simvastatin 10 mg PO DAILY@1900 02/22/19 11/06/20 History ARIPiprazole [Abilify] 30 mg PO DAILY@0700 11/06/20 11/06/20 History Ergocalciferol (Vitamin D2) 1,250 mcg PO QMONTHLY 11/06/20 11/06/20 History [Drisdol (50,000 Iu)] Levothyroxine Sodium [Synthroid] 50 mcg PO DAILY@0711/06/20 11/06/20 History buPROPion SR [Wellbutrin SR] 200 mg PO BID@0700,1900 11/06/20 11/06/20 History cilostazoL [Pletal] 100 mg PO DAILY@0711/06/20 11/06/20 History lamoTRIgine [LaMICtal] 150 mg PO BID@0700,1900 11/06/20 11/06/20 History Allergies Allergy/AdvReac Type Severity Reaction Status Date / Time No Known Allergies Allergy Verified 11/06/20 17:24 Physical Exam Osteopathic Statement: *. No significant issues noted on an osteopathic structural exam other than those noted in the History and Physical/Consult. Vitals: Vital Signs Temp Pulse Pulse Resp BP BP Pulse Ox 11/07/20 10:16 100 F H 71 22 125/67 94 L 11/07/20 08:00 18 11/07/20 06:23 100.5 F H 66 16 145/74 93 L 11/07/20 00:41 99.3 F 67 16 140/70 96 11/06/20 15:34 97.8 F 73 18 129/69 97 Intake and Output 11/06/20 11/07/20 11/07/20 22:59 06:59 14:59 Other: Voiding Method Diaper Incontinent # Voids 1 2 # Bowel Movements 1 1 Weight 68.039 kg 68.039 kg No acute distress, not a good historian. The patient appears to have a expressive aphasia. Not on supplemental oxygen. HEENT examination is grossly unremarkable. Neck supple. Full range of motion. No adenopathy thyromegaly or neck vein distention. Cardiovascular examination reveals regular rhythm rate. S1-S2 normal. No S3 or S4. No discernible murmur noted. Heart sounds are distant. Heart rate 71 bpm. Lungs reveal mostly clear breath sounds. A few scattered rhonchi. No wheezes or crackles. He does not take deep breaths. Room air saturation 94%.. Abdomen soft bowel sounds are heard. No masses or tenderness. Extremities are intact. No cyanosis clubbing or edema. Skin is without rash or lesion. Neurologic examination is difficult to assess. He does move all 4 extremities. Very poor historian. Expressive aphasia.. Results - Laboratory Findings CBC and BMP: 11/06/20 16:08 11/06/20 16:08 PT/INR, D-dimer PT 9.5 sec (9.0-12.0) 11/06/20 16:08 INR 0.9 (<1.2) 11/06/20 16:08 Abnormal lab findings: Abnormal Labs 11/06/20 11/06/20 11/06/20 16:08 16:08 20:10 RBC 4.25 L Hct 38.8 L Plt Count 141 L BUN 26 H Creatinine 1.45 H AST 68 H Urine Protein Trace H Coronavirus (PCR) 11/06/20 20:10 RBC Hct Plt Count BUN Creatinine AST Urine Protein Coronavirus (PCR) Detected A - Diagnostic Findings Chest x-ray: image reviewed Assessment and Plan Assessment: Possible acute coronavirus infection, without obvious respiratory distress or COVID 19 pneumonia. History of hyperlipidemia. History of hypothyroidism. History of CVA, with expressive aphasia. History of hypertension. History of depression. Lifelong nonsmoker. Plan: Plan dated 11/07/2020. In my opinion, at this point, the patient's only a candidate for vitamin C, vitamin D3, and zinc. He would not be a candidate for REM, or Decadron. He doesn't appear to be having any respiratory issues. The patient is a no code. Additional recommendations and suggestions are forthcoming. Prognosis is guarded. We will continue to follow make recommendations. No evidence of pneumonia at this time. Time with Patient: Greater than 30
[2020-11-07] MEDS: ATORVASTATIN 10 MG TAB PO SCH (17:59)
[2020-11-07] MEDS: buPROPion SR 100 MG TABLET.ER PO SCH (17:59)
[2020-11-07] MEDS: lamoTRIgine 100 MG TAB PO SCH (17:59)
[2020-11-07] MEDS: ACETAMINOPHEN TAB 325 MG TAB PO PRN (20:42)
--- NOTE | 2020-11-07 21:45 | HP ---
HISTORY AND PHYSICAL CHIEF COMPLAINT: Muscle stiffness and weakness in the lower extremities with muscle spasms. HISTORY OF PRESENT ILLNESS: This is another admission for this 75-year-old white male. He is apparently now in a [facility]. He has a history of schizophrenia and multiple skin neoplasias of the face. He came to the emergency room apparently with a history of new onset of muscle spasms in the lower extremities. He is a very poor historian and it is very difficult to tell exactly what kind of difficulty he has had. He is apparently not having a problem with sphincter control. He has had no fever or chills. He has no pain. REVIEW OF SYSTEMS: Otherwise unremarkable. PHYSICAL EXAMINATION: Head, ears, eyes, nose, mouth and throat are normal except for lesions on the scalp which may be recurrent carcinomas. Head, ears eyes, nose and mouth were otherwise normal. Chest was clear. Cardiac exam was normal and the abdomen is soft and nontender. Extremities are normal. He does have poor muscle bulk in the lower extremities with muscle spasm and tenseness. Pulses are somewhat diminished. IMPRESSION: 1. Lower extremity stiffness and muscle spasm, etiology unknown. 2. History of schizophrenia. 3. 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 4. COVID infection. PLAN: 1. Bedrest. 2. IV fluids. 3. Neurologic evaluation. 4. Pulmonology evaluation. MMODL / IJN: [id number] /
--- NOTE | 2020-11-07 21:45 | PN ---
PROGRESS NOTE DATE OF SERVICE: 11/07/2020. CHIEF COMPLAINT: Muscle spasms and stiffness in the lower extremities. HISTORY OF PRESENT ILLNESS: This gentleman is doing well. He is awake and alert. He feels fairly well. He has had no fever or chills. He has had no dysesthesias or spasms in the lower extremities. He does have a low-grade temperature and he is COVID-positive. PHYSICAL EXAMINATION: Chest is clear. Cardiac exam is normal. Abdomen is soft, nontender. Extremities seem normal with good pulses. IMPRESSION: 1. Muscle spasms and weakness in the lower extremities, etiology unknown. 2. COVID pneumonia. PLAN: 1. Await neurologic evaluation. 2. Pulmonology consult. MMODL / IJN: [id number] /
--- NOTE | 2020-11-07 23:05 | P.CNNES ---
History of Present Illness Consult date: 11/07/20 Requesting physician: Shyam Head Reason for Consult: Generalized weakness, difficulty ambulating History of Present Illness: Patient is a 75-year-old male came to the hospital by ambulance yesterday at 2:55 PM, for 1 week history of increased weakness and difficulty with ambulation. EMS flow sheet not available in the chart. As per ED records, patient currently living in an assisted living facility. He had a recent ER visit several days ago and was ultimately discharged home with no abnormalities noted. In the last 1 week he is being having increased weakness, eating very slowly, unable to walk. No chest pain. Patient tells me that he has been having trouble walking for last 1 year. He also has numbness in the legs from toes up to the hips bilaterally. Also feels weakness in the leg muscles. Denies any problem in the upper extremities. He denies any neck pain, headache, back pain. He states that he had no control of bowels or bladder for last 1 year and uses diaper. However at the end of the interview, patient completely changed the statement, states that he has no other issues with bladder control, but has some problems with bowel controlled when he has diarrhea. He is not a good historian especially due to being sick at this time. Patient is adamant that his Rubalcava virus testing is negative, despite informing him that the test performed here was positive. Vital signs on arrival blood pressure 129/69, pulse rate 73, temperature 97.8 CT head showed no acute intracranial abnormality, chest x-ray trace pleural effusion EKG with normal sinus rhythm. Blood test shows normal CBC, PT/PTT, electrolytes, BU and is 26, creatinine 1.45, AST is mildly elevated 68, ALT 7. UA negative. Rubalcava virus PCR positive. Patient is currently on Abilify 30 mg daily, Lipitor 10 mg, Wellbutrin SR 200 mg twice a day, vitamin D, Pletal, Lamictal 150 mg twice a day, levothyroxine. According to the primary care physician's note from today, patient has history of schizophrenia and multiple skin neoplasm's of the face. He has history of new onset of muscle spasms in the lower extremities. He has also mentioned in his note that patient has no problems with sphincter control. Patient denies any tobacco use. No alcohol. Review of Systems As above in detail. Patient denies any headache any problem with neck or back pain. Past Medical History Past Medical History: CVA/TIA, Hyperlipidemia, Hypertension, Thyroid Disorder Additional Past Medical History / Comment(s): manic depressive, slurred speech from mini stroke History of Any Multi-Drug Resistant Organisms: None Reported Past Surgical History: Appendectomy, Cholecystectomy, Tonsillectomy Additional Past Surgical History / Comment(s): Hemmroidectomy Past Anesthesia/Blood Transfusion Reactions: No Reported Reaction Past Psychological History: Depression Additional Psychological History / Comment(s): Manic Depression Smoking Status: Never smoker Past Alcohol Use History: None Reported Past Drug Use History: None Reported - Past Family History Father Family Medical History: Cancer Additional Family Medical History / Comment(s): Manic Depression, Ca ?? Mother Family Medical History: Diabetes Mellitus Medications and Allergies Home Medications Medication Instructions Recorded Confirmed Type Simvastatin 10 mg PO DAILY@1900 02/22/19 11/06/20 History ARIPiprazole [Abilify] 30 mg PO DAILY@0711/06/20 11/06/20 History Ergocalciferol (Vitamin D2) 1,250 mcg PO QMONTHLY 11/06/20 11/06/20 History [Drisdol (50,000 Iu)] Levothyroxine Sodium [Synthroid] 50 mcg PO DAILY@0711/06/20 11/06/20 History buPROPion SR [Wellbutrin SR] 200 mg PO BID@0700,189911/06/20 11/06/20 History cilostazoL [Pletal] 100 mg PO DAILY@0700 11/06/20 11/06/20 History lamoTRIgine [LaMICtal] 150 mg PO BID@0700,189911/06/20 11/06/20 History Allergies Allergy/AdvReac Type Severity Reaction Status Date / Time No Known Allergies Allergy Verified 11/06/20 17:24 Physical Examination - Vital Signs Vital Signs: Vital Signs Temp Pulse Pulse Resp BP BP Pulse Ox 11/07/20 10:16 100 F H 71 22 125/67 94 L 11/07/20 08:00 18 11/07/20 06:23 100.5 F H 66 16 145/74 93 L 11/07/20 00:41 99.3 F 67 16 140/70 96 11/06/20 15:34 97.8 F 73 18 129/69 97 Intake and Output 11/06/20 11/07/20 11/07/20 22:59 06:59 14:59 Other: Voiding Method Diaper Incontinent # Voids 1 2 # Bowel Movements 1 1 Weight 68.039 kg 68.039 kg Patient is an elderly male, in mild respiratory distress. He is complaining of feeling cold and wanted covers on. Patient is alert awake, not very good historian. Speech and language functions are normal. Attention, concentration and fund of knowledge is limited. On cranial examination, pupils are equal, round and reacting to light, visual floyd are full on confrontation with no neglect, extraocular muscles are intact with no nystagmus. Face is symmetric, tongue protrudes to the midline. Pal atal elevation and sensation normal, hearing is moderately decreased and shoulder shrug normal, facial sensation normal. Shoulder shrug normal. On muscle strength testing, patient strength is normal in the upper limbs distally and proximally except right shoulder which is weak, which he attributes to previous history of stroke, although I feel it is probably related to shoulder/rotator cuff issue. In the lower extremities, his hip flexion is about 3-3+, only able to lift legs 10-15 off the bed. Knee extension is normal. Toe extension is normal. Ankle dorsiflexion he was keeping it very stiff, but appears normal. Reflexes are 2 in the upper limbs, 2 at both knees, 1 at ankles. Plantar is downgoing on the right whereas upon the left. Sensory to touch is equal with no neglect on double simultaneous stimulation. Cerebellar function showed no ataxia for [id number] testing. No dysdiadochokinesia. Tone is mild to moderately increased and bulk of muscles normal. Gait deferred. On general examination, there is no carotid bruit or murmur, S1-S2 audible. Abdomen is soft nontender. Chest is clear. Peripheral pulses are present. Patient has positive peripheral edema. Results - Laboratory Findings CBC and BMP: 11/06/20 16:08 11/06/20 16:08 Abnormal Lab Findings: Abnormal Labs 11/06/20 11/06/20 11/06/20 16:08 16:08 20:10 RBC 4.25 L Hct 38.8 L Plt Count 141 L BUN 26 H Creatinine 1.45 H AST 68 H Urine Protein Trace H Coronavirus (PCR) 11/06/20 20:10 RBC Hct Plt Count BUN Creatinine AST Urine Protein Coronavirus (PCR) Detected A Assessment and Plan Assessment: * 75-year-old male with 1 week history of leg weakness of unclear etiology. Examination is relatively nonfocal. Patient has been diagnosed with acute Covid-19 infection, which may be contributing to generalized fatigue and weakness. Patient is a very poor historian, initially stated that he has no control of bowels or bladder although later stated the contrary. Patient is on Abilify, therefore parkinsonism from Abilify also a possibility. * History of stroke, with residual proximal right arm weakness. * Covid-19 infection * History of schizophrenia Plan: * CT head reported no acute process. On my review, there is prominence of ventricles, raising possibility of NPH. However the hydrocephalus appears stable as compared to the computed tomography scan from 02/23/2019. Patient also has evidence of old stroke involving the left external capsule. * We will check MRI of the cervical, lumbar spines, and the brain. * B12, B6, folate, TSH * Medical management as per IM. * We will follow.
[2020-11-08] MEDS: ARIPiprazole 15 MG TAB PO SCH (08:19)
[2020-11-08] MEDS: buPROPion SR 100 MG TABLET.ER PO SCH ×2 (08:19→20:30)
[2020-11-08] MEDS: lamoTRIgine 100 MG TAB PO SCH ×2 (08:19→20:30)
[2020-11-08] MEDS: ZINC SULFATE 220 MG CAP PO SCH (08:19)
[2020-11-08] MEDS: ASCORBIC ACID 500 MG TAB PO SCH ×2 (08:19→20:29)
[2020-11-08] MEDS: cilostazoL 100 MG TAB PO SCH (08:19)
[2020-11-08] MEDS: LEVOTHYROXINE 50 MCG TAB PO SCH (08:19)
[2020-11-08] MEDS: CHOLECALCIFEROL 25 MCG (1000 IU) TABLET PO SCH (08:19)
[2020-11-08] MEDS: SODIUM CHLORIDE 0.9% 1,000 ML IV SCH (12:25)
[2020-11-08 12:35] LABS: Folate, Serum >24.0 ng/mL
--- NOTE | 2020-11-08 13:45 | P.PN ---
Subjective Progress Note Date: 11/08/20 Principal diagnosis: COVID 19 infection. 75-year-old male, who apparently resides at assisted living facility. The patient presents to the emergency department on November 06 with complaints of weakness and difficulty ambulating. Apparently the patient did test positive for coronavirus, but is not having any pulmonary complaints, his chest x-rays essentially normal, he's on room air. Apparently according to her friend, up until about a week ago, he was doing relatively well. He is been eating very little. He's been unable to walk, he's been complaining of significant weak ness. He denies any pain or chest discomfort. No abdominal pain, nausea, vomiting, or diarrhea. Actually, the patient was eating a couple of oatmeal came into the room. He was not on any supplemental oxygen. He apparently has a history of CVA, hyperlipidemia, hypertension, and hypothyroidism. In addition, the patient has a history of depression. He is a lifelong nontobacco user. Lab data includes a white count 5.7, hemoglobin 13.2, hematocrit 38.8, and platelet count 141,000. PT/INR PTT were all normal. Sodium 138, potassium 4.1, chlorides 101, CO2 27, anion gap 10, BUN 26, creatinine 1.45, and AST is mildly elevated at 68. Urine was negative. Rubalcava virus testing was positive. Brain CT was normal. Chest x-ray showed minimal pleural effusion. Progress note dated 11/08/2020. 75-year-old male, that we saw yesterday in consultation, for complaints of weakness and difficulty ambulating. The patient apparently did test positive for coronavirus, but is currently not having any pulmonary complaints. Fact, he has not even will cart any supplemental oxygen. Currently, the patient appears to be relatively comfortable. Please see my consultation from yesterday. No new labs from today. Objective - Vital Signs Vital signs: Vital Signs Temp 98.9 F 11/08/20 08:00 Pulse 83 11/08/20 08:00 Resp 24 11/08/20 08:00 BP 129/68 11/08/20 08:00 Pulse Ox 92 L 11/08/20 08:00 Intake & Output 11/07/20 11/08/20 11/08/20 18:59 06:59 18:59 Intake Total 1360 720 Output Total 700 Balance 660 720 Intake: IV 1000 Sodium Chloride 0.9% 1, 1000 000 ml @ 75 mls/hr IV . [id number] [facility] Rx#:[id number] Oral 360 720 Output: Urine 700 Other: Voiding Method Diaper Diaper Incontinent Incontinent # Voids 3 1 # Bowel Movements 1 1 - Exam No acute distress, not a good historian. The patient appears to have a expressive aphasia. Not on supplemental oxygen. HEENT examination is grossly unremarkable. Neck supple. Full range of motion. No adenopathy thyromegaly or neck vein distention. Cardiovascular examination reveals regular rhythm rate. S1-S2 normal. No S3 or S4. No discernible murmur noted. Heart sounds are distant. Heart rate 83 bpm. Lungs reveal mostly clear breath sounds. A few scattered rhonchi. No wheezes or crackles. He does not take deep breaths. Room air saturation 94%.. Abdomen soft bowel sounds are heard. No masses or tenderness. Extremities are intact. No cyanosis clubbing or edema. Skin is without rash or lesion. Neurologic examination is difficult to assess. He does move all 4 extremities. Very poor historian. Expressive aphasia. - Labs CBC & Chem 7: 11/06/20 16:08 11/06/20 16:08 Assessment and Plan Assessment: Possible acute coronavirus infection, without obvious respiratory distress or COVID 19 pneumonia. History of hyperlipidemia. History of hypothyroidism. History of CVA, with expressive aphasia. History of hypertension. History of depression. Lifelong nonsmoker. Plan: Plan dated 11/07/2020. In my opinion, at this point, the patient's only a candidate for vitamin C, vi tamin D3, and zinc. He would not be a candidate for REM, or Decadron. He doesn't appear to be having any respiratory issues. The patient is a no code. Additional recommendations and suggestions are forthcoming. Prognosis is guarded. We will continue to follow make recommendations. No evidence of pneumonia at this time. Plan dated 11/08/2020. We saw the patient yesterday. We felt the patient would benefit primarily from vitamin C, vitamin D3, and zinc. We didn't feel the patient was a candidate for anything else such as REM, or convalescent plasma, or TOCI. Because the patient was not having any symptoms of shortness of breath, we did not feel the patient was a candidate for Decadron either. The patient is a no code. No additional recommendations at this time. We will continue to follow. Prognosis is guarded. Time with Patient: Less than 30
[2020-11-08] MEDS: ACETAMINOPHEN TAB 325 MG TAB PO PRN (18:07)
--- NOTE | 2020-11-08 18:42 | PN ---
PROGRESS NOTE REASON FOR FOLLOW UP: Muscle spasm and stiffness in the lower. HISTORY OF PRESENT ILLNESS: This gentleman has been stable. There has been no interval change. We are waiting for full neurologic evaluation. Covid situation does not seem to be significant issue at this time. PHYSICAL EXAMINATION: Chest demonstrates decreased breath sounds with cracking, rales. Cardiac exam is normal. Abdomen is soft, nontender. IMPRESSION: 1. Pain and stiffness with muscle spasms in lower extremities, etiology unknown. 2. Covid pneumonia. PLAN: Continue further evaluation and workup. MMODL / IJN: [id number] /
[2020-11-08] MEDS: ATORVASTATIN 10 MG TAB PO SCH (20:30)
[2020-11-09] MEDS: SODIUM CHLORIDE 0.9% 1,000 ML IV SCH ×2 (02:14→13:31)
[2020-11-09] MEDS: ACETAMINOPHEN TAB 325 MG TAB PO PRN ×3 (02:33→21:45)
[2020-11-09] MEDS: lamoTRIgine 100 MG TAB PO SCH ×3 (10:17→20:34)
[2020-11-09] MEDS: ZINC SULFATE 220 MG CAP PO SCH (10:17)
[2020-11-09] MEDS: ARIPiprazole 15 MG TAB PO SCH (10:18)
[2020-11-09] MEDS: CHOLECALCIFEROL 25 MCG (1000 IU) TABLET PO SCH (10:18)
[2020-11-09] MEDS: buPROPion SR 100 MG TABLET.ER PO SCH ×3 (10:18→20:34)
[2020-11-09] MEDS: LEVOTHYROXINE 50 MCG TAB PO SCH (10:18)
[2020-11-09] MEDS: ASCORBIC ACID 500 MG TAB PO SCH ×3 (10:18→20:35)
[2020-11-09] MEDS: cilostazoL 100 MG TAB PO SCH (10:19)
--- NOTE | 2020-11-09 13:06 | P.PN ---
Subjective Progress Note Date: 11/09/20 Principal diagnosis: COVID 19 infection. 75-year-old male, who apparently resides at assisted living facility. The patient presents to the emergency department on November 06 with complaints of weakness and difficulty ambulating. Apparently the patient did test positive for coronavirus, but is not having any pulmonary complaints, his chest x-rays essentially normal, he's on room air. Apparently according to her friend, up until about a week ago, he was doing relatively well. He is been eating very little. He's been unable to walk, he's been complaining of significant weak ness. He denies any pain or chest discomfort. No abdominal pain, nausea, vomiting, or diarrhea. Actually, the patient was eating a couple of oatmeal came into the room. He was not on any supplemental oxygen. He apparently has a history of CVA, hyperlipidemia, hypertension, and hypothyroidism. In addition, the patient has a history of depression. He is a lifelong nontobacco user. Lab data includes a white count 5.7, hemoglobin 13.2, hematocrit 38.8, and platelet count 141,000. PT/INR PTT were all normal. Sodium 138, potassium 4.1, chlorides 101, CO2 27, anion gap 10, BUN 26, creatinine 1.45, and AST is mildly elevated at 68. Urine was negative. Rubalcava virus testing was positive. Brain CT was normal. Chest x-ray showed minimal pleural effusion. Progress note dated 11/08/2020. 75-year-old male, that we saw yesterday in consultation, for complaints of weakness and difficulty ambulating. The patient apparently did test positive for coronavirus, but is currently not having any pulmonary complaints. Fact, he has not even will cart any supplemental oxygen. Currently, the patient appears to be relatively comfortable. Please see my consultation from yesterday. No new labs from today. Progress note dated 11/09/2020. 75-year-old male, seen 2 days ago consultation with weakness and difficulty ambulating. The patient did test positive for coronavirus, but is not having any pulmonary complaints. The patient's currently on room air. The patient appears to be comfortable. No new labs to report. No new x-rays to report. The patient does have a history of CVA, hyperlipidemia, hypertension, and hypothyroidism. Objective - Vital Signs Vital signs: Vital Signs Temp 99.4 F 11/09/20 08:00 Pulse 79 11/09/20 08:00 Resp 20 11/09/20 08:00 BP 135/68 11/09/20 08:00 Pulse Ox 94 L 11/09/20 08:00 Intake & Output 11/08/20 11/09/20 11/09/20 18:59 06:59 18:59 Other: Voiding Method Diaper Incontinent Incontinent # Voids 2 2 # Bowel Movements 1 - Exam No acute distress, not a good historian. The patient appears to have a expressive aphasia. Not on supplemental oxygen. HEENT examination is grossly unremarkable. Neck supple. Full range of motion. No adenopathy thyromegaly or neck vein dis tention. Cardiovascular examination reveals regular rhythm rate. S1-S2 normal. No S3 or S4. No discernible murmur noted. Heart sounds are distant. Heart rate 79 bpm. Lungs reveal mostly clear breath sounds. A few scattered rhonchi. No wheezes or crackles. He does not take deep breaths. Room air saturation 94%. Abdomen soft bowel sounds are heard. No masses or tenderness. Extremities are intact. No cyanosis clubbing or edema. Skin is without rash or lesion. Neurologic examination is difficult to assess. He does move all 4 extremities. Very poor historian. Expressive aphasia. - Labs CBC & Chem 7: 11/06/20 16:08 11/06/20 16:08 Assessment and Plan Assessment: Possible acute coronavirus infection, without obvious respiratory distress or COVID 19 pneumonia. History of hyperlipidemia. History of hypothyroidism. History of CVA, with expressive aphasia. History of hypertension. History of depression. Lifelong nonsmoker. Plan: Plan dated 11/07/2020. In my opinion, at this point, the patient's only a candidate for vitamin C, vitamin D3, and zinc. He would not be a candidate for REM, or Decadron. He doesn't appear to be having any respiratory issues. The patient is a no code. Additional recommendations and suggestions are forthcoming. Prognosis is guarded. We will continue to follow make recommendations. No evidence of pneumonia at this time. Plan dated 11/08/2020. We saw the patient yesterday. We felt the patient would benefit primarily from vitamin C, vitamin D3, and zinc. We didn't feel the patient was a candidate for anything else such as REM, or convalescent plasma, or TOCI. Because the patient was not having any symptoms of shortness of breath, we did not feel the patient was a candidate for Decadron either. The patient is a no code. No additional recommendations at this time. We will continue to follow. Prognosis is guarded. Plan dated 11/09/2020. The patient's doing well. We will see the patient moving forward. In. No additional recommendations are made. The patient is not having any pulmonary co mplaints at this time. Prognosis is guarded. The patient was not a candidate for REM, convalescent plasma, or TOCI. Time with Patient: Less than 30
--- NOTE | 2020-11-09 16:41 | PN ---
PROGRESS NOTE DATE OF SERVICE: 11/09/2020. CHIEF COMPLAINT: Stiffness and weakness in the legs. HISTORY OF PRESENT ILLNESS: This gentleman has been doing fairly well. He has been seen by Neurology. It is not clear what is causing his symptoms. He has been seen by Pulmonology and doing well otherwise. He has a low-grade temp still at 99.4. PHYSICAL EXAM: Scalp lesions remain the same. Chest is clear. Cardiac exam is normal. Abdomen is soft, nontender. IMPRESSION: 1. History of weakness and muscle spasm in the lower extremities, the etiology unknown. 2. Low-grade fever. 3. Covid-19. 4. Possible left cerebrovascular accident. PLAN: Await for the balance of his studies to come in and then make a determination as to where he will be able to be best served after he leaves the hospital. MIKI / AKANKSHA: [id number] /
[2020-11-09] MEDS: ATORVASTATIN 10 MG TAB PO SCH ×2 (20:25→20:34)
[2020-11-09] MEDS: ACETAMINOPHEN IV (For NPO) 1,000 MG in EMPTY BAG 1 BAG IVPB PRN (22:43)
[2020-11-10] MEDS ORDERED: ACETAMINOPHEN IV (For NPO) 1,000 MG in EMPTY BAG 1 BAG IVPB SCH
[2020-11-10] MEDS: SODIUM CHLORIDE 0.9% 1,000 ML IV SCH ×2 (03:37→16:42)
[2020-11-10] MEDS: ACETAMINOPHEN IV (For NPO) 1,000 MG in EMPTY BAG 1 BAG IVPB PRN ×2 (05:09→16:34)
[2020-11-10] MEDS: ARIPiprazole 15 MG TAB PO SCH (08:38)
[2020-11-10] MEDS: cilostazoL 100 MG TAB PO SCH (08:38)
[2020-11-10] MEDS: buPROPion SR 100 MG TABLET.ER PO SCH ×2 (08:38→18:50)
[2020-11-10] MEDS: CHOLECALCIFEROL 25 MCG (1000 IU) TABLET PO SCH (08:39)
[2020-11-10] MEDS: ZINC SULFATE 220 MG CAP PO SCH (08:39)
[2020-11-10] MEDS: LEVOTHYROXINE 50 MCG TAB PO SCH (08:39)
[2020-11-10] MEDS: lamoTRIgine 100 MG TAB PO SCH ×2 (08:39→18:50)
[2020-11-10] MEDS: ASCORBIC ACID 500 MG TAB PO SCH ×2 (08:39→18:50)
[2020-11-10 10:20] LABS: Basophils % (A) 0 %; Eosinophils % (A) 0 %; HCT 32.9 % (39.0-53.0); HGB 11.3 gm/dL (13.0-17.5); Lymphocytes # (A) 0.7 k/uL (1.0-4.8); Lymphocytes % (A) 18 %; MCH 31.6 pg (25.0-35.0); MCHC 34.4 g/dL (31.0-37.0); MCV 91.8 fL (80.0-100.0); Mean Platelet Volume 7.9; Monocytes # (A) 0.2 k/uL (0-1.0); Monocytes % (A) 4 %; Neutrophils # (A) 3.2 k/uL (1.3-7.7); Neutrophils % (A) 78 %; Platelet Count 149 k/uL (150-450); RBC 3.58 m/uL (4.30-5.90); RDW 13.3 % (11.5-15.5); WBC 4.2 k/uL (3.8-10.6)
--- NOTE | 2020-11-10 10:27 | XR ---
EXAMINATION TYPE: XR chest 1V portable DATE OF EXAM: 11/10/2020 CLINICAL HISTORY: Difficulty breathing and fever progress study. COVID. TECHNIQUE: Single AP portable upright view of the chest is obtained. COMPARISON: Chest x-ray from 4 days earlier FINDINGS: More prominent organizing consolidation right midlung. Additional more prominent faint bib asilar opacities. Cardiac silhouette size is stable and mildly enlarged with atherosclerotic ectatic aorta. Osseous structures are intact. IMPRESSION: Worsening right midlung and developing bibasilar multifocal acute opacities consistent wi th covid-19 infection progression.
[2020-11-10 10:32] LABS: ALT <6 U/L (4-49); AST 52 U/L (17-59); African American GFR (CKD) 66 (>60 ml/min/1.73 sqM); Albumin 2.8 g/dL (3.5-5.0); Albumin/Globulin Ratio 1.3; Alkaline Phosphatase 50 U/L (38-126); Anion Gap 4 mmol/L; Blood Urea Nitrogen 21 mg/dL (9-20); Calcium 7.8 mg/dL (8.4-10.2); Carbon Dioxide 22 mmol/L (22-30); Chloride 111 mmol/L (98-107); Globulin 2.2 g/dL; Glucose 80 mg/dL (74-99); Non-African American GFR(CKD) 57 (>60 ml/min/1.73 sqM); Potassium 3.9 mmol/L (3.5-5.1); Sodium 137 mmol/L (137-145); Total Bilirubin 0.3 mg/dL (0.2-1.3)
[2020-11-10] MEDS: PIPERACILLIN-TAZOBACTAM 3.375 GM in SODIUM CHLORIDE 0.9% 100 ML IVPB SCH ×2 (11:45→20:23)
--- NOTE | 2020-11-10 12:57 | P.PN ---
Subjective Progress Note Date: 11/10/20 Principal diagnosis: COVID 19 infection. 75-year-old male, who apparently resides at assisted living facility. The patient presents to the emergency department on November 06 with complaints of weakness and difficulty ambulating. Apparently the patient did test positive for coronavirus, but is not having any pulmonary complaints, his chest x-rays essentially normal, he's on room air. Apparently according to her friend, up until about a week ago, he was doing relatively well. He is been eating very little. He's been unable to walk, he's been complaining of significant weak ness. He denies any pain or chest discomfort. No abdominal pain, nausea, vomiting, or diarrhea. Actually, the patient was eating a couple of oatmeal came into the room. He was not on any supplemental oxygen. He apparently has a history of CVA, hyperlipidemia, hypertension, and hypothyroidism. In addition, the patient has a history of depression. He is a lifelong nontobacco user. Lab data includes a white count 5.7, hemoglobin 13.2, hematocrit 38.8, and platelet count 141,000. PT/INR PTT were all normal. Sodium 138, potassium 4.1, chlorides 101, CO2 27, anion gap 10, BUN 26, creatinine 1.45, and AST is mildly elevated at 68. Urine was negative. Rubalcava virus testing was positive. Brain CT was normal. Chest x-ray showed minimal pleural effusion. Progress note dated 11/08/2020. 75-year-old male, that we saw yesterday in consultation, for complaints of weakness and difficulty ambulating. The patient apparently did test positive for coronavirus, but is currently not having any pulmonary complaints. Fact, he has not even will cart any supplemental oxygen. Currently, the patient appears to be relatively comfortable. Please see my consultation from yesterday. No new labs from today. Progress note dated 11/09/2020. 75-year-old male, seen 2 days ago consultation with weakness and difficulty ambulating. The patient did test positive for coronavirus, but is not having any pulmonary complaints. The patient's currently on room air. The patient appears to be comfortable. No new labs to report. No new x-rays to report. The patient does have a history of CVA, hyperlipidemia, hypertension, and hypothyroidism. Progress note dated 11/10/2020. 75-year-old male, that we actually saw yesterday and signed off on. The patient was doing well, and was not having any respiratory issues whatsoever. He did test positive for coronavirus. The nurse Aneta, asked us to see him again today. His chest x-ray, has changed, now showing an infiltrate in the right midlung. He probably did aspirate. Anyway, we put the patient on some Zosyn. We had the patient back to her list. We implementing some aspiration precaution orders. We also asked the nurse to have speech pathology see the patient to do a swallow evaluation. In the meantime, we told the nurse to keep the patient nothing by mouth. The patient does have a history of CVA, hyperlipidemia, hypertension, and hypothyroidism. He is not manifesting any distress, even on room air. Objective - Vital Signs Vital signs: Vital Signs Temp 98.6 F 11/10/20 10:00 Pulse 61 11/10/20 10:00 Resp 22 11/10/20 10:00 BP 124/72 11/10/20 10:00 Pulse Ox 92 L 11/10/20 10:00 Intake & Output 11/09/20 11/10/20 11/10/20 18:59 06:59 18:59 Output Total 600 Balance -600 Output: Urine 600 Other: Voiding Method Incontinent Incontinent # Voids 1 3 - Exam No acute distress, not a good historian. The patient appears to have a expressive aphasia. Not on supplemental oxygen. Room air saturation 92%. HEENT examination is grossly unremarkable. Neck supple. Full range of motion. No adenopathy thyromegaly or neck vein distention. Cardiovascular examination reveals regular rhythm rate. S1-S2 normal. No S3 or S4. No discernible murmur noted. Heart sounds are distant. Heart rate 61 bpm. Lungs reveal mostly clear breath sounds. A few scattered rhonchi. No wheezes or crackles. He does not take deep breaths. Room air saturation 92%. Abdomen soft bowel sounds are heard. No masses or tenderness. Extremities are intact. No cyanosis clubbing or edema. Skin is without rash or lesion. Neurologic examination is difficult to assess. He does move all 4 extremities. Very poor historian. Expressive aphasia. - Labs CBC & Chem 7: 11/10/20 09:55 05/23/21 09:55 Labs: Abnormal Lab Results - Last 24 Hours (Table) 11/10/20 11/10/20 Range/Units 09:55 09:55 RBC 3.58 L (4.30-5.90) m/uL Hgb 11.3 L (13.0-17.5) gm/dL Hct 32.9 L (39.0-53.0) % Plt Count 149 L (150-450) k/uL Lymphocytes # 0.7 L (1.0-4.8) k/uL Chloride 111 H (98-107) mmol/L BUN 21 H (9-20) mg/dL Calcium 7.8 L (8.4-10.2) mg/dL Total Protein 5.0 L (6.3-8.2) g/dL Albumin 2.8 L (3.5-5.0) g/dL Assessment and Plan Assessment: Possible acute coronavirus infection, without obvious respiratory distress or COVID 19 pneumonia. Possible acute aspiration pneumonia involving the right midlung. History of hyperlipidemia. History of hypothyroidism. History of CVA, with expressive aphasia. History of hypertension. History of depression. Lifelong nonsmoker. Plan: Plan dated 11/07/2020. In my opinion, at this point, the patient's only a candidate for vitamin C, vitamin D3, and zinc. He would not be a candidate for REM, or Decadron. He doesn't appear to be having any respiratory issues. The patient is a no code. Additional recommendations and suggestions are forthcoming. Prognosis is guarded. We will continue to follow make recommendations. No evidence of pneumonia at this time. Plan dated 11/08/2020. We saw the patient yesterday. We felt the patient would benefit primarily from vitamin C, vitamin D3, and zinc. We didn't feel the patient was a candidate for anything else such as REM, or convalescent plasma, or TOCI. Because the patient was not having any symptoms of shortness of breath, we did not feel the patient was a candidate for Decadron either. The patient is a no code. No additional recommendations at this time. We will continue to follow. Prognosis is guarded. Plan dated 11/09/2020. The patient's doing well. We will see the patient moving forward. In. No additional recommendations are made. The patient is not having any pulmonary complaints at this time. Prognosis is guarded. The patient was not a candidate for REM, convalescent plasma, or TOCI. Plan dated 11/10/2020. The patient was added back to our list. We did see the patient today. We added Zosyn to his regimen. In addition, the patient will have aspiration orders implemented. Head of bed elevated all times. The patient will need a speech evaluation and a swallow study. Additional recommendations and suggestions are forthcoming. The patient was not considered a candidate for REM, convalescent plasma, or TOCI. The patient will be Nothing by mouth until seen by speech. Time with Patient: Less than 30
[2020-11-10] MEDS ORDERED: BENZTROPINE 2 MG/2 ML AMP IV ONE (14:30)
--- NOTE | 2020-11-10 16:44 | CONS ---
CONSULTATION DATE OF SERVICE: 11/10/2020 PURPOSE FOR CONSULTATION: Evaluate for weakness and lower extremity muscle spasms in relationship to his psychiatric medications. HISTORY OF PRESENTING ILLNESS: The patient was not able to provide any reliable history, so information comes only from the medical record. Patient has a diagnosis of schizophrenia, along with multiple skin neoplasms. He has been living in [facility], [place]. According to nursing reports, he has had a general decline in function over the last 2 months and even further decline in the last week. He has shown increase in muscle stiffness and muscle spasms. He has shown weakness and difficulties with ambulation. He has had some periods of confusion. Nursing notes that in their interactions with him, there are times where he seems to hold his arms in unusual posture. They note that when they talked to him he has a delayed response. The patient has been found to be COVID positive according to neurology evaluation. A CT scan was done with no acute process. Some additional lab work is being done. There is a question of history of stroke with residual proximal right arm weakness. Concern was raised for parkinsonism secondary to Abilify. Currently, the patient is on Wellbutrin 200 mg twice a day, Lamictal 150 mg twice a day and Abilify 30 mg a day. The patient was able to tell me that Wellbutrin is for depression. He was uncertain about Lamictal. He indicated that Abilify was also for depression and anxiety. As noted he has a diagnosis of schizophrenia. MENTAL STATUS EXAM: Patient was lying in bed. His head was slightly up. He gave fair eye contact. He responded to some questions with brief responses. In general his thoughts were clear. It was noteworthy that after about 10 minutes of interview, the patient seemed to be nodding off. He was arousable. He opened his eyes again. Then, he seemed to start showing drooping of eyelids and his head going down. He was able to give some basic information that was appropriate. He had a calm manner. He did not appear to be distressed. I asked the patient to hold out his arm, so I could check for tremor or muscle stiffness. Patient was not able to respond directly. When I held his arm, he kept it in a very rigid manner and I was not able to bend his arm at the elbow all at all. The same was true on both his arms. It was difficult to assess for tremor. ASSESSMENT: This 75-year-old male is diagnosed with schizophrenia as far as psychiatric issues go. He is on 30 mg of Abilify, which is generally considered a maximum dose of Abilify. I would have concern for extrapyramidal side effects and acute dystonia relating to Abilify. I will give the patient a test dose of Cogentin 2 mg IV. I asked the nurse to give a followup to assess response to Cogentin. I would anticipate him showing some response with improvement in his arms getting more relaxed within 15-30 minutes. If so we might then look at starting a regular dose of Cogentin. I will get updates from staff as appropriate. MIKI / CHERYLN: [id number] /
[2020-11-10] MEDS: ATORVASTATIN 10 MG TAB PO SCH (18:50)
--- NOTE | 2020-11-11 01:44 | P.PN ---
Subjective Progress Note Date: 11/08/20 Patient was seen for a follow-up. Patient appears slightly more alert and awake. Still appears to be in mild respiratory distress. Patient still encephalopathic. Patient does not cooperate for the examination or history taking. Patient's MRI was canceled, as no one was able to give the consent and give MRI clearance. Objective - Vital Signs Vital signs: Vital Signs Temp 99.6 F 11/08/20 21:58 Pulse 83 11/08/20 21:58 Resp 16 11/08/20 18:44 BP 134/67 11/08/20 21:58 Pulse Ox 93 L 11/08/20 21:58 Intake & Output 11/08/20 11/08/20 11/09/20 06:59 18:59 06:59 Intake Total 720 Balance 720 Intake: Oral 720 Other: Voiding Method Diaper Incontinent # Voids 1 2 # Bowel Movements 1 - Exam Patient is an elderly male, in mild respiratory distress. Speech and language functions are normal. Attention, concentration and fund of knowledge is limited. Hearing is moderately decreased. Other cranial nerves normal. Muscle strength appears normal in the arms except right deltoid which is weak. Patient has normal strength in the ankles. Patient has Babinski on the left. - Labs CBC & Chem 7: 11/10/20 09:55 11/10/20 09:55 Assessment and Plan Assessment: * 75-year-old male with 1 week history of leg weakness of unclear etiology. (Sam ramirez states legs have been weak for the last 1 year). Examination is relatively nonfocal. Patient has been diagnosed with acute Covid-19 infection, which may be contributing to generalized fatigue and weakness. Patient is a very poor historian, initially stated that he has no control of bowels or bladder although later stated the contrary. Patient is on Abilify, therefore parkinsonism from Abilify also a possibility. * History of stroke, with residual proximal right arm weakness. * Covid-19 infection * History of schizophrenia Plan: * CT head reported no acute process. On my review, there is prominence of ventricles, raising possibility of NPH. However the hydrocephalus appears stable as compared to the computed tomography scan from 02/23/2019. Patient also has evidence of old stroke involving the left external capsule. * MRI of the cervical, lumbar spines, and the brain not completed as MRI clearance not able to be achieved. * B12 431, B6, folate >24, TSH 2.63, hemoglobin A1c 5.2. * Medical management as per IM. * We will follow sporadically. * Dr. Harjit Pastrana Will resume neurology service from Wednesday11/11/2020.
[2020-11-11] MEDS: ACETAMINOPHEN IV (For NPO) 1,000 MG in EMPTY BAG 1 BAG IVPB PRN (02:48)
[2020-11-11] MEDS: PIPERACILLIN-TAZOBACTAM 3.375 GM in SODIUM CHLORIDE 0.9% 100 ML IVPB SCH ×3 (04:45→19:19)
[2020-11-11] MEDS: SODIUM CHLORIDE 0.9% 1,000 ML IV SCH ×2 (04:45→22:30)
[2020-11-11] MEDS: CHOLECALCIFEROL 25 MCG (1000 IU) TABLET PO SCH (08:30)
[2020-11-11] MEDS: LEVOTHYROXINE 50 MCG TAB PO SCH (08:30)
[2020-11-11] MEDS: lamoTRIgine 100 MG TAB PO SCH ×2 (08:30→19:21)
[2020-11-11] MEDS: cilostazoL 100 MG TAB PO SCH (08:30)
[2020-11-11] MEDS: ASCORBIC ACID 500 MG TAB PO SCH ×2 (08:30→21:36)
[2020-11-11] MEDS: ARIPiprazole 15 MG TAB PO SCH (08:30)
[2020-11-11] MEDS: buPROPion SR 100 MG TABLET.ER PO SCH ×2 (08:30→19:21)
[2020-11-11] MEDS: ZINC SULFATE 220 MG CAP PO SCH (08:31)
[2020-11-11] MEDS ORDERED: RX INFO: IV CONTRAST WAS GIVEN 1 EACH MISC MISCELLANE PRN (13:49)
--- NOTE | 2020-11-11 13:52 | P.PN ---
Subjective Progress Note Date: 11/11/20 75-year-old male patient is being seen in follow-up. The patient resides in a assisted living. He initially came to us with COVID-19 infection and subsequently developed an aspiration of the right lung. Most recent chest x-ray from yesterday showed worsening of the right midlung findings and developed bilateral or basilar multifocal airspace disease. Based on all this, the patient was given IV Zosyn. He had some increased cough and congestion and she was having more difficulties in swallowing and he was becoming more lethargic and for that reason aspiration was suspected. His white cell count currently is at 4.2 with hemoglobin of 11.3. Platelet count is at 149. As for the rest of the labs, there is LFTs are normal, he is hemodynamically stable. Inflammatory markers have not been checked. His comorbid conditions include CVA, hypertension, hyperlipidemia and hypothyroidism. He is still having episodes of fever with a T-max of 100.8. Note that the patient has a long history of psych disorder and the patient was seen by psychiatry and he was given Cogentin yesterday for some extra pyramidal symptoms. He also has history of schizophrenia and bipolar disorder. His initial symptoms were those of altered mentation, generalized weakness, and muscle spasms. Objective - Vital Signs Vital signs: Vital Signs Temp 98.7 F 11/11/20 10:00 Pulse 77 11/11/20 10:00 Resp 20 11/11/20 10:00 BP 99/66 11/11/20 10:00 Pulse Ox 93 L 11/11/20 10:00 Intake & Output 11/10/20 11/11/20 11/11/20 18:59 06:59 18:59 Output Total 750 350 Balance -750 -350 Output: Urine 750 350 Other: Voiding Method Incontinent Incontinent External Catheter External Catheter - Exam No acute distress, not a good historian. The patient appears to have a expressive aphasia. Not on supplemental oxygen. Room air saturation 92%. HEENT examination is grossly unremarkable. Neck supple. Full range of motion. No adenopathy thyromegaly or neck vein distention. Cardiovascular examination reveals regular rhythm rate. S1-S2 normal. No S3 or S4. No discernible murmur noted. Heart sounds are distant. Lungs reveal mostly clear breath sounds. A few scattered rhonchi. No wheezes or crackles. He does not take deep breaths. Room air saturation 92%. Abdomen soft bowel sounds are heard. No masses or tenderness. Extremities are intact. No cyanosis clubbing or edema. Skin is without rash or lesion. Neurologic examination is difficult to assess. He does move all 4 extremities. Very poor historian. Expressive aphasia. - Labs - Labs CBC & Chem 7: 11/10/20 09:55 11/10/20 09:55 Labs: Microbiology - Last 24 Hours (Table) 11/10/20 09:55 Blood Culture - Preliminary Blood No Growth after 24 hours Assessment and Plan Plan: 1 COVID-19/coronavirus infection, without obvious respiratory distress or COVID 19 pneumonia. 2 acute aspiration pneumonia involving the right midlung. 3 History of hyperlipidemia. 4 History of hypothyroidism. 5 History of CVA, with expressive aphasia. 6 History of hypertension. 7 History of depression. 8 Lifelong nonsmoker. Plan: Obtain a computed tomography scan of the chest to characterized the lung finding abnormalities Started patient on Decadron 6 mg IV every 24 hours Continue IV Zosyn Swallow evaluation Aspiration precautions. Lovenox 40 mg subcu for DVT prophylaxis Monitor his psychiatric health.
--- NOTE | 2020-11-11 13:57 | PN ---
PROGRESS NOTE CHIEF COMPLAINT: Generalized weakness and debility with stiffness and weakness in the lower extremities. HISTORY OF PRESENT ILLNESS: This gentleman is running low-grade fevers at night. It is wondered if this could be related to his COVID, but his x-ray apparently suggests that he may have a right-sided pneumonitis. He is not complaining of any chest pain, shortness of breath, chills, fever, etc. PHYSICAL EXAMINATION: Chest is fairly clear but breath sounds are shallow. Cardiac exam is normal. Abdomen Is soft and nontender. Extremities are unchanged. IMPRESSION: 1. Fever, undetermined etiology. 2. COVID-19. 3. Possible right-sided pneumonitis. 4. Schizophrenia. 5. Weakness and muscle spasm in the lower extremities, etiology unknown. PLAN: Continue to work on trying to manage his lower extremity weakness. It is looking like he will be eventually going to a group home. MMODL / IJN: [id number] /
--- NOTE | 2020-11-11 14:29 | PN ---
PROGRESS NOTE DATE OF SERVICE: 11/11/2020. CHIEF COMPLAINT: 1. Right-sided pneumonitis. 2. Weakness and muscle spasm in lower extremities. 3. Schizophrenia. HISTORY OF PRESENT ILLNESS: This gentleman seems comfortable. He is not short of breath or having any chest pain. PHYSICAL EXAMINATION: He does have somewhat decreased breath sounds on the right. Cardiac exam is normal. Abdomen is soft and flat. Extremities are normal. IMPRESSION: 1. Right-sided pneumonitis. 2. COVID-19 infection. 3. Lower extremity weakness. 4. Schizophrenia. PLAN: Continue with pulmonary treatments and consider how and where he will go when he leaves the hospital. He will probably be going to a penitentiary. MMODL / IJN: [id number] /
[2020-11-11] MEDS: DEXAMETHASONE SOD PHOSPHATE 10 MG/ML 1 ML VIAL IV SCH (14:47)
[2020-11-11] MEDS: ENOXAPARIN 40 MG/0.4 ML SYRINGE SQ SCH (14:47)
[2020-11-11] MEDS: ATORVASTATIN 10 MG TAB PO SCH (19:21)
--- NOTE | 2020-11-11 19:23 | CT ---
EXAMINATION TYPE: CT chest w con DATE OF EXAM: 11/11/2020 COMPARISON: None HISTORY: Patient poor historian. CT DLP: 324.1 mGycm Automated exposure control for dose reduction was used. CONTRAST: Performed with IV Contrast, patient injected with 100 mL of Isovue 300. Images obtained from the thoracic inlet to the diaphragm with IV contrast. There is extensive interstitial and airspace infiltrates in the posterior lung floyd bilaterally. Th ere is relative sparing of the anterior upper lobes. There is no mediastinal adenopathy. Thoracic aor ta shows mild atheromatous change. There is aneurysm of the ascending aorta measures 4.2 cm. There is no dissection. I see no evidence of filling defect in the pulmonary arteries. There is some pleural thickening at the lung bases. Upper abdominal soft tissues are intact. Heart si ze is fairly normal. There is no pericardial effusion. There is mild thoracic kyphotic deformity. I see no bony destructive process. Sternum is intact. The ribs appear intact. IMPRESSION: Extensive posterior pulmonary infiltrates consistent with bronchopneumonia. No evidence of pulmonary embolism. Mild pleural effusions. Normal sized heart. Mild aneurysm of the ascending aorta.
[2020-11-11] MEDS: BENZTROPINE MESYLATE 1 MG TAB PO SCH (21:36)
[2020-11-12] MEDS: PIPERACILLIN-TAZOBACTAM 3.375 GM in SODIUM CHLORIDE 0.9% 100 ML IVPB SCH ×3 (04:20→20:47)
--- NOTE | 2020-11-12 06:20 | CONS ---
CONSULTATION DATE OF SERVICE: 11/11/2020 PURPOSE FOR CONSULTATION: Evaluate for weakness and lower extremity muscle spasms in relationship to psychiatric medications. INTERVAL HISTORY: Patient has been doing fair. He does seem to be making some progress overall. He developed aspiration pneumonia and was not able to take anything orally, which meant he was off his medications. He is now able to take his oral medications. In regards to movements, it did appear that he was having some dystonia related to his dose of Abilify, which is on the higher end. He responded to an IM challenge of Benadryl. Today he has been doing better overall. He has been fairly awake much of the time. He is more responsive. When I saw him, he was somewhat interactive and spontaneous in things he said. Nursing noted that through the day he has been oriented and alert. When I talked to him, he was uncertain about the day of the week, but he had no difficulty saying he was at [facility] in [place], that it was October and that it was 2018. He seemed to be a little uncertain about the date. In terms of movement, I checked his upper extremities for any cogwheeling or rigidity. He did have some mild cogwheeling. He resisted movement initially, though I was able to coax him into relaxing his arm completely and then there was no stiffness in movement at all. When I talked to the patient, he seemed to be in a good mood. He was asking for some candy. He seemed to have pretty good understanding of his situation. ASSESSMENT: I will continue the current diagnosis and treatment plan. From a psychiatric standpoint, he will restart his psychotropic medications, which includes Abilify 30 mg a day, Lamictal 150 mg twice a day and Wellbutrin 200 mg twice a day. It is noted that the Abilify is at a higher end and does put him at some risk for EPS and dystonia. I will start Cogentin 1 mg twice a day. We will monitor for how he does in terms of his overall function, as well as any issues related to movement problems. I will continue to follow. MMODL / IJN: [id number] /
[2020-11-12] MEDS: LEVOTHYROXINE 50 MCG TAB PO SCH (09:02)
[2020-11-12] MEDS: CHOLECALCIFEROL 25 MCG (1000 IU) TABLET PO SCH (09:02)
[2020-11-12] MEDS: ZINC SULFATE 220 MG CAP PO SCH (09:03)
[2020-11-12] MEDS: DEXAMETHASONE SOD PHOSPHATE 10 MG/ML 1 ML VIAL IV SCH (09:03)
[2020-11-12] MEDS: ASCORBIC ACID 500 MG TAB PO SCH ×2 (09:03→20:46)
[2020-11-12] MEDS: BENZTROPINE MESYLATE 1 MG TAB PO SCH ×2 (09:03→20:46)
[2020-11-12] MEDS: cilostazoL 100 MG TAB PO SCH (09:04)
[2020-11-12] MEDS: ARIPiprazole 15 MG TAB PO SCH (09:04)
[2020-11-12] MEDS: buPROPion SR 100 MG TABLET.ER PO SCH ×2 (09:04→20:46)
[2020-11-12] MEDS: SODIUM CHLORIDE 0.9% 1,000 ML IV SCH ×2 (09:05→23:37)
[2020-11-12] MEDS: ENOXAPARIN 40 MG/0.4 ML SYRINGE SQ SCH (09:05)
[2020-11-12] MEDS: lamoTRIgine 100 MG TAB PO SCH ×2 (09:07→20:46)
[2020-11-12 12:46] LABS: African American GFR (CKD) 46 (>60 ml/min/1.73 sqM); Anion Gap 9 mmol/L; Blood Urea Nitrogen 42 mg/dL (9-20); Calcium 8.1 mg/dL (8.4-10.2); Carbon Dioxide 18 mmol/L (22-30); Chloride 115 mmol/L (98-107); Glucose 157 mg/dL (74-99); Magnesium 2.2 mg/dL (1.6-2.3); Non-African American GFR(CKD) 40 (>60 ml/min/1.73 sqM); Potassium 3.8 mmol/L (3.5-5.1); Sodium 142 mmol/L (137-145)
[2020-11-12 13:04] LABS: T4, Free (Free Thyroxine) 1.31 ng/dL (0.78-2.19)
[2020-11-12] MEDS ORDERED: HEPARIN SODIUM 1,000 UN/ML (10ML VL) IV PRN (13:13)
[2020-11-12] MEDS ORDERED: HEPARIN SOD,PORK IN 0.45% NACL 25,000 UNIT in 0.45% NACL 1 250ML.BAG IV SCH (13:15)
--- NOTE | 2020-11-12 13:24 | P.PN ---
Subjective Progress Note Date: 11/12/20 75-year-old male patient is being seen in follow-up. The patient resides in a assisted living. He initially came to us with COVID-19 infection and subsequently developed an aspiration of the right lung. Most recent chest x-ray from yesterday showed worsening of the right midlung findings and developed bilateral or basilar multifocal airspace disease. Based on all this, the patient was given IV Zosyn. He had some increased cough and congestion and she was having more difficulties in swallowing and he was becoming more lethargic and for that reason aspiration was suspected. His white cell count currently is at 4.2 with hemoglobin of 11.3. Platelet count is at 149. As for the rest of the labs, there is LFTs are normal, he is hemodynamically stable. Inflammatory markers have not been checked. His comorbid conditions include CVA, hypertension, hyperlipidemia and hypothyroidism. He is still having episodes of fever with a T-max of 100.8. Note that the patient has a long history of psych disorder and the patient was seen by psychiatry and he was given Cogentin yesterday for some extra pyramidal symptoms. He also has history of schizophrenia and bipolar disorder. His initial symptoms were those of altered mentation, generalized weakness, and muscle spasms. Evaluation of 11/12/2020 patient is on room air oxygen. He is not having any major respiratory distress. CAT scan of the chest was done yesterday showed consolidation of the lung bases bilaterally more so on the right patient suddenly involving the lung bases and sparing the upper lobes. As such, an aspiration on top of COVID-19 related pneumonia cannot be completely excluded. The patient is currently on IV Zosyn. The patient's blood work showed a d-dimer of 1.47, serum bicarbonate is 19 with a chloride of 115 and the sodium of 142, creatinine is at 1.6 and his BUN is at 42. Meanwhile, the patient went into a trial fibrillation with rapid ventricular response. At this point in time, his heart rate is in the 1:30 range, irregular and the patient is going to be transferred to a cardiac units. Cardizem drip and a heparin drip is to be started on him once he gets to the cardiac units. On and at baseline is at 0.07. EKG is not showing any acute ischemic changes or ST segment elevations or depression. The patient currently is afebrile. Pulse ox on room air is around 92%. He will need also based on echocardiogram. He has a long history of psychiatric disorders including schizophrenia bipolar disorder. He has generalized weakness. No known history of hypertension, hyperlipidemia and hypothyroidism. His thyroid function tests show a free T4 of 1.31. He also completed a swallow evaluation and was recommended a pured diet with thin liquids as tolerated. Objective - Vital Signs Vital signs: Vital Signs Temp 97.5 F L 11/12/20 10:00 Pulse 97 11/12/20 05:45 Resp 20 11/12/20 10:00 BP 114/60 11/12/20 10:00 Pulse Ox 88 L 11/12/20 10:00 Intake & Output 11/11/20 11/12/20 11/12/20 18:59 06:59 18:59 Output Total 750 Balance -750 Output: Urine 750 Other: Voiding Method Incontinent Incontinent Incontinent External Catheter External Catheter External Catheter # Voids 2 # Bowel Movements 1 - Exam No acute distress, not a good historian. The patient appears to have a expressive aphasia. Not on supplemental oxygen. Room air saturation 92%. HEENT examination is grossly unremarkable. Neck supple. Full range of motion. No adenopathy thyromegaly or neck vein distention. Cardiovascular examination patient is tachycardic, irregular S1-S2 consistent with atrial fibrillation with rapid ventricular response. Heart sounds in general are quite distant. Lungs reveal mostly clear breath sounds. A few scattered rhonchi. No wheezes or crackles. He does not take deep breaths. Room air saturation 92%. Abdomen soft bowel sounds are heard. No masses or tenderness. Extremities are intact. No cyanosis clubbing or edema. Skin is without rash or lesion. Neurologic examination is difficult to assess. He does move all 4 extremities. Very poor historian. Expressive aphasia. - Labs CBC & Chem 7: 11/10/20 09:55 11/12/20 12:10 Labs: Abnormal Lab Results - Last 24 Hours (Table) 11/12/20 11/12/20 11/12/20 Range/Units 12:10 12:10 12:10 D-Dimer 1.47 H (<0.60) mg/L FEU Chloride 115 H (98-107) mmol/L Carbon Dioxide 18 L (22-30) mmol/L BUN 42 H (9-20) mg/dL Creatinine 1.68 H (0.66-1.25) mg/dL Glucose 157 H (74-99) mg/dL Calcium 8.1 L (8.4-10.2) mg/dL Troponin I 0.072 H* (0.000-0.034) ng/mL Microbiology - Last 24 Hours (Table) 11/10/20 09:55 Blood Culture - Preliminary Blood No Growth after 48 hours Assessment and Plan Plan: 1 COVID-19/coronavirus infection, without obvious respiratory distress or COVID 19 pneumonia. 2 acute aspiration pneumonia possibly involving the right lower lobe. The patient has lower lobe consolidation mainly in the lung bases right more than left splitting the upper lobes and this obviously raises the concern for as piration. Swallow evaluation was completed and the patient was asked to continue with daily diet. CAT scan of the chest was noted. Patient remains on a room air oxygen 3 History of hyperlipidemia. 4 History of hypothyroidism. 5 History of CVA, with expressive aphasia. 6 History of hypertension. 7 History of depression. 8 Lifelong nonsmoker. With a pulse ox of 92%. 9 new-onset atrial fibrillation with rapid ventricular response 10 schizophrenia/depression Plan: Computed tomography scan of the chest showed lower lobe consolidation right more than left and the patient is currently on IV Zosyn Aspiration precautions Monitor the oxygenation and use O2 supplementation should he dropped his pulse ox below 90% Provide an incentive spirometer and deep breathing and pulmonary toileting Started patient on Decadron 6 mg IV every 24 hour Transfer the patient to the unit where the patient will be started on Cardizem drip and IV heparin and was ordered also based on echocardiogram Lovenox 40 mg subcu for DVT prophylaxis Monitor his psychiatric health.
[2020-11-12] MEDS ORDERED: DILTIAZEM 125 MG in SODIUM CHLORIDE 0.9% 100 ML IV SCH (13:30)
[2020-11-12] MEDS ORDERED: DILTIAZEM DRIP BOLUS FROM BAG 1 MG SOLN IV ONE (13:30)
[2020-11-12 13:45] LABS: Partial Thromboplastin Time 27.5 sec (22.0-30.0); Prothrombin Time 10.4 sec (9.0-12.0)
--- NOTE | 2020-11-12 15:26 | P.CRDCN ---
History of Present Illness History of present illness: HISTORY OF PRESENTING ILLNESS This is a pleasant 77-year-old male past medical history significant for CVA/TIA, Schizophrenia, hypertension, hypothyroidism. He does not follow with a roll tender that is known. We have been asked to see in consultation for new onset atrial fibrillation with RVR. Patient presents emergency department with one-week history of increased weakness, difficulty ambulating, eating very slowly. When asking the patient why he presented to the emergency department he states "I couldn't walk". He is from an assisted living. He is a poor historian. Patient was found to be Covid-19 Positive, he subsequently developed an aspiration of the right lung. Neurology, psychiatry and Pulmonary was consulted. Patient underwent CT brain on admission which revealed no acute process. Chest x-ray on 11/10/2020 showed worsening of the right mid lung findings and developed bilateral basilar multifocal airspace disease, patient started on IV Zosyn. Psychiatry started the patient on Cogentin 11/10. CT chest 11/11 revealed extensive posterior pulmonary for tripped consistent with bronchopneumonia. No evidence of pulmonary embolism. Bilateral pleural effusions. Mild aneurysm of the ascending aorta. Patient is seen and examined at bedside. Alert, however, confused, not able to answer questions appropriately. Appears short of breath. Blood pressure 119/67, heart rate 1:30 to 140s, afebrile, oxygen saturation is 91% on 4 L nasal cannula. This morning patient oxygen saturations were 88% on room air. DIAGNOSTICS EKG on 10/1919 21 patient appears to be in atrial fibrillation heart rate 72 EKG 11/12patient in atrial fibrillation with rapid ventricular response heart rate 131 No prior EKGs to compare Laboratory reviewed, d-dimer elevated 1.47, WBC 4.2, hemoglobin 11.3, platelets 149, sodium 142, potassium 3.8, serum creatinine 1.68, BUN 42, troponin 0.072, TSH 2.6, free T4 1.3 Current home cardiac medications include simvastatin 10 mg daily REVIEW OF SYSTEMS At the time of my exam: Unable to get a thorough review of systems due to patient's mentation CONSTITUTIONAL: Denies fever or chills. CARDIOVASCULAR: Denies chest pain, shortness of breath, orthopnea, PND or palpitations. RESPIRATORY: Denies cough. GASTROINTESTINAL: Denies abdominal pain, diarrhea, constipation, nausea or vomiting. MUSCULOSKELETAL: Denies myalgias. NEUROLOGIC: Denies numbness, tingling, headacbe or weakness. ENDOCRINE: Denies fatigue, weight change, polydipsia or polyurina. GENITOURINARY: Denies burning, hematuria or urgency with micturation. HEMATOLOGIC: Denies history of anemia or bleeding. PHYSICAL EXAMINATION CONSTITUTIONAL: Appears short of breath HEENT: Head is normocephalic. Pupils are equal, round. Sclerae anicteric. Mucous membranes of the mouth are moist. No JVD. No carotid bruit. CHEST EXAMINATION: Lungs are diminished bilaterallu . No chest wall tenderness is noted on palpation or with deep breathing. HEART EXAMINATION: Irregular and tachycardic rate and rhythm. S1, S2 heard. ABDOMEN: Soft, nontender. Positive bowel sounds. EXTREMITIES: 2+ peripheral pulses, 2+ left lower extremity edema and no calf tenderness. NEUROLOGIC EXAMINATION: Patient is awake, alert and oriented x 2. ASSESSMENT Covid-19 Paroxysmal atrial fibrillation with rapid ventricular response. -[id number] score 4 Elevated troponin- most likely due to covid-19 and patient in atrial fibrillation with RVR Acute aspiration pneumonia History of hyperlipidemia History of hypothyroidism History of CVA History of hypertension History of schizophrenia History of nicotine dependence PLAN -We will start 5mg IV Cardizem bolus, and Cardizem drip 5mg/hr -Start metoprolol tartrate 25mg BID tonight -Wean cardizem drip as tolerated -Discussed with neurology, ok to start patient on heparin drip, and monitor patient's neurology status -Cardiac telemetry -Obtain 2D echocardiogram tomorrow morning -Patient being transferred to -Further recommendations based on clinical course Nurse Practitioner note has been reviewed, I agree with a documented findings and plan of care. Patient was seen and examined. Past Medical History Past Medical History: CVA/TIA, Hyperlipidemia, Hypertension, Thyroid Disorder Additional Past Medical History / Comment(s): manic depressive, slurred speech from mini stroke History of Any Multi-Drug Resistant Organisms: None Reported Past Surgical History: Appendectomy, Cholecystectomy, Tonsillectomy Additional Past Surgical History / Comment(s): Hemmroidectomy Past Anesthesia/Blood Transfusion Reactions: No Reported Reaction Past Psychological History: Depression Additional Psychological History / Comment(s): Manic Depression Smoking Status: Never smoker Past Alcohol Use History: None Reported Past Drug Use History: None Reported - Past Family History Father Family Medical History: Cancer Additional Family Medical History / Comment(s): Manic Depression, Ca ?? Mother Family Medical History: Diabetes Mellitus Medications and Allergies Home Medications Medication Instructions Recorded Confirmed Type Simvastatin 10 mg PO DAILY@1900 02/22/19 11/06/20 History ARIPiprazole [Abilify] 30 mg PO DAILY@0700 11/06/20 11/06/20 History Ergocalciferol (Vitamin D2) 1,250 mcg PO QMONTHLY 11/06/20 11/06/20 History [Drisdol (50,000 Iu)] Levothyroxine Sodium [Synthroid] 50 mcg PO DAILY@0711/06/20 11/06/20 History buPROPion SR [Wellbutrin SR] 200 mg PO BID@0700,189911/06/20 11/06/20 History cilostazoL [Pletal] 100 mg PO DAILY@0711/06/20 11/06/20 History lamoTRIgine [LaMICtal] 150 mg PO BID@0700,189911/06/20 11/06/20 History Allergies Allergy/AdvReac Type Severity Reaction Status Date / Time No Known Allergies Allergy Verified 11/06/20 17:24 Physical Exam Vitals: Vital Signs Temp Pulse Resp BP Pulse Ox 11/12/20 10:00 97.5 F L 20 114/60 88 L 11/12/20 05:45 98.2 F 97 122/75 92 L 11/12/20 02:04 98.1 F 114 H 110/66 93 L 11/11/20 21:51 98.7 F 62 100/70 92 L 11/11/20 18:00 99.5 F 98 20 125/72 93 L 11/11/20 14:00 98.7 F 82 20 106/71 94 L Intake and Output 11/11/20 11/12/20 11/12/20 22:59 06:59 14:59 Output Total 750 Balance -750 Output: Urine 750 Other: Voiding Method Incontinent Incontinent External Catheter External Catheter # Voids 2 # Bowel Movements 1 Results 11/10/20 09:55 11/12/20 12:10 Cardiac Enzymes 11/12/20 Range/Units 12:10 Troponin I 0.072 H* (0.000-0.034) ng/mL Comprehensive Metabolic Panel 11/12/20 Range/Units 12:10 Sodium 142 (137-145) mmol/L Potassium 3.8 (3.5-5.1) mmol/L Chloride 115 H (98-107) mmol/L Carbon Dioxide 18 L (22-30) mmol/L BUN 42 H (9-20) mg/dL Creatinine 1.68 H (0.66-1.25) mg/dL Glucose 157 H (74-99) mg/dL Calcium 8.1 L (8.4-10.2) mg/dL Current Medications Generic Name Dose Route Start Last Admin Trade Name Freq PRN Reason Stop Dose Admin Acetaminophen 650 mg 11/06/20 19:14 11/09/20 21:45 Acetaminophen Tab 325 Mg Tab PO 650 mg Q6HR PRN Administration Mild Pain or Fever > 100.5 Aripiprazole 30 mg 11/08/20 07:00 11/12/20 09:04 Aripiprazole 15 Mg Tab PO 30 mg DAILY@0700 JORGE Administration Ascorbic Acid 500 mg 11/07/20 11:15 11/12/20 09:03 Ascorbic Acid 500 Mg Tab PO 500 mg BID JORGE Administration Atorvastatin Calcium 10 mg 11/07/20 19:00 11/11/20 19:21 Atorvastatin 10 Mg Tab PO 10 mg DAILY@1900 JORGE Administration Benztropine Mesylate 1 mg 11/11/20 21:00 11/12/20 09:03 Benztropine Mesylate 1 Mg Tab PO 1 mg BID JORGE Administration Bupropion HCl 200 mg 11/07/20 19:00 11/12/20 09:04 Bupropion Sr 100 Mg Tablet.Er PO 200 mg BID@0700,1900 JORGE Administration Cholecalciferol 125 mcg 11/07/20 11:15 11/12/20 09:02 Cholecalciferol 25 Mcg (1000 Iu) Tablet PO 125 mcg DAILY JORGE Administration Dexamethasone Sodium Phosphate 6 mg 11/11/20 14:00 11/12/20 09:03 Dexamethasone Sod Phosphate 10 Mg/Ml 1 Ml Vial IV 6 mg DAILY JORGE Administration Diltiazem HCl 5 mg 11/12/20 12:35 Diltiazem Drip Bolus From Bag 1 Mg Soln IV 11/12/20 12:36 ONCE ONE Enoxaparin Sodium 40 mg 11/11/20 14:00 11/12/20 09:05 Enoxaparin 40 Mg/0.4 Ml Syringe SQ 40 mg DAILY JORGE Administration Sodium Chloride 1,000 mls @ 75 mls/hr 11/06/20 19:00 11/12/20 09:05 Saline 0.9% IV 75 mls/hr .[id number] JORGE Administration Acetaminophen 1,000 mg/ IV 100 mls @ 400 mls/hr 11/09/20 22:01 11/11/20 02:48 Solution IVPB 400 mls/hr Q6H PRN Administration Fever Piperacillin Sod/Tazobactam 100 mls @ 25 mls/hr 11/10/20 12:00 11/12/20 12:32 Sod 3.375 gm/ Sodium Chloride IVPB 25 mls/hr Q8H JORGE Administration Diltiazem HCl 125 mg/ Sodium 125 mls @ 5 mls/hr 11/12/20 12:30 Chloride IV .Q24H JORGE 5 MG/HR Lamotrigine 150 mg 11/07/20 19:00 11/12/20 09:07 Lamotrigine 100 Mg Tab PO 150 mg BID@0700,1900 JORGE Administration Levothyroxine Sodium 50 mcg 11/08/20 07:00 11/12/20 09:02 Levothyroxine 50 Mcg Tab PO 50 mcg DAILY@0700 JORGE Administration Miscellaneous Information 1 each 11/11/20 13:49 Rx Info: Iv Contrast Was Given 1 Each Misc MISCELLANE 11/13/20 13:50 DAILY PRN Per Protocol Naloxone HCl 0.2 mg 11/06/20 19:14 Naloxone 0.4 Mg/Ml 1 Ml Vial IV Q2M PRN Opioid Reversal Zinc Sulfate 220 mg 11/07/20 11:15 11/12/20 09:03 Zinc Sulfate 220 Mg Cap PO 220 mg DAILY OJRGE Administration Intake and Output 11/11/20 11/12/20 11/12/20 22:59 06:59 14:59 Output Total 750 Balance -750 Output: Urine 750 Other: Voiding Method Incontinent Incontinent External Catheter External Catheter # Voids 2 # Bowel Movements 1 11/10/20 09:55 11/12/20 12:10
--- NOTE | 2020-11-12 16:36 | P.PN ---
Subjective Progress Note Date: 11/12/20 I am seeing the patient for the first time. Please refer to Dr. Miranda's note for detailed neurological history and physical exam. Dr. Miranda recommended MRI Brain and Cervical spine as requested by Dr. Miranda because of leg weakness but unable to get good history from patient. MRI was cancelled on 11/08/20 and it is documented that MRI team refused to perform study because of his poor history and Dr. Miranda notified them to go ahead and cancel it. According to the patient, he notified me that his right leg weakness has been going on for the past one year and has right hip pain and has arthritis. He denies any new focal weakness, visual disturbance, difficulty getting his words out, numbness or tingling. The patient went into A-fib with RVR. Objective - Vital Signs Vital signs: Vital Signs Temp 97.9 F 11/12/20 13:24 Pulse 144 H 11/12/20 13:24 Resp 18 11/12/20 13:24 BP 119/67 11/12/20 13:24 Pulse Ox 91 L 11/12/20 13:24 Intake & Output 11/11/20 11/12/20 11/12/20 18:59 06:59 18:59 Output Total 750 Balance -750 Output: Urine 750 Other: Voiding Method Incontinent Incontinent Incontinent External Catheter External Catheter External Catheter # Voids 2 # Bowel Movements 1 - Exam GENERAL: The patient is lying in bed and is not in acute distress. NEUROLOGICAL: Higher mental function: The patient is awake, alert, oriented to self, place and time. Patient is following commands. No aphasia and no neglect. Cranial nerves: The pupils are round, equal and reactive to light and accommodation. Visual floyd are full to confrontation throughout. Extraocular movement is left horizontal nystagmus. The facial sensation is n ormal to touch throught. The facial strength is normal. Mild dysarthria (but not wearing his denture). Hearing is moderately decreased to hand rub. Motor: Gait is deferred. The strength: The right lower extremity is limited because of significant pain over the right hip and but was moving right lower extremity 1-2 and upon asking him to raise it up he said he was in pain (joint pain over the right hip for the past one year). Otherwise strength is 5/5 throughout. Normal tone and bulk. Sensation: Sensation is normal to touch throughout except proximal hips anteriorly he said slight decreased to touch (same for past one year per patient). Reflexes: 1+ throughout except patellar are 3+ bilaterally. Plantars: Is upgoing at baseline on the left and mute on the right. - Labs CBC & Chem 7: 11/10/20 09:55 11/12/20 12:10 Labs: Abnormal Lab Results - Last 24 Hours (Table) 11/12/20 11/12/20 11/12/20 Range/Units 12:10 12:10 12:10 D-Dimer 1.47 H (<0.60) mg/L FEU Chloride 115 H (98-107) mmol/L Carbon Dioxide 18 L (22-30) mmol/L BUN 42 H (9-20) mg/dL Creatinine 1.68 H (0.66-1.25) mg/dL Glucose 157 H (74-99) mg/dL Calcium 8.1 L (8.4-10.2) mg/dL Troponin I 0.072 H* (0.000-0.034) ng/mL Microbiology - Last 24 Hours (Table) 11/10/20 09:55 Blood Culture - Preliminary Blood No Growth after 48 hours Assessment and Plan Assessment: * 75-year-old male with 1 week history of leg weakness (right) of unclear etiology. (Patient states legs have been weak for the last 1 year). On my examination he refuses to lift the right leg above gravity because of pain on the right hip. But to Dr. Miranda Examination is relatively nonfocal. Patient has been diagnosed with acute Covid-19 infection, which may be contributing to generalized fatigue and weakness. Possibly he has worsening of his arthritis limiting movement of the right lower extremity. * History of stroke, with residual proximal right arm weakness. * A-fib with RVR * Covid-19 infection * History of schizophrenia Plan: * CT head reported no acute process. On my review, there is prominence of ventricles, raising possibility of NPH. However the hydrocephalus appears stable as compared to the computed tomography scan from 02/23/2019. Patient also has evidence of old stroke involving the left external capsule. * B12 431, B6, folate >24, TSH 2.63, hemoglobin A1c 5.2. * MRI of brain, cervical and lumbar spine could be achieved. I will get repeat CT head and CT lumbar. Recommend consideration of right hip imaging but will defer that decision to the primary team especially since having pain (but said this has been happening for the past one year). * Placed on Q4 hours neuro checks. * Physical therapy and occupational therapy are consulted. * I spoke with cardiology nurse practioner and since patient has old stroke, I notified her it is ok for patient to be started on heparin drip but if patient has change in neurological exam then to notify us immediately. * I recommend the patient to get EMG with [facility] as outpatient. * Recommend the patient to follow-up with neurologist as oupatient within 1-2 weeks. * Will defer the rest of the medical management to the primary team. The plan is discussed with the patient's nurse. Will follow-up with patient sporadically. Harjit Pastrana MD Neuro-Hospitalist Time with Patient: Less than 30
--- NOTE | 2020-11-12 17:53 | CT ---
EXAMINATION TYPE: CT lumbar spine wo con DATE OF EXAM: 11/12/2020 COMPARISON: 05/09/2019 HISTORY: Right leg weakness. CT DLP: 1026.6 mGycm Automated exposure control for dose reduction was used. Images obtained from the level of T12-S2 vertebra without contrast. Lumbar vertebra have overall fairly normal alignment. There is minimal subluxation at L4-5. There is mild disc space narrowing at L4-5 and L5-S1. There is no compression fracture. There is some osteopen ia. There is no lumbar paraspinal mass. Sacroiliac joints are intact. I see no focal bone destruction . There is posterior concentric disc herniation at L4-5 and mild impingement on the spinal canal. The re is no lumbar paraspinal mass. IMPRESSION: Spondylotic changes. There is a very minimal 3 mm degenerative L4-5 spondylolisthesis. This appears n ew compared to old exam. There is a posterior concentric mild disc herniation at L4-5. There is a mil d relative spinal stenosis at L4-5. No acute bony abnormality. Posterior L4-5 disc herniation increas ed compared to old abdomen CT scan of 05/09/2019. There is clearing of the air bubble in the spinal c anal compared to old exam.
--- NOTE | 2020-11-12 17:55 | PN ---
PROGRESS NOTE DATE OF SERVICE: 11/12/2020. CHIEF COMPLAINT: COVID pneumonia and weakness in the lower extremities. HISTORY OF PRESENT ILLNESS: This gentleman is doing well, but today it was noted that his pulse was irregular and he is in atrial fibrillation. It is not known if he has been in atrial fibrillation before. He is not complaining of any chest pain or shortness of breath. He is still running low-grade temperatures at night. PHYSICAL EXAMINATION: Chest demonstrates somewhat decreased breath sounds at the bases. Cardiac exam demonstrates atrial fibrillation. The abdomen is soft. IMPRESSION: 1. New-onset atrial fibrillation. 2. COVID pneumonia. 3. Schizophrenia. 4. Lower extremity weakness with muscle spasms, etiology unknown. PLAN: 1. He will be moved to telemetry. 2. Cardiology consult. MIKI / AKANKSHA: [id number] /
--- NOTE | 2020-11-12 17:56 | CT ---
EXAMINATION TYPE: CT brain wo con DATE OF EXAM: 11/12/2020 COMPARISON: 11/06/2020 HISTORY: Right sided weakness. CT DLP: 1092.4 mGycm Automated exposure control for dose reduction was used. There is diffuse cerebral cortical atrophy. There is patchy hypodensity in the periventricular white matter. There is 3 x 1 cm hypodense area in the left internal capsule consistent with old lacunar inf arct. There is no midline shift. There is enlargement of the ventricles. The calvarium is intact. Sku ll base is intact. There is normal aeration of the mastoid sinuses. IMPRESSION: Cerebral atrophy and chronic small vessel ischemia. Hydrocephalus. No acute abnormality. No change.
[2020-11-12] MEDS: ATORVASTATIN 10 MG TAB PO SCH (20:46)
[2020-11-12] MEDS: METOPROLOL TARTRATE 25 MG TAB PO SCH (20:47)
--- NOTE | 2020-11-12 22:17 | CONS ---
CONSULTATION DATE OF SERVICE: 11/12/2020 PURPOSE FOR CONSULTATION: Evaluate for weakness and lower extremity muscle spasm in relationship to psychiatric medications. INTERVAL HISTORY: The patient has been doing fair from a psychiatric standpoint; seems to be making some progress. He is a little more communicative. He seems also to be a little more active in general. It is noted that I was first consulted when he was showing acute dystonia, most likely related to his higher dose of Abilify. He responded to an initial dose of Cogentin 2 mg IV with improvement in motor function. Noteworthy: he developed aspiration pneumonia and had to stop taking all medications. There is a reasonable possibility that the dystonia may have contributed to upper esophageal constriction as well. The patient is now back on oral medications. He continues on his primary psychotropic medications of Abilify 30 mg a day along with Wellbutrin 200 mg twice a day and Lamictal 150 mg twice a day. In addition he has been started on Cogentin 1 mg twice a day. When I saw him today he was sitting up in bed. He gave good eye contact. He was quite animated. When he talks it is a little difficult to follow his train of thought. Sometimes he makes comments that seem random or disconnected to things around him. He is fairly oriented and was quite alert and responsive in the interview. He knew where he was in general and knew the date and circumstances. It is noted he has been transferred for continued cardiac monitoring relating to new onset of atrial fibrillation. ASSESSMENT: At this point I would continue psychotropic medications the same. I do not have information regarding his baseline, though overall he seems to be doing fairly well and appears to be relatively stable from a psychiatric standpoint, I will not be in the hospital over the next several days, so if he is in need of further psychiatric followup, please re-consult Psychiatry. MMODL / IJN: [id number] /
[2020-11-13 02:43] LABS: HCT 36.9 % (39.0-53.0); HGB 12.6 gm/dL (13.0-17.5); MCH 31.3 pg (25.0-35.0); MCHC 34.2 g/dL (31.0-37.0); MCV 91.5 fL (80.0-100.0); Mean Platelet Volume 8.7; Platelet Count 213 k/uL (150-450); RBC 4.03 m/uL (4.30-5.90); RDW 13.5 % (11.5-15.5); WBC 15.8 k/uL (3.8-10.6)
[2020-11-13 02:45] LABS: Prothrombin Time 11.1 sec (9.0-12.0)
[2020-11-13 03:20] LABS: Calcium 8.3 mg/dL (8.4-10.2); Potassium 4.3 mmol/L (3.5-5.1)
[2020-11-13] MEDS: PIPERACILLIN-TAZOBACTAM 3.375 GM in SODIUM CHLORIDE 0.9% 100 ML IVPB SCH ×3 (04:56→21:32)
[2020-11-13] MEDS: lamoTRIgine 100 MG TAB PO SCH ×2 (06:16→21:19)
[2020-11-13] MEDS: LEVOTHYROXINE 50 MCG TAB PO SCH (06:17)
[2020-11-13] MEDS: buPROPion SR 100 MG TABLET.ER PO SCH ×2 (06:17→21:19)
[2020-11-13] MEDS: ARIPiprazole 15 MG TAB PO SCH (06:17)
--- NOTE | 2020-11-13 09:37 | XR ---
EXAMINATION TYPE: XR chest 1V portable DATE OF EXAM: 11/13/2020 COMPARISON: 11/10/2020 HISTORY: Covid TECHNIQUE: Single frontal view of the chest is obtained. FINDINGS: Heart size is within normal limits. Atherosclerotic aorta. Patchy right perihilar and basi lar airspace opacities and left basilar specified CT suggestive of infectious/inflammatory process, s uch as the patient's known Covid. No large pleural effusion or pneumothorax. Overlying leads. IMPRESSION: 1. Patchy airspace opacities at the right midlung and right lung base and left lung base. This is con sistent with Covid infection. Findings are similar to prior exam.
[2020-11-13] MEDS: METOPROLOL TARTRATE 50 MG TAB PO SCH ×2 (09:44→21:19)
[2020-11-13] MEDS: ZINC SULFATE 220 MG CAP PO SCH (09:45)
[2020-11-13] MEDS: DEXAMETHASONE SOD PHOSPHATE 10 MG/ML 1 ML VIAL IV SCH (09:45)
[2020-11-13] MEDS: APIXABAN 5 MG TAB PO SCH ×2 (09:45→21:19)
[2020-11-13] MEDS: ASCORBIC ACID 500 MG TAB PO SCH ×2 (09:45→21:19)
--- NOTE | 2020-11-13 11:01 | ECHOF ---
Referral Reason:new onset atrial fibrillation, elevated troponin MEASUREMENTS -------- HEIGHT: 182.9 cm WEIGHT: 68.0 kg BP: IVSd: 1.0 cm (0.6 - 1.1) LVIDd: 3.7 cm (3.9 - 5.3) LVPWd: 1.1 cm (0.6 - 1.1) EDV(Teich): 59 ml IVSs: 1.3 cm LVIDs: 2.8 cm LVPWs: 1.1 cm %IVS Thck: 24 % ESV(Teich): 28 ml EF(Teich): 52 % %FS: 26 % SV(Teich): 31 ml LA Diam: 3.0 cm (2.7 - 3.8) Ao Diam: 2.7 cm (2.0 - 3.7) MV E Raghu: 1.03 m/s MV DecT: 164 ms MV Dec Claiborne: 6.3 m/s MV A Raghu: 0.36 m/s MV E/A Ratio: 2.85 MV PHT: 48 ms TR Vmax: 1.21 m/s TR maxP.87 mmHg RAP: 5.00 mmHg RVSP: 10.87 mmHg FINDINGS -------- Sinus rhythm. Pt is Covid positive. LV size, wall thickness and systolic function are normal, with an EF greater than 55%. The left gela tricular size is normal. The right ventricle is normal in size. The right atrial size is normal. The aortic valve is trileaflet, and appears structurally normal. No aortic stenosis or regurgitation. Mild mitral regurgitation is present. Mild tricuspid regurgitation present. Right ventricular systolic pressure is normal at < 35 mmHg. The pulmonic valve was not well visualized. The aortic root size is normal. There is no pericardial effusion. CONCLUSIONS -------- 1. Pt is Covid positive. 2. LV size, wall thickness and systolic function are normal, with an EF greater than 55%. 3. The left ventricular size is normal. 4. The right ventricle is normal in size. 5. The right atrial size is normal. 6. The aortic valve is trileaflet, and appears structurally normal. No aortic stenosis or regurgitati on. 7. Mild mitral regurgitation is present. 8. Mild tricuspid regurgitation present. 9. The pulmonic valve was not well visualized. 10. The aortic root size is normal. 11. There is no pericardial effusion. SENIOR NET C DEVELOPER: Elsa Whitt RDCS
--- NOTE | 2020-11-13 13:36 | P.PN ---
Subjective This is a pleasant 75-year-old male past medical history significant for CVA with residual right-sided weakness, schizophrenia, hypertension and hypothyroidism. He does not follow regularly with clinical rehab specialist. He is currently being treated for COVID-19. Yesterday he went into atrial fibrillation with rapid ventricular rate. He was initiated on IV Cardizem and heparin infusions. He continues today to be in A. fib with controlled ve ntricular rates. Blood pressure 115/65 heart rate 81 afebrile maintaining oxygen saturation on nasal cannula. Laboratory data reviewed, WBC 15.8, hemoglobin 12.6, platelets 213, sodium 145, potassium 4.3, creatinine 1.56. Chest x-ray obtained this morning reveals patchy airspace opacity at the right mid lung and right and left lung base. Consistent with Covid infection. GENERAL: Well-appearing, well-nourished and in no acute distress. Thorough exam not obtain secondary to acute Covid infection. ASSESSMENT New-onset paroxysmal atrial fibrillation with rapid ventricular response COVID-19 Elevated troponin secondary to COVID-19 in A. fib with RVR Aspiration pneumonia Hypertension History of CVA with right-sided weakness Dyslipidemia Schizophrenia PLAN Discussed with Dr. Pastrana, patient is stable to initiate Eliquis 5 mg twice a day this morning. Increase metoprolol to 50 mg twice a day and discontinue Cardizem infusion. Echocardiogram has been obtained and will be reviewed. Further recommendations to follow based upon clinical course. Nurse Practitioner note has been reviewed, I agree with a documented findings and plan of care. Patient was seen and examined. Objective - Vital Signs Vital signs: Vital Signs Temp 98.4 F 11/13/20 04:00 Pulse 81 11/13/20 04:00 Resp 17 11/13/20 04:00 BP 115/65 11/13/20 04:00 Pulse Ox 93 L 11/13/20 04:00 Intake & Output 11/12/20 11/13/20 11/13/20 18:59 06:59 18:59 Intake Total 400 120.364 0 Output Total 700 Balance 400 -579.636 0 Weight 73.5 kg Intake: Intake, IV Titration 120.364 Amount Heparin Sod,Pork in 0.45% 120.364 NaCl 25,000 unit In 0.45 % NaCl 1 250ml.bag @ 12 UNITS/KG/HR 8.165 mls/hr IV .Q24H [facility] Rx#: [id number] Oral 400 0 Output: Urine 700 Other: Voiding Method Incontinent Incontinent External Catheter External Catheter # Voids 1 - Labs CBC & Chem 7: 11/13/20 02:16 11/13/20 02:16 Labs: Abnormal Lab Results - Last 24 Hours (Table) 11/12/20 11/12/20 11/12/20 Range/Units 12:10 12:10 12:10 WBC (3.8-10.6) k/uL RBC (4.30-5.90) m/uL Hgb (13.0-17.5) gm/dL Hct (39.0-53.0) % APTT (22.0-30.0) sec D-Dimer 1.47 H (<0.60) mg/L FEU Chloride 115 H (98-107) mmol/L Carbon Dioxide 18 L (22-30) mmol/L BUN 42 H (9-20) mg/dL Creatinine 1.68 H (0.66-1.25) mg/dL Glucose 157 H (74-99) mg/dL Calcium 8.1 L (8.4-10.2) mg/dL Troponin I 0.072 H* (0.000-0.034) ng/mL 11/13/20 11/13/20 11/13/20 Range/Units 02:16 02:16 02:16 WBC 15.8 H (3.8-10.6) k/uL RBC 4.03 L (4.30-5.90) m/uL Hgb 12.6 L (13.0-17.5) gm/dL Hct 36.9 L (39.0-53.0) % APTT 68.2 H (22.0-30.0) sec D-Dimer (<0.60) mg/L FEU Chloride 119 H (98-107) mmol/L Carbon Dioxide 17 L (22-30) mmol/L BUN 46 H (9-20) mg/dL Creatinine 1.56 H (0.66-1.25) mg/dL Glucose 133 H (74-99) mg/dL Calcium 8.3 L (8.4-10.2) mg/dL Troponin I (0.000-0.034) ng/mL 11/13/20 Range/Units 08:42 WBC (3.8-10.6) k/uL RBC (4.30-5.90) m/uL Hgb (13.0-17.5) gm/dL Hct (39.0-53.0) % APTT 52.8 H (22.0-30.0) sec D-Dimer (<0.60) mg/L FEU Chloride (98-107) mmol/L Carbon Dioxide (22-30) mmol/L BUN (9-20) mg/dL Creatinine (0.66-1.25) mg/dL Glucose (74-99) mg/dL Calcium (8.4-10.2) mg/dL Troponin I (0.000-0.034) ng/mL Microbiology - Last 24 Hours (Table) 11/10/20 09:55 Blood Culture - Preliminary Blood No Growth after 48 hours
--- NOTE | 2020-11-13 15:01 | P.PN ---
Subjective Progress Note Date: 11/13/20 75-year-old male patient is being seen in follow-up. The patient resides in a assisted living. He initially came to us with COVID-19 infection and subsequently developed an aspiration of the right lung. Most recent chest x-ray from yesterday showed worsening of the right midlung findings and developed bilateral or basilar multifocal airspace disease. Based on all this, the patient was given IV Zosyn. He had some increased cough and congestion and she was having more difficulties in swallowing and he was becoming more lethargic and for that reason aspiration was suspected. His white cell count currently is at 4.2 with hemoglobin of 11.3. Platelet count is at 149. As for the rest of the labs, there is LFTs are normal, he is hemodynamically stable. Inflammatory markers have not been checked. His comorbid conditions include CVA, hypertension, hyperlipidemia and hypothyroidism. He is still having episodes of fever with a T-max of 100.8. Note that the patient has a long history of psych disorder and the patient was seen by psychiatry and he was given Cogentin yesterday for some extra pyramidal symptoms. He also has history of schizophrenia and bipolar disorder. His initial symptoms were those of altered mentation, generalized weakness, and muscle spasms. Evaluation of 11/12/2020 patient is on room air oxygen. He is not having any major respiratory distress. CAT scan of the chest was done yesterday showed consolidation of the lung bases bilaterally more so on the right patient suddenly involving the lung bases and sparing the upper lobes. As such, an aspiration on top of COVID-19 related pneumonia cannot be completely excluded. The patient is currently on IV Zosyn. The patient's blood work showed a d-dimer of 1.47, serum bicarbonate is 19 with a chloride of 115 and the sodium of 142, creatinine is at 1.6 and his BUN is at 42. Meanwhile, the patient went into a trial fibrillation with rapid ventricular response. At this point in time, his heart rate is in the 1:30 range, irregular and the patient is going to be transferred to a cardiac units. Cardizem drip and a heparin drip is to be started on him once he gets to the cardiac units. On and at baseline is at 0.07. EKG is not showing any acute ischemic changes or ST segment elevations or depression. The patient currently is afebrile. Pulse ox on room air is around 92%. He will need also based on echocardiogram. He has a long history of psychiatric disorders including schizophrenia bipolar disorder. He has generalized weakness. No known history of hypertension, hyperlipidemia and hypothyroidism. His thyroid function tests show a free T4 of 1.31. He also completed a swallow evaluation and was recommended a pured diet with thin liquids as tolerated. 11/13/2020 the patient is being seen for a follow-up. Patient is currently being treated for COVID-19 related pneumonia in addition to aspiration pneumonia and the patient remains on Zosyn and Decadron. On today's evaluation, the pat ient is on 4 L of oxygen by nasal cannula and is calm and comfortable. He remains on same treatment for now. Meanwhile, yesterday, the patient went into atrial fibrillation with rapid ventricular response and the patient was quite tachycardic. His troponins were negative. He got transferred to the cardiac unit. EKG showed no acute ischemic changes. History of any chest pain. No signs of any hyperthyroidism. The patient is currently on Eliquis and he is taking 5 mg by mouth twice a day and the patient is also metoprolol for rate control 50 mg twice a day and the Cardizem infusion that was started yesterday was discontinued. With a preserved LV function with an ejection fraction of 55 %. No other valvular abnormalities noted. He has multiple comorbidities including history of schizophrenia, bipolar disorder, hypertension and hyperlipidemia and hypothyroidism. He also completed a swallow evaluation he was given pureed diet along with thin liquids as tolerated. Objective - Vital Signs Vital signs: Vital Signs Temp 98.4 F 11/13/20 04:00 Pulse 73 11/13/20 14:11 Resp 17 11/13/20 14:00 BP 112/78 11/13/20 12:00 Pulse Ox 91 L 11/13/20 12:00 Intake & Output 11/12/20 11/13/20 11/13/20 18:59 06:59 18:59 Intake Total 400 120.364 0 Output Total 700 Balance 400 -579.636 0 Weight 73.5 kg Intake: Intake, IV Titration 120.364 0 Amount Diltiazem 125 mg In 0 Sodium Chloride 0.9% 100 ml @ 5 MG/HR 5 mls/hr IV .Q24H [facility] Rx#:[id number] Heparin Sod,Pork in 0.45% 120.364 NaCl 25,000 unit In 0.45 % NaCl 1 250ml.bag @ 12 UNITS/KG/HR 8.165 mls/hr IV .Q24H [facility] Rx#: [id number] Oral 400 0 Output: Urine 700 Other: Voiding Method Incontinent Incontinent Incontinent External Catheter External Catheter External Catheter # Voids 1 - Exam No acute distress, not a good historian. The patient appears to have a expressive aphasia. Not on supplemental oxygen. Room air saturation 92%. HEENT examination is grossly unremarkable. Neck supple. Full range of motion. No adenopathy thyromegaly or neck vein distention. Cardiovascular examination patient is tachycardic, irregular S1-S2 consistent with atrial fibrillation with rapid ventricular response. Heart sounds in general are quite distant. Lungs reveal mostly clear breath sounds. A few scattered rhonchi. No wheezes or crackles. He does not take deep breaths. Room air saturation 92%. Abdomen soft bowel sounds are heard. No masses or tenderness. Extremities are intact. No cyanosis clubbing or edema. Skin is without rash or lesion. Neurologic examination is difficult to assess. He does move all 4 extremities. Very poor historian. Expressive aphasia. - Labs CBC & Chem 7: 11/13/20 02:16 11/13/20 02:16 Labs: Abnormal Lab Results - Last 24 Hours (Table) 11/13/20 11/13/20 11/13/20 Range/Units 02:16 02:16 02:16 WBC 15.8 H (3.8-10.6) k/uL RBC 4.03 L (4.30-5.90) m/uL Hgb 12.6 L (13.0-17.5) gm/dL Hct 36.9 L (39.0-53.0) % APTT 68.2 H (22.0-30.0) sec Chloride 119 H (98-107) mmol/L Carbon Dioxide 17 L (22-30) mmol/L BUN 46 H (9-20) mg/dL Creatinine 1.56 H (0.66-1.25) mg/dL Glucose 133 H (74-99) mg/dL Calcium 8.3 L (8.4-10.2) mg/dL 11/13/20 Range/Units 08:42 WBC (3.8-10.6) k/uL RBC (4.30-5.90) m/uL Hgb (13.0-17.5) gm/dL Hct (39.0-53.0) % APTT 52.8 H (22.0-30.0) sec Chloride (98-107) mmol/L Carbon Dioxide (22-30) mmol/L BUN (9-20) mg/dL Creatinine (0.66-1.25) mg/dL Glucose (74-99) mg/dL Calcium (8.4-10.2) mg/dL Microbiology - Last 24 Hours (Table) 11/10/20 09:55 Blood Culture - Preliminary Blood No Growth after 72 hours Assessment and Plan Plan: 1 COVID-19/coronavirus infection, without obvious respiratory distress or COVID 19 pneumonia. 2 acute aspiration pneumonia possibly involving the right lower lobe. The patient has lower lobe consolidation mainly in the lung bases right more than l eft splitting the upper lobes and this obviously raises the concern for aspiration. Swallow evaluation was completed and the patient was asked to continue with daily diet. CAT scan of the chest was noted. Patient remains on a room air oxygen 3 History of hyperlipidemia. 4 History of hypothyroidism. 5 History of CVA, with expressive aphasia. 6 History of hypertension. 7 History of depression. 8 Lifelong nonsmoker. With a pulse ox of 92%. 9 new-onset atrial fibrillation with rapid ventricular response and the patient is on a controlled rate in the rate is under 100 and the patient is on metoprolol and long-term anticoagulation with Eliquis. 10 schizophrenia/depression 11 non-anion gap metabolic acidosis, serum bicarbonate 17, this is related to normal saline infusion and hyperchloremia. Plan: Continue IV Zosyn and Decadron 6 mg IV every 24 hour Aspiration precautions Monitor the oxygenation and use O2 supplementation should he dropped his pulse ox below 90% Provide an incentive spirometer and deep breathing and pulmonary toileting Anticoagulation with Eliquis 5 milligrams by mouth twice a day Metoprolol for rate control Change IV fluids to half-normal saline at the rate of 75 mL an hour Monitor his psychiatric health.
[2020-11-13] MEDS: CHOLECALCIFEROL 25 MCG (1000 IU) TABLET PO SCH (16:39)
[2020-11-13] MEDS: SODIUM CHLORIDE 0.9% 1,000 ML IV SCH (16:41)
[2020-11-13] MEDS: BENZTROPINE MESYLATE 1 MG TAB PO SCH ×2 (16:41→21:19)
--- NOTE | 2020-11-13 18:58 | P.PN ---
Subjective Progress Note Date: 11/13/20 The patient is seen at bedside and he feels about the same neurologically compared to yesterday. Denies of new weakness, numbness or visual disturbance. Objective - Vital Signs Vital signs: Vital Signs Temp 98.4 F 11/13/20 04:00 Pulse 81 11/13/20 04:00 Resp 17 11/13/20 04:00 BP 115/65 11/13/20 04:00 Pulse Ox 93 L 11/13/20 04:00 Intake & Output 11/12/20 11/13/20 11/13/20 18:59 06:59 18:59 Intake Total 400 120.364 0 Output Total 700 Balance 400 -579.636 0 Weight 73.5 kg Intake: Intake, IV Titration 120.364 Amount Heparin Sod,Pork in 0.45% 120.364 NaCl 25,000 unit In 0.45 % NaCl 1 250ml.bag @ 12 UNITS/KG/HR 8.165 mls/hr IV .Q24H [facility] Rx#: [id number] Oral 400 0 Output: Urine 700 Other: Voiding Method Incontinent Incontinent External Catheter External Catheter # Voids 1 - Exam GENERAL: The patient is lying in bed and is not in acute distress. NEUROLOGICAL: Higher mental function: The patient is awake, alert, oriented to self, place and time. Patient is following commands. No aphasia and no neglect. Cranial nerves: The pupils are round, equal and reactive to light and accommodation. Visual floyd are full to confrontation throughout. Extraocular movement is left horizontal nystagmus. The facial sensation is normal to touch throught. The facial strength is normal. Mild dysarthria (but not wearing his denture). Hearing is moderately decreased to hand rub. Motor: Gait is deferred. The strength: The right lower extremity is limited because of significant pain over the right hip and but was moving right lower extremity 1-2 and upon asking him to raise it up he said he was in pain (joint pain over the right hip for the past one year). Otherwise strength is 5/5 throughout. Normal tone and bulk. Sensation: Sensation is normal to touch throughout except proximal hips anteriorly he said slight decreased to touch (same for past one year per patient). Reflexes: 1+ throughout except patellar are 3+ bilaterally. Plantars: Is upgoing at baseline on the left and mute on the right. - Labs CBC & Chem 7: 11/13/20 02:16 11/13/20 02:16 Labs: Abnormal Lab Results - Last 24 Hours (Table) 11/12/20 11/12/20 11/12/20 Range/Units 12:10 12:10 12:10 WBC (3.8-10.6) k/uL RBC (4.30-5.90) m/uL Hgb (13.0-17.5) gm/dL Hct (39.0-53.0) % APTT (22.0-30.0) sec D-Dimer 1.47 H (<0.60) mg/L FEU Chloride 115 H (98-107) mmol/L Carbon Dioxide 18 L (22-30) mmol/L BUN 42 H (9-20) mg/dL Creatinine 1.68 H (0.66-1.25) mg/dL Glucose 157 H (74-99) mg/dL Calcium 8.1 L (8.4-10.2) mg/dL Troponin I 0.072 H* (0.000-0.034) ng/mL 11/13/20 11/13/20 11/13/20 Range/Units 02:16 02:16 02:16 WBC 15.8 H (3.8-10.6) k/uL RBC 4.03 L (4.30-5.90) m/uL Hgb 12.6 L (13.0-17.5) gm/dL Hct 36.9 L (39.0-53.0) % APTT 68.2 H (22.0-30.0) sec D-Dimer (<0.60) mg/L FEU Chloride 119 H (98-107) mmol/L Carbon Dioxide 17 L (22-30) mmol/L BUN 46 H (9-20) mg/dL Creatinine 1.56 H (0.66-1.25) mg/dL Glucose 133 H (74-99) mg/dL Calcium 8.3 L (8.4-10.2) mg/dL Troponin I (0.000-0.034) ng/mL 11/13/20 Range/Units 08:42 WBC (3.8-10.6) k/uL RBC (4.30-5.90) m/uL Hgb (13.0-17.5) gm/dL Hct (39.0-53.0) % APTT 52.8 H (22.0-30.0) sec D-Dimer (<0.60) mg/L FEU Chloride (98-107) mmol/L Carbon Dioxide (22-30) mmol/L BUN (9-20) mg/dL Creatinine (0.66-1.25) mg/dL Glucose (74-99) mg/dL Calcium (8.4-10.2) mg/dL Troponin I (0.000-0.034) ng/mL Microbiology - Last 24 Hours (Table) 11/10/20 09:55 Blood Culture - Preliminary Blood No Growth after 72 hours Assessment and Plan Assessment: * 75-year-old male with 1 week history of leg weakness (right) of unclear etiology. (Patient states legs have been weak for the last 1 year). On my examination he refuses to lift the right leg above gravity because of pain on the right hip. But to Dr. Miranda Examination is relatively nonfocal. Patient has been diagnosed with acute Covid-19 infection, which may be contributing to generalized fatigue and weakness. Possibly he has worsening of his arthritis limiting movement of the right lower extremity. * History of stroke, with residual proximal right arm weakness. * A-fib with RVR * Covid-19 infection * History of schizophrenia Plan: * CT head reported no acute process. On my review, there is prominence of ventricles, raising possibility of NPH. However the hydrocephalus appears stable as compared to the computed tomography scan from 02/23/2019. Patient also has evidence of old stroke involving the left external capsule. * B12 431, B6, folate >24, TSH 2.63, hemoglobin A1c 5.2. * MRI of brain, cervical and lumbar spine could not be achieved. As result I got repeat CT head and got CT lumbar. I felt CT thoracic is not needed at this time. Repeat CT head is reported as cerebral atrophy and chronic small vessel ischemia. Hydrocephalus. No acute abnormality. No change. 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 There is a very minimal 3mm degenerative L4-L5 spondylolisthesis. This appears new compared to old exam. There is a posterir concetric mild disc herniation at L4-L5 dis herniation increased compared to old abdomen CT scan. There is clearing of the air bubble in the spinal canal compared to old exam. * Recommend consideration of right hip imaging but will defer that decision to the primary team especially since having pain (but said this has been happening for the past one year). * Placed on Q4 hours neuro checks. * Physical therapy and occupational therapy are consulted. * I spoke with cardiology nurse practioner and was asked on starting eliquis for A-fib and weather cleared for neurology for use and I notified them to go ahead if needed. * I recommend the patient to get EMG with [facility] as outpatient. * Recommend the patient to follow-up with neurologist as oupatient within 1-2 weeks and possibly consideration with Orthopedic team as outpatient. * Will defer the rest of the medical management to the primary team. The plan is discussed with the patient's nurse. There is no further neurological work-up needed. Neurology will sign off. Please reconsult if needed. Harjit Pastrana MD Neuro-Hospitalist Time with Patient: Less than 30
[2020-11-13] MEDS: ATORVASTATIN 10 MG TAB PO SCH (21:19)
[2020-11-14] MEDS: METOPROLOL TARTRATE 25 MG TAB PO SCH (03:42)
[2020-11-14] MEDS: PIPERACILLIN-TAZOBACTAM 3.375 GM in SODIUM CHLORIDE 0.9% 100 ML IVPB SCH ×3 (05:12→21:14)
[2020-11-14] MEDS: SODIUM CHLORIDE 0.45% 1,000 ML IV SCH ×3 (05:12→18:32)
[2020-11-14] MEDS: lamoTRIgine 100 MG TAB PO SCH ×2 (06:52→18:33)
[2020-11-14] MEDS: ARIPiprazole 15 MG TAB PO SCH (06:52)
[2020-11-14] MEDS: LEVOTHYROXINE 50 MCG TAB PO SCH (06:52)
[2020-11-14] MEDS: buPROPion SR 100 MG TABLET.ER PO SCH ×2 (06:53→18:33)
[2020-11-14] MEDS: APIXABAN 5 MG TAB PO SCH ×2 (10:10→22:36)
[2020-11-14] MEDS: METOPROLOL TARTRATE 50 MG TAB PO SCH ×2 (10:10→22:36)
[2020-11-14] MEDS: CHOLECALCIFEROL 25 MCG (1000 IU) TABLET PO SCH (10:26)
[2020-11-14] MEDS: ZINC SULFATE 220 MG CAP PO SCH (10:26)
[2020-11-14] MEDS: DEXAMETHASONE SOD PHOSPHATE 10 MG/ML 1 ML VIAL IV SCH (10:26)
[2020-11-14] MEDS: BENZTROPINE MESYLATE 1 MG TAB PO SCH ×2 (10:26→22:36)
[2020-11-14] MEDS: ASCORBIC ACID 500 MG TAB PO SCH ×2 (10:26→22:36)
--- NOTE | 2020-11-14 12:32 | P.PN ---
Subjective Progress Note Date: 11/14/20 75-year-old male patient is being seen in follow-up. The patient resides in a assisted living. He initially came to us with COVID-19 infection and subsequently developed an aspiration of the right lung. Most recent chest x-ray from yesterday showed worsening of the right midlung findings and developed bilateral or basilar multifocal airspace disease. Based on all this, the patient was given IV Zosyn. He had some increased cough and congestion and she was having more difficulties in swallowing and he was becoming more lethargic and for that reason aspiration was suspected. His white cell count currently is at 4.2 with hemoglobin of 11.3. Platelet count is at 149. As for the rest of the labs, there is LFTs are normal, he is hemodynamically stable. Inflammatory markers have not been checked. His comorbid conditions include CVA, hypertension, hyperlipidemia and hypothyroidism. He is still having episodes of fever with a T-max of 100.8. Note that the patient has a long history of psych disorder and the patient was seen by psychiatry and he was given Cogentin yesterday for some extra pyramidal symptoms. He also has history of schizophrenia and bipolar disorder. His initial symptoms were those of altered mentation, generalized weakness, and muscle spasms. Evaluation of 11/12/2020 patient is on room air oxygen. He is not having any major respiratory distress. CAT scan of the chest was done yesterday showed consolidation of the lung bases bilaterally more so on the right patient suddenly involving the lung bases and sparing the upper lobes. As such, an aspiration on top of COVID-19 related pneumonia cannot be completely excluded. The patient is currently on IV Zosyn. The patient's blood work showed a d-dimer of 1.47, serum bicarbonate is 19 with a chloride of 115 and the sodium of 142, creatinine is at 1.6 and his BUN is at 42. Meanwhile, the patient went into a trial fibrillation with rapid ventricular response. At this point in time, his heart rate is in the 1:30 range, irregular and the patient is going to be transferred to a cardiac units. Cardizem drip and a heparin drip is to be started on him once he gets to the cardiac units. On and at baseline is at 0.07. EKG is not showing any acute ischemic changes or ST segment elevations or depression. The patient currently is afebrile. Pulse ox on room air is around 92%. He will need also based on echocardiogram. He has a long history of psychiatric disorders including schizophrenia bipolar disorder. He has generalized weakness. No known history of hypertension, hyperlipidemia and hypothyroidism. His thyroid function tests show a free T4 of 1.31. He also completed a swallow evaluation and was recommended a pured diet with thin liquids as tolerated. 11/13/2020 the patient is being seen for a follow-up. Patient is currently being treated for COVID-19 related pneumonia in addition to aspiration pneumonia and the patient remains on Zosyn and Decadron. On today's evaluation, the pat ient is on 4 L of oxygen by nasal cannula and is calm and comfortable. He remains on same treatment for now. Meanwhile, yesterday, the patient went into atrial fibrillation with rapid ventricular response and the patient was quite tachycardic. His troponins were negative. He got transferred to the cardiac unit. EKG showed no acute ischemic changes. History of any chest pain. No signs of any hyperthyroidism. The patient is currently on Eliquis and he is taking 5 mg by mouth twice a day and the patient is also metoprolol for rate control 50 mg twice a day and the Cardizem infusion that was started yesterday was discontinued. With a preserved LV function with an ejection fraction of 55 %. No other valvular abnormalities noted. He has multiple comorbidities including history of schizophrenia, bipolar disorder, hypertension and hyperlipidemia and hypothyroidism. He also completed a swallow evaluation he was given pureed diet along with thin liquids as tolerated. 11/14/2020, the patient became progressively more hypoxic and the patient was on 6 L of oxygen by nasal cannula and his oxygen requirements progressively went up and he is currently on 100% on a beta facemask at 15 L per minute. He is confused he is a bit restless. He tries to the shunt his mask and hold the mask off. He did not tolerate the high flow nasal cannula and for that reason he was placed on 100% nonrebreather facemask. He is a 75-year-old male patient with known history of psychiatric disorder and schizophrenia bipolar disorder. The patient resides in adult foster care setting. He has hypertension and hyperlipidemia and hypothyroidism as comorbid conditions. He also had Hx fibrillation with RVR and the patient is currently on a combination of oral metoprolol and Eliquis. Cardizem drip has been discontinued. His current heart rate is still somewhat tachycardic ranging between 100 and 115. Note that he has a preserved LV function. He passed a swallow evaluation and he was offered purred diet . He is a DNR/DNI CODE STATUS. Legal guardianship is being seek and establish today. Blood work from today still pending. Objective - Vital Signs Vital signs: Vital Signs Temp 98.8 F 11/14/20 12:00 Pulse 110 H 11/14/20 12:00 Resp 25 H 11/14/20 12:07 BP 128/85 11/14/20 12:00 Pulse Ox 92 L 11/14/20 12:07 Intake & Output 11/13/20 11/14/20 11/14/20 18:59 06:59 18:59 Intake Total 0 0 Output Total 350 700 Balance -350 -700 0 Weight 74.5 kg Intake: Intake, IV Titration 0 Amount Diltiazem 125 mg In 0 Sodium Chloride 0.9% 100 ml @ 5 MG/HR 5 mls/hr IV .Q24H [facility] Rx#:[id number] Oral 0 0 Output: Urine 350 700 Other: Voiding Method Incontinent Incontinent External Catheter External Catheter - Exam No acute distress, not a good historian. The patient appears to have a expressive aphasia. On 100% nonrebreather facemask to bring his saturation above 90%. No apparent signs of respiratory distress. He is confused. He is moving his upper extremities and occasionally tries to reach to his mask HEENT examination is grossly unremarkable. Neck supple. Full range of motion. No adenopathy thyromegaly or neck vein distention. Cardiovascular examination patient is tachycardic, irregular S1-S2 consistent with atrial fibrillation with rapid ventricular response. Heart sounds in general are quite distant. Lungs reveal mostly clear breath sounds. A few scattered rhonchi. No wheezes or crackles. He does not take deep breaths. Room air saturation 92%. Abdomen soft bowel sounds are heard. No masses or tenderness. Extremities are intact. No cyanosis clubbing or edema. Skin is without rash or lesion. Neurologic examination is difficult to assess. He does move all 4 extremities. Very poor historian. Expressive aphasia. - Labs CBC & Chem 7: 11/13/20 02:16 11/13/20 02:16 Labs: Microbiology - Last 24 Hours (Table) 11/10/20 09:55 Blood Culture - Preliminary Blood No Growth after 96 hours Assessment and Plan Plan: 1 COVID-19/coronavirus infection, with worsening and oxygenation. The patient initially was requiring no or minimal amount of oxygen and progressively got worse and currently is on 100% nonrebreather facemask. This is suspected to be related to progression of his COVID-19 related pneumonia. Aspiration was considered and the patient was covered with IV Zosyn. The patient was offered daily diet. He is quite lethargic. Is hard to communicate. He is currently on the percent nonrebreather facemask. He is not using accessory muscles of breathing. 2 acute aspiration pneumonia possibly involving the right lower lobe. The patient has lower lobe consolidation mainly in the lung bases right more than left splitting the upper lobes and this obviously raises the concern for aspiration. Swallow evaluation was completed and the patient was asked to continue with daily diet. CAT scan of the chest was noted. 3 History of hyperlipidemia. 4 History of hypothyroidism. 5 History of CVA, with expressive aphasia. 6 History of hypertension. 7 History of depression. 8 Lifelong nonsmoker. 9 new-onset atrial fibrillation with rapid ventricular response and the patient is on a controlled rate in the rate is under 100 and the patient is on metoprolol and long-term anticoagulation with Eliquis. 10 schizophrenia/depression 11 non-anion gap metabolic acidosis, serum bicarbonate 17, this is related to normal saline infusion and hyperchloremia. Currently the patient is on a half- normal saline and the follow-up labs are still pending for now. Plan: Keep the patient on 100% nonrebreather facemask for now Continue IV Zosyn and Decadron 6 mg IV every 24 hour Check inflammatory markers including LDH and CRP and d-dimer's Aspiration precautions Monitor the oxygenation and use O2 supplementation should he dropped his pulse ox below 90% Provide an incentive spirometer and deep breathing and pulmonary toileting Anticoagulation with Eliquis 5 milligrams by mouth twice a day Metoprolol for rate control IV fluids to half-normal saline at the rate of 75 mL an hour Obtain a chest x-ray Obtain inflammatory markers including LDH and CRP and d-dimer's Awaiting follow-up blood work Monitor his psychiatric health. DNR/DNI CODE STATUS
--- NOTE | 2020-11-14 12:48 | P.PN ---
Subjective This is a pleasant 75-year-old male past medical history significant for CVA with residual right-sided weakness, schizophrenia, hypertension and hypothyroidism. 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 He is currently being treated for COVID-19. Yesterday he went into atrial fibrillation with rapid ventricular rate. He was initiated on IV Cardizem and heparin infusions. He continues today to be in A. fib with controlled ve ntricular rates. Blood pressure 115/65 heart rate 81 afebrile maintaining oxygen saturation on nasal cannula. Laboratory data reviewed, WBC 15.8, hemoglobin 12.6, platelets 213, sodium 145, potassium 4.3, creatinine 1.56. Chest x-ray obtained this morning reveals patchy airspace opacity at the right mid lung and right and left lung base. Consistent with Covid infection. 11/14/2020 Patient seen and evaluated sitting up in bed in no acute distress. Telemetry tracings reveal he continues to be in atrial fibrillation with mostly controlled ventricular rates. Blood pressure 128/85 heart rate 110 afebrile maintaining oxygen saturation on nonrebreather. Echocardiogram obtained reveals preserved LV systolic function with ejection fraction greater than 55%. GENERAL: Well-appearing, well-nourished and in no acute distress. Thorough exam not obtain secondary to acute Covid infection. ASSESSMENT New-onset paroxysmal atrial fibrillation with rapid ventricular response COVID-19 Elevated troponin secondary to COVID-19 in A. fib with RVR Aspiration pneumonia Hypertension History of CVA with right-sided weakness Dyslipidemia Schizophrenia PLAN Continue current medical regimen. We will follow along as needed, please feel free to call with further questions or concerns Nurse Practitioner note has been reviewed, I agree with a documented findings and plan of care. Patient was seen and examined. Objective - Vital Signs Vital signs: Vital Signs Temp 98.8 F 11/14/20 12:00 Pulse 110 H 11/14/20 12:00 Resp 25 H 11/14/20 12:07 BP 128/85 11/14/20 12:00 Pulse Ox 92 L 11/14/20 12:07 Intake & Output 11/13/20 11/14/20 11/14/20 18:59 06:59 18:59 Intake Total 0 0 Output Total 350 700 Balance -350 -700 0 Weight 74.5 kg Intake: Intake, IV Titration 0 Amount Diltiazem 125 mg In 0 Sodium Chloride 0.9% 100 ml @ 5 MG/HR 5 mls/hr IV .Q24H [facility] Rx#:[id number] Oral 0 0 Output: Urine 350 700 Other: Voiding Method Incontinent Incontinent External Catheter External Catheter - Labs CBC & Chem 7: 11/13/20 02:16 11/13/20 02:16 Labs: Microbiology - Last 24 Hours (Table) 11/10/20 09:55 Blood Culture - Preliminary Blood No Growth after 96 hours
[2020-11-14 13:06] LABS: Basophils % (A) 0 %; Eosinophils % (A) 0 %; HCT 34.8 % (39.0-53.0); HGB 11.6 gm/dL (13.0-17.5); Lymphocytes # (A) 0.3 k/uL (1.0-4.8); Lymphocytes % (A) 2 %; MCH 30.8 pg (25.0-35.0); MCHC 33.5 g/dL (31.0-37.0); Mean Platelet Volume 8.3; Monocytes # (A) 0.4 k/uL (0-1.0); Monocytes % (A) 2 %; Neutrophils # (A) 16.4 k/uL (1.3-7.7); Neutrophils % (A) 96 %; Platelet Count 268 k/uL (150-450); RBC 3.78 m/uL (4.30-5.90); RDW 13.4 % (11.5-15.5); WBC 17.2 k/uL (3.8-10.6)
--- NOTE | 2020-11-14 13:12 | XR ---
EXAMINATION TYPE: XR chest 1V portable DATE OF EXAM: 11/14/2020 COMPARISON: 11/13/2020 HISTORY: Covid TECHNIQUE: Single frontal view of the chest is obtained. FINDINGS: Heart size is stable. There are extensive increasing airspace opacities throughout the talib gs most prominent at the mid and lower lobes. Probable small pleural effusions. No pneumothorax. IMPRESSION: 1. Diffuse increasing airspace opacities throughout the lungs most prominent at the mid and lower lob es. These have significantly increased since prior exam. Small bilateral pleural effusions.
[2020-11-14 13:21] LABS: Albumin 2.7 g/dL (3.5-5.0); C Reactive Protein 5.4 mg/dL (<1.0); Calcium 8.2 mg/dL (8.4-10.2); Potassium 4.2 mmol/L (3.5-5.1); Total Bilirubin 0.6 mg/dL (0.2-1.3); Total Protein 5.2 g/dL (6.3-8.2)
--- NOTE | 2020-11-14 16:29 | CDI ---
Documentation Clarification Form Date: 11/14/2020 04:05:53 PM From: Yamini Tang RN CCDS Admit Date: 11/11/2020 10:35:00 AM Patient Name: Garcia Galdamez Visit Number: [id number] Discharge Date: ATTENTION: The Clinical Documentation Specialists (CDI) and [facility] Coding Staff appreciate your assistance in clarifying documentation. Please respond to the clarification below the line at the bottom and electronically sign. The CDI & [facility] Coding staff will review the response and follow-up if needed. Please note: Queries are made part of the Legal Health Record. If you have any questions, please contact the author of this message via ITS. Dr. Bal Tobias Your patient has the documented symptom of Altered Mental Status 11/06 ED Note. Additional clarification regarding the etiology/cause of this symptom is requested. History/Risk Factors: 75-year-old male presents to the ED with increased weakness and difficulty ambulating. Medical History: CVA/TIA with slurred speech, HLD, HTN and Depression. ED note 11/06. Clinical Indicators: Patient has been diagnosed with acute COVID-19 infection, which maybe contributing to generalized fatigue and weakness. Neuro progress note 11/08. VSS 11/06: B/P 129/69; HR 73; Temp 97.8 F Oral; RR 18; SpO2 97% ra Labs 11/06: Wbc 5.7, Cr 1.45, AST 68, Rubalcava Virus Detected. CXR 11/06: Trace pleural effusion. CT Brain 11/06: No acute intracranial abnormality. Treatment: 11/07 Vitamin C 500mg PO BID; Vitamin D3 125mcg PO Daily; Zinc 220mg PO Daily; 11/10 Zoysn 3.75gm IVPB Q8HR. Please clarify the etiology of the symptom of Altered Mental Status: [ ] Metabolic Encephalopathy related to COVID 19. [ ] Other condition (please specify) [ ] Unable to determine (Template Last Revised: July 2020) MTDD
--- NOTE | 2020-11-14 16:52 | CDI ---
Documentation Clarification Form Date: 11/14/2020 04:25:50 PM From: Yamini Tang RN CCDS Admit Date: 11/11/2020 10:35:00 AM Patient Name: Garcia Galdamez Visit Number: [id number] Discharge Date: ATTENTION: The Clinical Documentation Specialists (CDI) and [facility] Coding Staff appreciate your assistance in clarifying documentation. Please respond to the clarification below the line at the bottom and electronically sign. The CDI & [facility] Coding staff will review the response and follow-up if needed. Please note: Queries are made part of the Legal Health Record. If you have any questions, please contact the author of this message via ITS. Dr. Bhupinder Metz Your patient has worsening oxygenation and placed on a non-rebreather, documented in Pulmonary progress note 11/14. Based on this information and the findings below, is there an additional diagnosis that is clinically appropriate for this patient? History/Risk Factors: 75-year-old male presents to the ED with increased weakness and difficulty ambulating. Medical History: CVA/TIA with slurred speech, HLD, HTN and Depression. ED note 11/06. Clinical Indicators: He is not using accessory muscles of breathing. Pulmonary progress note 11/14. VSS 11/06: B/P 129/69; HR 73; Temp 97.8 F Oral; RR 18; SpO2 97% ra Pulse oximetry: 11/12 10:00: 88% room air; 11/12 13:24 91% 4L nasal cannula; 11/13 21:18 86% 5L nasal cannula; 11/14 08:30 97% Non-rebreather. Lung/Breathing assessment: Mostly clear breath sounds. A few scattered rhonchi. He does not take deep breaths. Pulmonology consult 11/07 Treatment: Oxygen nasal cannula 11/12 4L to 6L. 11/14 Non-rebreather mask. Is there an additional diagnosis that is clinically appropriate for this patient? [ x] Acute Hypoxic Respiratory Failure (pO2 <60 mm Hg or SpO2 <91% on room air) [ ] Other Diagnosis, please specify [ ] Unable to determine (Template Last Revised: August 2020) MTDD
[2020-11-14] MEDS: LORazepam 2 MG/ML INJ IV PRN (17:30)
[2020-11-14] MEDS: MORPHINE SULFATE 2 MG/ML SYRINGE IVP PRN ×2 (17:32→21:22)
--- NOTE | 2020-11-14 17:41 | PN ---
PROGRESS NOTE CHIEF COMPLAINT: Generalized weakness and debility with pneumonitis. HISTORY OF PRESENT ILLNESS: This gentleman is having a little bit more difficulty. He seems a little bit more short of breath. He is being followed by Pulmonology. PHYSICAL EXAMINATION: Breath sounds are diminished throughout with scattered rales. Cardiac exam demonstrates atrial fibrillation. The abdomen is soft and nontender. IMPRESSION: 1. Pneumonitis. 2. COVID-19. 3. Respiratory failure. 4. Renal failure. 5. Atrial fibrillation. PLAN: Continue with supportive care and continue to monitor his respiratory function while awaiting guardianship and discharge. MMODL / IJN: [id number] /
--- NOTE | 2020-11-14 17:41 | PN ---
PROGRESS NOTE DATE OF SERVICE: 11/14/2020 CHIEF COMPLAINT: Pneumonitis. HISTORY OF PRESENT ILLNESS: This gentleman is deteriorating. His pulse ox is falling into the 80s. He is now on a combination of high-flow O2 as well as mask O2. He is being followed by Pulmonology. PHYSICAL EXAMINATION: Breath sounds are diminished and he is slightly tachypneic. He has also become restless. IMPRESSION: 1. Respiratory failure secondary to COVID pneumonia. 2. Schizophrenia. 3. Delirium. PLAN: Continue to support respirations as well as possible. There is an issue, in that the hospital is looking into guardianship for the patient. There is some confusion as to whether or not he has durable power of commercial litigation attorney. I have called the [facility] in [place] and they say that he has a DPOA, but they have never been able to reach her. Phone numbers were obtained and I was eventually able to find out that the presumed decision-maker is a January Lay at . I left a number for her. I have not received a call back. There apparently also are two sons of whom I did not know. One of them is aDnny, number , and I tried to call that number, without receiving a call back. MMWILLIAM / CHERYLN: [id number] /
[2020-11-14] MEDS: ATORVASTATIN 10 MG TAB PO SCH (18:33)
[2020-11-15] MEDS: MORPHINE SULFATE 2 MG/ML SYRINGE IVP PRN ×2 (03:15→15:25)
[2020-11-15] MEDS: PIPERACILLIN-TAZOBACTAM 3.375 GM in SODIUM CHLORIDE 0.9% 100 ML IVPB SCH ×3 (04:53→22:16)
[2020-11-15 06:36] LABS: Basophils % (A) 0 %; Eosinophils % (A) 0 %; HCT 31.6 % (39.0-53.0); HGB 10.8 gm/dL (13.0-17.5); Lymphocytes # (A) 0.4 k/uL (1.0-4.8); Lymphocytes % (A) 3 %; MCH 31.4 pg (25.0-35.0); MCHC 34.1 g/dL (31.0-37.0); Mean Platelet Volume 8.9; Monocytes # (A) 0.3 k/uL (0-1.0); Monocytes % (A) 2 %; Neutrophils # (A) 13.2 k/uL (1.3-7.7); Neutrophils % (A) 95 %; Platelet Count 230 k/uL (150-450); RBC 3.43 m/uL (4.30-5.90); RDW 13.5 % (11.5-15.5); WBC 13.9 k/uL (3.8-10.6)
[2020-11-15 06:48] LABS: Albumin 2.4 g/dL (3.5-5.0); C Reactive Protein 7.1 mg/dL (<1.0); Total Bilirubin 0.5 mg/dL (0.2-1.3); Total Protein 4.6 g/dL (6.3-8.2)
[2020-11-15] MEDS: ASCORBIC ACID 500 MG TAB PO SCH ×2 (08:49→22:15)
[2020-11-15] MEDS: APIXABAN 5 MG TAB PO SCH ×2 (08:49→22:15)
[2020-11-15] MEDS: lamoTRIgine 100 MG TAB PO SCH ×2 (08:49→22:14)
[2020-11-15] MEDS: LEVOTHYROXINE 50 MCG TAB PO SCH (08:49)
[2020-11-15] MEDS: buPROPion SR 100 MG TABLET.ER PO SCH ×2 (08:50→22:15)
[2020-11-15] MEDS: METOPROLOL TARTRATE 50 MG TAB PO SCH ×2 (08:50→22:15)
[2020-11-15] MEDS: DEXAMETHASONE SOD PHOSPHATE 10 MG/ML 1 ML VIAL IV SCH (08:50)
[2020-11-15] MEDS: BENZTROPINE MESYLATE 1 MG TAB PO SCH ×2 (08:51→22:15)
[2020-11-15] MEDS: ARIPiprazole 15 MG TAB PO SCH (08:51)
--- NOTE | 2020-11-15 09:01 | XR ---
EXAMINATION TYPE: XR chest 1V portable DATE OF EXAM: 11/15/2020 COMPARISON: 11/14/2020 HISTORY: Covid TECHNIQUE: Single frontal view of the chest is obtained. FINDINGS: Heart size is stable. There are decreased airspace opacities throughout the lungs most pro minent at the mid and lower lobes. No significant pleural effusion. No pneumothorax. IMPRESSION: 1. Decreased airspace opacities throughout the lungs, most prominent at the mid and lower lobes.
[2020-11-15] MEDS: ZINC SULFATE 220 MG CAP PO SCH (09:07)
[2020-11-15] MEDS: CHOLECALCIFEROL 25 MCG (1000 IU) TABLET PO SCH (09:07)
--- NOTE | 2020-11-15 11:49 | PN ---
PROGRESS NOTE CHIEF COMPLAINT: Progressive dyspnea. HISTORY OF PRESENT ILLNESS: This gentleman continues to deteriorate. Pulse ox progressively more difficult to maintain. He was placed on high-flow nasal cannula with mask O2 as well. There was difficulty reaching anyone who could help make a decision regarding end of life care. Finally, his best Danny was contacted and returned a call and indicated that his father was not to be resuscitated and could be seen by hospice. PHYSICAL EXAMINATION: He is more lethargic and tachypneic. Breath sounds are diminished throughout with scattered rales. He is in sinus tachycardia. IMPRESSION: 1. Progressive respiratory failure. 2. Covid pneumonia. PLAN: 1. Referred to hospice. 2. Comfort measures only. MMODL / IJN: [id number] /
--- NOTE | 2020-11-15 12:01 | MISC ---
MISCELLANOUS REPORT Metabolic encephalopathy related to Covid 19. MMODL / IJN: [id number] /
--- NOTE | 2020-11-15 15:17 | P.PN ---
Subjective Progress Note Date: 11/15/20 75-year-old male patient is being seen in follow-up. The patient resides in a assisted living. He initially came to us with COVID-19 infection and subsequently developed an aspiration of the right lung. Most recent chest x-ray from yesterday showed worsening of the right midlung findings and developed bilateral or basilar multifocal airspace disease. Based on all this, the patient was given IV Zosyn. He had some increased cough and congestion and she was having more difficulties in swallowing and he was becoming more lethargic and for that reason aspiration was suspected. His white cell count currently is at 4.2 with hemoglobin of 11.3. Platelet count is at 149. As for the rest of the labs, there is LFTs are normal, he is hemodynamically stable. Inflammatory markers have not been checked. His comorbid conditions include CVA, hypertension, hyperlipidemia and hypothyroidism. He is still having episodes of fever with a T-max of 100.8. Note that the patient has a long history of psych disorder and the patient was seen by psychiatry and he was given Cogentin yesterday for some extra pyramidal symptoms. He also has history of schizophrenia and bipolar disorder. His initial symptoms were those of altered mentation, generalized weakness, and muscle spasms. Evaluation of 11/12/2020 patient is on room air oxygen. He is not having any major respiratory distress. CAT scan of the chest was done yesterday showed consolidation of the lung bases bilaterally more so on the right patient suddenly involving the lung bases and sparing the upper lobes. As such, an aspiration on top of COVID-19 related pneumonia cannot be completely excluded. The patient is currently on IV Zosyn. The patient's blood work showed a d-dimer of 1.47, serum bicarbonate is 19 with a chloride of 115 and the sodium of 142, creatinine is at 1.6 and his BUN is at 42. Meanwhile, the patient went into a trial fibrillation with rapid ventricular response. At this point in time, his heart rate is in the 1:30 range, irregular and the patient is going to be transferred to a cardiac units. Cardizem drip and a heparin drip is to be started on him once he gets to the cardiac units. On and at baseline is at 0.07. EKG is not showing any acute ischemic changes or ST segment elevations or depression. The patient currently is afebrile. Pulse ox on room air is around 92%. He will need also based on echocardiogram. He has a long history of psychiatric disorders including schizophrenia bipolar disorder. He has generalized weakness. No known history of hypertension, hyperlipidemia and hypothyroidism. His thyroid function tests show a free T4 of 1.31. He also completed a swallow evaluation and was recommended a pured diet with thin liquids as tolerated. 11/13/2020 the patient is being seen for a follow-up. Patient is currently being treated for COVID-19 related pneumonia in addition to aspiration pneumonia and the patient remains on Zosyn and Decadron. On today's evaluation, the pat ient is on 4 L of oxygen by nasal cannula and is calm and comfortable. He remains on same treatment for now. Meanwhile, yesterday, the patient went into atrial fibrillation with rapid ventricular response and the patient was quite tachycardic. His troponins were negative. He got transferred to the cardiac unit. EKG showed no acute ischemic changes. History of any chest pain. No signs of any hyperthyroidism. The patient is currently on Eliquis and he is taking 5 mg by mouth twice a day and the patient is also metoprolol for rate control 50 mg twice a day and the Cardizem infusion that was started yesterday was discontinued. With a preserved LV function with an ejection fraction of 55 %. No other valvular abnormalities noted. He has multiple comorbidities including history of schizophrenia, bipolar disorder, hypertension and hyperlipidemia and hypothyroidism. He also completed a swallow evaluation he was given pureed diet along with thin liquids as tolerated. 11/14/2020, the patient became progressively more hypoxic and the patient was on 6 L of oxygen by nasal cannula and his oxygen requirements progressively went up and he is currently on 100% on a beta facemask at 15 L per minute. He is confused he is a bit restless. He tries to the shunt his mask and hold the mask off. He did not tolerate the high flow nasal cannula and for that reason he was placed on 100% nonrebreather facemask. He is a 75-year-old male patient with known history of psychiatric disorder and schizophrenia bipolar disorder. The patient resides in adult foster care setting. He has hypertension and hyperlipidemia and hypothyroidism as comorbid conditions. He also had Hx fibrillation with RVR and the patient is currently on a combination of oral metoprolol and Eliquis. Cardizem drip has been discontinued. His current heart rate is still somewhat tachycardic ranging between 100 and 115. Note that he has a preserved LV function. He passed a swallow evaluation and he was offered purred diet . He is a DNR/DNI CODE STATUS. Legal guardianship is being seek and establish today. Blood work from today still pending. 11/15/2020, the patient remains on high flow oxygen at 6 L and FiO2 of 90%. He is awake and alert and appropriate. He is lethargic and sleepy. His oral intake is quite diminished. He is being cheered for COVID-19 related pneumonia. His LDH level is at 1262 which is lower compared to yesterday and the CRP level is down to 7.1. His sodium level is up at 148. The patient remains on Decadron 6 mg IV every 24 hours. He remains on IV Zosyn as an empiric antibiotic coverage. He is also on anticoagulation with Eliquis 5 mg by mouth twice a day. Afebrile. Hemodynamically stable. Receiving normal saline today to 75 mL an hour. No other significant events overnight. Cardiac rhythm is atrial fibrillation with a controlled rate and the patient is hemodynamically stable and is afebrile. Objective - Vital Signs Vital signs: Vital Signs Temp 97.6 F 11/15/20 10:56 Pulse 87 11/15/20 10:56 Resp 16 11/15/20 10:56 BP 111/67 11/15/20 10:56 Pulse Ox 93 L 11/15/20 10:56 Intake & Output 11/14/20 11/15/20 11/15/20 18:59 06:59 18:59 Intake Total 0 Output Total 400 Balance -400 Weight 73 kg 73 kg Intake: Oral 0 Output: Urine 400 Other: Voiding Method Incontinent Incontinent Incontinent External Catheter # Voids 1 1 - Exam No acute distress, not a good historian. The patient appears the same compared to yesterday. He is very competent for without use of accessory muscles of breathing. He is using high flow oxygen at 60 L with an FiO2 of 90%. Difficult to communicate with. He is essentially 40 sodium. He has issues with expression and aphasia possible. Long psychiatric history. HEENT examination is grossly unremarkable. Neck supple. Full range of motion. No adenopathy thyromegaly or neck vein distention. Cardiovascular examination patient is tachycardic, irregular S1-S2 consistent with atrial fibrillation with rapid ventricular response. Heart sounds in general are quite distant. Lungs reveal mostly clear breath sounds. A few scattered rhonchi. No wheezes or crackles. He does not take deep breaths. Room air saturation 92%. Abdomen soft bowel sounds are heard. No masses or tenderness. Extremities are intact. No cyanosis clubbing or edema. Skin is without rash or lesion. Neurologic examination is difficult to assess. He does move all 4 extremities. Very poor historian. Expressive aphasia. - Labs CBC & Chem 7: 11/15/20 06:09 11/15/20 06:09 Labs: Abnormal Lab Results - Last 24 Hours (Table) 11/15/20 11/15/20 Range/Units 06:09 06:09 WBC 13.9 H (3.8-10.6) k/uL RBC 3.43 L (4.30-5.90) m/uL Hgb 10.8 L (13.0-17.5) gm/dL Hct 31.6 L (39.0-53.0) % Neutrophils # 13.2 H (1.3-7.7) k/uL Lymphocytes # 0.4 L (1.0-4.8) k/uL Sodium 148 H (137-145) mmol/L Chloride 121 H (98-107) mmol/L Carbon Dioxide 20 L (22-30) mmol/L BUN 37 H (9-20) mg/dL Glucose 115 H (74-99) mg/dL Calcium 8.0 L (8.4-10.2) mg/dL AST 134 H (17-59) U/L Lactate Dehydrogenase 1262 H (313-618) U/L C-Reactive Protein 7.1 H (<1.0) mg/dL Total Protein 4.6 L (6.3-8.2) g/dL Albumin 2.4 L (3.5-5.0) g/dL Microbiology - Last 24 Hours (Table) 11/10/20 09:55 Blood Culture - Preliminary Blood No Growth after 120 hours Assessment and Plan Plan: 1 COVID-19/coronavirus infection, with worsening and oxygenation. The patient progression and decompensation his respiratory status and the patient is currently stable on high flow oxygen with FiO2 of FiO2 of 90% in the flow of 60 L. A repeat chest x-ray was done and the patient has shown decrease in the airspace disease bilaterally. Seems to be much more comfortable compared to yesterday. Not using excessive muscle breathing. He is afebrile. LDH level is also improving. He remains on Decadron. He remains on Zosyn. 2 acute aspiration pneumonia possibly involving the right lower lobe. The patient has lower lobe consolidation mainly in the lung bases right more than left splitting the upper lobes and this obviously raises the concern for aspiration. Swallow evaluation was completed and the patient was asked to continue with daily diet. CAT scan of the chest was noted. 3 History of hyperlipidemia. 4 History of hypothyroidism. 5 History of CVA, with expressive aphasia. 6 History of hypertension. 7 History of depression. 8 Lifelong nonsmoker. 9 new-onset atrial fibrillation with rapid ventricular response and the patient is on a controlled rate in the rate is under 100 and the patient is on metoprolol and long-term anticoagulation with Eliquis. 10 schizophrenia/depression 11 [place] neck hypernatremia with a serum bicarbonate improving and it's up to 20. We'll switch this patient to D5 water. Plan: A shown high flow oxygen with an FiO2 of 90% in the flow of 60 L Chest x-rays looking improved compared to yesterday Inflammatory markers are also improving Continue IV Zosyn and Decadron 6 mg IV every 24 hour Aspiration precautions Monitor the oxygenation and use O2 supplementation should he dropped his pulse ox below 90% Provide an incentive spirometer and deep breathing and pulmonary toileting Anticoagulation with Eliquis 5 milligrams by mouth twice a day Metoprolol for rate control IV fluids to D5 water at the rate of 100 mL an hour Obtain a chest x-ray Awaiting follow-up blood work Monitor his psychiatric health. DNR/DNI CODE STATUS Possible hospice and the family is contemplating that.
[2020-11-15] MEDS: DEXTROSE 5% IN WATER 1,000 ML IV SCH (15:24)
[2020-11-15] MEDS: LORazepam 2 MG/ML INJ IV PRN (16:11)
[2020-11-15] MEDS: SODIUM CHLORIDE 0.45% 1,000 ML IV SCH (19:27)
[2020-11-15] MEDS: ATORVASTATIN 10 MG TAB PO SCH (22:14)
[2020-11-16] MEDS: LORazepam 2 MG/ML INJ IV PRN (00:51)
[2020-11-16] MEDS: DEXTROSE 5% IN WATER 1,000 ML IV SCH ×3 (01:08→20:48)
[2020-11-16] MEDS: MORPHINE SULFATE 2 MG/ML SYRINGE IVP PRN ×2 (02:18→21:09)
[2020-11-16] MEDS: PIPERACILLIN-TAZOBACTAM 3.375 GM in SODIUM CHLORIDE 0.9% 100 ML IVPB SCH ×3 (05:32→20:47)
[2020-11-16] MEDS: ASCORBIC ACID 500 MG TAB PO SCH ×2 (07:59→20:47)
[2020-11-16] MEDS: BENZTROPINE MESYLATE 1 MG TAB PO SCH ×2 (07:59→20:47)
[2020-11-16] MEDS: ARIPiprazole 15 MG TAB PO SCH (07:59)
[2020-11-16] MEDS: ZINC SULFATE 220 MG CAP PO SCH (07:59)
[2020-11-16] MEDS: lamoTRIgine 100 MG TAB PO SCH ×2 (07:59→17:48)
[2020-11-16] MEDS: APIXABAN 5 MG TAB PO SCH ×2 (07:59→20:47)
[2020-11-16] MEDS: buPROPion SR 100 MG TABLET.ER PO SCH ×2 (07:59→17:48)
[2020-11-16] MEDS: METOPROLOL TARTRATE 50 MG TAB PO SCH ×2 (07:59→20:46)
[2020-11-16] MEDS: CHOLECALCIFEROL 25 MCG (1000 IU) TABLET PO SCH (08:00)
[2020-11-16] MEDS: DEXAMETHASONE SOD PHOSPHATE 10 MG/ML 1 ML VIAL IV SCH (08:00)
[2020-11-16] MEDS: LEVOTHYROXINE 50 MCG TAB PO SCH (08:00)
--- NOTE | 2020-11-16 11:45 | P.PN ---
Subjective Progress Note Date: 11/16/20 75-year-old male patient is being seen in follow-up. The patient resides in a assisted living. He initially came to us with COVID-19 infection and subsequently developed an aspiration of the right lung. Most recent chest x-ray from yesterday showed worsening of the right midlung findings and developed bilateral or basilar multifocal airspace disease. Based on all this, the patient was given IV Zosyn. He had some increased cough and congestion and she was having more difficulties in swallowing and he was becoming more lethargic and for that reason aspiration was suspected. His white cell count currently is at 4.2 with hemoglobin of 11.3. Platelet count is at 149. As for the rest of the labs, there is LFTs are normal, he is hemodynamically stable. Inflammatory markers have not been checked. His comorbid conditions include CVA, hypertension, hyperlipidemia and hypothyroidism. He is still having episodes of fever with a T-max of 100.8. Note that the patient has a long history of psych disorder and the patient was seen by psychiatry and he was given Cogentin yesterday for some extra pyramidal symptoms. He also has history of schizophrenia and bipolar disorder. His initial symptoms were those of altered mentation, generalized weakness, and muscle spasms. Evaluation of 11/12/2020 patient is on room air oxygen. He is not having any major respiratory distress. CAT scan of the chest was done yesterday showed consolidation of the lung bases bilaterally more so on the right patient suddenly involving the lung bases and sparing the upper lobes. As such, an aspiration on top of COVID-19 related pneumonia cannot be completely excluded. The patient is currently on IV Zosyn. The patient's blood work showed a d-dimer of 1.47, serum bicarbonate is 19 with a chloride of 115 and the sodium of 142, creatinine is at 1.6 and his BUN is at 42. Meanwhile, the patient went into a trial fibrillation with rapid ventricular response. At this point in time, his heart rate is in the 1:30 range, irregular and the patient is going to be transferred to a cardiac units. Cardizem drip and a heparin drip is to be started on him once he gets to the cardiac units. On and at baseline is at 0.07. EKG is not showing any acute ischemic changes or ST segment elevations or depression. The patient currently is afebrile. Pulse ox on room air is around 92%. He will need also based on echocardiogram. He has a long history of psychiatric disorders including schizophrenia bipolar disorder. He has generalized weakness. No known history of hypertension, hyperlipidemia and hypothyroidism. His thyroid function tests show a free T4 of 1.31. He also completed a swallow evaluation and was recommended a pured diet with thin liquids as tolerated. 11/13/2020 the patient is being seen for a follow-up. Patient is currently being treated for COVID-19 related pneumonia in addition to aspiration pneumonia and the patient remains on Zosyn and Decadron. On today's evaluation, the pat ient is on 4 L of oxygen by nasal cannula and is calm and comfortable. He remains on same treatment for now. Meanwhile, yesterday, the patient went into atrial fibrillation with rapid ventricular response and the patient was quite tachycardic. His troponins were negative. He got transferred to the cardiac unit. EKG showed no acute ischemic changes. History of any chest pain. No signs of any hyperthyroidism. The patient is currently on Eliquis and he is taking 5 mg by mouth twice a day and the patient is also metoprolol for rate control 50 mg twice a day and the Cardizem infusion that was started yesterday was discontinued. With a preserved LV function with an ejection fraction of 55 %. No other valvular abnormalities noted. He has multiple comorbidities including history of schizophrenia, bipolar disorder, hypertension and hyperlipidemia and hypothyroidism. He also completed a swallow evaluation he was given pureed diet along with thin liquids as tolerated. 11/14/2020, the patient became progressively more hypoxic and the patient was on 6 L of oxygen by nasal cannula and his oxygen requirements progressively went up and he is currently on 100% on a beta facemask at 15 L per minute. He is confused he is a bit restless. He tries to the shunt his mask and hold the mask off. He did not tolerate the high flow nasal cannula and for that reason he was placed on 100% nonrebreather facemask. He is a 75-year-old male patient with known history of psychiatric disorder and schizophrenia bipolar disorder. The patient resides in adult foster care setting. He has hypertension and hyperlipidemia and hypothyroidism as comorbid conditions. He also had Hx fibrillation with RVR and the patient is currently on a combination of oral metoprolol and Eliquis. Cardizem drip has been discontinued. His current heart rate is still somewhat tachycardic ranging between 100 and 115. Note that he has a preserved LV function. He passed a swallow evaluation and he was offered purred diet . He is a DNR/DNI CODE STATUS. Legal guardianship is being seek and establish today. Blood work from today still pending. 11/15/2020, the patient remains on high flow oxygen at 6 L and FiO2 of 90%. He is awake and alert and appropriate. He is lethargic and sleepy. His oral intake is quite diminished. He is being cheered for COVID-19 related pneumonia. His LDH level is at 1262 which is lower compared to yesterday and the CRP level is down to 7.1. His sodium level is up at 148. The patient remains on Decadron 6 mg IV every 24 hours. He remains on IV Zosyn as an empiric antibiotic coverage. He is also on anticoagulation with Eliquis 5 mg by mouth twice a day. Afebrile. Hemodynamically stable. Receiving normal saline today to 75 mL an hour. No other significant events overnight. Cardiac rhythm is atrial fibrillation with a controlled rate and the patient is hemodynamically stable and is afebrile. 99 2020, the patient remains on high flow oxygen at 60 L was 90% FiO2. There is essentially the same as yesterday. As mentioned earlier, there was some interval improvement in his chest x-ray findings yesterday. Nevertheless, the oxygenation is still quite poor and the patient is still requiring high flow oxygen with a pulse ox of 89-92% on above-mentioned high flow settings. He is a case of COVID-19 related pneumonia. Inflammatory markers from today are still pending. Remains on Decadron 63 g every 24 hours. He is also on Zosyn. He is also on Eliquis. Remains in atrial fibrillation. Rate is controlled for now. The patient is being considered for hospice care. He is known to have significant other comorbidities including an extensive psychiatric history, he is schizophrenia, bipolar disorder, and he has had also issues with swallowing and feeding. He remains on IV fluids at the rate of 75 mL an hour. Patient has a DNR/DNI CODE STATUS. He is unable to communicate. He is unable to speak. Baseline performance and functional status is extremely poor. He is bedridden. Objective - Vital Signs Vital signs: Vital Signs Temp 98.8 F 11/16/20 10:00 Pulse 114 H 11/16/20 10:00 Resp 22 11/16/20 10:00 BP 133/78 11/16/20 10:00 Pulse Ox 89 L 11/16/20 10:00 Intake & Output 11/15/20 11/16/20 11/16/20 18:59 06:59 18:59 Intake Total 900 Balance 900 Weight 73 kg 69 kg Intake: Intake, IV Titration 900 Amount Dextrose 5% in Water 1, 800 000 ml @ 100 mls/hr IV . Q10H [facility] Rx#:[id number] Piperacillin-Tazobactam 3 100 .375 gm In Sodium Chloride 0.9% 100 ml @ 25 mls/hr IVPB Q8H [facility] Rx#: [id number] Other: Voiding Method Incontinent Diaper Diaper Incontinent Incontinent # Voids 1 3 # Bowel Movements 0 - Exam No acute distress, not a good historian. The patient appears the same compared to yesterday. He is very competent for without use of accessory muscles of breathing. He is using high flow oxygen at 60 L with an FiO2 of 90%. Difficult to communicate with. He is essentially 40 sodium. He has issues with expression and aphasia possible. Long psychiatric history. HEENT examination is grossly unremarkable. Neck supple. Full range of motion. No adenopathy thyromegaly or neck vein distention. Cardiovascular examination patient is tachycardic, irregular S1-S2 consistent with atrial fibrillation with rapid ventricular response. Heart sounds in general are quite distant. Lungs reveal mostly clear breath sounds. A few scattered rhonchi. No wheezes o r crackles. He does not take deep breaths. Room air saturation 92%. Abdomen soft bowel sounds are heard. No masses or tenderness. Extremities are intact. No cyanosis clubbing or edema. Skin is without rash or lesion. Neurologic examination is difficult to assess. He does move all 4 extremities. Very poor historian. Expressive aphasia. - Labs CBC & Chem 7: 11/15/20 06:09 11/15/20 06:09 Labs: Microbiology - Last 24 Hours (Table) 11/10/20 09:55 Blood Culture - Preliminary Blood No Growth after 120 hours Assessment and Plan Plan: 1 COVID-19/coronavirus infection, with worsening and oxygenation. The patient progression and decompensation his respiratory status and the patient is currently stable on high flow oxygen with FiO2 of FiO2 of 90% in the flow of 60 L. overall pulmonary status is unchanged compared to yesterday and the patient remains on high flow oxygen. Limited recovery since yesterday. He remains on Decadron. He remains on Zosyn. Much debilitated, bedridden, unable to communicate, has speech limitation, caloric intake is quite low due to his suboptimal feeding habits. 2 acute aspiration pneumonia possibly involving the right lower lobe. The patient has lower lobe consolidation mainly in the lung bases right more than left splitting the upper lobes and this obviously raises the concern for aspiration. Swallow evaluation was completed and the patient was asked to continue with daily diet. CAT scan of the chest was noted. 3 History of hyperlipidemia. 4 History of hypothyroidism. 5 History of CVA, with expressive aphasia. 6 History of hypertension. 7 History of depression. 8 Lifelong nonsmoker. 9 new-onset atrial fibrillation with rapid ventricular response and the patient is on a controlled rate in the rate is under 100 and the patient is on metoprolol and long-term anticoagulation with Eliquis. 10 schizophrenia/depression 11 hypernatremia , currently on D5 water at the rate of 100 mL an hour and the patient is awaiting follow-up labs in follow-up on his sodium level. Plan: Continue high flow oxygen with an FiO2 of 90% in the flow of 60 L Chest x-ray and repeat inflammatory markers for tomorrow Continue IV Zosyn and Decadron 6 mg IV every 24 hour Aspiration precautions Monitor the oxygenation and use O2 supplementation should he dropped his pulse ox below 90% Provide an incentive spirometer and deep breathing and pulmonary toileting Anticoagulation with Eliquis 5 milligrams by mouth twice a day Metoprolol for rate control IV fluids to D5 water at the rate of 100 mL an hour, Awaiting follow-up electrolytes and sodium levels Monitor his psychiatric health. DNR/DNI CODE STATUS Possible hospice and the family is contemplating that.
--- NOTE | 2020-11-16 13:32 | PN ---
PROGRESS NOTE CHIEF COMPLAINT: Respiratory failure. HISTORY OF PRESENT ILLNESS: This gentleman clinically he is not improved. His chest x-ray a day or 2 ago showed slight improvement, but he remains lethargic and marginally oxygenated with a pulse ox running around 90. He is weakening. REVIEW OF SYSTEMS: Not obtainable. PHYSICAL EXAMINATION: Breath sounds are heard bilaterally with occasional rales. He is tachypneic but breath sounds are shallow. Cardiac exam is normal. Abdomen is flat, soft and nontender. IMPRESSION: 1. Respiratory failure. 2. COVID pneumonia. 3. Schizophrenia. PLAN: Continue with comfort measures. He is to be seen by hospice. MMODL / IJN: [id number] /
[2020-11-16] MEDS: ATORVASTATIN 10 MG TAB PO SCH (17:48)
[2020-11-17] MEDS: PIPERACILLIN-TAZOBACTAM 3.375 GM in SODIUM CHLORIDE 0.9% 100 ML IVPB SCH ×3 (05:19→20:39)
[2020-11-17] MEDS: METOPROLOL TARTRATE 50 MG TAB PO SCH ×2 (07:29→20:39)
[2020-11-17] MEDS: DEXAMETHASONE SOD PHOSPHATE 10 MG/ML 1 ML VIAL IV SCH (07:29)
[2020-11-17] MEDS: ZINC SULFATE 220 MG CAP PO SCH (07:29)
[2020-11-17] MEDS: APIXABAN 5 MG TAB PO SCH ×2 (07:30→20:39)
[2020-11-17] MEDS: ARIPiprazole 15 MG TAB PO SCH (07:30)
[2020-11-17] MEDS: lamoTRIgine 100 MG TAB PO SCH ×2 (07:30→17:21)
[2020-11-17] MEDS: ASCORBIC ACID 500 MG TAB PO SCH ×2 (07:30→20:39)
[2020-11-17] MEDS: buPROPion SR 100 MG TABLET.ER PO SCH ×2 (07:30→17:22)
[2020-11-17] MEDS: LEVOTHYROXINE 50 MCG TAB PO SCH (07:30)
[2020-11-17] MEDS: CHOLECALCIFEROL 25 MCG (1000 IU) TABLET PO SCH (07:31)
[2020-11-17] MEDS: BENZTROPINE MESYLATE 1 MG TAB PO SCH ×2 (07:31→20:39)
[2020-11-17] MEDS: DEXTROSE 5% IN WATER 1,000 ML IV SCH ×2 (07:33→15:19)
--- NOTE | 2020-11-17 08:17 | XR ---
EXAMINATION TYPE: XR chest 1V portable DATE OF EXAM: 11/17/2020 COMPARISON: Chest x-ray 11/15/2020 HISTORY: Covid pneumonia TECHNIQUE: Single frontal view of the chest is obtained. FINDINGS: Bilateral airspace disease, prominence interstitium is again noted, there is some increasi ng airspace disease suspected in the right lung and possibly left lung base as compared to prior. No evident pneumothorax, difficult to exclude pleural effusion. Cardiac mediastinal silhouette shows a s imilar appearance. IMPRESSION: Findings consistent with patient's history of pneumonia. There may be worsening airspace disease.
--- NOTE | 2020-11-17 10:53 | P.PN ---
Subjective Progress Note Date: 11/17/20 75-year-old male patient is being seen in follow-up. The patient resides in a assisted living. He initially came to us with COVID-19 infection and subsequently developed an aspiration of the right lung. Most recent chest x-ray from yesterday showed worsening of the right midlung findings and developed bilateral or basilar multifocal airspace disease. Based on all this, the patient was given IV Zosyn. He had some increased cough and congestion and she was having more difficulties in swallowing and he was becoming more lethargic and for that reason aspiration was suspected. His white cell count currently is at 4.2 with hemoglobin of 11.3. Platelet count is at 149. As for the rest of the labs, there is LFTs are normal, he is hemodynamically stable. Inflammatory markers have not been checked. His comorbid conditions include CVA, hypertension, hyperlipidemia and hypothyroidism. He is still having episodes of fever with a T-max of 100.8. Note that the patient has a long history of psych disorder and the patient was seen by psychiatry and he was given Cogentin yesterday for some extra pyramidal symptoms. He also has history of schizophrenia and bipolar disorder. His initial symptoms were those of altered mentation, generalized weakness, and muscle spasms. Evaluation of 11/12/2020 patient is on room air oxygen. He is not having any major respiratory distress. CAT scan of the chest was done yesterday showed consolidation of the lung bases bilaterally more so on the right patient suddenly involving the lung bases and sparing the upper lobes. As such, an aspiration on top of COVID-19 related pneumonia cannot be completely excluded. The patient is currently on IV Zosyn. The patient's blood work showed a d-dimer of 1.47, serum bicarbonate is 19 with a chloride of 115 and the sodium of 142, creatinine is at 1.6 and his BUN is at 42. Meanwhile, the patient went into a trial fibrillation with rapid ventricular response. At this point in time, his heart rate is in the 1:30 range, irregular and the patient is going to be transferred to a cardiac units. Cardizem drip and a heparin drip is to be started on him once he gets to the cardiac units. On and at baseline is at 0.07. EKG is not showing any acute ischemic changes or ST segment elevations or depression. The patient currently is afebrile. Pulse ox on room air is around 92%. He will need also based on echocardiogram. He has a long history of psychiatric disorders including schizophrenia bipolar disorder. He has generalized weakness. No known history of hypertension, hyperlipidemia and hypothyroidism. His thyroid function tests show a free T4 of 1.31. He also completed a swallow evaluation and was recommended a pured diet with thin liquids as tolerated. 11/13/2020 the patient is being seen for a follow-up. Patient is currently being treated for COVID-19 related pneumonia in addition to aspiration pneumonia and the patient remains on Zosyn and Decadron. On today's evaluation, the pat ient is on 4 L of oxygen by nasal cannula and is calm and comfortable. He remains on same treatment for now. Meanwhile, yesterday, the patient went into atrial fibrillation with rapid ventricular response and the patient was quite tachycardic. His troponins were negative. He got transferred to the cardiac unit. EKG showed no acute ischemic changes. History of any chest pain. No signs of any hyperthyroidism. The patient is currently on Eliquis and he is taking 5 mg by mouth twice a day and the patient is also metoprolol for rate control 50 mg twice a day and the Cardizem infusion that was started yesterday was discontinued. With a preserved LV function with an ejection fraction of 55 %. No other valvular abnormalities noted. He has multiple comorbidities including history of schizophrenia, bipolar disorder, hypertension and hyperlipidemia and hypothyroidism. He also completed a swallow evaluation he was given pureed diet along with thin liquids as tolerated. 11/14/2020, the patient became progressively more hypoxic and the patient was on 6 L of oxygen by nasal cannula and his oxygen requirements progressively went up and he is currently on 100% on a beta facemask at 15 L per minute. He is confused he is a bit restless. He tries to the shunt his mask and hold the mask off. He did not tolerate the high flow nasal cannula and for that reason he was placed on 100% nonrebreather facemask. He is a 75-year-old male patient with known history of psychiatric disorder and schizophrenia bipolar disorder. The patient resides in adult foster care setting. He has hypertension and hyperlipidemia and hypothyroidism as comorbid conditions. He also had Hx fibrillation with RVR and the patient is currently on a combination of oral metoprolol and Eliquis. Cardizem drip has been discontinued. His current heart rate is still somewhat tachycardic ranging between 100 and 115. Note that he has a preserved LV function. He passed a swallow evaluation and he was offered purred diet . He is a DNR/DNI CODE STATUS. Legal guardianship is being seek and establish today. Blood work from today still pending. 11/15/2020, the patient remains on high flow oxygen at 6 L and FiO2 of 90%. He is awake and alert and appropriate. He is lethargic and sleepy. His oral intake is quite diminished. He is being cheered for COVID-19 related pneumonia. His LDH level is at 1262 which is lower compared to yesterday and the CRP level is down to 7.1. His sodium level is up at 148. The patient remains on Decadron 6 mg IV every 24 hours. He remains on IV Zosyn as an empiric antibiotic coverage. He is also on anticoagulation with Eliquis 5 mg by mouth twice a day. Afebrile. Hemodynamically stable. Receiving normal saline today to 75 mL an hour. No other significant events overnight. Cardiac rhythm is atrial fibrillation with a controlled rate and the patient is hemodynamically stable and is afebrile. 11/16 2020, the patient remains on high flow oxygen at 60 L was 90% FiO2. There is essentially the same as yesterday. As mentioned earlier, there was some interval improvement in his chest x-ray findings yesterday. Nevertheless, the oxygenation is still quite poor and the patient is still requiring high flow oxygen with a pulse ox of 89-92% on above-mentioned high flow settings. He is a case of COVID-19 related pneumonia. Inflammatory markers from today are still pending. Remains on Decadron 63 g every 24 hours. He is also on Zosyn. He is also on Eliquis. Remains in atrial fibrillation. Rate is controlled for now. The patient is being considered for hospice care. He is known to have significant other comorbidities including an extensive psychiatric history, he is schizophrenia, bipolar disorder, and he has had also issues with swallowing and feeding. He remains on IV fluids at the rate of 75 mL an hour. Patient has a DNR/DNI CODE STATUS. He is unable to communicate. He is unable to speak. Baseline performance and functional status is extremely poor. He is bedridden. On 11/17/2020, clinically unchanged and the patient remains on high flow oxygen to maintain a saturation above 90%. Currently is on high flow oxygen at 15 L wi th an FiO2 of 90% which is essentially the same as yesterday. His condition essentially the same as yesterday and he remains on Decadron 6 mg IV every 24 hours and is also on Zosyn. He is taken his pills. Nevertheless, he has declined having any oral intake. He remains in atrial fibrillation and a controlled rate. He is running fever, low-grade and his sodium level is at 148 and the patient is currently on IV fluids in the form of D5 water at a rate of 100 mL an hour. Chest x-ray showing bilateral airspace disease consistent with COVID-19 related pneumonia and there may be some interval worsening of the airspace disease specialist on the right and in the left lower lobe area.. His inflammatory markers shows an LDH level of 1262, a CRP level is at 7.1. Sodium level is at 148. Creatinine is at 1.2. With a +15.9. Objective - Vital Signs Vital signs: Vital Signs Temp 99.1 F 11/17/20 09:45 Pulse 116 H 11/17/20 09:45 Resp 20 11/17/20 09:45 BP 111/69 11/17/20 09:45 Pulse Ox 89 L 11/17/20 09:45 Intake & Output 11/16/20 11/17/20 11/17/20 18:59 06:59 18:59 Intake Total 900 900 Balance 900 900 Weight 70 kg Intake: Intake, IV Titration 900 900 Amount Dextrose 5% in Water 1, 800 800 000 ml @ 100 mls/hr IV . Q10H JORGE Rx#:[id number] Piperacillin-Tazobactam 3 100 100 .375 gm In Sodium Chloride 0.9% 100 ml @ 25 mls/hr IVPB Q8H JORGE Rx#: [id number] Other: Voiding Method Diaper Diaper Diaper Incontinent Incontinent # Voids 3 - Exam No acute distress, not a good historian. The patient appears the same compared to yesterday. He is very competent for without use of accessory muscles of breathing. He is using high flow oxygen at 60 L with an FiO2 of 90%. Difficult to communicate with. He is essentially 40 sodium. He has issues with expression and aphasia possible. Long psychiatric history. HEENT examination is grossly unremarkable. Neck supple. Full range of motion. No adenopathy thyromegaly or neck vein d istention. Cardiovascular examination patient is tachycardic, irregular S1-S2 consistent with atrial fibrillation with rapid ventricular response. Heart sounds in general are quite distant. Lungs reveal mostly clear breath sounds. A few scattered rhonchi. No wheezes or crackles. He does not take deep breaths. Room air saturation 92%. Abdomen soft bowel sounds are heard. No masses or tenderness. Extremities are intact. No cyanosis clubbing or edema. Skin is without rash or lesion. Neurologic examination is difficult to assess. He does move all 4 extremities. Very poor historian. Expressive aphasia. - Labs CBC & Chem 7: 11/15/20 06:09 11/15/20 06:09 Labs: Microbiology - Last 24 Hours (Table) 11/10/20 09:55 Blood Culture - Final Blood No Growth after 144 hours Assessment and Plan Plan: 1 COVID-19/coronavirus infection, with worsening and oxygenation. The patient progression and decompensation his respiratory status and the patient is currently stable on high flow oxygen with FiO2 of FiO2 of 90% in the flow of 60 L. overall pulmonary status is unchanged compared to yesterday and the patient remains on high flow oxygen. Limited recovery since yesterday. He remains on Decadron. He remains on Zosyn. Much debilitated, bedridden, unable to communicate, has speech limitation, caloric intake is quite low due to his suboptimal feeding habits. Not taking any oral intake. He is able to take his pills. Oxygenation is unchanged and the patient remains on high flow oxygen on today's evaluation. Chest x-ray showing worsening of the pneumonia. The patient's history is very poor and I made recommendations for hospice care yes terday. 2 acute aspiration pneumonia possibly involving the right lower lobe. The patient has lower lobe consolidation mainly in the lung bases right more than left splitting the upper lobes and this obviously raises the concern for aspiration. Swallow evaluation was completed and the patient was asked to continue with daily diet. CAT scan of the chest was noted. 3 History of hyperlipidemia. 4 History of hypothyroidism. 5 History of CVA, with expressive aphasia. 6 History of hypertension. 7 History of depression. 8 Lifelong nonsmoker. 9 new-onset atrial fibrillation with rapid ventricular response and the patient is on a controlled rate in the rate is under 100 and the patient is on metoprolol and long-term anticoagulation with Eliquis. 10 schizophrenia/depression 11 hypernatremia , currently on D5 water at the rate of 100 mL an hour Plan: Continue high flow oxygen with an FiO2 of 90% in the flow of 60 L Chest x-ray from today was noted and it is at least persistent bilateral airspace consolidations Continue IV Zosyn and Decadron 6 mg IV every 24 hour Aspiration precautions Monitor the oxygenation and use O2 supplementation should he dropped his pulse o x below 90% Provide an incentive spirometer and deep breathing and pulmonary toileting Anticoagulation with Eliquis 5 milligrams by mouth twice a day Metoprolol for rate control IV fluids to D5 water at the rate of 100 mL an hour DNR/DNI CODE STATUS Possible hospice is recommended. Unable to proceed as the patient needs in the garden prior to that. Unfortunately, for now, he remains completely treated and he is not receiving any comfort care measures. CODE STATUS remains DNR/DNI.
[2020-11-17] MEDS: ATORVASTATIN 10 MG TAB PO SCH (17:21)
[2020-11-18] MEDS: DEXTROSE 5% IN WATER 1,000 ML IV SCH ×3 (03:33→20:15)
[2020-11-18] MEDS: PIPERACILLIN-TAZOBACTAM 3.375 GM in SODIUM CHLORIDE 0.9% 100 ML IVPB SCH ×3 (03:34→20:08)
[2020-11-18] MEDS: buPROPion SR 100 MG TABLET.ER PO SCH ×2 (07:37→17:12)
[2020-11-18] MEDS: ARIPiprazole 15 MG TAB PO SCH (07:38)
[2020-11-18] MEDS: CHOLECALCIFEROL 25 MCG (1000 IU) TABLET PO SCH (07:38)
[2020-11-18] MEDS: ZINC SULFATE 220 MG CAP PO SCH (07:38)
[2020-11-18] MEDS: lamoTRIgine 100 MG TAB PO SCH ×2 (07:38→17:12)
[2020-11-18] MEDS: BENZTROPINE MESYLATE 1 MG TAB PO SCH ×2 (07:38→20:09)
[2020-11-18] MEDS: DEXAMETHASONE SOD PHOSPHATE 10 MG/ML 1 ML VIAL IV SCH (07:39)
[2020-11-18] MEDS: METOPROLOL TARTRATE 50 MG TAB PO SCH ×2 (07:39→20:09)
[2020-11-18] MEDS: ASCORBIC ACID 500 MG TAB PO SCH ×2 (07:39→20:09)
[2020-11-18] MEDS: APIXABAN 5 MG TAB PO SCH ×2 (07:39→20:09)
[2020-11-18] MEDS: LEVOTHYROXINE 50 MCG TAB PO SCH (07:39)
--- NOTE | 2020-11-18 10:08 | P.PN ---
Subjective Progress Note Date: 11/18/20 75-year-old male patient is being seen in follow-up. The patient resides in a assisted living. He initially came to us with COVID-19 infection and subsequently developed an aspiration of the right lung. Most recent chest x-ray from yesterday showed worsening of the right midlung findings and developed bilateral or basilar multifocal airspace disease. Based on all this, the patient was given IV Zosyn. He had some increased cough and congestion and she was having more difficulties in swallowing and he was becoming more lethargic and for that reason aspiration was suspected. His white cell count currently is at 4.2 with hemoglobin of 11.3. Platelet count is at 149. As for the rest of the labs, there is LFTs are normal, he is hemodynamically stable. Inflammatory markers have not been checked. His comorbid conditions include CVA, hypertension, hyperlipidemia and hypothyroidism. He is still having episodes of fever with a T-max of 100.8. Note that the patient has a long history of psych disorder and the patient was seen by psychiatry and he was given Cogentin yesterday for some extra pyramidal symptoms. He also has history of schizophrenia and bipolar disorder. His initial symptoms were those of altered mentation, generalized weakness, and muscle spasms. Evaluation of 11/12/2020 patient is on room air oxygen. He is not having any major respiratory distress. CAT scan of the chest was done yesterday showed consolidation of the lung bases bilaterally more so on the right patient suddenly involving the lung bases and sparing the upper lobes. As such, an aspiration on top of COVID-19 related pneumonia cannot be completely excluded. The patient is currently on IV Zosyn. The patient's blood work showed a d-dimer of 1.47, serum bicarbonate is 19 with a chloride of 115 and the sodium of 142, creatinine is at 1.6 and his BUN is at 42. Meanwhile, the patient went into a trial fibrillation with rapid ventricular response. At this point in time, his heart rate is in the 1:30 range, irregular and the patient is going to be transferred to a cardiac units. Cardizem drip and a heparin drip is to be started on him once he gets to the cardiac units. On and at baseline is at 0.07. EKG is not showing any acute ischemic changes or ST segment elevations or depression. The patient currently is afebrile. Pulse ox on room air is around 92%. He will need also based on echocardiogram. He has a long history of psychiatric disorders including schizophrenia bipolar disorder. He has generalized weakness. No known history of hypertension, hyperlipidemia and hypothyroidism. His thyroid function tests show a free T4 of 1.31. He also completed a swallow evaluation and was recommended a pured diet with thin liquids as tolerated. 11/13/2020 the patient is being seen for a follow-up. Patient is currently being treated for COVID-19 related pneumonia in addition to aspiration pneumonia and the patient remains on Zosyn and Decadron. On today's evaluation, the pat ient is on 4 L of oxygen by nasal cannula and is calm and comfortable. He remains on same treatment for now. Meanwhile, yesterday, the patient went into atrial fibrillation with rapid ventricular response and the patient was quite tachycardic. His troponins were negative. He got transferred to the cardiac unit. EKG showed no acute ischemic changes. History of any chest pain. No signs of any hyperthyroidism. The patient is currently on Eliquis and he is taking 5 mg by mouth twice a day and the patient is also metoprolol for rate control 50 mg twice a day and the Cardizem infusion that was started yesterday was discontinued. With a preserved LV function with an ejection fraction of 55 %. No other valvular abnormalities noted. He has multiple comorbidities including history of schizophrenia, bipolar disorder, hypertension and hyperlipidemia and hypothyroidism. He also completed a swallow evaluation he was given pureed diet along with thin liquids as tolerated. 11/14/2020, the patient became progressively more hypoxic and the patient was on 6 L of oxygen by nasal cannula and his oxygen requirements progressively went up and he is currently on 100% on a beta facemask at 15 L per minute. He is confused he is a bit restless. He tries to the shunt his mask and hold the mask off. He did not tolerate the high flow nasal cannula and for that reason he was placed on 100% nonrebreather facemask. He is a 75-year-old male patient with known history of psychiatric disorder and schizophrenia bipolar disorder. The patient resides in adult foster care setting. He has hypertension and hyperlipidemia and hypothyroidism as comorbid conditions. He also had Hx fibrillation with RVR and the patient is currently on a combination of oral metoprolol and Eliquis. Cardizem drip has been discontinued. His current heart rate is still somewhat tachycardic ranging between 100 and 115. Note that he has a preserved LV function. He passed a swallow evaluation and he was offered purred diet . He is a DNR/DNI CODE STATUS. Legal guardianship is being seek and establish today. Blood work from today still pending. 11/15/2020, the patient remains on high flow oxygen at 6 L and FiO2 of 90%. He is awake and alert and appropriate. He is lethargic and sleepy. His oral intake is quite diminished. He is being cheered for COVID-19 related pneumonia. His LDH level is at 1262 which is lower compared to yesterday and the CRP level is down to 7.1. His sodium level is up at 148. The patient remains on Decadron 6 mg IV every 24 hours. He remains on IV Zosyn as an empiric antibiotic coverage. He is also on anticoagulation with Eliquis 5 mg by mouth twice a day. Afebrile. Hemodynamically stable. Receiving normal saline today to 75 mL an hour. No other significant events overnight. Cardiac rhythm is atrial fibrillation with a controlled rate and the patient is hemodynamically stable and is afebrile. 11/16 2020, the patient remains on high flow oxygen at 60 L was 90% FiO2. There is essentially the same as yesterday. As mentioned earlier, there was some interval improvement in his chest x-ray findings yesterday. Nevertheless, the oxygenation is still quite poor and the patient is still requiring high flow oxygen with a pulse ox of 89-92% on above-mentioned high flow settings. He is a case of COVID-19 related pneumonia. Inflammatory markers from today are still pending. Remains on Decadron 63 g every 24 hours. He is also on Zosyn. He is also on Eliquis. Remains in atrial fibrillation. Rate is controlled for now. The patient is being considered for hospice care. He is known to have significant other comorbidities including an extensive psychiatric history, he is schizophrenia, bipolar disorder, and he has had also issues with swallowing and feeding. He remains on IV fluids at the rate of 75 mL an hour. Patient has a DNR/DNI CODE STATUS. He is unable to communicate. He is unable to speak. Baseline performance and functional status is extremely poor. He is bedridden. On 11/17/2020, clinically unchanged and the patient remains on high flow oxygen to maintain a saturation above 90%. Currently is on high flow oxygen at 15 L wi th an FiO2 of 90% which is essentially the same as yesterday. His condition essentially the same as yesterday and he remains on Decadron 6 mg IV every 24 hours and is also on Zosyn. He is taken his pills. Nevertheless, he has declined having any oral intake. He remains in atrial fibrillation and a controlled rate. He is running fever, low-grade and his sodium level is at 148 and the patient is currently on IV fluids in the form of D5 water at a rate of 100 mL an hour. Chest x-ray showing bilateral airspace disease consistent with COVID-19 related pneumonia and there may be some interval worsening of the airspace disease specialist on the right and in the left lower lobe area.. His inflammatory markers shows an LDH level of 1262, a CRP level is at 7.1. Sodium level is at 148. Creatinine is at 1.2. With a +15.9. 11/18/2020, the patient remains on high flow oxygen at 60 L with an FiO2 of 90%. He was able to respond to the nursing staff earlier today he was able to mention his name. Otherwise his condition remains unchanged. No final decision on end-of-life care or hospice in the absence of a legal guardian. The patient is on Decadron 63 g IV every 24 hours and also on Zosyn. The patient remains on D5 water at 75 mL an hour. Creatinine is at 1.2. Sodium is at 148. White cell count of 13.9. Inflammatory markers continue to improve and the patient's LDH level is down to 637. Rest of the labs are still pending for now. Objective - Vital Signs Vital signs: Vital Signs Temp 98.5 F 11/18/20 06:00 Pulse 105 H 11/18/20 06:00 Resp 25 H 11/18/20 06:00 BP 116/77 11/18/20 06:00 Pulse Ox 92 L 11/18/20 06:00 Intake & Output 11/17/20 11/18/20 11/18/20 18:59 06:59 18:59 Intake Total 900 Output Total 1000 Balance 900 -1000 Weight 71 kg Intake: Intake, IV Titration 900 Amount Dextrose 5% in Water 1, 800 000 ml @ 100 mls/hr IV . Q10H JORGE Rx#:[id number] Piperacillin-Tazobactam 3 100 .375 gm In Sodium Chloride 0.9% 100 ml @ 25 mls/hr IVPB Q8H JORGE Rx#: [id number] Output: Urine 1000 Other: Voiding Method Diaper Diaper Incontinent Incontinent # Voids 2 - Exam No acute distress, not a good historian. The patient appears the same compared to yesterday. He is very competent for without use of accessory muscles of breathing. He is using high flow oxygen at 60 L with an FiO2 of 90%. Difficult to communicate with.. He has issues with expression and aphasia possible. Long psychiatric history. HEENT examination is grossly unremarkable. Neck supple. Full range of motion. No adenopathy thyromegaly or neck vein distention. Cardiovascular examination patient is tachycardic, irregular S1-S2 consistent with atrial fibrillation with rapid ventricular response. Heart sounds in ge neral are quite distant. Lungs reveal mostly clear breath sounds. A few scattered rhonchi. No wheezes or crackles. He does not take deep breaths. Room air saturation 92%. Abdomen soft bowel sounds are heard. No masses or tenderness. Extremities are intact. No cyanosis clubbing or edema. Skin is without rash or lesion. Neurologic examination is difficult to assess. He does move all 4 extremities. Very poor historian. Expressive aphasia. - Labs CBC & Chem 7: 11/15/20 06:09 11/15/20 06:09 Labs: Abnormal Lab Results - Last 24 Hours (Table) 11/17/20 Range/Units 06:26 Lactate Dehydrogenase 637 H (120-246) U/L C-Reactive Protein 16.0 H (0.0-0.8) mg/dL Assessment and Plan Plan: 1 COVID-19/coronavirus infection, with worsening and oxygenation. The patient progression and decompensation his respiratory status and the patient is cur rently stable on high flow oxygen with FiO2 of FiO2 of 90% in the flow of 60 L. overall pulmonary status is unchanged compared to yesterday and the patient remains on high flow oxygen. Limited recovery since yesterday. He remains on Decadron. He remains on Zosyn. Much debilitated, bedridden, unable to communicate, has speech limitation, caloric intake is quite low due to his suboptimal feeding habits. Not taking any oral intake. He is able to take his pills. Oxygenation is unchanged and the patient remains on high flow oxygen on today's evaluation. Chest x-ray showing worsening of the pneumonia. The patient's history is very poor and I made recommendations for hospice care yesterday. 2 acute aspiration pneumonia possibly involving the right lower lobe. The patient has lower lobe consolidation mainly in the lung bases right more than left splitting the upper lobes and this obviously raises the concern for aspiration. Swallow evaluation was completed and the patient was asked to continue with daily diet. CAT scan of the chest was noted. 3 History of hyperlipidemia. 4 History of hypothyroidism. 5 History of CVA, with expressive aphasia. 6 History of hypertension. 7 History of depression. 8 Lifelong nonsmoker. 9 new-onset atrial fibrillation with rapid ventricular response and the patient is on a controlled rate in the rate is under 100 and the patient is on m etoprolol and long-term anticoagulation with Eliquis. 10 schizophrenia/depression 11 hypernatremia , currently on D5 water at the rate of 100 mL an hour Plan: Continue high flow oxygen with an FiO2 of 90% in the flow of 60 L, no change in his condition, awaiting legal guardianship to do a close status change and possible consider end-of-life care\ Repeat chest x-ray for tomorrow and the last chest x-ray was showing bilateral wrist based disease Get a set of blood work including CBC, electrolytes today Continue IV Zosyn and Decadron 6 mg IV every 24 hour Aspiration precautions Monitor the oxygenation and use O2 supplementation should he dropped his pulse ox below 90% Provide an incentive spirometer and deep breathing and pulmonary toileting Anticoagulation with Eliquis 5 milligrams by mouth twice a day Metoprolol for rate control IV fluids to D5 water at the rate of 100 mL an hour DNR/DNI CODE STATUS Possible hospice is recommended. Unable to proceed as the patient needs in the garden prior to that. Unfortunately, for now, he remains completely treated and he is not receiving any comfort care measures. CODE STATUS remains DNR/DNI.
[2020-11-18 11:06] LABS: ALT 13 U/L (4-49); AST 74 U/L (17-59); African American GFR (CKD) 70 (>60 ml/min/1.73 sqM); Albumin 2.2 g/dL (3.5-5.0); Albumin/Globulin Ratio 0.9; Alkaline Phosphatase 52 U/L (38-126); Anion Gap 3 mmol/L; Blood Urea Nitrogen 32 mg/dL (9-20); Calcium 7.5 mg/dL (8.4-10.2); Carbon Dioxide 24 mmol/L (22-30); Chloride 116 mmol/L (98-107); Globulin 2.4 g/dL; Glucose 136 mg/dL (74-99); Non-African American GFR(CKD) 60 (>60 ml/min/1.73 sqM); Potassium 3.7 mmol/L (3.5-5.1); Sodium 143 mmol/L (137-145); Total Bilirubin 0.9 mg/dL (0.2-1.3); Total Protein 4.6 g/dL (6.3-8.2)
[2020-11-18 11:15] LABS: Basophils % (A) 0 %; Eosinophils % (A) 0 %; HCT 30.6 % (39.0-53.0); Lymphocytes # (A) 0.3 k/uL (1.0-4.8); Lymphocytes % (A) 3 %; MCH 30.1 pg (25.0-35.0); MCHC 32.6 g/dL (31.0-37.0); MCV 92.5 fL (80.0-100.0); Mean Platelet Volume 9.8; Monocytes # (A) 0.2 k/uL (0-1.0); Monocytes % (A) 2 %; Neutrophils # (A) 10.6 k/uL (1.3-7.7); Neutrophils % (A) 95 %; Platelet Count 213 k/uL (150-450); RBC 3.31 m/uL (4.30-5.90); RDW 14.4 % (11.5-15.5); WBC 11.1 k/uL (3.8-10.6)
--- NOTE | 2020-11-18 13:27 | PN ---
PROGRESS NOTE DATE OF SERVICE: 11/17/2020 CHIEF COMPLAINT: COVID pneumonia and respiratory failure. HISTORY OF PRESENT ILLNESS: This gentleman is continuing to deteriorate. He is unresponsive. He is dehydrated. It was settled last week with a son Danny that the patient be made DNR and hospice be consulted. Apparently, something else is transpired. Apparently there is another son (Jaylan) who has indicated he is uncomfortable with the decision to stop treatment. PHYSICAL EXAMINATION: He is progressively more dehydrated, comatose. Pulse ox is still running around 89. Breath sounds are heard bilaterally and cardiac exam is normal and the abdomen is flat. IMPRESSION: Respiratory failure secondary to Covid pneumonia. PLAN: Continue to follow over the holiday and try to structure a more reasonable end of life plan Wednesday. STEWL / CHERYLN: [id number] /
--- NOTE | 2020-11-18 13:36 | PN ---
PROGRESS NOTE DATE OF SERVICE: 11/18/2020. CHIEF COMPLAINT: Covid pneumonia. HISTORY OF PRESENT ILLNESS: This gentleman continues to deteriorate. Pulse ox is in the high 80s. PHYSICAL EXAM: He is more dehydrated and he is unconscious. Breath sounds are heard bilaterally. Peripheral circulation is normal. IMPRESSION: 1. COVID pneumonia. 2. Respiratory failure. PLAN: Continue with O2. It is unclear now the disposition. When discussed with one of the sons last week, he indicated that he wanted his father to be NO CODE and referred to hospice. There is another brother (Jaylan) who apparently also called the hospital. He related that he was uncomfortable with making any end of life decisions. Hence, the hospice consult has been on hold. MMODL / IJN: [id number] /
[2020-11-18] MEDS: ATORVASTATIN 10 MG TAB PO SCH (17:12)
[2020-11-18] MEDS: MORPHINE SULFATE 2 MG/ML SYRINGE IVP PRN (20:32)
[2020-11-19] MEDS: LORazepam 2 MG/ML INJ IV PRN ×2 (03:22→20:39)
[2020-11-19] MEDS: PIPERACILLIN-TAZOBACTAM 3.375 GM in SODIUM CHLORIDE 0.9% 100 ML IVPB SCH ×2 (03:22→13:51)
--- NOTE | 2020-11-19 08:54 | XR ---
EXAMINATION TYPE: XR chest 1V DATE OF EXAM: 11/19/2020 COMPARISON: NONE HISTORY: Covid pneumonia TECHNIQUE: Single frontal view of the chest is obtained. FINDINGS: Bilateral airspace disease is again seen, right greater than left. Findings are relatively stable since prior exam. Probable small bilateral pleural effusions. No definite evidence of pneumot horax. Cardiomediastinal silhouette is similar to prior exam. IMPRESSION: Findings consistent with patient's history of known Covid pneumonia. Findings appear sta ble.
[2020-11-19] MEDS: MORPHINE SULFATE 2 MG/ML SYRINGE IVP PRN ×4 (08:55→22:04)
[2020-11-19] MEDS: DEXAMETHASONE SOD PHOSPHATE 10 MG/ML 1 ML VIAL IV SCH (08:56)
[2020-11-19] MEDS: lamoTRIgine 100 MG TAB PO SCH ×2 (08:56→22:20)
[2020-11-19] MEDS: ARIPiprazole 15 MG TAB PO SCH (08:56)
[2020-11-19] MEDS: LEVOTHYROXINE 50 MCG TAB PO SCH (08:56)
[2020-11-19] MEDS: buPROPion SR 100 MG TABLET.ER PO SCH ×2 (08:56→22:19)
[2020-11-19] MEDS: CHOLECALCIFEROL 25 MCG (1000 IU) TABLET PO SCH (08:57)
[2020-11-19] MEDS: METOPROLOL TARTRATE 50 MG TAB PO SCH (08:57)
[2020-11-19] MEDS: BENZTROPINE MESYLATE 1 MG TAB PO SCH (08:57)
[2020-11-19] MEDS: ASCORBIC ACID 500 MG TAB PO SCH (08:57)
[2020-11-19] MEDS: ZINC SULFATE 220 MG CAP PO SCH (08:57)
[2020-11-19] MEDS: APIXABAN 5 MG TAB PO SCH (11:26)
[2020-11-19] MEDS: DEXTROSE 5% IN WATER 1,000 ML IV SCH (11:27)
--- NOTE | 2020-11-19 14:55 | P.PN ---
Subjective Progress Note Date: 11/19/20 Principal diagnosis: Acute COVID-19 pneumonia This is 75-year-old male patient who was admitted to the hospital on 11/06/2020 when he presented to the hospital with 1 week history of increased weakness, difficulty ambulating. Patient is a resident of a local assisted living [facility]. Patient has underlying history of schizophrenia, prior history of CVA/TIA, hypertension, hyperlipidemia, hypothyroidism, patient is a nonsmoker. Patient was not complaining of any pulmonary symptoms at first. His admission chest x-ray showed a trace pleural effusion. Did test positive for COVID-19 on 11/06/2020. During the course of his hospital stay patient developed worsening hypoxia, and she was suspected to have sustained aspiration pneumonia on top of his viral pneumonia. He has been on Airvo at 60 L and FiO2 of 93% with a pulse ox of 80-90%, he continues to run low-grade fevers, T-max of 100.3F in the last 24 hours, he is tachycardic with a heart rate of 100-138 BPM, he is tachypneic, his very weak and debilitated, he has not been taking in much by mouth. His current CODE STATUS is DO NOT RESUSCITATE. He has been in A. fib with RVR for which he started on oral anticoagulation in the form of Eliquis. Is currently on IV dexamethasone at 6 mg daily, D5W at 100 ML per hour were maintenance IV fluids in view of his hypernatremia which is improved and his serum sodium is down to 143 on today's labs. His renal function is slightly improved, BUN is 32 and creatinine is 1.19. His inflammatory markers have been improving over the course of his hospital stay, his white blood cell count is 11.1, he remains on Zosyn for aspiration pneumonia. he has required high flow oxygen, and overall clinically he seems to be declining, he is quiet frail, debilitated. Apparently 2 sons and they have been communicating with the nursing staff. They have been updated on patient's declining clinical status and at this time they are considering palliative care hospice. His chest x-ray today shows bilateral airspace disease, right greater than left. Objective - Vital Signs Vital signs: Vital Signs Temp 100.3 F H 11/19/20 10:00 Pulse 131 H 11/19/20 10:00 Resp 48 H 11/19/20 10:00 BP 120/65 11/19/20 10:00 Pulse Ox 90 L 11/19/20 12:18 Intake & Output 11/18/20 11/19/20 11/19/20 18:59 06:59 18:59 Intake Total 700 Output Total 800 Balance -100 Weight 67.5 kg Intake: Intake, IV Titration 700 Amount Dextrose 5% in Water 1, 600 000 ml @ 100 mls/hr IV . Q10H JORGE Rx#:[id number] Piperacillin-Tazobactam 3 100 .375 gm In Sodium Chloride 0.9% 100 ml @ 25 mls/hr IVPB Q8H JORGE Rx#: [id number] Output: Urine 800 Other: Voiding Method Diaper Diaper Incontinent Incontinent # Voids 1 - Exam GENERAL EXAM: Lethargic, 75-year-old white male, who is on Airvo at 60 L and FiO2 of 93% with a pulse ox of 88-90% comfortable in no apparent distress. HEAD: Normocephalic/atraumatic. EYES: Normal reaction of pupils, equal size. Conjunctiva pink, sclera white. NOSE: Clear with pink turbinates. THROAT: No erythema or exudates. NECK: No masses, no JVD, no thyroid enlargement, no adenopathy. CHEST: No chest wall deformity. Symmetrical expansion. LUNGS: Equal air entry with bilateral crackles CVS: Regular rate and rhythm, normal S1 and S2, no gallops, no murmurs, no rubs ABDOMEN: Soft, nontender. No hepatosplenomegaly, normal bowel sounds, no guarding or rigidity. EXTREMITIES: No clubbing, no edema, no cyanosis, 2+ pulses and upper and lower extremities. MUSCULOSKELETAL: Muscle strength and tone normal. SPINE: No scoliosis or deformity SKIN: No rashes CENTRAL NERVOUS SYSTEM: Lethargic poorly responsive No focal deficits, tone is normal in all 4 extremities. - Labs CBC & Chem 7: 11/18/20 10:37 11/18/20 10:37 Assessment and Plan Plan: Assessment: #1. Acute hypoxic respiratory failure, multifactorial, related to COVID-19 pneumonia, and acute aspiration pneumonia involving the right lower lobe. Patient remains on Decadron, and Zosyn. Patient is quite debilitated, he is bedridden, patient is unable to communicate, hence speech limitation, and suspected to have suboptimal eating habits and low caloric intake. Today he remains on high flow oxygen per Airvo at 60 L and FiO2 of 93%, and his chest x- ray continues to show bilateral airspace disease with the right lung findings worse than left #2. Acute aspiration pneumonia. Swallow evaluation was completed and patient continues on dysphagia 1 pured diet with one-to-one supervision #3. Hypernatremia, related to poor oral intake, and free water deficit. He is on D5W at 100 ML per hour, and his serum sodium is improving and is down to 143 on today's labs #4. History of hypothyroidism #5. History of CVA/TIA with history of expressive aphasia #6. History of hypertension #7. History of depression #8. Lifelong nonsmoker #9. New-onset A. fib with rapid ventricular response, and patient has been started on Eliquis and metoprolol #10. Schizophrenia/depression Plan: Continue current medical treatment Continue Decadron and Zosyn Maintain aspiration precautions chest x-ray has been reviewed still showing bilateral airspace disease, right greater than left Clinically patient continues to decline He is poorly responsive Continues on high flow oxygen At this point we recommend possible palliative/hospice care Were told nursing staff has been communicating with patient's sounds Current CODE STATUS is DO NOT RESUSCITATE And the 2 sounds are considering palliative care hospice at this time I performed a history & physical examination of the patient and discussed their management with my nurse practitioner, Cindy Royal. I reviewed the nurse practitioner's note and agree with the documented findings and plan of care. Lung sounds are positive for diminished breath sounds throughout the lung floyd. The findings and the impression was discussed with the patient. I attest to the documentation by the nurse practitioner. Time with Patient: Less than 30
--- NOTE | 2020-11-19 20:53 | PN ---
PROGRESS NOTE DATE OF SERVICE: 11/19/2020 CHIEF COMPLAINT: COVID pneumonia and respiratory failure. HISTORY OF PRESENT ILLNESS: This gentleman continues to slowly deteriorate. He has become more dehydrated. He is not responsive. PHYSICAL EXAM: Breath sounds are shallow and infrequent. Cardiac exam is normal. IMPRESSION: 1. COVID pneumonia. 2. Respiratory failure. 3. Coma. PLAN: No change in program and continued supportive care with nasal oxygen. MMODL / IJN: [id number] /
[2020-11-19] MEDS: ATORVASTATIN 10 MG TAB PO SCH (22:19)
[2020-11-20] MEDS: DEXTROSE 5% IN WATER 1,000 ML IV SCH ×2 (00:26→06:50)
[2020-11-20] MEDS: LORazepam 2 MG/ML INJ IV PRN ×3 (03:33→14:25)
[2020-11-20] MEDS: MORPHINE SULFATE 2 MG/ML SYRINGE IVP PRN ×2 (06:51→08:36)
[2020-11-20 09:34] VITALS: BMI 19.8
[2020-11-20] MEDS ORDERED: ACETAMINOPHEN SUPPOSITORY 650 MG SUPP RECTAL PRN (09:59)
[2020-11-20] MEDS ORDERED: ATROPINE OPHTH SOLN 1% 5ML BTL SUBLINGUAL PRN (09:59)
[2020-11-20] MEDS ORDERED: MORPHINE SULFATE 4 MG/ML SYRINGE IVP ONE (09:59)
[2020-11-20] MEDS ORDERED: HALOPERIDOL LACTATE 5 MG/ML 1 ML VIAL IM PRN (09:59)
[2020-11-20] MEDS ORDERED: SCOPOLAMINE 1.5MG/72HR PATCH TRANSDERM SCH (10:30)
[2020-11-20] MEDS: MORPHINE SULFATE (100 MG/2 ML) 100 MG in SODIUM CHLORIDE 0.9% 100 ML IV SCH (12:55)
[2020-11-20] MEDS ORDERED: GLYCOPYRROLATE 0.2 MG/ML 2 ML VIAL IVP PRN (15:35)
--- NOTE | 2020-11-20 20:12 | PN ---
PROGRESS NOTE DATE OF SERVICE: 11/20/2020. CHIEF COMPLAINT: End-stage Covid-19 pneumonia. HISTORY OF PRESENT ILLNESS: This gentleman is fairly well sedated and not arousable. At times, he becomes agitated and seems to be struggling. PHYSICAL EXAMINATION: Breath sounds are extremely poor and they are shallow. Bilateral rales. Cardiac exam demonstrates sinus rhythm and he is becoming progressively more dehydrated. IMPRESSION: 1. Covid pneumonia with terminal respiratory failure. 2. Delirium with agitation. PLAN: Crawford morphine drip and Ativan every 4 hours. MMODL / IJN: [id number] /
[2020-11-21] MEDS: LORazepam 2 MG/ML INJ IV PRN (00:36)
[2020-11-21 04:04] VITALS: BP 85/55; PULSE 126; TEMP 98.6
[2020-11-21] MEDS: MORPHINE SULFATE (100 MG/2 ML) 100 MG in SODIUM CHLORIDE 0.9% 100 ML IV SCH ×2 (04:31→13:27)
--- NOTE | 2020-11-21 10:37 | CDI ---
Documentation Clarification Form Date: 11/21/2020 10:01:33 AM From: Yamini Tang RN CCDS Admit Date: 11/11/2020 10:35:00 AM Patient Name: Garcia Galdamez Visit Number: [id number] Discharge Date: ATTENTION: The Clinical Documentation Specialists (CDI) and [facility] Coding Staff appreciate your assistance in clarifying documentation. Please respond to the clarification below the line at the bottom and electronically sign. The CDI & [facility] Coding staff will review the response and follow-up if needed. Please note: Queries are made part of the Legal Health Record. If you have any questions, please contact the author of this message via ITS. Dr. Bal Tobias The Registered Dietitian assessment on 11/20 indicates this patient is under weight. Based on this information and the findings below, is there an additional diagnosis that is clinically appropriate for this patient? History/Risk Factors: 75-year-old male who resides in a shelter presents to the ED with increased weakness and difficulty ambulating. ED note 11/06. Medical History: CVA, HLD, HTN, Hypothyroidism and Manic Depression. Clinical Indicators: Current BMI: 19.8 Nutritional Assessment 11/20 Nutrition Intake: Poor; Percent Consumed: 0-25%; Pureed, bites of applesauce and pudding. Appetite Poor. Physical Findings: Underweight. Anthropometrics: 68kg 6ft 1inch, Parsons body weight 83.6 kg. Estimated Nutritional Parsons Body Weight Energy Formula 25-30 Kcals/Kg; Energy Needs Kcal: 4631-0630 Nutritional Diagnosis: Inadequate oral intake. Related to COVID, decreased appetite. Treatment: Dietary Consult: See Nutritional Assessment above Supplements: 11/15 Ensure Compact TID Other: 11/15 Monitor PO intake and supplement intake. Please clarify the type of malnutrition, if known: [ ] Moderate Protein-Calorie Malnutrition [ ] Severe Protein-Calorie Malnutrition [ ] Other condition, please specify [ ] Unable to Determine (Template Last Revised: August 2020) MTDD
--- NOTE | 2020-11-21 11:22 | CDI ---
Documentation Clarification Form Date: 11/21/2020 10:39:03 AM From: Yamini Tang RN CCDS Admit Date: 11/11/2020 10:35:00 AM Patient Name: Garcia Gadlamez Visit Number: [id number] Discharge Date: ATTENTION: The Clinical Documentation Specialists (CDI) and [facility] Coding Staff appreciate your assistance in clarifying documentation. Please respond to the clarification below the line at the bottom and electronically sign. The CDI & [facility] Coding staff will review the response and follow-up if needed. Please note: Queries are made part of the Legal Health Record. If you have any questions, please contact the author of this message via ITS. Dr. Bal Gould coccyx pressure ulcer is documented by Nursing November 16, in Pressure Ulcer Injury Assessment. Based on this information and the findings below, is there an additional diagnosis that is clinically appropriate for this patient? History/Risk Factors: 75-year-old male who resides in a senior living presents to the ED with increased weakness and difficulty ambulating. ED note 11/06. Medical History: CVA, HLD, HTN, Hypothyroidism and Manic Depression. Clinical Indicators: Location: Coccyx Wound description: Stage II Treatment: 11/16 Foam with border; 11/20 Absorbent under pad Turn Two Q Hours. Is there an additional diagnosis that is clinically appropriate for this patient? [ ] Coccyx Pressure Ulcer Stage 1 [ ] Coccyx Pressure Ulcer Stage 2 [ ] Other condition, please specify [ ] Unable to determine Clinical Definitions: Stage 1 Pressure Ulcer: intact skin, non-blanching redness of local area Stage 2 Pressure Ulcer: Partial thickness, loss of dermis, pink wound bed Stage 3 Pressure Ulcer: Full thickness tissue loss Stage 4 Pressure Ulcer: Full thickness tissue loss with exposed bone, tendon, or muscle. Unstageable pressure ulcer: Full thickness tissue loss in which the base of the ulcer is covered by slough (yellow, zabala, lin, green or brown) and/or eschar (zabala, brown or black) in the wound bed. (Template Last Revised: August 2020) DOMINIC
[2020-11-21 15:25] VITALS: RESP 12
--- NOTE | 2020-11-21 18:59 | PN ---
PROGRESS NOTE CHIEF COMPLAINT: Covid pneumonia. HISTORY OF PRESENT ILLNESS: This gentleman remains comatose and respirations are extremely shallow now. He is receiving IV morphine and Ativan. PHYSICAL EXAMINATION: He is dehydrated. Breath sounds are faint on both sides and shallow. Cardiac exam is unchanged. IMPRESSION: Covid pneumonia with respiratory failure. PLAN: Continue with comfort measures. MIKI / CHERYLN: [id number] /
--- NOTE | 2020-11-23 07:56 | MISC ---
MISCELLANOUS REPORT Coccyx pressure, unable to determine. MMODL / IJN: [id number] /
--- NOTE | 2020-11-23 07:56 | MISC ---
MISCELLANOUS REPORT QUERY: Severe protein-calorie malnutrition. MMODL / IJN: [id number] /
--- NOTE | 2020-11-25 09:22 | CDI ---
Documentation Clarification Form Date: 11/25/2020 09:08:30 AM From: Maryann Stephens CCS, CCDS Admit Date: 11/11/2020 10:35:00 AM Patient Name: Garcia Galdamez Visit Number: [id number] Discharge Date: 11/21/2020 11:00:00 PM ATTENTION: The Clinical Documentation Specialists (CDI) and [facility] Coding Staff appreciate your assistance in clarifying documentation. Please respond to the clarification below the line at the bottom and electronically sign. The CDI & [facility] Coding staff will review the response and follow-up if needed. Please note: Queries are made part of the Legal Health Record. If you have any questions, please contact the author of this message via ITS. Dr. Bal Tobias: Renal Failure is documented 10/25 Attending Physician Progress Note without further specificity. Additional clarification regarding the acuity of renal failure is requested. History/Risk Factors per the 11/06 ED Note and the 11/07 H/P: CVA with aphasia and slurred speech, Hyperlipidemia, Hypertension, Hypothyroidism, Skin Cancer on Face & Scalp, Manic depressive, Schizophrenia. Former Smoker. Clinical Indicators: Presented to the ED on 11/06 from an Assisted Living Facility with weakness and difficulty ambulating. Clinical Impression: Dehydration, Altered Mental Status, Generalized Weakness 11/07 H/P Impression: Lower extremity stiffness & muscle spasm, etiology unknown, COVID 19 infection. 11/11 Attending Progress Note: Fever, undetermined etiology, COVID 19, Possible right side pneumonitis. Patients baseline/prior BUN/CR/GFR: Unknown, Nephrology was not consulted. 11/06 BUN/Cr/GFR: 26 - 1.45 - 47. 11/12 BUN/Cr/GFR: 42 - 1.68 - 40 11/18 BUN/Cr/GFR: 32 - 1.19 - 60 Treatment 11/06: IV Na Cl 1,000 mls @ 75 mls/hr q13H, po Tylenol 650 mg q6H 11/10: IV Tylenol, I Zosyn, IV Cogentin, IV Decadron, Lovenox sq 11/12: IV Heparin drip, IV Cardizem Please clarify the acuity of renal failure, if known: [ ] Acute Renal Failure (specify cause if known) [ ] Chronic renal failure (specify stage if known) [ ] Acute on Chronic Renal Failure (specify stage of CKD if known) [ ] Renal Failure ruled out [ ] Other, please specify [ ] Unable to determine (Template Last Revised: August 2020) MTDD
--- NOTE | 2020-11-25 22:30 | DS ---
DISCHARGE SUMMARY CHIEF COMPLAINT: Shortness of breath and delirium. HISTORY OF PRESENT ILLNESS AND PHYSICAL EXAMINATION: Details of this man's history and physical can be found in the initial workup. LABORATORY STUDIES: While he was in the hospital, he had laboratory studies, details of which can be found in the laboratory section of his chart. COURSE IN THE HOSPITAL: After admission, he was placed on bedrest, started on intravenous fluids and nasal O2. He was Covid positive. Initially he did fairly well, but then his pulse ox started to drop and his FiO2 had to be increased. He began to run low-grade fevers. He was managed by Pulmonology and continued to deteriorate. High-flow nasal O2 was added along with a rebreather. He became more tachypneic, he became less responsive. Efforts to determine end of life care was complicated by the fact that he had a DPOA, but not for medical affairs. He had 2 sons who he had not seen for years. One indicated that he could be placed on hospice, but the other demurred. He was continued on comfort measures and toward the end, was started on a morphine drip and Ativan and he on November 22. FINAL DIAGNOSES: 1. COVID pneumonia. 2. Schizophrenia. OPERATIONS: None. CONSULTATIONS: Pulmonology. He is not improved. He . MMODL / CHERYLN: [id number] /
--- NOTE | 2020-11-25 22:53 | MISC ---
MISCELLANOUS REPORT Acute on chronic renal failure stage IV. MMODL / IJN: [id number] /
== END 2020-11-21 23:00 | disposition expired | DRG 177 ==
LOC: EC 14:55 → 4SSUR 19:56 → OBSVTOIN 11-11 10:35 → 3SCARD 11-12 13:53 → 4SSUR 11-14 22:45
PROVIDERS: ADMIT Family Medicine; ATTEND Family Medicine
PROC: 5A0955A Assistance with Respiratory Ventilation, Greater than 96 Consecutive Hours, High Flow/Velocity Cannula (ICD-10-PCS; principal; 2020-11-14)
DX: U07.1 COVID-19 (principal); J12.82 Pneumonia due to coronavirus disease 2019; J69.0 Pneumonitis due to inhalation of food and vomit; J96.01 Acute respiratory failure with hypoxia; G93.41 Metabolic encephalopathy; E43 Unspecified severe protein-calorie malnutrition; F31.30 Bipolar disorder, current episode depressed, mild or moderate severity, unspecified; I69.351 Hemiplegia and hemiparesis following cerebral infarction affecting right dominant side; E87.0 Hyperosmolality and hypernatremia; J90 Pleural effusion, not elsewhere classified; Z68.1 Body mass index [BMI] 19.9 or less, adult; N17.9 Acute kidney failure, unspecified; M62.838 Other muscle spasm; Z66 Do not resuscitate; F20.9 Schizophrenia, unspecified; Z51.5 Encounter for palliative care; I48.0 Paroxysmal atrial fibrillation; R00.0 Tachycardia, unspecified; E03.9 Hypothyroidism, unspecified; E78.5 Hyperlipidemia, unspecified; N19 Unspecified kidney failure; Z83.3 Family history of diabetes mellitus; E86.0 Dehydration; N18.4 Chronic kidney disease, stage 4 (severe); I12.9 Hypertensive chronic kidney disease with stage 1 through stage 4 chronic kidney disease, or unspecified chronic kidney disease; I69.320 Aphasia following cerebral infarction; Z74.01 Bed confinement status; Z79.890 Hormone replacement therapy; R45.1 Restlessness and agitation; F41.9 Anxiety disorder, unspecified; G24.9 Dystonia, unspecified; I71.2 Thoracic aortic aneurysm, without rupture; M19.90 Unspecified osteoarthritis, unspecified site; R13.10 Dysphagia, unspecified; Z79.02 Long term (current) use of antithrombotics/antiplatelets; Z87.891 Personal history of nicotine dependence; Z79.899 Other long term (current) drug therapy; L89.150 Pressure ulcer of sacral region, unstageable; T43.595A Adverse effect of other antipsychotics and neuroleptics, initial encounter; C44.300 Unspecified malignant neoplasm of skin of unspecified part of face; Z90.49 Acquired absence of other specified parts of digestive tract; Z98.890 Other specified postprocedural states; Z80.9 Family history of malignant neoplasm, unspecified; Z81.8 Family history of other mental and behavioral disorders
CPT/HCPCS: 36415; 70450; 71045; 71046; 71260; 72131; 80048; 80053; 81003; 82607; 82746; 83605; 83615; 83735; 84439; 84443; 84484; 85025; 85027; 85379; 85610; 85730; 86140; 87040; 87635; 93005; 93306; 94760